=== PATIENT | female | born 1930 | race Two or more races ===

== ENCOUNTER 2016-09-23 17:28 | Inpatient (IN) | payer MEDICARE, OTHER ==
[~2016-09-23] VITALS: Ht 157.5 cm; Wt 68.0 kg
[~2016-09-23 17:28] MED LIST: ADALAT CC30 MG ORAL; ASPIR 8181 MG ORAL; BUSPAR10 MG PO; BYSTOLIC10 MG ORAL; CLONIDINE 0.2M0.2 MG PO; DEXILANT60 MG ORAL; FLONASE1 SPRAYS; LEVOTHYROXINE50 MCG ORAL; LYRICA50 MG ORAL; RESTASIS1 EACH BOTH EYES; SERTRALINE HCL50 MG PO
[2016-09-23 18:01] VITALS: BP 172/52
[2016-09-23] MEDS ORDERED: Morphine Sulfate 2mg/ml Inj IVP ONE (18:15)
[2016-09-23 19:32] LABS: MEAN CORPUSCULAR HEMOGLOBIN 29.1 PG (27.0-31.0); MEAN CORPUSCULAR VOLUME 91 FL (80-99); RED BLOOD COUNT 4.05 M/UL (4.20-5.40); WHITE BLOOD COUNT 10.5 K/UL (4.8-10.8)
[2016-09-23 19:33] LABS: MEAN PLATELET VOLUME 6.4 FL (6.5-10.1); PLATELET COUNT 279 K/UL (150-450); RED CELL DISTRIBUTION WIDTH 12.5 % (11.6-14.8)
[2016-09-23 19:55] LABS: TROPONIN I < 0.30 ng/mL (<=0.30)
[2016-09-23 19:56] LABS: CHLORIDE 99 mEQ/L (98-107); POTASSIUM 4.1 mEQ/L (3.4-4.9); SODIUM 141 mEQ/L (135-145)
[2016-09-23 19:57] LABS: ALANINE AMINOTRANSFERASE 108 U/L (3-33); ANION GAP 22 (5-15); ASPARTATE AMINO TRANSFERASE 283 U/L (5-40); CALCIUM 9.3 mg/dL (8.6-10.2); CARBON DIOXIDE 20 mEQ/L (20-30); CREATININE 2.4 mg/dL (0.5-0.9); TOTAL PROTEIN 7.9 g/dL (6.6-8.7)
[2016-09-23 19:58] LABS: ALBUMIN/GLOBULIN RATIO 0.9 (1.0-2.7); HEMOLYSIS 23
[2016-09-23 20:21] LABS: BILIRUBIN,DIRECT 1.1 mg/dL (0.1-0.3)
[2016-09-23 20:23] LABS: LIPASE 2831 U/L (< 60)
[2016-09-23 20:49] VITALS: BP 143/58
--- NOTE | 2016-09-23 21:48 | Emergency Room Report ---
History of Present Illness General Chief Complaint: Abdominal Pain Source: Patient Present Illness HPI 86 YOF with generalized abd pain, nausea/vomiting, dizziness. Denies diarrhea, fever/chills. History of HTN. She is unsure on previous abd/pelvic surgery. Allergies: Coded Allergies: No Known Allergies (Unverified , 12/23/12) Patient History Past Medical History: HTN Past Surgical History: unable to obtain Pertinent Family History: unable to obtain Social History: Reports: alcohol use, drug use, smoking Now: No Immunizations: UTD Reviewed Nursing Documentation: PMH: Agreed, PSxH: Agreed Nursing Documentation-PMH Hx Hypertension: Yes Review of Systems All Other Systems: negative except mentioned in HPI Physical Exam Vital Signs Date Time Temp Pulse Resp B/P Pulse Ox O2 Delivery O2 Flow Rate FiO2 09/23/16 17:51 99.9 82 17 172/52 94 Room Air Sp02 EP Interpretation: reviewed, abnormal General Appearance: normal inspection, well appearing, alert, GCS 15, non-toxic , mild distress, obese Head: normocephalic, atraumatic Eyes: bilateral eye EOMI, bilateral eye PERRL ENT: normal ENT inspection, hearing grossly normal, normal voice Neck: normal inspection, full range of motion, supple, no bony tend Respiratory: normal inspection, lungs clear, normal breath sounds, no respiratory distress, no retraction, no wheezing Cardiovascular #1: regular rate, rhythm, no edema Gastrointestinal: normal inspection, normal bowel sounds, soft, no guarding, no hernia, other - epigastric ttp Genitourinary: no CVA tenderness Musculoskeletal: normal inspection, back normal, normal range of motion, Cipriano' s Sign negative Neurologic: normal inspection, alert, oriented x3, responsive, switchboard manager III-XII nml as tested, motor strength/tone normal, speech normal Psychiatric: normal inspection Skin: normal inspection Lymphatic: normal inspection Medical Decision Making Medicare Attestation I Sonu Granado MD hereby attest that the medical record entry for date of service, 06/16/16 accurately reflects signatures/notations that I made in my capacity as MD when I treated/diagnosed the above listed Medicare beneficiary. I attest that this information is true, accurate and complete to the best of my knowledge. I understand that any falsification, omission, or concealment of material fact may subject me to administrative, civil, or criminal liability. This patient warrants hospital admission for extreme of age and has a condition that cannot be treated as outpatient. Diagnostic Impression: Primary Impression: Abdominal pain Qualified Codes: R10.84 - Generalized abdominal pain Additional Impressions: Common bile duct (CBD) obstruction Pancreatitis Qualified Codes: K85.90 - Acute pancreatitis without necrosis or infection, unspecified GI (acute kidney injury) ER Course Labs: Elevated LFTs. Very elevated lipase CTAP with CBD stone and focal head pancreatitis No fever/leuks No falguni-chol fluid orGB wall thickening. Unlikely assoc cholecystitis but empiric Abx also given Endorsed to Dr Fay for med/surg admission at 945pm Recommended GI consult for MRCP/ECRP EKG Diagnostic Results Rate: normal Rhythm: NSR ST Segments: no acute changes ASA given to the pt in ED: No Rhythm Strip Diag. Results EP Interpretation: yes Rate: 81 Rhythm: NSR, no PVC's, no ectopy Last Vital Signs Date Time Temp Pulse Resp B/P Pulse Ox O2 Delivery O2 Flow Rate FiO2 09/23/16 20:49 99.9 78 17 143/58 94 Room Air Status: improved Disposition: ADMITTED INPATIENT Referrals: ANNELISE FAY (PCP) SONU GRANADO M.D. Sep 23, 2016 21:48
[2016-09-23] MEDS ORDERED: Morphine Sulfate 4mg/ml Inj IVP ONE (22:15)
[2016-09-23 23:14] VITALS: BP 107/37
[2016-09-24] VITALS: BP 109/43
[2016-09-24 04:00] VITALS: BP 98/59
[2016-09-24] MEDS: cloNIDine 0.2mg Tab ORAL SCH ×3 (06:56→22:00)
[2016-09-24] MEDS: Morphine Sulfate 2mg/ml Inj IVP PRN ×2 (07:04→14:43)
[2016-09-24 08:39] LABS: LIPASE > 3000 U/L (< 60)
[2016-09-24 08:41] LABS: AMYLASE 2444 U/L (10-110)
[2016-09-24] MEDS ORDERED: BusPIRone 10mg Tab ORAL SCH (09:00)
[2016-09-24] MEDS ORDERED: Aspirin EC 81mg tab ORAL SCH (09:00)
[2016-09-24] MEDS: Sertraline 50mg tab ORAL SCH (09:54)
[2016-09-24] MEDS: Lyrica 50mg cap ORAL SCH (09:55)
[2016-09-24 11:32] VITALS: BP 112/55
--- NOTE | 2016-09-24 12:01 | Diagnostic Imaging Report ---
Indication: Abdominal pain Technique: Spiral acquisitions obtained through the abdomen and pelvis. No oral contrast utilized, per emergency room physician request No IV contrast utilized, per referring physician request.. Multiplanar reconstructions were generated. Total dose length product 114 mGycm. CTDIvol(s) 15 mGy Comparison: 06/28/2012 Findings: There is equivocal slight edema of the pancreas and slight infiltration of the peripancreatic fat. Prominent peripancreatic lymph nodes are again demonstrated. There is considerable distention of the gallbladder. The gallbladder wall is mildly thickened, although there is no pericholecystic edema. Gallstones are seen in the gallbladder lumen. The extrahepatic and central intrahepatic bile ducts are considerably dilated, with the common bile duct measuring approximately 13 mm diameter.. It is slightly more dilated than on the prior study, and the gallbladder is more distended. There is questionably a small calcific density at the level of the distal common bile duct. There is what appears to be a cystic mass of the posterior pancreatic uncinate. However, prior CT with oral contrast indicated this is a large unusual duodenal diverticulum. The appendix contains an appendicolith, but it is normal in caliber and demonstrates no evidence of appendicitis. There is colonic diverticulosis. No evidence of diverticulitis. No small bowel distention. The distal esophagus is gas filled, otherwise unremarkable. The stomach is unremarkable. Lack of IV contrast limits assessment of the other solid organs. Liver demonstrates multiple cysts, also previously demonstrated. The spleen is unremarkable. The adrenals are unremarkable. The kidneys again demonstrate multiple cysts. No mesenteric or retroperitoneal mass or adenopathy. No pelvic mass or adenopathy. The uterus is absent, presumably postsurgically. There are degenerative changes of the lumbar spine. There is extensive bilateral basilar pulmonary parenchymal disease. Presence of bronchiectasis indicates that there is probably a significant component of chronic fibrosis, but acute infiltrates and atelectasis are also a possibility. There is a tiny fat-containing Bochdalek hernia on the left. The heart is enlarged Impression: Distended gallbladder with stones. Dilated common bile duct. The biliary ductal dilatation may be chronic and baseline for this patient, as it was present previously, but the degree of dilatation has increased. In addition, there is a small calcific density now projected in the distal common bile duct which could represent a small common bile duct stone which may be causing the biliary ductal dilatation. Gallbladder wall thickening could indicate acute cholecystitis. Correlate with liver function tests, and consider hepatobiliary nuclear scan for further evaluation Mild infiltration of the peripancreatic fat, in particular the region of the pancreatic head. This could indicate acute pancreatitis. Orally with laboratory findings Bilateral basilar pulmonary parenchymal disease. Associated bronchiectasis suggests a significant component of chronic fibrosis, but acute infiltrates and atelectasis also a possibility. Unusual large duodenal diverticulum Diverticulosis. No evidence of diverticulitis Multiple bilateral renal cysts Cardiomegaly Other findings as noted, including degenerative lumbar spondylosis, tiny fat-containing left Bochdalek hernia, hepatic cysts, degenerative spondylosis This agrees with the preliminary interpretation provided overnight by Dr. Wiseman The CT scanner at [facility] is accredited by the [employer] and the scans are performed using protocols designed to limit radiation exposure to as low as reasonably achievable to attain images of sufficient resolution adequate for diagnostic evaluation.
--- NOTE | 2016-09-24 14:28 | History and Physical Report ---
DATE OF ADMISSION: 09/23/2016 REASON FOR ADMISSION: Gallstone pancreatitis. HISTORY OF PRESENT ILLNESS: This is an 86-year-old female well known to me, who presents with worsening abdominal pain, nausea and vomiting. The patient is seen and evaluated in the emergency room and was noted to have a common bile duct obstruction due to acute pancreatitis. The patient is now admitted for pain relief and possible further intervention. The patient still complains of abdominal discomfort. She denies any diarrhea. No fevers or chills. The patient has had nausea, vomiting and dizziness PAST MEDICAL HISTORY: Notable for chronic migraines, hypertension, chronic renal insufficiency, arthritis, cervical radiculopathy, hypothyroidism, and hypertensive heart disease. MEDICATIONS: Reviewed. ALLERGIES: Reviewed. SOCIAL HISTORY: Lives with her daughter. Nonsmoker and nondrinker. Still ambulatory. FAMILY HISTORY: Noncontributory. REVIEW OF SYSTEMS: Otherwise as noted above. PHYSICAL EXAMINATION: GENERAL: A well developed female, comfortable at present, but still having slight abdominal pain. VITAL SIGNS: Blood pressure 109/43, saturation 94% on two liters, pulse 80, respirations 20, and temperature 99.3 degrees. HEENT: Fairly negative. Extraocular movements are grossly intact. Oropharynx is moist. LUNGS: Clear. No rhonchi or wheezes. CARDIAC: RRR No murmurs. No rubs. ABDOMEN: Soft, but tender in the right upper quadrant with no hepatosplenomegaly. EXTREMITIES: No cyanosis or clubbing. No edema. NEUROLOGIC: Nonfocal. Alert and oriented x3. SKIN: Noted. LABORATORY AND DIAGNOSTIC DATA: Lab data reviewed. White count is 10, hemoglobin 11.8, hematocrit 36, and platelets are 279,000. Chemistry, BUN 30, creatinine 2.4. The liver enzymes are elevated, which is acute and has changed. Lipase is 2831. IMPRESSION: 1. Gallstone pancreatitis. 2. Obstructive hepatopathy. 3. Chronic renal failure. 4. Hypertension. 5. Abdominal pain. 6. Mild anemia. RECOMMENDATIONS: NPO status. Resume home medications. IV hydration. Pain control. GI evaluation. The patient may need an MRCP. We will follow clinically and recommend. Follow up amylase and lipase this morning and await for GI recommendations. Anjel Fay M.D. DR: Irvin JOB#: [id number] CC: JOSE
[2016-09-24 16:00] VITALS: BP 91/40
[2016-09-24 17:05] VITALS: BP 99/51
[2016-09-24 19:00] VITALS: BP 96/45
--- NOTE | 2016-09-24 19:44 | General Progress Note ---
Assessment/Plan Assessment/Plan GI Consult - dictated Toribio Subjective Allergies: Coded Allergies: No Known Allergies (Unverified , 12/23/12) Objective Last 24 Hour Vital Signs Date Time Temp Pulse Resp B/P Pulse Ox O2 Delivery O2 Flow Rate FiO2 09/24/16 17:05 99/51 09/24/16 16:00 97.3 67 20 91/40 84 Room Air 09/24/16 15:13 98.3 09/24/16 14:38 108/48 09/24/16 11:32 98.3 68 21 112/55 96 Nasal Cannula 2.0 09/24/16 09:55 70 119/55 09/24/16 06:56 98/59 09/24/16 04:00 98.6 72 20 98/59 96 Nasal Cannula 2.0 09/24/16 00:00 99.3 80 20 109/43 94 Nasal Cannula 2.0 09/23/16 23:41 99.3 09/23/16 23:20 80 16 107/37 100 Room Air 09/23/16 23:14 99.9 85 17 107/37 100 Nasal Cannula 2.0 09/23/16 20:49 99.9 78 17 143/58 94 Room Air Intake and Output 09/23/16 09/24/16 19:00 07:00 Intake Total 400 ml Balance 400 ml Intake Oral 300 ml IV Total 100 ml # Voids 2 Laboratory Tests 09/24/16 06:51: Amylase Level 2444*H, Lipase > 3000H Height (Feet): 5 Height (Inches): 2.00 Weight (Pounds): 150 HANS PIERSON Sep 24, 2016 19:44
[2016-09-24] MEDS ORDERED: NS 250 ML IVPB ONE (20:10)
[2016-09-24 20:41] LABS: MEAN CORPUSCULAR HEMOGLOBIN 28.5 PG (27.0-31.0); MEAN CORPUSCULAR HGB CONC 31.3 G/DL (32.0-36.0); MEAN CORPUSCULAR VOLUME 91 FL (80-99); MEAN PLATELET VOLUME 6.2 FL (6.5-10.1); PLATELET COUNT 199 K/UL (150-450); RED BLOOD COUNT 3.17 M/UL (4.20-5.40); WHITE BLOOD COUNT 12.7 K/UL (4.8-10.8)
[2016-09-24 20:45] LABS: INR 1.2 (0.9-1.1)
[2016-09-24 20:58] LABS: ALANINE AMINOTRANSFERASE 64 U/L (3-33); ALBUMIN/GLOBULIN RATIO 1.2 (1.0-2.7); ANION GAP 18 (5-15); ASPARTATE AMINO TRANSFERASE 93 U/L (5-40); CALCIUM 8.2 mg/dL (8.6-10.2); CARBON DIOXIDE 21 mEQ/L (20-30); CHLORIDE 97 mEQ/L (98-107); CREATININE 3.2 mg/dL (0.5-0.9); HEMOLYSIS 5; POTASSIUM 5.3 mEQ/L (3.4-4.9); SODIUM 136 mEQ/L (135-145); TOTAL PROTEIN 5.8 g/dL (6.6-8.7)
[2016-09-24 21:20] LABS: BILIRUBIN,DIRECT 1.6 mg/dL (0.1-0.3)
[2016-09-24 22:08] LABS: ANISOCYTOSIS 1+; BAND NEUTROPHILS % (MANUAL) 4 % (0-8); BASOPHILS % (MANUAL) 0 % (0-2); EOSINOPHILS % (MANUAL) 1 % (0-3); HYPOCHROMASIA 1+; LYMPHOCYTES % (MANUAL) 9 % (20-45); NEUTROPHILS % (MANUAL) 79 % (45-75); PLATELET ESTIMATE ADEQUATE; PLATELET MORPHOLOGY NORMAL; TOTAL CELLS COUNTED 100
[2016-09-25] VITALS (11 sets, daily range): BP systolic 96–131; BP diastolic 46–63
--- NOTE | 2016-09-25 03:38 | Consultation ---
DATE OF CONSULTATION: 09/24/2016 GASTROENTEROLOGY CONSULTATION CHIEF COMPLAINT: I was asked to see this patient by Dr. Anjel Fay for pancreatitis. HISTORY OF PRESENT ILLNESS: The patient is a pleasant 86-year-old woman who has had abdominal pain for the past two weeks associated with eating. Over the past two days, the patient had been vomiting and came to the emergency room, where she was found to have pancreatitis. Imaging studies of the CT scan showed a calcified density in distal common bile duct suspicious for choledocholithiasis. In addition, she had biliary ductal dilatation. Her liver tests are elevated and her creatinine kinase is markedly elevated. She will be kept NPO overnight with intravenous fluids. PAST MEDICAL HISTORY: History of chronic migraines, hypertension, chronic renal insufficiency, arthritis, cervical radiculopathy, hypothyroidism, and hypertension. MEDICATIONS: See chart list for details. ALLERGIES: None. FAMILY HISTORY: Noncontributory. SOCIAL HISTORY: The patient lives with her daughter. She does not smoke or drink alcohol. She is ambulatory. REVIEW OF SYSTEMS: Otherwise negative. PHYSICAL EXAMINATION: GENERAL: A pleasant woman, seen in her room with family at bedside. HEENT: Normocephalic and atraumatic. Sclerae are anicteric. Oropharynx is clear. NECK: Supple. CHEST: Clear to auscultation. CARDIOVASCULAR: Revealed a regular rate. ABDOMEN: Soft with some epigastric tenderness to palpation without guarding or rebound. EXTREMITIES: No edema. LABORATORY DATA: Noted. ASSESSMENT: This patient has acute gallstone pancreatitis with recurrence of gallstone in the distal common bile duct. The patient should be kept NPO with intravenous fluids. I have discussed the patient's case with Dr. Castillo, who will schedule the patient for an endoscopic retrograde cholangiopancreatography examination tomorrow. The procedure will likely involve sphincterotomy and stone extraction. Indications, risks, alternatives, and complications were explained to the family. In the meantime, the patient's intravenous fluids will be increased since her blood pressure appears to be borderline. Her aspirin will also be held. RECOMMENDATIONS: Per above discussion and per orders written in the chart. Thank you for asking me to participate in the care of this patient. Tracy Rooney M.D. DR: REFUGIO JOB#: [id number] CC:
[2016-09-25] MEDS: cloNIDine 0.2mg Tab ORAL SCH ×3 (06:00→22:00)
[2016-09-25 07:26] LABS: BASOPHILS % (AUTO) 0.6 % (0.0-2.0); EOSINOPHILS % (AUTO) 1.3 % (0.0-3.0); LYMPHOCYTES % (AUTO) 9.4 % (20.0-45.0); MEAN CORPUSCULAR HEMOGLOBIN 29.7 PG (27.0-31.0); MEAN CORPUSCULAR HGB CONC 32.4 G/DL (32.0-36.0); MEAN CORPUSCULAR VOLUME 92 FL (80-99); MEAN PLATELET VOLUME 6.8 FL (6.5-10.1); MONOCYTES % (AUTO) 5.1 % (1.0-10.0); NEUTROPHILS % (AUTO) 83.6 % (45.0-75.0); PLATELET COUNT 219 K/UL (150-450); RED BLOOD COUNT 3.11 M/UL (4.20-5.40); RED CELL DISTRIBUTION WIDTH 13.1 % (11.6-14.8); WHITE BLOOD COUNT 12.6 K/UL (4.8-10.8)
[2016-09-25 07:49] LABS: AMYLASE 435 U/L (10-110); LIPASE 229 U/L (< 60)
[2016-09-25 08:04] LABS: ALANINE AMINOTRANSFERASE 49 U/L (3-33); ALBUMIN/GLOBULIN RATIO 0.8 (1.0-2.7); ANION GAP 18 (5-15); ASPARTATE AMINO TRANSFERASE 63 U/L (5-40); CALCIUM 8.3 mg/dL (8.6-10.2); CARBON DIOXIDE 21 mEQ/L (20-30); CHLORIDE 101 mEQ/L (98-107); CREATININE 3.8 mg/dL (0.5-0.9); HEMOLYSIS 3; POTASSIUM 5.2 mEQ/L (3.4-4.9); SODIUM 140 mEQ/L (135-145); TOTAL PROTEIN 6.1 g/dL (6.6-8.7)
--- NOTE | 2016-09-25 08:29 | Anethesia Preoperative Eval ---
Anesthesia Pre-op PMH/ROS General Date of Evaluation: Sep 25, 2016 Anesthesiologist: Simeon ASA Score: ASA 3 Mallampati Score Class I : Soft palate, uvula, fauces, pillars visible Class II: Soft palate, uvula, fauces visible Class III: Soft palate, base of uvula visible Class IV: Only hard plate visible Mallampati Classification: Class II Surgeon: Jonathan Diagnosis: Pancreatitis Surgical Procedure: ERCP Anesthesia History: none Family History: no anesthesia problems Allergies: Coded Allergies: No Known Allergies (Unverified , 12/23/12) Medications: see eMAR Past Medical History Cardiovascular: Reports: CAD, HTN, Denies: IN, arrhythmia, other, valve dz Pulmonary: Denies: COPD, KATARINA, asthma, other Gastrointestinal/Genitourinary: Reports: CRI, other - pancreatitis, Denies: ESRD, GERD Neurologic/Psychiatric: Reports: other - migraines, Denies: CVA, TIA, dementia, depression/anxiety Endocrine: Reports: hypothyroidism, Denies: DM, other, steroids HEENT: Denies: [place] (L), [place] (R), cataract (L), cataract (R), glaucoma, other Hematology/Immune: Denies: DVT, anemia, bleeding disorder, other Musculoskeletal/Integumentary: Reports: OA, other - cervical radiculopathy, Denies: DDD, DJD, RA, edema Anesthesia Pre-op Phys. Exam Physician Exam Last Vital Signs Date Time Temp Pulse Resp B/P Pulse Ox O2 Delivery O2 Flow Rate FiO2 09/25/16 06:21 97.3 70 20 105/54 96 Room Air 09/25/16 00:00 2.0 Constitutional: NAD Cardiovascular: RRR Respiratory: CTA Airway Exam Mallampati Score: Class II Anesthesia Pre-op A/P Labs Hematology Test 09/24/16 20:05 09/25/16 05:50 White Blood Count 12.7 K/UL (4.8-10.8) H 12.6 K/UL (4.8-10.8) H Red Blood Count 3.17 M/UL (4.20-5.40) L 3.11 M/UL (4.20-5.40) L Hemoglobin 9.0 G/DL (12.0-16.0) L 9.2 G/DL (12.0-16.0) L Hematocrit 28.8 % (37.0-47.0) L 28.5 % (37.0-47.0) L Mean Corpuscular Volume 91 FL (80-99) 92 FL (80-99) Mean Corpuscular Hemoglobin 28.5 PG (27.0-31.0) 29.7 PG (27.0-31.0) Mean Corpuscular Hemoglobin Concent 31.3 G/DL (32.0-36.0) L 32.4 G/DL (32.0-36.0) Red Cell Distribution Width 13.0 % (11.6-14.8) 13.1 % (11.6-14.8) Platelet Count 199 K/UL (150-450) 219 K/UL (150-450) Mean Platelet Volume 6.2 FL (6.5-10.1) L 6.8 FL (6.5-10.1) Neutrophils (%) (Auto) % (45.0-75.0) 83.6 % (45.0-75.0) H Lymphocytes (%) (Auto) % (20.0-45.0) 9.4 % (20.0-45.0) L Monocytes (%) (Auto) % (1.0-10.0) 5.1 % (1.0-10.0) Eosinophils (%) (Auto) % (0.0-3.0) 1.3 % (0.0-3.0) Basophils (%) (Auto) % (0.0-2.0) 0.6 % (0.0-2.0) Differential Total Cells Counted 100 Neutrophils % (Manual) 79 % (45-75) H Lymphocytes % (Manual) 9 % (20-45) L Monocytes % (Manual) 7 % (1-10) Eosinophils % (Manual) 1 % (0-3) Basophils % (Manual) 0 % (0-2) Band Neutrophils 4 % (0-8) Platelet Estimate Adequate Platelet Morphology Normal Hypochromasia 1+ Anisocytosis 1+ Coagulation Test 09/24/16 20:05 Prothrombin Time 12.0 SEC (9.30-11.50) H Prothromb Time International Ratio 1.2 (0.9-1.1) H Activated Partial Thromboplast Time 32 SEC (23-33) Chemistry Test 09/24/16 20:05 09/25/16 05:50 Sodium Level 136 mEQ/L (135-145) 140 mEQ/L (135-145) Potassium Level 5.3 mEQ/L (3.4-4.9) H 5.2 mEQ/L (3.4-4.9) H Chloride Level 97 mEQ/L (98-107) L 101 mEQ/L (98-107) Carbon Dioxide Level 21 mEQ/L (20-30) 21 mEQ/L (20-30) Anion Gap 18 (5-15) H 18 (5-15) H Blood Urea Nitrogen 50 mg/dL (7-23) H 59 mg/dL (7-23) H Creatinine 3.2 mg/dL (0.5-0.9) H 3.8 mg/dL (0.5-0.9) H Estimat Glomerular Filtration Rate mL/min (>60) mL/min (>60) Glucose Level 86 mg/dL (74-106) 72 mg/dL (74-106) L Calcium Level 8.2 mg/dL (8.6-10.2) L 8.3 mg/dL (8.6-10.2) L Total Bilirubin 2.8 mg/dL (0.0-1.2) H 1.4 mg/dL (0.0-1.2) H Direct Bilirubin 1.6 mg/dL (0.1-0.3) H Pending Aspartate Amino Transf (AST/SGOT) 93 U/L (5-40) H 63 U/L (5-40) H Alanine Aminotransferase (ALT/SGPT) 64 U/L (3-33) H 49 U/L (3-33) H Alkaline Phosphatase 174 U/L (35-104) H 177 U/L (35-104) H Total Protein 5.8 g/dL (6.6-8.7) L 6.1 g/dL (6.6-8.7) L Albumin 3.2 g/dL (3.5-5.2) L 2.8 g/dL (3.5-5.2) L Globulin 2.6 g/dL 3.3 g/dL Albumin/Globulin Ratio 1.2 (1.0-2.7) 0.8 (1.0-2.7) L Amylase Level 435 U/L (10-110) H Lipase 229 U/L (< 60) H Studies Pre-op Studies: EKG - sr Risk Assessment & Plan Assessment: ASA III Plan: GA Status Change Before Surgery: Yes - Patient saturating at 85-86 % on arrival to Radiology suite. Pre-Antibiotics Drug: JULIANNA ESCALONA M.D. Sep 25, 2016 08:29
[2016-09-25 08:37] LABS: BILIRUBIN,DIRECT 0.9 mg/dL (0.1-0.3)
[2016-09-25] MEDS: Lyrica 50mg cap ORAL SCH (09:00)
[2016-09-25] MEDS: Sertraline 50mg tab ORAL SCH (09:00)
--- NOTE | 2016-09-25 09:21 | General Progress Note ---
Assessment/Plan Assessment/Plan IMPRESSION: 1. Gallstone pancreatitis. 2. Obstructive hepatopathy. 3. Chronic renal failure. 4. Hypertension. 5. Abdominal pain. 6. Mild anemia. PLAN hydrate NPO MRCP likely will need maris family aware maintain home meds no diuretics impression, plan, and exam edited and reviewed in detail care discussed with RN Subjective Allergies: Coded Allergies: No Known Allergies (Unverified , 12/23/12) Subjective pain better d/w GI d/w family Objective Last 24 Hour Vital Signs Date Time Temp Pulse Resp B/P Pulse Ox O2 Delivery O2 Flow Rate FiO2 09/25/16 06:21 97.3 70 20 105/54 96 Room Air 09/25/16 06:00 105/54 09/25/16 00:00 99.5 73 20 102/46 93 Nasal Cannula 2.0 09/24/16 19:00 98.4 72 20 96/45 92 Room Air 09/24/16 17:05 99/51 09/24/16 16:00 97.3 67 20 91/40 84 Room Air 09/24/16 15:13 98.3 09/24/16 14:38 108/48 09/24/16 11:32 98.3 68 21 112/55 96 Nasal Cannula 2.0 09/24/16 09:55 70 119/55 Intake and Output 09/24/16 09/25/16 19:00 07:00 Intake Total 800 ml 875 ml Output Total 0 ml Balance 800 ml 875 ml Intake Oral 0 ml IV Total 800 ml 875 ml Output Urine Total 0 ml # Voids 1 2 Laboratory Tests 09/24/16 20:05: White Blood Count 12.7H, Red Blood Count 3.17L, Hemoglobin 9.0L, Hematocrit 28.8L, Mean Corpuscular Volume 91, Mean Corpuscular Hemoglobin 28.5, Mean Corpuscular Hemoglobin Concent 31.3L, Red Cell Distribution Width 13.0, Platelet Count 199, Mean Platelet Volume 6.2L, Neutrophils (%) (Auto) , Lymphocytes (%) (Auto) , Monocytes (%) (Auto) , Eosinophils (%) (Auto) , Basophils (%) (Auto) , Differential Total Cells Counted 100, Neutrophils % ( Manual) 79H, Lymphocytes % (Manual) 9L, Monocytes % (Manual) 7, Eosinophils % ( Manual) 1, Basophils % (Manual) 0, Band Neutrophils 4, Platelet Estimate Adequate, Platelet Morphology Normal, Hypochromasia 1+, Anisocytosis 1+, Prothrombin Time 12.0H, Prothromb Time International Ratio 1.2H, Activated Partial Thromboplast Time 32, Sodium Level 136, Potassium Level 5.3H, Chloride Level 97L, Carbon Dioxide Level 21, Anion Gap 18H, Blood Urea Nitrogen 50H, Creatinine 3.2H, Estimat Glomerular Filtration Rate , Glucose Level 86, Calcium Level 8.2L, Total Bilirubin 2.8H, Direct Bilirubin 1.6H, Aspartate Amino Transf (AST/SGOT) 93H, Alanine Aminotransferase (ALT/SGPT) 64H, Alkaline Phosphatase 174H, Total Protein 5.8L, Albumin 3.2L, Globulin 2.6, Albumin/Globulin Ratio 1.2 09/25/16 05:50: White Blood Count 12.6H, Red Blood Count 3.11L, Hemoglobin 9.2L, Hematocrit 28.5L, Mean Corpuscular Volume 92, Mean Corpuscular Hemoglobin 29.7, Mean Corpuscular Hemoglobin Concent 32.4, Red Cell Distribution Width 13.1, Platelet Count 219, Mean Platelet Volume 6.8, Neutrophils (%) (Auto) 83.6H, Lymphocytes ( %) (Auto) 9.4L, Monocytes (%) (Auto) 5.1, Eosinophils (%) (Auto) 1.3, Basophils (%) (Auto) 0.6, Sodium Level 140, Potassium Level 5.2H, Chloride Level 101, Carbon Dioxide Level 21, Anion Gap 18H, Blood Urea Nitrogen 59H, Creatinine 3.8H , Estimat Glomerular Filtration Rate , Glucose Level 72L, Calcium Level 8.3L, Total Bilirubin 1.4H, Direct Bilirubin 0.9H, Aspartate Amino Transf (AST/SGOT) 63H, Alanine Aminotransferase (ALT/SGPT) 49H, Alkaline Phosphatase 177H, Total Protein 6.1L, Albumin 2.8L, Globulin 3.3, Albumin/Globulin Ratio 0.8L, Amylase Level 435H, Lipase 229H Height (Feet): 5 Height (Inches): 2.00 Weight (Pounds): 150 Objective GENERAL: A well developed female, comfortable at present, but still having slight abdominal pain. HEENT: Fairly negative. Extraocular movements are grossly intact. Oropharynx is moist. LUNGS: Clear. No rhonchi or wheezes. CARDIAC: RRR No murmurs. No rubs. ABDOMEN: Soft, but tender in the right upper quadrant with no hepatosplenomegaly. EXTREMITIES: No cyanosis or clubbing. No edema. NEUROLOGIC: Nonfocal. Alert and oriented x3. SKIN: Noted. ANNELISE RM Sep 25, 2016 09:21
[2016-09-25] MEDS ORDERED: Iothalamate Meglumine 60% 30ML INJ ONE (12:39)
[2016-09-25] MEDS ORDERED: Indomethacin 50mg Supp ONE (12:40)
[2016-09-25] MEDS: LR 1000ml 1,000 ML IVLG SCH ×2 (12:48→14:47)
--- NOTE | 2016-09-25 12:49 | Immediate Post-Op Evaluation ---
Immediate Post-Op Evalulation Immediate Post-Op Evalulation Procedure: ERCP Date of Evaluation: Sep 25, 2016 Time of Evaluation: 14:34 IV Fluids: 1L Blood Products: 0 Estimated Blood Loss: min Urinary Output: 0 Blood Pressure Systolic: 121 Blood Pressure Diastolic: 54 Pulse Rate: 79 Respiratory Rate: 16 O2 Sat by Pulse Oximetry: 95 Temperature (Fahrenheit): 98.2 Pain Score (1-10): 0 Nausea: No Vomiting: No Complications 0 Patient Status: awake, reacts, patent, none Hydration Status: adequate Drug: N/A JULIANNA CHACON M.D. Sep 25, 2016 12:49
[2016-09-25] MEDS ORDERED: Lidocaine 1% MPF 10mg/ml 5ml ONE (12:50)
[2016-09-25] MEDS ORDERED: fentaNYL 100 mcg/2 mL IV ONE (12:50)
[2016-09-25] MEDS ORDERED: LR 1000ml ONE (12:50)
[2016-09-25] MEDS ORDERED: Midazolam 2mg/2ml Inj ONE (12:50)
[2016-09-25] MEDS ORDERED: Propofol 10mg/ml 20ml IV ONE (12:50)
[2016-09-25] MEDS ORDERED: Dexamethasone 4mg/ml vial ONE (12:50)
--- NOTE | 2016-09-25 12:50 | 48 Hour Post Anesthesia Eval ---
Post Anesthesia Evaluation Procedure: ERCP Date of Evaluation: Sep 25, 2016 Time of Evaluation: 08:45 Blood Pressure Systolic: 128 0: 54 Pulse Rate: 56 Respiratory Rate: 18 Temperature (Fahrenheit): 97.3 O2 Sat by Pulse Oximetry: 95 Airway: patent Nausea: No Vomiting: No Pain Intensity: 0 Hydration Status: adequate Cardiopulmonary Status: at baseline Mental Status/LOC: patient returned to baseline Post-Anesthesia Complications: 0 Follow-up care needed: N/A - further care as per primary team JULIANNA CHACON M.D. Sep 25, 2016 12:50
[2016-09-25] MEDS ORDERED: Midazolam 2mg/2ml Inj IVP PRN (13:00)
[2016-09-25] MEDS ORDERED: DiphenhydrAMINE 50mg/ml Inj IVP PRN (13:00)
[2016-09-25] MEDS ORDERED: fentaNYL 100 mcg/2 mL IV PRN (13:00)
[2016-09-25] MEDS ORDERED: Hydromorphone 0.5mg/0.5ml inj IVP PRN (13:00)
--- NOTE | 2016-09-25 13:01 | Pre-Procedure Note/Attestation ---
Pre-Procedure Note/Attestation Complete Prior to Procedure Planned Procedure: not applicable Procedure Narrative: ercp Indications for Procedure Pre-Operative Diagnosis: choledocholithiasis Attestation I attest that I discussed the nature of the procedure; its benefits; risks and complications; and alternatives (and the risks and benefits of such alternatives ), prior to the procedure, with the patient (or the patient's legal sales service representative). I attest that, if there was a reasonable possibility of needing a blood transfusion, the patient (or the patient's legal sales service representative) was given the [facility] standardized written summary, pursuant to the [place] Blood Safety Act ([place] Health and Safety Code # 1645, as amended). I attest that I re-evaluated the patient just prior to the surgery and that there has been no change in the patient's H&P, except as documented below: DARYL LINDSEY Sep 25, 2016 13:01
[2016-09-25] MEDS ORDERED: NS 550ML IV ONE (13:12)
[2016-09-25] MEDS ORDERED: Tubing IV Cassette IV ONE (13:12)
--- NOTE | 2016-09-25 15:12 | Endoscopy Procedure Note ---
Endoscopy Procedure Note Indication for Procedure: choledocholithiasis Procedures Performed: ERCP Operative Findings/Diagnosis: same Specimen: none Pt Tolerated Procedure Well: Yes Estimated Blood Loss: none Anesthesiologist: arely Anesthesia: MAC Implant(s) used?: No 50 yrs or older w/o bx or poly: Not Applicable 10yrs. F/U not recommended: Not Applicable DARYL LINDSEY Sep 25, 2016 15:12
--- NOTE | 2016-09-25 15:20 | Diagnostic Imaging Report ---
Indication: Dilated bile ducts, suspected choledocholithiasis on prior imaging studies Technique: Intraoperative imaging Comparison: Reference made to CT scan 09/23/2016 Findings: Opacification of the, and bile duct demonstrates dilatation of the common bile duct. Subsequent images document placement of a stone extraction catheter and a sphincterotome. Subsequent images document pneumobilia Impression: Intraoperative imaging, as described
--- NOTE | 2016-09-25 15:32 | Cardiology Report ---
APPROVED REPORT EKG Measurement Heart [id number] SD [id number] [id number] Normal sinus rhythm Normal ECG
--- NOTE | 2016-09-25 22:08 | Procedure Note ---
DATE OF PROCEDURE: 09/25/2016 SURGEON: Casimiro Castillo M.D. PROCEDURE: Endoscopic retrograde cholangiopancreatography with sphincterotomy and stone removal. ANESTHESIA: Per Dr. Skye Hendrix. INSTRUMENT: Olympus adult flexible ERCP scope. INDICATION: Choledocholithiasis. REASON FOR PROCEDURE: The procedure, risks, benefits, and possible consequences, including hemorrhage, aspiration, perforation and infection, and alternative treatments, were explained to the patient/legal guardian by Dr. Casimiro Castillo and the patient/legal guardian understood and accepted these risks. DESCRIPTION OF PROCEDURE: After informed consent was obtained and the patient was adequately sedated, ERCP scope was advanced from mouth into the second portion of the duodenum. The patient had a periampullary diverticulum. Using a sphincterotome, common bile duct was selectively cannulated. Initial cholangiogram showed dilated common bile duct to about 12 mm with at least two filling defect in the distal common bile duct. Then, over a guidewire, 95% sphincterotomy was performed. A balloon was used to sweep the duct multiple times to remove two stones and also lots of sludge from common bile duct. Post stone removal, balloon occlusion cholangiogram showed no further filling defect. The flow of contrast was excellent from common bile duct to the duodenum so no stent was placed. The patient tolerated the procedure very well without complication. SUMMARY FINDINGS: 1. Choledocholithiasis. 2. Status post endoscopic retrograde cholangiopancreatography with sphincterotomy and stone removal. RECOMMENDATIONS: 1. Start liquid diet and advance as tolerated. 2. Repeat laboratories for tomorrow. 3. Followup with the rest of the team. 4. Antibiotics. I want to thank, Dr. Rooney, for this kind referral. Casimiro Castillo M.D. DR: ARIANNE JOB#: [id number] CC: Tracy Rooney M.D.; Fax#: [phone] [facility]
[2016-09-26] VITALS: BP 132/60
[2016-09-26 04:00] VITALS: BP 129/63
[2016-09-26] MEDS: cloNIDine 0.2mg Tab ORAL SCH ×3 (06:00→21:58)
[2016-09-26 07:39] LABS: MEAN CORPUSCULAR HEMOGLOBIN 29.6 PG (27.0-31.0); MEAN CORPUSCULAR HGB CONC 31.7 G/DL (32.0-36.0); MEAN CORPUSCULAR VOLUME 93 FL (80-99); MEAN PLATELET VOLUME 7.2 FL (6.5-10.1); PLATELET COUNT 192 K/UL (150-450); RED BLOOD COUNT 2.94 M/UL (4.20-5.40); RED CELL DISTRIBUTION WIDTH 12.8 % (11.6-14.8); WHITE BLOOD COUNT 11.2 K/UL (4.8-10.8)
[2016-09-26 07:49] LABS: ALANINE AMINOTRANSFERASE 31 U/L (3-33); ALBUMIN/GLOBULIN RATIO 0.8 (1.0-2.7); ANION GAP 20 (5-15); ASPARTATE AMINO TRANSFERASE 24 U/L (5-40); CARBON DIOXIDE 16 mEQ/L (20-30); CHLORIDE 101 mEQ/L (98-107); CREATININE 3.1 mg/dL (0.5-0.9); HEMOLYSIS 3; POTASSIUM 5.2 mEQ/L (3.4-4.9); SODIUM 137 mEQ/L (135-145)
[2016-09-26 07:50] LABS: AMYLASE 66 U/L (10-110); LIPASE 28 U/L (< 60)
[2016-09-26 07:52] VITALS: BP 128/54
[2016-09-26] MEDS: Sertraline 50mg tab ORAL SCH (08:37)
[2016-09-26] MEDS: Lyrica 50mg cap ORAL SCH (08:37)
[2016-09-26] MEDS ORDERED: Sodium Polystyrene Sulfonate 15gm Powder ORAL ONE (09:00)
[2016-09-26 11:07] LABS: BAND NEUTROPHILS % (MANUAL) 0 % (0-8); BASOPHILS % (MANUAL) 0 % (0-2); EOSINOPHILS % (MANUAL) 0 % (0-3); HYPOCHROMASIA 1+; LYMPHOCYTES % (MANUAL) 7 % (20-45); NEUTROPHILS % (MANUAL) 93 % (45-75); PLATELET ESTIMATE ADEQUATE; PLATELET MORPHOLOGY NORMAL; TOTAL CELLS COUNTED 100
--- NOTE | 2016-09-26 11:55 | General Progress Note ---
Assessment/Plan Assessment/Plan IMPRESSION: 1. Gallstone pancreatitis. 2. Obstructive hepatopathy. 3. Chronic renal failure. 4. Hypertension. 5. Abdominal pain. 6. Mild anemia. 7. s/p ERCP PLAN hydration NPO to clears advance as tolerated likely will need maris family aware maintain home meds no diuretics monitor renal function closely impression, plan, and exam edited and reviewed in detail care discussed with RN Subjective Allergies: Coded Allergies: No Known Allergies (Unverified , 12/23/12) Subjective pain better TAKING PO underwent ERCP Objective Last 24 Hour Vital Signs Date Time Temp Pulse Resp B/P Pulse Ox O2 Delivery O2 Flow Rate FiO2 09/26/16 09:03 56 18 95 09/26/16 08:36 56 128/54 09/26/16 07:52 97.3 56 18 128/54 95 Room Air 09/26/16 06:00 129/63 09/26/16 04:00 97.2 57 18 129/63 94 Nasal Cannula 2.0 09/26/16 00:00 97.5 60 18 132/60 100 Nasal Cannula 3.0 09/25/16 22:00 129/60 09/25/16 20:00 97.7 66 19 131/59 93 Nasal Cannula 3.0 09/25/16 16:00 97.9 70 18 96/52 96 Nasal Cannula 3.0 09/25/16 14:59 98.2 74 18 129/58 93 Simple Mask 8.0 09/25/16 14:50 74 18 121/54 95 Simple Mask 10.0 09/25/16 14:40 76 18 125/63 95 Simple Mask 10.0 09/25/16 14:35 77 18 119/54 95 Simple Mask 10.0 09/25/16 14:35 79 16 95 09/25/16 14:29 98.2 80 18 121/57 95 Simple Mask 10.0 09/25/16 12:44 98.2 76 18 130/58 94 Room Air Intake and Output 09/25/16 09/26/16 19:00 07:00 Intake Total 1425 ml 485 ml Balance 1425 ml 485 ml Intake Oral 360 ml IV Total 1425 ml 125 ml # Voids 1 1 Laboratory Tests 09/26/16 05:55: White Blood Count 11.2H, Red Blood Count 2.94L, Hemoglobin 8.7L, Hematocrit 27.5L, Mean Corpuscular Volume 93, Mean Corpuscular Hemoglobin 29.6, Mean Corpuscular Hemoglobin Concent 31.7L, Red Cell Distribution Width 12.8, Platelet Count 192, Mean Platelet Volume 7.2, Neutrophils (%) (Auto) , Lymphocytes (%) (Auto) , Monocytes (%) (Auto) , Eosinophils (%) (Auto) , Basophils (%) (Auto) , Differential Total Cells Counted 100, Neutrophils % ( Manual) 93H, Lymphocytes % (Manual) 7L, Monocytes % (Manual) 0L, Eosinophils % ( Manual) 0, Basophils % (Manual) 0, Band Neutrophils 0, Platelet Estimate Adequate, Platelet Morphology Normal, Hypochromasia 1+, Sodium Level 137, Potassium Level 5.2H, Chloride Level 101, Carbon Dioxide Level 16L, Anion Gap 20H, Blood Urea Nitrogen 61H, Creatinine 3.1H, Estimat Glomerular Filtration Rate , Glucose Level 133H, Calcium Level 8.0L, Total Bilirubin 0.6, Aspartate Amino Transf (AST/SGOT) 24, Alanine Aminotransferase (ALT/SGPT) 31, Alkaline Phosphatase 154H, Total Protein 6.0L, Albumin 2.7L, Globulin 3.3, Albumin/ Globulin Ratio 0.8L, Amylase Level 66, Lipase 28 Height (Feet): 5 Height (Inches): 2.00 Weight (Pounds): 150 Objective GENERAL: A well developed female, comfortable at present, but still having slight abdominal pain. with po intake HEENT: Fairly negative. Extraocular movements are grossly intact. Oropharynx is moist. LUNGS: Clear. No rhonchi or wheezes. CARDIAC: RRR No murmurs. No rubs. ABDOMEN: Soft, REDUCED tenderness with no hepatosplenomegaly. EXTREMITIES: No cyanosis or clubbing. No edema. NEUROLOGIC: Nonfocal. Alert and oriented x3. SKIN: Noted. ANNELISE RM Sep 26, 2016 11:55
[2016-09-26 12:39] VITALS: BP 113/54
--- NOTE | 2016-09-26 15:05 | General Progress Note ---
Assessment/Plan Assessment/Plan Assessment - choledocholithiasis - gallstone pancreatitis - s/p ERCP and stone extraction Recommendations - low fat diet - agree with surgical consult for lap maris Subjective Allergies: Coded Allergies: No Known Allergies (Unverified , 12/23/12) Subjective Hungry no abd pain s/p ERCP yesterday Objective Last 24 Hour Vital Signs Date Time Temp Pulse Resp B/P Pulse Ox O2 Delivery O2 Flow Rate FiO2 09/26/16 13:40 113/54 09/26/16 12:39 97.7 58 18 113/54 94 Nasal Cannula 2.0 09/26/16 09:03 56 18 95 09/26/16 08:36 56 128/54 09/26/16 07:52 97.3 56 18 128/54 95 Room Air 09/26/16 06:00 129/63 09/26/16 04:00 97.2 57 18 129/63 94 Nasal Cannula 2.0 09/26/16 00:00 97.5 60 18 132/60 100 Nasal Cannula 3.0 09/25/16 22:00 129/60 09/25/16 20:00 97.7 66 19 131/59 93 Nasal Cannula 3.0 09/25/16 16:00 97.9 70 18 96/52 96 Nasal Cannula 3.0 Intake and Output 09/25/16 09/26/16 19:00 07:00 Intake Total 1425 ml 610 ml Balance 1425 ml 610 ml Intake Oral 360 ml IV Total 1425 ml 250 ml # Voids 1 1 Laboratory Tests 09/26/16 05:55: White Blood Count 11.2H, Red Blood Count 2.94L, Hemoglobin 8.7L, Hematocrit 27.5L, Mean Corpuscular Volume 93, Mean Corpuscular Hemoglobin 29.6, Mean Corpuscular Hemoglobin Concent 31.7L, Red Cell Distribution Width 12.8, Platelet Count 192, Mean Platelet Volume 7.2, Neutrophils (%) (Auto) , Lymphocytes (%) (Auto) , Monocytes (%) (Auto) , Eosinophils (%) (Auto) , Basophils (%) (Auto) , Differential Total Cells Counted 100, Neutrophils % ( Manual) 93H, Lymphocytes % (Manual) 7L, Monocytes % (Manual) 0L, Eosinophils % ( Manual) 0, Basophils % (Manual) 0, Band Neutrophils 0, Platelet Estimate Adequate, Platelet Morphology Normal, Hypochromasia 1+, Sodium Level 137, Potassium Level 5.2H, Chloride Level 101, Carbon Dioxide Level 16L, Anion Gap 20H, Blood Urea Nitrogen 61H, Creatinine 3.1H, Estimat Glomerular Filtration Rate , Glucose Level 133H, Calcium Level 8.0L, Total Bilirubin 0.6, Aspartate Amino Transf (AST/SGOT) 24, Alanine Aminotransferase (ALT/SGPT) 31, Alkaline Phosphatase 154H, Total Protein 6.0L, Albumin 2.7L, Globulin 3.3, Albumin/ Globulin Ratio 0.8L, Amylase Level 66, Lipase 28 Height (Feet): 5 Height (Inches): 2.00 Weight (Pounds): 150 Objective WDWN NCAT Supple CTA RRR non tender no edema non focal HANS PIERSON Sep 26, 2016 15:05
[2016-09-26 16:00] VITALS: BP 116/58
[2016-09-26 20:00] VITALS: BP 124/57
[2016-09-26] MEDS: Morphine Sulfate 2mg/ml Inj IVP PRN (21:23)
[2016-09-27] VITALS (7 sets, daily range): BP systolic 110–142; BP diastolic 51–80
[2016-09-27] MEDS: cloNIDine 0.2mg Tab ORAL SCH ×3 (05:45→22:32)
[2016-09-27] MEDS: Lyrica 50mg cap ORAL SCH (08:04)
[2016-09-27] MEDS: Sertraline 50mg tab ORAL SCH (08:06)
[2016-09-27 08:13] LABS: MEAN CORPUSCULAR HEMOGLOBIN 29.8 PG (27.0-31.0); MEAN CORPUSCULAR HGB CONC 32.5 G/DL (32.0-36.0); MEAN CORPUSCULAR VOLUME 92 FL (80-99); PLATELET COUNT 241 K/UL (150-450); RED BLOOD COUNT 3.33 M/UL (4.20-5.40); RED CELL DISTRIBUTION WIDTH 12.9 % (11.6-14.8); WHITE BLOOD COUNT 11.1 K/UL (4.8-10.8)
[2016-09-27 08:54] LABS: ALANINE AMINOTRANSFERASE 22 U/L (3-33); ALBUMIN/GLOBULIN RATIO 0.7 (1.0-2.7); ANION GAP 18 (5-15); ASPARTATE AMINO TRANSFERASE 13 U/L (5-40); CALCIUM 8.1 mg/dL (8.6-10.2); CARBON DIOXIDE 17 mEQ/L (20-30); CHLORIDE 105 mEQ/L (98-107); CREATININE 2.6 mg/dL (0.5-0.9); HEMOLYSIS 4; POTASSIUM 4.5 mEQ/L (3.4-4.9); SODIUM 140 mEQ/L (135-145); TOTAL PROTEIN 6.2 g/dL (6.6-8.7)
--- NOTE | 2016-09-27 09:23 | General Progress Note ---
Assessment/Plan Problem List: (1) Common bile duct (CBD) obstruction ICD Codes: K83.1 - Obstruction of bile duct SNOMED: 44367144 (2) Abdominal pain of unknown etiology ICD Codes: R10.9 - Unspecified abdominal pain SNOMED: 568454610 (3) Pancreatitis ICD Codes: K85.90 - Acute pancreatitis without necrosis or infection, unspecified SNOMED: 43217840 Qualifiers: Qualified Codes: K85.90 - Acute pancreatitis without necrosis or infection, unspecified Assessment/Plan s/p ERCP improving labs pend surgical consult fu labs Subjective Allergies: Coded Allergies: No Known Allergies (Unverified , 12/23/12) Subjective no event Objective Last 24 Hour Vital Signs Date Time Temp Pulse Resp B/P Pulse Ox O2 Delivery O2 Flow Rate FiO2 09/27/16 08:05 66 133/57 09/27/16 08:00 97.5 66 21 133/57 94 Room Air 09/27/16 05:45 145/51 09/27/16 04:00 98.6 65 21 142/51 91 Nasal Cannula 09/27/16 00:00 97.7 60 19 110/55 91 Nasal Cannula 09/26/16 21:58 124/57 09/26/16 20:00 97.2 63 19 124/57 82 Nasal Cannula 3.0 09/26/16 16:00 96.4 61 17 116/58 90 Nasal Cannula 1.0 09/26/16 13:40 113/54 09/26/16 12:39 97.7 58 18 113/54 94 Nasal Cannula 2.0 Intake and Output 09/26/16 09/27/16 19:00 07:00 Intake Total 1230 ml 240 ml Output Total 1 ml Balance 1230 ml 239 ml Intake Oral 480 ml 240 ml IV Total 750 ml Output Urine Total 1 ml # Voids 2 1 Laboratory Tests 09/27/16 07:35: White Blood Count 11.1H, Red Blood Count 3.33L, Hemoglobin 9.9L, Hematocrit 30.6L, Mean Corpuscular Volume 92, Mean Corpuscular Hemoglobin 29.8, Mean Corpuscular Hemoglobin Concent 32.5, Red Cell Distribution Width 12.9, Platelet Count 241, Mean Platelet Volume 7.0, Neutrophils (%) (Auto) , Lymphocytes (%) ( Auto) , Monocytes (%) (Auto) , Eosinophils (%) (Auto) , Basophils (%) (Auto) , Neutrophils % (Manual) [Pending], Lymphocytes % (Manual) [Pending], Platelet Estimate [Pending], Platelet Morphology [Pending], Sodium Level 140, Potassium Level 4.5, Chloride Level 105, Carbon Dioxide Level 17L, Anion Gap 18H, Blood Urea Nitrogen 54H, Creatinine 2.6H, Estimat Glomerular Filtration Rate , Glucose Level [Pending], Calcium Level 8.1L, Total Bilirubin 0.5, Aspartate Amino Transf (AST/SGOT) 13, Alanine Aminotransferase (ALT/SGPT) 22, Alkaline Phosphatase 176H, Total Protein 6.2L, Albumin 2.7L, Globulin 3.5, Albumin/ Globulin Ratio 0.7L Height (Feet): 5 Height (Inches): 2.00 Weight (Pounds): 150 General Appearance: alert EENT: normal ENT inspection Neck: supple Cardiovascular: normal rate Respiratory/Chest: decreased breath sounds Abdomen: normal bowel sounds, non tender, soft Extremities: non-tender DARYL LINDSEY Sep 27, 2016 09:23
--- NOTE | 2016-09-27 09:28 | General Progress Note ---
Assessment/Plan Assessment/Plan IMPRESSION: 1. Gallstone pancreatitis. 2. Obstructive hepatopathy. 3. Chronic renal failure. 4. Hypertension. 5. Abdominal pain. 6. Mild anemia. 7. s/p ERCP PLAN hydration dc tolerating diet advance as tolerated will need maris as outpatient family aware maintain home meds no diuretics monitor renal function closely after discharge impression, plan, and exam edited and reviewed in detail care discussed with RN Subjective Allergies: Coded Allergies: No Known Allergies (Unverified , 12/23/12) Subjective pain better TAKING PO underwent ERCP and stable d/w GI and ok to dc home Objective Last 24 Hour Vital Signs Date Time Temp Pulse Resp B/P Pulse Ox O2 Delivery O2 Flow Rate FiO2 09/27/16 08:05 66 133/57 09/27/16 08:00 97.5 66 21 133/57 94 Room Air 09/27/16 05:45 145/51 09/27/16 04:00 98.6 65 21 142/51 91 Nasal Cannula 09/27/16 00:00 97.7 60 19 110/55 91 Nasal Cannula 09/26/16 21:58 124/57 09/26/16 20:00 97.2 63 19 124/57 82 Nasal Cannula 3.0 09/26/16 16:00 96.4 61 17 116/58 90 Nasal Cannula 1.0 09/26/16 13:40 113/54 09/26/16 12:39 97.7 58 18 113/54 94 Nasal Cannula 2.0 Intake and Output 09/26/16 09/27/16 19:00 07:00 Intake Total 1230 ml 240 ml Output Total 1 ml Balance 1230 ml 239 ml Intake Oral 480 ml 240 ml IV Total 750 ml Output Urine Total 1 ml # Voids 2 1 Laboratory Tests 09/27/16 07:35: White Blood Count 11.1H, Red Blood Count 3.33L, Hemoglobin 9.9L, Hematocrit 30.6L, Mean Corpuscular Volume 92, Mean Corpuscular Hemoglobin 29.8, Mean Corpuscular Hemoglobin Concent 32.5, Red Cell Distribution Width 12.9, Platelet Count 241, Mean Platelet Volume 7.0, Neutrophils (%) (Auto) , Lymphocytes (%) ( Auto) , Monocytes (%) (Auto) , Eosinophils (%) (Auto) , Basophils (%) (Auto) , Neutrophils % (Manual) [Pending], Lymphocytes % (Manual) [Pending], Platelet Estimate [Pending], Platelet Morphology [Pending], Sodium Level 140, Potassium Level 4.5, Chloride Level 105, Carbon Dioxide Level 17L, Anion Gap 18H, Blood Urea Nitrogen 54H, Creatinine 2.6H, Estimat Glomerular Filtration Rate , Glucose Level [Pending], Calcium Level 8.1L, Total Bilirubin 0.5, Aspartate Amino Transf (AST/SGOT) 13, Alanine Aminotransferase (ALT/SGPT) 22, Alkaline Phosphatase 176H, Total Protein 6.2L, Albumin 2.7L, Globulin 3.5, Albumin/ Globulin Ratio 0.7L Height (Feet): 5 Height (Inches): 2.00 Weight (Pounds): 150 Objective GENERAL: A well developed female, comfortable at present, but still having slight abdominal pain. with po intake HEENT: Fairly negative. Extraocular movements are grossly intact. Oropharynx is moist. LUNGS: Clear. No rhonchi or wheezes. CARDIAC: RRR No murmurs. No rubs. ABDOMEN: Soft, REDUCED tenderness with no hepatosplenomegaly. EXTREMITIES: No cyanosis or clubbing. No edema. NEUROLOGIC: Nonfocal. Alert and oriented x3. SKIN: Noted. ANNELISE RM Sep 27, 2016 09:28
[2016-09-27 10:54] LABS: BAND NEUTROPHILS % (MANUAL) 3 % (0-8); EOSINOPHILS % (MANUAL) 3 % (0-3); LYMPHOCYTES % (MANUAL) 13 % (20-45); NEUTROPHILS % (MANUAL) 79 % (45-75); TOTAL CELLS COUNTED 100
[2016-09-27 10:55] LABS: BASOPHILS % (MANUAL) 0 % (0-2); PLATELET ESTIMATE ADEQUATE; PLATELET MORPHOLOGY NORMAL
--- NOTE | 2016-09-27 12:28 | Diagnostic Imaging Report ---
Indication: Dyspnea Comparison: None A single view chest radiograph was obtained. Findings: Cardiomegaly is present. There is basilar atelectasis. Bones are osteopenic. Aorta is ectatic and calcified. Impression: Basilar atelectasis. Cardiomegaly
[2016-09-27] MEDS ORDERED: Albuterol ud Inhalation HHN PRN (18:30)
[2016-09-27 18:59] LABS: ABG ALLEN TEST POSITIVE; ABG BASE EXCESS -8.1; ABG PCO2 35.7 mmHg (35.0-45.0)
[2016-09-27 19:22] LABS: BASOPHILS % (AUTO) 1.1 % (0.0-2.0); EOSINOPHILS % (AUTO) 0.7 % (0.0-3.0); MEAN CORPUSCULAR HEMOGLOBIN 28.9 PG (27.0-31.0); MEAN CORPUSCULAR HGB CONC 31.2 G/DL (32.0-36.0); MEAN CORPUSCULAR VOLUME 93 FL (80-99); MEAN PLATELET VOLUME 6.6 FL (6.5-10.1); MONOCYTES % (AUTO) 7.4 % (1.0-10.0); NEUTROPHILS % (AUTO) 81.8 % (45.0-75.0); PLATELET COUNT 218 K/UL (150-450); RED BLOOD COUNT 3.15 M/UL (4.20-5.40); RED CELL DISTRIBUTION WIDTH 12.8 % (11.6-14.8); WHITE BLOOD COUNT 9.9 K/UL (4.8-10.8)
[2016-09-27] MEDS ORDERED: Piperacillin/Tazobactam 3.375 GM in D5W 110 ML IVPB SCH (20:00)
[2016-09-27] MEDS: Albuterol ud Inhalation HHN SCH ×2 (21:05→23:08)
[2016-09-28 00:51] VITALS: BP 137/62
[2016-09-28] MEDS: Albuterol ud Inhalation HHN SCH ×6 (02:36→23:27)
[2016-09-28 04:00] VITALS: BP 118/53
[2016-09-28] MEDS ORDERED: Morphine Sulfate 2mg/ml Inj IVP PRN (05:00)
[2016-09-28] MEDS: cloNIDine 0.2mg Tab ORAL SCH ×3 (06:18→21:38)
[2016-09-28] MEDS ORDERED: Albuterol ud Inhalation HHN PRN (06:30)
[2016-09-28 07:59] LABS: BASOPHILS % (AUTO) 1.5 % (0.0-2.0); EOSINOPHILS % (AUTO) 1.3 % (0.0-3.0); LYMPHOCYTES % (AUTO) 11.2 % (20.0-45.0); MEAN CORPUSCULAR HEMOGLOBIN 29.4 PG (27.0-31.0); MEAN CORPUSCULAR HGB CONC 32.3 G/DL (32.0-36.0); MEAN CORPUSCULAR VOLUME 91 FL (80-99); MEAN PLATELET VOLUME 7.3 FL (6.5-10.1); MONOCYTES % (AUTO) 7.7 % (1.0-10.0); NEUTROPHILS % (AUTO) 78.4 % (45.0-75.0); PLATELET COUNT 168 K/UL (150-450); RED BLOOD COUNT 2.97 M/UL (4.20-5.40); RED CELL DISTRIBUTION WIDTH 12.8 % (11.6-14.8); WHITE BLOOD COUNT 9.1 K/UL (4.8-10.8)
[2016-09-28 08:15] LABS: ALANINE AMINOTRANSFERASE 14 U/L (3-33); ALBUMIN/GLOBULIN RATIO 0.8 (1.0-2.7); ANION GAP 16 (5-15); ASPARTATE AMINO TRANSFERASE 10 U/L (5-40); CALCIUM 7.7 mg/dL (8.6-10.2); CARBON DIOXIDE 17 mEQ/L (20-30); CHLORIDE 107 mEQ/L (98-107); CREATININE 2.3 mg/dL (0.5-0.9); HEMOLYSIS 12; POTASSIUM 4.1 mEQ/L (3.4-4.9); SODIUM 140 mEQ/L (135-145); TOTAL PROTEIN 5.4 g/dL (6.6-8.7)
[2016-09-28 08:27] VITALS: BP 124/43
--- NOTE | 2016-09-28 08:44 | General Progress Note ---
Assessment/Plan Assessment/Plan IMPRESSION: 1. Gallstone pancreatitis. 2. Obstructive hepatopathy. 3. Chronic renal failure. 4. Hypertension. 5. Abdominal pain. 6. Mild anemia. 7. s/p ERCP PLAN head CT normal ABG to repeat today follow up labs IV antibiotics empiric neuro evaluation d/w daughter in detail impression, plan, and exam edited and reviewed in detail care discussed with RN Subjective Allergies: Coded Allergies: No Known Allergies (Unverified , 12/23/12) Subjective was altered and weak Objective Last 24 Hour Vital Signs Date Time Temp Pulse Resp B/P Pulse Ox O2 Delivery O2 Flow Rate FiO2 09/28/16 08:27 98.1 69 18 124/43 98 Room Air 09/28/16 07:11 Nasal Cannula 09/28/16 07:11 68 16 94 Nasal Cannula 3.0 09/28/16 06:18 134/64 09/28/16 04:00 71 09/28/16 04:00 97.7 73 20 118/53 96 Room Air 09/28/16 03:00 73 09/28/16 02:42 69 16 96 Nasal Cannula 3.0 09/28/16 02:37 64 16 94 Nasal Cannula 3.0 09/28/16 00:51 98.4 70 20 137/62 97 Nasal Cannula 09/27/16 23:13 71 16 95 Nasal Cannula 3.0 09/27/16 23:09 73 16 92 Nasal Cannula 3.0 09/27/16 22:32 137/55 09/27/16 22:00 98.4 80 17 134/58 92 Nasal Cannula 2.0 09/27/16 20:00 98.4 80 17 134/58 Nasal Cannula 2.0 09/27/16 16:00 100.0 74 18 137/55 92 Nasal Cannula 2.0 09/27/16 12:58 138/80 09/27/16 12:00 97.9 74 20 138/80 92 Nasal Cannula 3.0 Intake and Output 09/27/16 09/28/16 19:00 07:00 Intake Total 2090 ml 817.5 ml Balance 2090 ml 817.5 ml Intake Oral 840 ml 360 ml IV Total 1250 ml 457.5 ml Laboratory Tests 09/27/16 18:45: White Blood Count 9.9, Red Blood Count 3.15L, Hemoglobin 9.1L, Hematocrit 29.2L , Mean Corpuscular Volume 93, Mean Corpuscular Hemoglobin 28.9, Mean Corpuscular Hemoglobin Concent 31.2L, Red Cell Distribution Width 12.8, Platelet Count 218, Mean Platelet Volume 6.6, Neutrophils (%) (Auto) 81.8H, Lymphocytes (%) (Auto) 9.0L, Monocytes (%) (Auto) 7.4, Eosinophils (%) (Auto) 0.7, Basophils (%) (Auto) 1.1, Arterial Blood pH 7.305L, Arterial Blood Partial Pressure CO2 35.7, Arterial Blood Partial Pressure O2 79.9, Arterial Blood HCO3 17.4L, Arterial Blood Oxygen Saturation [Pending], Arterial Blood Base Excess - 8.1, Ronald Test Positive 09/27/16 23:45: Ammonia 26 09/28/16 07:30: White Blood Count 9.1, Red Blood Count 2.97L, Hemoglobin 8.7L, Hematocrit 27.0L , Mean Corpuscular Volume 91, Mean Corpuscular Hemoglobin 29.4, Mean Corpuscular Hemoglobin Concent 32.3, Red Cell Distribution Width 12.8, Platelet Count 168, Mean Platelet Volume 7.3, Neutrophils (%) (Auto) 78.4H, Lymphocytes ( %) (Auto) 11.2L, Monocytes (%) (Auto) 7.7, Eosinophils (%) (Auto) 1.3, Basophils (%) (Auto) 1.5, Sodium Level 140, Potassium Level 4.1, Chloride Level 107, Carbon Dioxide Level 17L, Anion Gap 16H, Blood Urea Nitrogen 44H, Creatinine 2.3H, Estimat Glomerular Filtration Rate , Glucose Level 99, Calcium Level 7.7L, Total Bilirubin 0.6, Aspartate Amino Transf (AST/SGOT) 10, Alanine Aminotransferase (ALT/SGPT) 14, Alkaline Phosphatase 120H, Total Protein 5.4L, Albumin 2.4L, Globulin 3.0, Albumin/Globulin Ratio 0.8L Height (Feet): 5 Height (Inches): 2.00 Weight (Pounds): 150 Objective GENERAL: A well developed female, comfortable at present, but still having slight abdominal pain. with po intake HEENT: Fairly negative. Extraocular movements are grossly intact. Oropharynx is moist. LUNGS: Clear. No rhonchi or wheezes. CARDIAC: RRR No murmurs. No rubs. ABDOMEN: Soft, REDUCED tenderness with no hepatosplenomegaly. EXTREMITIES: No cyanosis or clubbing. No edema. NEUROLOGIC: Nonfocal. Alert and oriented x3. SKIN: Noted. ANNELISE MR Sep 28, 2016 08:44
[2016-09-28] MEDS ORDERED: Lyrica 50mg cap ORAL SCH (09:00)
[2016-09-28] MEDS: Piperacillin/Tazobactam 3.375 GM in D5W 110 ML IVPB SCH ×2 (09:10→21:37)
[2016-09-28] MEDS: Sertraline 50mg tab ORAL SCH (09:10)
--- NOTE | 2016-09-28 09:37 | General Progress Note ---
Assessment/Plan Problem List: (1) Common bile duct (CBD) obstruction ICD Codes: K83.1 - Obstruction of bile duct SNOMED: 22292479 (2) Abdominal pain of unknown etiology ICD Codes: R10.9 - Unspecified abdominal pain SNOMED: 396320885 (3) Pancreatitis ICD Codes: K85.90 - Acute pancreatitis without necrosis or infection, unspecified SNOMED: 73394898 Qualifiers: Qualified Codes: K85.90 - Acute pancreatitis without necrosis or infection, unspecified Assessment/Plan s/p ERCP improving labs pend possible surg fu labs Subjective ROS Limited/Unobtainable: Yes Allergies: Coded Allergies: No Known Allergies (Unverified , 12/23/12) Subjective no event Objective Last 24 Hour Vital Signs Date Time Temp Pulse Resp B/P Pulse Ox O2 Delivery O2 Flow Rate FiO2 09/28/16 09:10 69 124/43 09/28/16 08:27 98.1 69 18 124/43 98 Room Air 09/28/16 07:11 Nasal Cannula 09/28/16 07:11 68 16 94 Nasal Cannula 3.0 09/28/16 06:18 134/64 09/28/16 04:00 71 09/28/16 04:00 97.7 73 20 118/53 96 Room Air 09/28/16 03:00 73 09/28/16 02:42 69 16 96 Nasal Cannula 3.0 09/28/16 02:37 64 16 94 Nasal Cannula 3.0 09/28/16 00:51 98.4 70 20 137/62 97 Nasal Cannula 09/27/16 23:13 71 16 95 Nasal Cannula 3.0 09/27/16 23:09 73 16 92 Nasal Cannula 3.0 09/27/16 22:32 137/55 09/27/16 22:00 98.4 80 17 134/58 92 Nasal Cannula 2.0 09/27/16 20:00 98.4 80 17 134/58 Nasal Cannula 2.0 09/27/16 16:00 100.0 74 18 137/55 92 Nasal Cannula 2.0 09/27/16 12:58 138/80 09/27/16 12:00 97.9 74 20 138/80 92 Nasal Cannula 3.0 Intake and Output 09/27/16 09/28/16 19:00 07:00 Intake Total 2090 ml 817.5 ml Balance 2090 ml 817.5 ml Intake Oral 840 ml 360 ml IV Total 1250 ml 457.5 ml Laboratory Tests 09/27/16 18:45: White Blood Count 9.9, Red Blood Count 3.15L, Hemoglobin 9.1L, Hematocrit 29.2L , Mean Corpuscular Volume 93, Mean Corpuscular Hemoglobin 28.9, Mean Corpuscular Hemoglobin Concent 31.2L, Red Cell Distribution Width 12.8, Platelet Count 218, Mean Platelet Volume 6.6, Neutrophils (%) (Auto) 81.8H, Lymphocytes (%) (Auto) 9.0L, Monocytes (%) (Auto) 7.4, Eosinophils (%) (Auto) 0.7, Basophils (%) (Auto) 1.1, Arterial Blood pH 7.305L, Arterial Blood Partial Pressure CO2 35.7, Arterial Blood Partial Pressure O2 79.9, Arterial Blood HCO3 17.4L, Arterial Blood Oxygen Saturation [Pending], Arterial Blood Base Excess - 8.1, Ronald Test Positive 09/27/16 23:45: Ammonia 26 09/28/16 07:30: White Blood Count 9.1, Red Blood Count 2.97L, Hemoglobin 8.7L, Hematocrit 27.0L , Mean Corpuscular Volume 91, Mean Corpuscular Hemoglobin 29.4, Mean Corpuscular Hemoglobin Concent 32.3, Red Cell Distribution Width 12.8, Platelet Count 168, Mean Platelet Volume 7.3, Neutrophils (%) (Auto) 78.4H, Lymphocytes ( %) (Auto) 11.2L, Monocytes (%) (Auto) 7.7, Eosinophils (%) (Auto) 1.3, Basophils (%) (Auto) 1.5, Sodium Level 140, Potassium Level 4.1, Chloride Level 107, Carbon Dioxide Level 17L, Anion Gap 16H, Blood Urea Nitrogen 44H, Creatinine 2.3H, Estimat Glomerular Filtration Rate , Glucose Level 99, Calcium Level 7.7L, Total Bilirubin 0.6, Aspartate Amino Transf (AST/SGOT) 10, Alanine Aminotransferase (ALT/SGPT) 14, Alkaline Phosphatase 120H, Total Protein 5.4L, Albumin 2.4L, Globulin 3.0, Albumin/Globulin Ratio 0.8L Height (Feet): 5 Height (Inches): 2.00 Weight (Pounds): 150 General Appearance: alert EENT: normal ENT inspection Neck: supple Cardiovascular: normal rate Respiratory/Chest: decreased breath sounds Abdomen: normal bowel sounds, non tender, soft Extremities: non-tender DARYL LINDSEY Sep 28, 2016 09:37
[2016-09-28 11:56] VITALS: BP 132/63
[2016-09-28] MEDS ORDERED: D5 1/2NS 1000ml IV ONE (14:49)
[2016-09-28 16:03] VITALS: BP 140/72
[2016-09-28 20:00] VITALS: BP 137/57
[2016-09-29] VITALS: BP 133/86
[2016-09-29] MEDS: Albuterol ud Inhalation HHN SCH ×6 (03:50→23:32)
[2016-09-29 04:00] VITALS: BP 128/89
[2016-09-29] MEDS: cloNIDine 0.2mg Tab ORAL SCH ×4 (06:00→22:00)
[2016-09-29 08:00] VITALS: BP 133/58
--- NOTE | 2016-09-29 08:12 | Diagnostic Imaging Report ---
Indication: Headache Technique: Contiguous 5 mm thick transaxial imaging of the head obtained in a Siemens Sensation [address] scanner. Soft tissue and bone windows generated. Total Dose length Product (DLP): [address] Dose Index Volume (CTDIvol): 70.38 mGy Comparison: 08/23/12 Findings: There is mild prominence of the ventricles, basal cisterns, and cerebral sulci consistent with atrophy. Mild, nonspecific, white matter hypoattenuation is noted throughout the brain consistent with chronic small vessel disease. There is no midline shift, edema, acute hemorrhage, mass effect. There is a small CSF attenuation extra-axial collection measuring 6 mm thickness just left of interhemispheric fissure near the vertex. This may be an old subdural hygroma or hematoma. There is no associated mass effect. Bones and extra osseous soft tissues are unremarkable. Bilateral cataracts are noted. Impression: No acute intracranial bleed, mass effect or edema. Mild atrophy of the brain. Nonspecific white matter hypoattenuation probably due to chronic small vessel disease. 6 mm old subdural hematoma versus CSF hygroma adjacent to the interhemispheric fissure near the vertex of the skull. No associated mass effect. The CT scanner at [facility] is accredited by the [employer] and the scans are performed using protocols designed to limit radiation exposure to as low as reasonably achievable to attain images of sufficient resolution adequate for diagnostic evaluation.
--- NOTE | 2016-09-29 08:41 | General Progress Note ---
Assessment/Plan Assessment/Plan IMPRESSION: 1. Gallstone pancreatitis. 2. Obstructive hepatopathy. 3. Chronic renal failure. 4. Hypertension. 5. Abdominal pain. 6. Mild anemia. 7. s/p ERCP 8. acute encephalopathy PLAN head CT normal ABG today follow up labs essentially stable repeat cbc IV antibiotics empiric; likely dc today neuro evaluation pending d/w daughter in detail impression, plan, and exam edited and reviewed in detail care discussed with RN Subjective Allergies: Coded Allergies: No Known Allergies (Unverified , 12/23/12) Subjective was altered and weak now better Objective Last 24 Hour Vital Signs Date Time Temp Pulse Resp B/P Pulse Ox O2 Delivery O2 Flow Rate FiO2 09/29/16 07:42 75 18 98 Nasal Cannula 2.0 28 09/29/16 07:32 75 20 95 Nasal Cannula 2.0 28 09/29/16 07:32 Nasal Cannula 2.0 28 09/29/16 07:32 95 Nasal Cannula 2.0 28 09/29/16 06:00 128/89 09/29/16 04:00 75 09/29/16 04:00 98.7 76 20 128/89 95 Nasal Cannula 2.0 09/29/16 03:50 74 20 96 Nasal Cannula 2.0 28 09/29/16 03:30 72 20 95 Nasal Cannula 2.0 28 09/29/16 00:00 73 09/29/16 00:00 99.0 79 20 133/86 94 Nasal Cannula 2.0 09/28/16 23:28 76 20 97 Nasal Cannula 2.0 28 09/28/16 23:27 70 20 94 Nasal Cannula 2.0 28 09/28/16 20:44 75 20 Nasal Cannula 2.0 28 09/28/16 20:00 76 09/28/16 20:00 100.9 76 18 137/57 Nasal Cannula 2.0 95 09/28/16 19:30 79 20 96 Nasal Cannula 2.0 28 09/28/16 19:30 Nasal Cannula 2.0 28 09/28/16 19:30 74 20 93 Nasal Cannula 2.0 28 09/28/16 19:30 94 Nasal Cannula 2.0 28 09/28/16 16:07 70 20 95 Nasal Cannula 2.0 28 09/28/16 16:03 97.7 70 20 140/72 95 Nasal Cannula 2.0 09/28/16 16:00 70 3/19/17 15:52 75 19 95 Nasal Cannula 2.0 28 09/28/16 15:01 140/72 09/28/16 12:00 73 09/28/16 11:56 98.1 74 18 132/63 95 Nasal Cannula 3.0 09/28/16 11:19 68 16 98 Nasal Cannula 3.0 09/28/16 11:09 66 16 97 Nasal Cannula 3.0 09/28/16 09:10 69 124/43 Intake and Output 09/28/16 09/29/16 19:00 07:00 Intake Total 2080.0 ml 1035.0 ml Output Total 300 ml Balance 1780.0 ml 1035.0 ml Intake Oral 1220 ml IV Total 860.0 ml 1035.0 ml Output Urine Total 300 ml # Voids 2 5 Height (Feet): 5 Height (Inches): 2.00 Weight (Pounds): 150 Objective GENERAL: A well developed female, comfortable at present,more alert HEENT: Fairly negative. Extraocular movements are grossly intact. Oropharynx is moist. LUNGS: Clear. No rhonchi or wheezes. CARDIAC: RRR No murmurs. No rubs. ABDOMEN: Soft, nontender with no hepatosplenomegaly. EXTREMITIES: No cyanosis or clubbing. No edema. NEUROLOGIC: Nonfocal. Alert and oriented x3. weak SKIN: Noted. ANNELISE RM Sep 29, 2016 08:41
[2016-09-29] MEDS: Piperacillin/Tazobactam 3.375 GM in D5W 110 ML IVPB SCH ×2 (09:30→21:56)
[2016-09-29] MEDS: Sertraline 50mg tab ORAL SCH (09:31)
[2016-09-29] MEDS: Docusate 100mg tablet ORAL SCH ×2 (09:31→18:08)
[2016-09-29 11:05] LABS: MEAN CORPUSCULAR HEMOGLOBIN 29.3 PG (27.0-31.0); MEAN CORPUSCULAR HGB CONC 32.8 G/DL (32.0-36.0); MEAN CORPUSCULAR VOLUME 89 FL (80-99); MEAN PLATELET VOLUME 6.7 FL (6.5-10.1); PLATELET COUNT 203 K/UL (150-450); RED BLOOD COUNT 2.85 M/UL (4.20-5.40); RED CELL DISTRIBUTION WIDTH 12.2 % (11.6-14.8)
[2016-09-29 11:44] LABS: BAND NEUTROPHILS % (MANUAL) 0 % (0-8); BASOPHILS % (MANUAL) 0 % (0-2); EOSINOPHILS % (MANUAL) 0 % (0-3); HYPOCHROMASIA 1+; LYMPHOCYTES % (MANUAL) 8 % (20-45); NEUTROPHILS % (MANUAL) 86 % (45-75); PLATELET ESTIMATE ADEQUATE; PLATELET MORPHOLOGY NORMAL; TOTAL CELLS COUNTED 100
[2016-09-29 12:00] VITALS: BP 124/68
--- NOTE | 2016-09-29 12:26 | Neurology Progress Note ---
Interim History Interim History ROS Limited/Unobtainable: Yes Objective Physical Exam Last Vital Signs Date Time Temp Pulse Resp B/P Pulse Ox O2 Delivery O2 Flow Rate FiO2 09/29/16 09:31 80 133/58 09/29/16 08:00 97.7 17 96 Nasal Cannula 2.0 09/29/16 07:42 28 Laboratory Tests Test 09/29/16 10:20 White Blood Count 8.0 K/UL (4.8-10.8) Red Blood Count 2.85 M/UL (4.20-5.40) L Hemoglobin 8.3 G/DL (12.0-16.0) L Hematocrit 25.4 % (37.0-47.0) L Mean Corpuscular Volume 89 FL (80-99) Mean Corpuscular Hemoglobin 29.3 PG (27.0-31.0) Mean Corpuscular Hemoglobin Concent 32.8 G/DL (32.0-36.0) Red Cell Distribution Width 12.2 % (11.6-14.8) Platelet Count 203 K/UL (150-450) Mean Platelet Volume 6.7 FL (6.5-10.1) Neutrophils (%) (Auto) % (45.0-75.0) Lymphocytes (%) (Auto) % (20.0-45.0) Monocytes (%) (Auto) % (1.0-10.0) Eosinophils (%) (Auto) % (0.0-3.0) Basophils (%) (Auto) % (0.0-2.0) Differential Total Cells Counted 100 Neutrophils % (Manual) 86 % (45-75) H Lymphocytes % (Manual) 8 % (20-45) L Monocytes % (Manual) 6 % (1-10) Eosinophils % (Manual) 0 % (0-3) Basophils % (Manual) 0 % (0-2) Band Neutrophils 0 % (0-8) Platelet Estimate Adequate Platelet Morphology Normal Hypochromasia 1+ Impression/Recommendations Problems: (1) H/O delirium (2) Positional vertigo of both ears (3) Left knee pain Status: unchanged Recommendations #[id number] STEFFANY JEFFREY Sep 29, 2016 12:26
--- NOTE | 2016-09-29 14:38 | Diagnostic Imaging Report ---
Indication: Altered mental status and left-sided weakness Technique: sagittal T1 fast spin echo, axial T1 FLAIR PROPELLER, axial T2 FLAIR PROPELLER, axial T2 FS PROPELLER, axial T2* GRE, axial diffusion weighted images. ADC and exponential ADC maps generated Comparison: CT brain 09/27/2016 Findings: . No abnormal areas of restricted diffusion to suggest acute infarction. No acute hemorrhage or edema. No mass effect nor midline shift. Is age-related enlargement of ventricles and extra-axial CSF spaces. There is periventricular the white matter T2 hyperintensity, most likely chronic ischemic change.. There is evidence of prior bilateral cataract surgery. There is minimal mucosal disease of the paranasal sinuses. There is bilateral mastoid disease. The vascular flow voids are preserved. Impression: Chronic and age-related changes as described Negative for acute intracranial bleed, mass effect, or infarct.
--- NOTE | 2016-09-29 15:00 | Diagnostic Imaging Report ---
Indication: PAIN Technique: 3 views of the left knee Comparison: None Findings:There is chondrocalcinosis of the medial and lateral menisci. No acute fractures. No dislocations. Joint spaces are preserved Impression:No acute process Meniscal chondrocalcinosis
--- NOTE | 2016-09-29 21:38 | Consultation ---
DATE OF CONSULTATION: 09/29/2016 CONSULTING PHYSICIAN: Jose Alejandro Grimaldo M.D. ATTENDING PHYSICIAN: Anjel Fay M.D. REFERRING PHYSICIAN: HISTORY OF PRESENT ILLNESS: This is an 86-year-old female seen in neurological consultation to evaluate intractable left knee pain radiating up to the left hip and in addition, new onset of vertigo, headaches. The patient was admitted with severe generalized abdominal pain, nausea, and vomiting, her neurological exam though described as negative. Her vital signs were stable except low-grade fever at 99.9, the patient was diagnosed with acute pancreatitis, common bile duct obstruction. The patient was evaluated and treated by GI, she is status post ERCP with improving laboratories. Her CBC on admission included WBC 11.2, hemoglobin 8.7, hematocrit 27.5. Coagulation panel with INR 1.2. Chemistry panel with elevated AST 283, ALT of 108, alkaline phosphatase 227, total bilirubin 1.7. BUN of 30, creatinine 2.4. Elevated lipase 28,031. Her final laboratory studies now revealed normal amylase, lipase, and normal liver function. The patient remained with renal insufficiency, BUN of 44, creatinine 2.3, anion gap of 16. Diagnostic studies included venous duplex of both lower extremities, no evidence of thrombi noted. CAT scan of the brain, no acute intracranial abnormalities. There was a small vessel and a 6-mm old subdural hematoma, interhemispheric fissure. PAST MEDICAL HISTORY: The patient has history of chronic renal failure, hypertension, chronic anemia, degenerative joint disease with long-term pain in her left knee with now significantly increased. MEDICATIONS: Her treatment prior to admission included aspirin, BuSpar, clonidine, cyclosporine, Dexilant, levothyroxine, Bystolic, Adalat, Lyrica, and Zoloft. ALLERGIES: None reported. FAMILY HISTORY: Noncontributory. SOCIAL HISTORY: Lives with her family. No alcohol. No drug abuse. Nonsmoker. PHYSICAL EXAMINATION: GENERAL: This is a well-developed and well-nourished female, not in acute distress, lying comfortably in bed. Head normocephalic. No evidence of trauma. VITAL SIGNS: Stable. Blood pressure 133/58, temperature 97.7. HEENT: Head normocephalic. There is no evidence of injuries. Eyes, ears, nose, and throat are clear. NECK: There is tenderness on palpation of right occipital region. No deformities. Range of motion normal. MUSCULOSKELETAL: There is significant swelling and very acute tenderness on slight palpation in the left knee area. The pain is increasing with an attempt to move her left knee. Peripheral pulses 1+ and symmetric. MENTAL STATUS: She is alert and oriented to her name, age, place. She is with her medical status. She appears to be depressed and anxious. CRANIAL NERVE II: Pupils both responding to light and accommodation. Extraocular movement intact. No nystagmus. CRANIAL NERVE V: Normal corneal responses. CRANIAL NERVE VII: No facial asymmetry. CRANIAL NERVE VIII: Slight decrease in hearing. CRANIAL NERVES IX THROUGH XII: Tongue is in midline. Symmetric palate elevation. MOTOR EXAMINATION: Normal muscle tone and strength in all extremities except unable to test in the left leg due to pain. There is tenderness on palpation of both hands. REFLEXES: Deep tendon reflexes 1+ and symmetric. Plantar response is mute. SENSORY EXAMINATION: Normal to pin stimulation in both upper and lower extremities. GAIT: Not tested. IMPRESSION: 1. New onset of positional vertigo with nausea and headaches, this may represent benign positional vertigo or labyrinthitis. 2. Severe left knee pain, rule out osteoarthritis, rule out septic joint. 3. Degenerative joint disease. 4. Hypertension. 5. Diabetes type 2. 6. Depression. 7. Chronic renal failure. 8. Status post endoscopic retrograde cholangiopancreatography. DISCUSSION: The patient presented who reportedly had slight confusion and now has nonfocal neurological examination. She described episodes of vertigo, dizziness, and nausea on admission, which may represent labyrinthitis. At this time, the patient has intractable left knee pain, septic joint should be ruled out. We will obtain plain x-rays of left knee and if necessary, proceed with MRI study. The patient to avoid use of opiates, most likely cause of confusion. Continue with supportive care. Thank you for allowing me to see this interesting patient in neurological consultation. Jose Alejandro Grimaldo M.D. DR: Triny JOB#: [id number] CC:
--- NOTE | 2016-09-29 22:19 | General Progress Note ---
Assessment/Plan Assessment/Plan Assessment - choledocholithiasis - gallstone pancreatitis - s/p ERCP and stone extraction Recommendations - low fat diet - eventual lap maris Subjective Allergies: Coded Allergies: No Known Allergies (Unverified , 12/23/12) Subjective feels OK mainly complains of (L) knee pain no abdominal complaints Objective Last 24 Hour Vital Signs Date Time Temp Pulse Resp B/P Pulse Ox O2 Delivery O2 Flow Rate FiO2 09/29/16 20:00 81 18 96 Nasal Cannula 4.0 36 09/29/16 19:41 78 18 92 Nasal Cannula 2.0 28 09/29/16 19:40 Nasal Cannula 2.0 28 09/29/16 19:40 92 Nasal Cannula 2.0 28 09/29/16 15:11 76 18 97 Nasal Cannula 2.0 28 09/29/16 15:05 70 20 96 Nasal Cannula 2.0 28 09/29/16 14:17 124/68 09/29/16 12:00 77 09/29/16 12:00 98.7 79 16 124/68 96 09/29/16 11:00 75 20 95 Nasal Cannula 2.0 28 09/29/16 09:31 80 133/58 09/29/16 08:00 97.7 80 17 133/58 96 Nasal Cannula 2.0 09/29/16 08:00 85 09/29/16 07:42 75 18 98 Nasal Cannula 2.0 28 09/29/16 07:32 75 20 95 Nasal Cannula 2.0 28 09/29/16 07:32 Nasal Cannula 2.0 28 09/29/16 07:32 95 Nasal Cannula 2.0 28 09/29/16 06:00 128/89 09/29/16 04:00 75 09/29/16 04:00 98.7 76 20 128/89 95 Nasal Cannula 2.0 09/29/16 03:50 74 20 96 Nasal Cannula 2.0 28 09/29/16 03:30 72 20 95 Nasal Cannula 2.0 28 09/29/16 00:00 73 09/29/16 00:00 99.0 79 20 133/86 94 Nasal Cannula 2.0 09/28/16 23:28 76 20 97 Nasal Cannula 2.0 28 09/28/16 23:27 70 20 94 Nasal Cannula 2.0 28 Intake and Output 09/28/16 09/29/16 19:00 07:00 Intake Total 2080.0 ml 1035.0 ml Output Total 300 ml Balance 1780.0 ml 1035.0 ml Intake Oral 1220 ml IV Total 860.0 ml 1035.0 ml Output Urine Total 300 ml # Voids 2 5 Laboratory Tests 09/29/16 10:20: White Blood Count 8.0, Red Blood Count 2.85L, Hemoglobin 8.3L, Hematocrit 25.4L , Mean Corpuscular Volume 89, Mean Corpuscular Hemoglobin 29.3, Mean Corpuscular Hemoglobin Concent 32.8, Red Cell Distribution Width 12.2, Platelet Count 203, Mean Platelet Volume 6.7, Neutrophils (%) (Auto) , Lymphocytes (%) ( Auto) , Monocytes (%) (Auto) , Eosinophils (%) (Auto) , Basophils (%) (Auto) , Differential Total Cells Counted 100, Neutrophils % (Manual) 86H, Lymphocytes % (Manual) 8L, Monocytes % (Manual) 6, Eosinophils % (Manual) 0, Basophils % ( Manual) 0, Band Neutrophils 0, Platelet Estimate Adequate, Platelet Morphology Normal, Hypochromasia 1+ Height (Feet): 5 Height (Inches): 2.00 Weight (Pounds): 150 Objective WDWN NCAT Supple CTA RRR non tender no edema non focal HANS PIERSON Sep 29, 2016 22:19
[2016-09-30] VITALS: BP 126/60
[2016-09-30] MEDS: Albuterol ud Inhalation HHN SCH ×6 (03:18→23:41)
[2016-09-30 04:00] VITALS: BP 126/65
[2016-09-30] MEDS: cloNIDine 0.2mg Tab ORAL SCH ×3 (06:00→21:30)
[2016-09-30 08:22] VITALS: BP 147/59
[2016-09-30] MEDS: Sertraline 50mg tab ORAL SCH (09:27)
[2016-09-30] MEDS: Docusate 100mg tablet ORAL SCH ×2 (09:27→18:35)
[2016-09-30] MEDS: Piperacillin/Tazobactam 3.375 GM in D5W 110 ML IVPB SCH (09:27)
[2016-09-30 11:28] VITALS: BP 149/81
--- NOTE | 2016-09-30 11:43 | General Progress Note ---
Assessment/Plan Assessment/Plan IMPRESSION: 1. Gallstone pancreatitis. 2. Obstructive hepatopathy. 3. Chronic renal failure. 4. Hypertension. 5. Abdominal pain. 6. Mild anemia. 7. s/p ERCP 8. acute encephalopathy PLAN head MRI negative ABG today follow up labs essentially stable repeat cbc reviewed dc antibiotics neuro evaluation noted d/w daughter in detail impression, plan, and exam edited and reviewed in detail care discussed with RN Subjective Allergies: Coded Allergies: No Known Allergies (Unverified , 12/23/12) Subjective weak still with low oxygen wheeze intermittent Objective Last 24 Hour Vital Signs Date Time Temp Pulse Resp B/P Pulse Ox O2 Delivery O2 Flow Rate FiO2 09/30/16 11:28 97.9 89 20 149/81 96 Nasal Cannula 2.0 09/30/16 10:49 90 21 95 Nasal Cannula 3.0 36 09/30/16 10:48 94 Nasal Cannula 3.0 36 09/30/16 10:48 36 09/30/16 10:48 Nasal Cannula 2.0 36 09/30/16 10:48 87 20 94 Nasal Cannula 3.0 36 09/30/16 10:34 90 21 89 Room Air 21 09/30/16 10:34 21 09/30/16 09:28 87 147/59 09/30/16 08:22 97.3 87 20 147/59 97 Nasal Cannula 2.0 09/30/16 07:32 92 20 95 Nasal Cannula 3.0 36 09/30/16 04:00 91 09/30/16 04:00 98.4 83 18 126/65 96 Nasal Cannula 4.0 09/30/16 03:32 85 18 96 Nasal Cannula 4.0 36 09/30/16 03:22 83 18 94 Nasal Cannula 4.0 36 09/30/16 00:00 83 09/30/16 00:00 98.8 80 18 126/60 94 Nasal Cannula 2.0 09/29/16 23:44 80 18 97 Nasal Cannula 4.0 36 09/29/16 23:33 78 18 95 Nasal Cannula 4.0 36 09/29/16 22:00 126/60 09/29/16 20:00 78 09/29/16 20:00 81 18 96 Nasal Cannula 4.0 36 09/29/16 19:41 78 18 92 Nasal Cannula 2.0 28 09/29/16 19:40 Nasal Cannula 2.0 28 09/29/16 19:40 92 Nasal Cannula 2.0 28 09/29/16 16:00 82 09/29/16 15:11 76 18 97 Nasal Cannula 2.0 28 09/29/16 15:05 70 20 96 Nasal Cannula 2.0 28 09/29/16 14:17 124/68 09/29/16 12:00 77 09/29/16 12:00 98.7 79 16 124/68 96 Intake and Output 09/29/16 09/30/16 19:00 07:00 Intake Total 805.0 ml 200 ml Balance 805.0 ml 200 ml Intake Oral 320 ml 200 ml IV Total 485.0 ml # Voids 2 5 # Bowel Movements 1 Height (Feet): 5 Height (Inches): 2.00 Weight (Pounds): 150 Objective GENERAL: A well developed female, comfortable at present,more alert HEENT: Fairly negative. Extraocular movements are grossly intact. Oropharynx is moist. LUNGS: Clear. No rhonchi or wheezes. at present CARDIAC: RRR No murmurs. No rubs. ABDOMEN: Soft, nontender with no hepatosplenomegaly. EXTREMITIES: No cyanosis or clubbing. No edema. NEUROLOGIC: Nonfocal. Alert and oriented x3. weak SKIN: Noted. ANNELISE RM Sep 30, 2016 11:43
--- NOTE | 2016-09-30 11:47 | Cardiology Report ---
APPROVED REPORT EKG Measurement Heart [id number] Normal sinus rhythm Normal ECG
[2016-09-30 12:28] LABS: ABG ALLEN TEST POSITIVE; ABG BASE EXCESS -7.8
[2016-09-30] MEDS ORDERED: Morphine Sulfate 2mg/ml Inj IVP PRN (14:00)
[2016-09-30] MEDS ORDERED: Albuterol ud Inhalation HHN PRN (14:30)
[2016-09-30 16:00] VITALS: BP 120/96
[2016-09-30 19:00] VITALS: BP 162/80
--- NOTE | 2016-09-30 22:22 | General Progress Note ---
Assessment/Plan Assessment/Plan Assessment - choledocholithiasis - gallstone pancreatitis - s/p ERCP and stone extraction Recommendations - low fat diet - eventual lap maris Subjective Allergies: Coded Allergies: No Known Allergies (Unverified , 12/23/12) Subjective feels OK no abdominal complaints Objective Last 24 Hour Vital Signs Date Time Temp Pulse Resp B/P Pulse Ox O2 Delivery O2 Flow Rate FiO2 09/30/16 21:30 162/80 09/30/16 20:06 36 09/30/16 20:06 92 Nasal Cannula 3.0 36 09/30/16 20:06 Nasal Cannula 3.0 36 09/30/16 20:06 Nasal Cannula 09/30/16 20:05 92 20 92 Room Air 3.0 09/30/16 19:00 98.6 91 20 162/80 92 Nasal Cannula 2.0 09/30/16 16:00 97.5 90 20 120/96 95 Room Air 2.0 09/30/16 14:34 97.9 09/30/16 14:06 149/81 09/30/16 11:28 97.9 89 20 149/81 96 Nasal Cannula 2.0 09/30/16 10:49 90 21 95 Nasal Cannula 3.0 36 09/30/16 10:48 94 Nasal Cannula 3.0 36 09/30/16 10:48 36 09/30/16 10:48 Nasal Cannula 2.0 36 09/30/16 10:48 87 20 94 Nasal Cannula 3.0 36 09/30/16 10:34 90 21 89 Room Air 21 09/30/16 10:34 21 09/30/16 09:28 87 147/59 09/30/16 08:22 97.3 87 20 147/59 97 Nasal Cannula 2.0 09/30/16 07:32 92 20 95 Nasal Cannula 3.0 36 09/30/16 04:00 91 09/30/16 04:00 98.4 83 18 126/65 96 Nasal Cannula 4.0 09/30/16 03:32 85 18 96 Nasal Cannula 4.0 36 09/30/16 03:22 83 18 94 Nasal Cannula 4.0 36 09/30/16 00:00 83 09/30/16 00:00 98.8 80 18 126/60 94 Nasal Cannula 2.0 09/29/16 23:44 80 18 97 Nasal Cannula 4.0 36 09/29/16 23:33 78 18 95 Nasal Cannula 4.0 36 Intake and Output 09/29/16 09/30/16 19:00 07:00 Intake Total 805.0 ml 200 ml Balance 805.0 ml 200 ml Intake Oral 320 ml 200 ml IV Total 485.0 ml # Voids 2 5 # Bowel Movements 1 Laboratory Tests 09/30/16 12:20: Arterial Blood pH 7.350, Arterial Blood Partial Pressure CO2 31.0L, Arterial Blood Partial Pressure O2 51.8L, Arterial Blood HCO3 16.8L, Arterial Blood Oxygen Saturation 83.8L, Arterial Blood Base Excess -7.8, Ronald Test Positive Height (Feet): 5 Height (Inches): 2.00 Weight (Pounds): 150 Objective WDWN NCAT Supple CTA RRR non tender no edema non focal HANS PIERSON Sep 30, 2016 22:22
[2016-09-30] MEDS ORDERED: traMADol 50mg tab ORAL PRN (22:30)
--- NOTE | 2016-09-30 23:23 | Diagnostic Imaging Report ---
APPROVED REPORT CPT Code: 40514 Present Symptoms Lower Extremity Pain: Bilateral BILATERAL: Imaging reveals a patent deep venous system bilaterally. There is no evidence of thrombus within the femoral, popliteal or tibial segments. The greater saphenous veins are also within normal limits. Doppler indicates normal spontaneous flow within these segments.
[2016-10-01] VITALS: BP 162/86
[2016-10-01] MEDS: Albuterol ud Inhalation HHN SCH ×6 (03:11→23:36)
[2016-10-01 04:00] VITALS: BP 129/60
[2016-10-01] MEDS: cloNIDine 0.2mg Tab ORAL SCH ×3 (05:55→21:21)
[2016-10-01 07:56] VITALS: BP 151/64
--- NOTE | 2016-10-01 08:24 | General Progress Note ---
Assessment/Plan Assessment/Plan Assessment - choledocholithiasis - gallstone pancreatitis - s/p ERCP and stone extraction - anemia - needs GI w/u Recommendations - low fat diet - eventual lap maris - outpt EGD/Colon - family understand they need to make arrangements as outpt Subjective Allergies: Coded Allergies: No Known Allergies (Unverified , 12/23/12) Subjective feels OK no abdominal complaints discussed with son-in-law, Jose Alejandro advised him pt needs lap mrais advised him pt needs EGD/Colon for evaluation of anemia Objective Last 24 Hour Vital Signs Date Time Temp Pulse Resp B/P Pulse Ox O2 Delivery O2 Flow Rate FiO2 10/01/16 07:56 98.4 85 21 151/64 93 Nasal Cannula 3.0 10/01/16 05:55 129/60 10/01/16 04:00 98.6 90 20 129/60 96 Nasal Cannula 3.0 10/01/16 03:16 91 21 95 Nasal Cannula 3.0 36 10/01/16 03:10 85 20 95 Nasal Cannula 3.0 10/01/16 03:10 36 10/01/16 00:00 101.5 89 20 162/86 97 Nasal Cannula 3.0 09/30/16 23:43 82 21 96 Nasal Cannula 3.0 36 09/30/16 23:39 83 20 96 Nasal Cannula 3.0 09/30/16 23:39 36 09/30/16 21:30 162/80 09/30/16 20:06 36 09/30/16 20:06 92 Nasal Cannula 3.0 36 09/30/16 20:06 Nasal Cannula 3.0 36 09/30/16 20:06 Nasal Cannula 09/30/16 20:05 92 20 92 Room Air 3.0 09/30/16 19:00 98.6 91 20 162/80 92 Nasal Cannula 2.0 09/30/16 16:00 97.5 90 20 120/96 95 Room Air 2.0 09/30/16 14:34 97.9 09/30/16 14:06 149/81 09/30/16 11:28 97.9 89 20 149/81 96 Nasal Cannula 2.0 09/30/16 10:49 90 21 95 Nasal Cannula 3.0 36 09/30/16 10:48 94 Nasal Cannula 3.0 36 09/30/16 10:48 36 09/30/16 10:48 Nasal Cannula 2.0 36 09/30/16 10:48 87 20 94 Nasal Cannula 3.0 36 09/30/16 10:34 90 21 89 Room Air 21 09/30/16 10:34 21 09/30/16 09:28 87 147/59 09/30/16 08:22 97.3 87 20 147/59 97 Nasal Cannula 2.0 Intake and Output 09/30/16 10/01/16 19:00 07:00 Intake Total 500 ml 1370 ml Output Total 200 ml Balance 300 ml 1370 ml Intake Oral 120 ml IV Total 500 ml 1250 ml Output Urine Total 200 ml # Voids 3 6 # Bowel Movements 2 Laboratory Tests 09/30/16 12:20: Arterial Blood pH 7.350, Arterial Blood Partial Pressure CO2 31.0L, Arterial Blood Partial Pressure O2 51.8L, Arterial Blood HCO3 16.8L, Arterial Blood Oxygen Saturation 83.8L, Arterial Blood Base Excess -7.8, Ronald Test Positive Height (Feet): 5 Height (Inches): 2.00 Weight (Pounds): 150 Objective WDWN NCAT Supple CTA RRR non tender no edema non focal HANS PIERSON Oct 01, 2016 08:24
[2016-10-01] MEDS: Docusate 100mg tablet ORAL SCH ×2 (08:47→18:44)
[2016-10-01] MEDS: Sertraline 50mg tab ORAL SCH (08:48)
--- NOTE | 2016-10-01 08:51 | General Progress Note ---
Assessment/Plan Assessment/Plan IMPRESSION: 1. Gallstone pancreatitis. 2. Obstructive hepatopathy. 3. Chronic renal failure. 4. Hypertension. 5. Abdominal pain. 6. Mild anemia. 7. s/p ERCP 8. acute encephalopathy 9. fevers PLAN head MRI negative ABG noted follow up labs essentially stable cultures noted off antibiotics neuro evaluation noted ID evaluation d/w daughter in detail needs rehab as she is unable to take care of her at home impression, plan, and exam edited and reviewed in detail care discussed with RN Subjective Allergies: Coded Allergies: No Known Allergies (Unverified , 12/23/12) Subjective weak had fever last night antibiotics discontinued yesterday cultures negative Objective Last 24 Hour Vital Signs Date Time Temp Pulse Resp B/P Pulse Ox O2 Delivery O2 Flow Rate FiO2 10/01/16 08:23 86 23 Nasal Cannula 3.0 32 10/01/16 08:22 Nasal Cannula 3.0 32 10/01/16 08:10 83 23 93 Nasal Cannula 3.0 10/01/16 08:09 93 Nasal Cannula 3.0 36 10/01/16 07:56 98.4 85 21 151/64 93 Nasal Cannula 3.0 10/01/16 05:55 129/60 10/01/16 04:00 98.6 90 20 129/60 96 Nasal Cannula 3.0 10/01/16 03:16 91 21 95 Nasal Cannula 3.0 36 10/01/16 03:10 85 20 95 Nasal Cannula 3.0 10/01/16 03:10 36 10/01/16 00:00 101.5 89 20 162/86 97 Nasal Cannula 3.0 09/30/16 23:43 82 21 96 Nasal Cannula 3.0 36 09/30/16 23:39 83 20 96 Nasal Cannula 3.0 09/30/16 23:39 36 09/30/16 21:30 162/80 09/30/16 20:06 36 09/30/16 20:06 92 Nasal Cannula 3.0 36 09/30/16 20:06 Nasal Cannula 3.0 36 09/30/16 20:06 Nasal Cannula 09/30/16 20:05 92 20 92 Room Air 3.0 09/30/16 19:00 98.6 91 20 162/80 92 Nasal Cannula 2.0 09/30/16 16:00 97.5 90 20 120/96 95 Room Air 2.0 09/30/16 14:34 97.9 09/30/16 14:06 149/81 09/30/16 11:28 97.9 89 20 149/81 96 Nasal Cannula 2.0 09/30/16 10:49 90 21 95 Nasal Cannula 3.0 36 09/30/16 10:48 94 Nasal Cannula 3.0 36 09/30/16 10:48 36 09/30/16 10:48 Nasal Cannula 2.0 36 09/30/16 10:48 87 20 94 Nasal Cannula 3.0 36 09/30/16 10:34 90 21 89 Room Air 21 09/30/16 10:34 21 09/30/16 09:28 87 147/59 Intake and Output 09/30/16 10/01/16 19:00 07:00 Intake Total 500 ml 1370 ml Output Total 200 ml Balance 300 ml 1370 ml Intake Oral 120 ml IV Total 500 ml 1250 ml Output Urine Total 200 ml # Voids 3 6 # Bowel Movements 2 Laboratory Tests 09/30/16 12:20: Arterial Blood pH 7.350, Arterial Blood Partial Pressure CO2 31.0L, Arterial Blood Partial Pressure O2 51.8L, Arterial Blood HCO3 16.8L, Arterial Blood Oxygen Saturation 83.8L, Arterial Blood Base Excess -7.8, Ronald Test Positive Height (Feet): 5 Height (Inches): 2.00 Weight (Pounds): 150 Objective GENERAL: A well developed female, comfortable at present, alert HEENT: Fairly negative. Extraocular movements are grossly intact. Oropharynx is moist. LUNGS: Clear. No rhonchi or wheezes. at present CARDIAC: RRR No murmurs. No rubs. ABDOMEN: Soft, nontender with no hepatosplenomegaly. EXTREMITIES: No cyanosis or clubbing. No edema. NEUROLOGIC: Nonfocal. Alert and oriented x3. weak SKIN: Noted. ANNELISE RM Oct 01, 2016 08:51
[2016-10-01 11:44] VITALS: BP 139/64
[2016-10-01] MEDS ORDERED: Piperacillin/Tazobactam 3.375 GM in D5W 110 ML IVPB SCH (14:30)
[2016-10-01 15:58] VITALS: BP 121/77
[2016-10-01] MEDS: Piperacillin/Tazobactam 3.375 GM in D5W 110 ML IVPB SCH (16:10)
[2016-10-01 19:00] VITALS: BP 145/72
--- NOTE | 2016-10-01 23:25 | General Progress Note ---
Assessment/Plan Assessment/Plan Assessment - choledocholithiasis - gallstone pancreatitis - s/p ERCP and stone extraction - anemia - needs GI w/u Recommendations - low fat diet - eventual lap maris - outpt EGD/Colon - family understand they need to make arrangements as outpt Subjective Allergies: Coded Allergies: No Known Allergies (Unverified , 12/23/12) Subjective feels OK no abdominal complaints advised needs lap maris advised needs outpt EGD/Colon Objective Last 24 Hour Vital Signs Date Time Temp Pulse Resp B/P Pulse Ox O2 Delivery O2 Flow Rate FiO2 10/01/16 21:21 145/72 10/01/16 19:59 87 22 96 Nasal Cannula 3.0 32 10/01/16 19:53 32 10/01/16 19:52 93 Nasal Cannula 3.0 32 10/01/16 19:52 91 24 93 Nasal Cannula 3.0 32 10/01/16 19:52 Nasal Cannula 3.0 32 10/01/16 19:00 97.5 87 20 145/72 98 Nasal Cannula 3.0 10/01/16 15:58 97.7 84 20 121/77 91 Nasal Cannula 3.0 10/01/16 15:35 87 20 Nasal Cannula 3.0 32 10/01/16 15:25 87 20 Nasal Cannula 3.0 10/01/16 14:14 148/68 10/01/16 11:44 99.7 86 20 139/64 92 Nasal Cannula 2.0 10/01/16 11:01 89 20 Nasal Cannula 3.0 32 10/01/16 10:50 85 20 95 Nasal Cannula 3.0 10/01/16 08:47 86 151/64 10/01/16 08:23 86 23 Nasal Cannula 3.0 32 10/01/16 08:22 Nasal Cannula 3.0 32 10/01/16 08:10 83 23 93 Nasal Cannula 3.0 10/01/16 08:09 93 Nasal Cannula 3.0 36 10/01/16 07:56 98.4 85 21 151/64 93 Nasal Cannula 3.0 10/01/16 05:55 129/60 10/01/16 04:00 98.6 90 20 129/60 96 Nasal Cannula 3.0 10/01/16 03:16 91 21 95 Nasal Cannula 3.0 36 10/01/16 03:10 85 20 95 Nasal Cannula 3.0 10/01/16 03:10 36 10/01/16 00:00 101.5 89 20 162/86 97 Nasal Cannula 3.0 09/30/16 23:43 82 21 96 Nasal Cannula 3.0 36 09/30/16 23:39 83 20 96 Nasal Cannula 3.0 09/30/16 23:39 36 Intake and Output 09/30/16 10/01/16 19:00 07:00 Intake Total 500 ml 1495 ml Output Total 200 ml Balance 300 ml 1495 ml Intake Oral 120 ml IV Total 500 ml 1375 ml Output Urine Total 200 ml # Voids 3 6 # Bowel Movements 2 Height (Feet): 5 Height (Inches): 2.00 Weight (Pounds): 150 Objective WDWN NCAT Supple CTA RRR non tender no edema non focal HANS PIERSON Oct 01, 2016 23:25
[2016-10-02] VITALS: BP 144/74
[2016-10-02 04:00] VITALS: BP 131/78
[2016-10-02] MEDS: Albuterol ud Inhalation HHN SCH ×3 (04:00→10:47)
--- NOTE | 2016-10-02 06:00 | General Progress Note ---
Assessment/Plan Assessment/Plan IMPRESSION: 1. Gallstone pancreatitis. 2. Obstructive hepatopathy. 3. Chronic renal failure. 4. Hypertension. 5. Abdominal pain. 6. Mild anemia. 7. s/p ERCP 8. acute encephalopathy 9. fevers PLAN cultures noted off antibiotics neuro evaluation noted ID evaluation appreciated and discussed d/w daughter in detail accepted at [facility] will proceed with dc today and complete antibiotics after discharge needs active PT outpatient maris impression, plan, and exam edited and reviewed in detail care discussed with RN Subjective Allergies: Coded Allergies: No Known Allergies (Unverified , 12/23/12) Subjective low grade fever last night antibiotics resumed cultures negative Objective Last 24 Hour Vital Signs Date Time Temp Pulse Resp B/P Pulse Ox O2 Delivery O2 Flow Rate FiO2 10/02/16 04:00 98.2 89 20 131/78 94 Nasal Cannula 2.0 10/02/16 03:57 90 22 94 Nasal Cannula 3.0 32 10/02/16 03:45 89 24 90 Nasal Cannula 3.0 32 10/02/16 03:45 32 10/02/16 00:00 99.7 91 20 144/74 94 Nasal Cannula 2.0 10/01/16 23:52 81 20 96 Nasal Cannula 3.0 32 10/01/16 23:38 32 10/01/16 23:38 80 20 93 Nasal Cannula 3.0 32 10/01/16 21:21 145/72 10/01/16 19:59 87 22 96 Nasal Cannula 3.0 32 10/01/16 19:53 32 10/01/16 19:52 93 Nasal Cannula 3.0 32 10/01/16 19:52 91 24 93 Nasal Cannula 3.0 32 10/01/16 19:52 Nasal Cannula 3.0 32 10/01/16 19:00 97.5 87 20 145/72 98 Nasal Cannula 3.0 10/01/16 15:58 97.7 84 20 121/77 91 Nasal Cannula 3.0 10/01/16 15:35 87 20 Nasal Cannula 3.0 32 10/01/16 15:25 87 20 Nasal Cannula 3.0 10/01/16 14:14 148/68 10/01/16 11:44 99.7 86 20 139/64 92 Nasal Cannula 2.0 10/01/16 11:01 89 20 Nasal Cannula 3.0 32 10/01/16 10:50 85 20 95 Nasal Cannula 3.0 10/01/16 08:47 86 151/64 10/01/16 08:23 86 23 Nasal Cannula 3.0 32 10/01/16 08:22 Nasal Cannula 3.0 32 10/01/16 08:10 83 23 93 Nasal Cannula 3.0 10/01/16 08:09 93 Nasal Cannula 3.0 36 10/01/16 07:56 98.4 85 21 151/64 93 Nasal Cannula 3.0 Intake and Output 10/01/16 10/02/16 19:00 07:00 Intake Total 1165.0 ml 1050.0 ml Output Total 300 ml Balance 865.0 ml 1050.0 ml Intake Oral 360 ml 120 ml IV Total 805.0 ml 930.0 ml Output Urine Total 300 ml # Voids 1 2 # Bowel Movements 1 Height (Feet): 5 Height (Inches): 2.00 Weight (Pounds): 150 Objective GENERAL: A well developed female, comfortable at present, alert HEENT: Fairly negative. Extraocular movements are grossly intact. Oropharynx is moist. LUNGS: Clear. No rhonchi or wheezes. at present CARDIAC: RRR No murmurs. No rubs. ABDOMEN: Soft, nontender with no hepatosplenomegaly. EXTREMITIES: No cyanosis or clubbing. No edema. NEUROLOGIC: Nonfocal. Alert and oriented x3. weak SKIN: Noted. ANNELISE RM Oct 02, 2016 06:00
[2016-10-02] MEDS: cloNIDine 0.2mg Tab ORAL SCH (06:08)
[2016-10-02 07:52] VITALS: BP 126/60
[2016-10-02] MEDS: Docusate 100mg tablet ORAL SCH (08:13)
[2016-10-02] MEDS: Sertraline 50mg tab ORAL SCH (08:14)
[2016-10-02] MEDS: Piperacillin/Tazobactam 3.375 GM in D5W 110 ML IVPB SCH (08:14)
--- NOTE | 2016-10-02 08:38 | Consultation ---
DATE OF CONSULTATION: 10/01/2016 INFECTIOUS DISEASE CONSULTATION This consult is for coverage of Dr. Kimball. REASON FOR CONSULTATION: Gallstone pancreatitis and persistent fever. HISTORY OF PRESENT ILLNESS: An 86-year-old female admitted on 09/23/2016 from home because of abdominal pain, nausea, and vomiting. CT scan of the abdomen and pelvis showed common bile duct stone. She had elevated amylase and lipase at the admission. After admission, the patient went to ERCP and common bile duct stone was removed. The patient developed fever. T-max is 101.5. fever start on 09/27 and was on and off. The patient has mild leukocytosis. ALLERGIES: No known drug allergies. PAST MEDICAL HISTORY: Significant for hypertension and migraine, chronic kidney disease, hypothyroidism, and cervical radiculopathy. MEDICATIONS: 1. Procardia. 2. Zoloft. 3. Levothyroxine. 4. Ultram. 5. Nebivolol. 6. Colace. 7. Zofran. 8. Sodium chloride. 9. Clonidine. SOCIAL HISTORY: Originally from [facility]. Lives with family. History of alcohol and drug abuse. Has five children. REVIEW OF SYSTEMS: The patient mostly sleeping and sedated. She has poor appetite. She has constipation for a couple of days now. She has some bowel movement. PHYSICAL EXAMINATION: VITAL SIGNS: Temperature 99.7, pulse 86, and blood pressure 139/64. GENERAL APPEARANCE: No acute distress. HEAD AND NECK: [place] conjunctivae. HEART: S1 and S2 are regular. LUNGS: Clear. ABDOMEN: Obese and nontender. EXTREMITIES: Bilateral sequential compression device of legs. LABORATORY DATA: Sodium 140, potassium 4.1, chloride 107, bicarbonate 17, BUN 44, creatinine 2.3, AST 10, ALT 14, alkaline phosphatase 120, albumin is 2.4, WBC 8, hemoglobin 8.3, hematocrit 25.4, and platelets 203,000. The patient has urine culture that is negative and blood cultures x1 negative. IMPRESSION: Gallstone pancreatitis. The patient is status post endoscopic retrograde cholangiopancreatography and removal of common bile duct stone. There was low-grade fever, likely source is intraabdominal infection and cholecystitis. Eventually, she needs to remove off gallbladder. She is anemic and has acute renal failure and chronic kidney disease. She has hypothyroidism. RECOMMENDATIONS: We will start on Zosyn and follow up the cultures. At the end of my examination, I thank Dr. Fay for involving me in the care of this patient. Kirk Oneil M.D. DR: GEENA JOB#: [id number] CC: JOSE
[2016-10-02] MEDS ORDERED: DOCUSATE SODIU100 MG ORAL (10:10)
[2016-10-02] MEDS ORDERED: BYSTOLIC10 MG ORAL (10:10)
[2016-10-02] MEDS ORDERED: TRAMADOL HCL50 MG ORAL (10:10)
[2016-10-02] MEDS ORDERED: ZOSYN 3.3753.375 GM IVPB (10:10)
[2016-10-02] MEDS ORDERED: ALBUTEROL2.5 MG/3 M INH (10:45)
[2016-10-02 11:28] VITALS: BP 124/56
[2016-10-02] MEDS ORDERED: Tubing IV Secondary IV ONE (13:12)
--- NOTE | 2016-10-02 21:23 | General Progress Note ---
Assessment/Plan Assessment/Plan Assessment - choledocholithiasis - gallstone pancreatitis - s/p ERCP and stone extraction - anemia - needs GI w/u Recommendations - low fat diet - eventual lap maris - outpt EGD/Colon - family understand they need to make arrangements as outpt Subjective Allergies: Coded Allergies: No Known Allergies (Unverified , 12/23/12) Subjective feels OK no abdominal complaints advised needs lap maris advised needs outpt EGD/Colon discussed with family at bedside re same recommendation they understand it is their responsibility to call and set up Objective Last 24 Hour Vital Signs Date Time Temp Pulse Resp B/P Pulse Ox O2 Delivery O2 Flow Rate FiO2 10/02/16 11:28 97.9 87 16 124/56 96 Nasal Cannula 10/02/16 10:56 88 20 96 Nasal Cannula 3.0 10/02/16 10:45 81 20 93 Nasal Cannula 3.0 10/02/16 08:13 80 126/60 10/02/16 07:52 98.2 80 15 126/60 98 Nasal Cannula 10/02/16 07:49 94 24 94 Nasal Cannula 3.0 10/02/16 07:43 92 Nasal Cannula 3.0 10/02/16 07:42 Nasal Cannula 3.0 10/02/16 07:39 82 22 92 Nasal Cannula 3.0 10/02/16 06:08 131/78 10/02/16 04:00 98.2 89 20 131/78 94 Nasal Cannula 2.0 10/02/16 03:57 90 22 94 Nasal Cannula 3.0 32 10/02/16 03:45 89 24 90 Nasal Cannula 3.0 32 10/02/16 03:45 32 10/02/16 00:00 99.7 91 20 144/74 94 Nasal Cannula 2.0 10/01/16 23:52 81 20 96 Nasal Cannula 3.0 32 10/01/16 23:38 32 10/01/16 23:38 80 20 93 Nasal Cannula 3.0 32 Intake and Output 10/01/16 10/02/16 19:00 07:00 Intake Total 1165.0 ml 1600.0 ml Output Total 300 ml Balance 865.0 ml 1600.0 ml Intake Oral 360 ml 420 ml IV Total 805.0 ml 1180.0 ml Output Urine Total 300 ml # Voids 1 4 # Bowel Movements 1 Height (Feet): 5 Height (Inches): 2.00 Weight (Pounds): 150 Objective WDWN NCAT Supple CTA RRR non tender no edema non focal HANS PIERSON Oct 02, 2016 21:23
--- NOTE | 2016-10-03 17:54 | Discharge Summary ---
Discharge Summary Hospital Course Date of Admission Sep 23, 2016 at 20:46 Date of Discharge Oct 02, 2016 at 13:13 Admitting Diagnosis pancreatitis HPI Thu Beltrán is a 86 year old female who was admitted on Sep 23, 2016 at 20: 46 for Pancreatitis Hospital Course [id number] Discharge Discharge Disposition Patient was discharged to SNF/Subacute Facility(03) Discharge Diagnoses: Lindy Adair NP Oct 03, 2016 17:54
--- NOTE | 2016-10-04 04:28 | Discharge Summary 2 SIG ---
DATE OF ADMISSION: 09/23/2016 DATE OF DISCHARGE: 10/02/2016 CONSULTANTS: 1. Tracy Rooney M.D. 2. Jose Alejandro Grimaldo M.D. 3. Kirk Oneil M.D. BRIEF HOSPITAL COURSE: The patient is an 86-year-old female, who presented to ED with worsening abdominal pain, nausea, and vomiting. On evaluation at ED, she was noted to have common bile duct obstruction due to acute pancreatitis. Liver enzymes were elevated. Lipase was 2831. She was placed on NPO and was given IV hydration and pain control. GI service was consulted. On 09/25/2016, the patient underwent ERCP with sphincterotomy and stone removal by Dr. Casimiro Castillo. Post procedure, the patient was started on liquid diet. The patient will eventually need cholecystectomy, which can be done as outpatient. Dr. Grimaldo was consulted for evaluation of new onset positional vertigo with nausea and headache. The patient apparently had slight confusion. Neurologic examination was nonfocal. Brain MRI was done and showed chronic age-related changes with no acute intracranial bleed, mass effect, or infarct. She also complained of severe left knee pain. X-rays or imaging showed no acute process with meniscal chondrocalcinosis. She was also recommended EGD and colonoscopy for evaluation of anemia, which can be done as outpatient. Urine and blood culture did not isolate any growth. Zosyn was discontinued. The patient will eventually need SNF placement upon discharge as she is unable to take care of herself. She was accepted at [facility] and the patient was discharged to SNF. FINAL DIAGNOSES: 1. Acute Gallstone pancreatitis. 2. Obstructive hepatopathy. 3. Chronic renal failure. 4. Hypertension. 5. Anemia. 6. Status post endoscopic retrograde cholangiopancreatography with sphincterotomy and stone extraction. 7. Acute metabolic encephalopathy, resolved. 8. Choledocholithiasis. Anjel Fay M.D. I have been assigned to dictate discharge summary on this account and I was not involved in the patient's management. Lindy Adair N.P. DR: Sudhir JOB#: [id number] CC: JOSE
== END 2016-10-02 13:13 | DRG 438 ==
LOC: EMR 18:58 → 4E 20:46 → EDBEDREQ 22:15 → 4E 09-24 00:48 → 3E 09-25 09:29 → 2E 09-28 03:16 → 4E 09-30 13:03
PROC: 0FC98ZZ Extirpation of Matter from Common Bile Duct, Via Natural or Artificial Opening Endoscopic (ICD-10-PCS; principal; 2016-09-25 13:26)
DX: K85.10 Biliary acute pancreatitis without necrosis or infection (principal); G93.41 Metabolic encephalopathy; I13.10 Hypertensive heart and chronic kidney disease without heart failure, with stage 1 through stage 4 chronic kidney disease, or unspecified chronic kidney disease; E11.9 Type 2 diabetes mellitus without complications; K80.51 Calculus of bile duct without cholangitis or cholecystitis with obstruction; D64.9 Anemia, unspecified; N18.9 Chronic kidney disease, unspecified; E03.9 Hypothyroidism, unspecified; M19.90 Unspecified osteoarthritis, unspecified site; H81.10 Benign paroxysmal vertigo, unspecified ear; F32.9 Major depressive disorder, single episode, unspecified; M11.262 Other chondrocalcinosis, left knee
CPT/HCPCS: 36415; 36600; 70450; 70551; 71010; 74176; 74328; 76000; 80053; 82140; 82150; 82248; 82803; 83690; 84484; 85007; 85025; 85610; 85730; 87040; 87086; 93005; 93970; 94003; 94150; 94640; 94664; 94760; J2250; J2405

== ENCOUNTER 2018-01-11 21:19 | Inpatient (IN) | payer MEDICARE, OTHER ==
[~2018-01-11] VITALS: Ht 154.9 cm; Wt 68.2 kg
[~2018-01-11 21:19] MED LIST changes: +ALBUTEROL2.5 MG/3 M INH; +BYSTOLIC20 MG ORAL; +CATAPRES0.2 MG ORAL; +DOCUSATE SODIU100 MG ORAL; +EPOGEN20000 UNI1 SUBQ; +FERROUS SULFAT325 MG ORAL; +NIFEDIPINE ER30 M2 ORAL; +TRAMADOL HCL50 MG ORAL; +ZOSYN 3.373.375 GM/1 IVPB; +ZOSYN 3.3753.375 GM IVPB
[2018-01-11] MEDS ORDERED: BUSPIRONE HCL15 MG ORAL (22:11)
[2018-01-11] MEDS ORDERED: VITAMIN D400 INTLU ORAL (22:11)
[2018-01-11] MEDS ORDERED: HYDRALAZINE HC100 MG ORAL (22:11)
[2018-01-11] MEDS ORDERED: DEXILANT60 MG ORAL (22:11)
[2018-01-11] MEDS ORDERED: BYSTOLIC10 MG ORAL (22:12)
[2018-01-11 22:28] LABS: BILIRUBIN, URINE NEGATIVE (NEGATIVE); COLOR,URINE PALE YELLOW; GLUCOSE, URINE (UA) NEGATIVE (NEGATIVE); KETONES,URINE NEGATIVE (NEGATIVE); LEUKOCYTE ESTERASE ,URINE NEGATIVE (NEGATIVE); NITRITE,URINE NEGATIVE (NEGATIVE); PH,URINE 6 (4.5-8.0); PROTEIN,URINE 3+ (NEGATIVE); UROBILINOGEN,URINE NORMAL MG/DL (0.0-1.0)
[2018-01-11 22:29] LABS: APPEARANCE,URINE CLEAR
[2018-01-11 22:47] LABS: BASOPHILS % (AUTO) 1.9 % (0.0-2.0); EOSINOPHILS % (AUTO) 4.6 % (0.0-3.0); HEMATOCRIT 28.8 % (37.0-47.0); HEMOGLOBIN 9.8 G/DL (12.0-16.0); LYMPHOCYTES % (AUTO) 30.6 % (20.0-45.0); MEAN CORPUSCULAR VOLUME 92 FL (80-99); MONOCYTES % (AUTO) 7.3 % (1.0-10.0); NEUTROPHILS % (AUTO) 55.5 % (45.0-75.0); PLATELET COUNT 216 K/UL (150-450); RED BLOOD COUNT 3.15 M/UL (4.20-5.40); RED CELL DISTRIBUTION WIDTH 11.2 % (11.6-14.8); WHITE BLOOD COUNT 7.4 K/UL (4.8-10.8)
[2018-01-11 23:10] VITALS: BP 188/73
[2018-01-11 23:18] LABS: ANION GAP 10 mmol/L (5-15); BLOOD UREA NITROGEN 61 mg/dL (7-18); CALCIUM 8.7 MG/DL (8.5-10.1); CARBON DIOXIDE 20 MMOL/L (21-32); CHLORIDE 106 MMOL/L (98-107); CREATININE 4.6 MG/DL (0.55-1.30); POTASSIUM 5.1 MMOL/L (3.5-5.1); SODIUM 135 MMOL/L (136-145)
[2018-01-11 23:25] LABS: ALANINE AMINOTRANSFERASE 14 U/L (12-78); ALBUMIN 3.4 G/DL (3.4-5.0); ALBUMIN/GLOBULIN RATIO 0.8 (1.0-2.7); ALKALINE PHOSPHATASE 89 U/L (46-116); ASPARTATE AMINO TRANSFERASE 14 U/L (15-37); BILIRUBIN,TOTAL 0.1 MG/DL (0.2-1.0); CKMB < 0.5 NG/ML (0.0-3.6); CREATINE KINASE 49 U/L (26-308)
[2018-01-12] VITALS (7 sets, daily range): BP systolic 121–157; BP diastolic 50–71
--- NOTE | 2018-01-12 02:08 | Emergency Room Report ---
History of Present Illness General Chief Complaint: Abnormal Labs Source: Family Member, Medical Record Present Illness HPI 87-year-old female presents ED for evaluation. Patient was referred to ED because of abnormal labs. Was told by Dr. Rodriguez that her renal function is rising and her potassium is high. lab work done recently. Patient states she feels okay. Denies chest pain or shortness breath. Denies dizziness. Her triage blood pressure is elevated. No other aggravating relieving factors. Denies any other associated symptoms Allergies: Coded Allergies: No Known Allergies (Unverified , 12/23/12) Patient History Past Medical History: renal disease Past Surgical History: none Pertinent Family History: none Social History: Denies: smoking, alcohol use, drug use Last Menstrual Period: n/a Now: No Immunizations: UTD Reviewed Nursing Documentation: PMH: Agreed; PSxH: Agreed Nursing Documentation-PMH Past Medical History: No History, Except For Hx Cardiac Problems: Yes Hx Hypertension: Yes Hx Cancer: No Hx Gastrointestinal Problems: Yes Hx Neurological Problems: No Review of Systems All Other Systems: negative except mentioned in HPI Physical Exam Vital Signs Date Time Temp Pulse Resp B/P (MAP) Pulse Ox O2 Delivery O2 Flow Rate FiO2 01/11/18 21:31 98.7 63 16 192/79 93 Room Air 98.8 Sp02 EP Interpretation: reviewed, normal General Appearance: no apparent distress, alert, GCS 15, non-toxic Head: normocephalic, atraumatic Eyes: bilateral eye normal inspection, bilateral eye PERRL ENT: hearing grossly normal, normal pharynx, no angioedema, normal voice Neck: full range of motion, supple/symm/no masses Respiratory: chest non-tender, lungs clear, normal breath sounds, speaking full sentences Cardiovascular #1: regular rate, rhythm, no edema Cardiovascular #2: 2+ carotid (R), 2+ carotid (L), 2+ radial (R), 2+ radial (L) , 2+ dorsalis pedis (R), 2+ dorsalis pedis (L) Gastrointestinal: normal bowel sounds, non tender, soft, non-distended, no guarding, no rebound Rectal: deferred Genitourinary: normal inspection, no CVA tenderness Musculoskeletal: back normal, gait/station normal, normal range of motion, non- tender Neurologic: alert, oriented x3, responsive, motor strength/tone normal, sensory intact, speech normal Psychiatric: judgement/insight normal, memory normal, mood/affect normal, no suicidal/homicidal ideation Reflexes: 3+ bicep (R), 3+ bicep (L), 3+ tricep (R), 3+ tricep (L), 3+ knee (R) , 3+ knee (L) Skin: normal color, no rash, warm/dry, well hydrated Lymphatic: no adenopathy Medical Decision Making Diagnostic Impression: Primary Impression: Acute renal failure (ARF) Qualified Codes: N17.9 - Acute kidney failure, unspecified Additional Impression: Hyperkalemia ER Course Hospital Course 87 yo F referred for abnormal labs Differential diagnoses include: VT/unstable angina, V. tach, bradycardia, hyperkalemia, fluid overload Clinical course Patient placed on stretcher. on rn cardiac. After initial history and physical I ordered labs, EKG labs reviewed- potassium 5.1. Cr 4.6. Hemoglobin/hematocrit normal. EKG - NSR, no acute ischemic changes interpreted by me CXR - small L sided effusion given hydralazine for elevated BP Dr Richter will consult Case discussed with Dr. Ocampo ([facility] for [facility]) and he agreed to accept the patient to his service for further care and support I. I feel this is a highly complex case requiring extensive working including EKG/Rhythm strip, Xray/CT/US, Blood/urine lab work, repeat exams while in ED, and administration of strong opiates/narcotics for pain control, admission to hospital or close patient follow up. Diagnosis - hyperkalemia, ARF admitted to telemetry in serious condition Labs Test 01/11/18 21:36 01/11/18 22:22 Urine Color Pale yellow Urine Appearance Clear Urine pH 6 (4.5-8.0) Urine Specific [place] 1.005 (1.005-1.035) Urine Protein 3+ (NEGATIVE) Urine Glucose (UA) Negative (NEGATIVE) Urine Ketones Negative (NEGATIVE) Urine Occult Blood 1+ (NEGATIVE) Urine Nitrite Negative (NEGATIVE) Urine Bilirubin Negative (NEGATIVE) Urine Urobilinogen Normal MG/DL (0.0-1.0) Urine Leukocyte Esterase Negative (NEGATIVE) Urine RBC 2-4 /HPF (0 - 2) Urine WBC 0-2 /HPF (0 - 2) Urine Squamous Epithelial Cells Few /LPF (NONE/OCC) Urine Bacteria Few /HPF (NONE) Urine Random Sodium 30 mmol/L (20-110) White Blood Count 7.4 K/UL (4.8-10.8) Red Blood Count 3.15 M/UL (4.20-5.40) Hemoglobin 9.8 G/DL (12.0-16.0) Hematocrit 28.8 % (37.0-47.0) Mean Corpuscular Volume 92 FL (80-99) Mean Corpuscular Hemoglobin 31.0 PG (27.0-31.0) Mean Corpuscular Hemoglobin Concent 33.9 G/DL (32.0-36.0) Red Cell Distribution Width 11.2 % (11.6-14.8) Platelet Count 216 K/UL (150-450) Mean Platelet Volume 6.0 FL (6.5-10.1) Neutrophils (%) (Auto) 55.5 % (45.0-75.0) Lymphocytes (%) (Auto) 30.6 % (20.0-45.0) Monocytes (%) (Auto) 7.3 % (1.0-10.0) Eosinophils (%) (Auto) 4.6 % (0.0-3.0) Basophils (%) (Auto) 1.9 % (0.0-2.0) Sodium Level 135 MMOL/L (136-145) Potassium Level 5.1 MMOL/L (3.5-5.1) Chloride Level 106 MMOL/L (98-107) Carbon Dioxide Level 20 MMOL/L (21-32) Anion Gap 10 mmol/L (5-15) Blood Urea Nitrogen 61 mg/dL (7-18) Creatinine 4.6 MG/DL (0.55-1.30) Estimat Glomerular Filtration Rate mL/min (>60) Glucose Level 121 MG/DL (74-106) Calcium Level 8.7 MG/DL (8.5-10.1) Total Bilirubin 0.1 MG/DL (0.2-1.0) Aspartate Amino Transf (AST/SGOT) 14 U/L (15-37) Alanine Aminotransferase (ALT/SGPT) 14 U/L (12-78) Alkaline Phosphatase 89 U/L (46-116) Total Creatine Kinase 49 U/L (26-308) Creatine Kinase MB < 0.5 NG/ML (0.0-3.6) Creatine Kinase MB Relative Index 1.0 Troponin I 0.000 ng/mL (0.000-0.056) C-Reactive Protein, Quantitative 1.0 mg/dL (0.00-0.90) Pro-B-Type Natriuretic Peptide 1212 pg/mL (0-125) Total Protein 7.9 G/DL (6.4-8.2) Albumin 3.4 G/DL (3.4-5.0) Globulin 4.5 g/dL Albumin/Globulin Ratio 0.8 (1.0-2.7) EKG Diagnostic Results Rate: normal Rhythm: NSR ST Segments: no acute changes ASA given to the pt in ED: No Rhythm Strip Diag. Results EP Interpretation: yes Rhythm: NSR, no PVC's, no ectopy Chest X-Ray Diagnostic Results Chest X-Ray Diagnostic Results : Chest X-Ray Ordered: Yes # of Views/Limited/Complete: 1 View Indication: Other EP Interpretation: Yes Interpretation: no consolidation, no pneumothorax, other - effusion Impression: Other - effusion Electronically Signed by: Electronically signed by Filemon Tellez MD Last Vital Signs Date Time Temp Pulse Resp B/P (MAP) Pulse Ox O2 Delivery O2 Flow Rate FiO2 01/12/18 01:15 63 01/12/18 01:00 97.7 16 157/71 97 Room Air 97.7 Status: improved Disposition: ADMITTED INPATIENT Condition: Serious Referrals: Anjel Fay MD (PCP) Filemon Tellez MD Jan 12, 2018 02:08
[2018-01-12] MEDS: HydrALAZINE 50mg tab ORAL SCH ×3 (05:33→21:14)
[2018-01-12] MEDS ORDERED: HydrALAZINE 50mg tab ORAL SCH (06:00)
[2018-01-12 06:11] LABS: BASOPHILS % (AUTO) 1.8 % (0.0-2.0); EOSINOPHILS % (AUTO) 7.9 % (0.0-3.0); HEMATOCRIT 30.6 % (37.0-47.0); HEMOGLOBIN 10.4 G/DL (12.0-16.0); MEAN CORPUSCULAR VOLUME 92 FL (80-99); MONOCYTES % (AUTO) 7.7 % (1.0-10.0); NEUTROPHILS % (AUTO) 45.6 % (45.0-75.0); PLATELET COUNT 236 K/UL (150-450); RED BLOOD COUNT 3.34 M/UL (4.20-5.40); RED CELL DISTRIBUTION WIDTH 11.4 % (11.6-14.8); WHITE BLOOD COUNT 6.7 K/UL (4.8-10.8)
[2018-01-12 06:27] LABS: % IRON SATURATION 22 % (15-50); ANION GAP 9 mmol/L (5-15); BLOOD UREA NITROGEN 59 mg/dL (7-18); CALCIUM 8.9 MG/DL (8.5-10.1); CARBON DIOXIDE 20 MMOL/L (21-32); CHLORIDE 110 MMOL/L (98-107); CREATININE 4.4 MG/DL (0.55-1.30); IRON 43 ug/dL (50-175); POTASSIUM 5.1 MMOL/L (3.5-5.1); SODIUM 138 MMOL/L (136-145); TOTAL IRON BINDING CAPACITY 198 ug/dL (250-450)
[2018-01-12 06:39] LABS: CREATINE KINASE 39 U/L (26-308); GAMMA GLUTAMYL TRANSPEPTIDASE 14 U/L (5-85)
[2018-01-12 06:42] LABS: ALANINE AMINOTRANSFERASE 13 U/L (12-78); ALBUMIN 3.3 G/DL (3.4-5.0); ALBUMIN/GLOBULIN RATIO 0.8 (1.0-2.7); ALKALINE PHOSPHATASE 80 U/L (46-116); ASPARTATE AMINO TRANSFERASE 11 U/L (15-37); BILIRUBIN,TOTAL 0.2 MG/DL (0.2-1.0); CHOLESTEROL 158 MG/DL (< 200); FERRITIN 223 NG/ML (8-388); HDL CHOLESTEROL 38 MG/DL (40-60); TRIGLYCERIDES 187 MG/DL (30-150)
[2018-01-12] MEDS: Flonase Nasal Inhaler 16gm NASAL SCH (08:26)
[2018-01-12] MEDS: Aspirin EC 81mg tab ORAL SCH (08:27)
[2018-01-12] MEDS: BusPIRone 5mg Tab ORAL SCH ×3 (08:27→17:14)
[2018-01-12] MEDS: Metoprolol Tartrate 12.5mg TAB ORAL SCH ×2 (08:27→21:13)
[2018-01-12] MEDS: Sertraline 50mg tab ORAL SCH (08:29)
[2018-01-12] MEDS: Docusate 100mg cap ORAL SCH ×2 (08:29→17:14)
[2018-01-12] MEDS: Lyrica 50mg cap ORAL SCH (08:30)
--- NOTE | 2018-01-12 08:44 | History and Physical Report ---
DATE OF ADMISSION: 01/11/2018 CHIEF COMPLAINT: Acute renal failure. HISTORY OF PRESENT ILLNESS: The patient is a pleasant 87-year-old female. She has history of hypertensive heart disease, gallstones, pancreatitis, prior history of chronic kidney disease, gastroesophageal reflux disease, hypertension, and hypothyroidism. She was sent to the emergency room by her tag stringer because of worsening renal failure. The patient is a poor historian. She denies any diarrhea. She denies any recent changes in medications. On evaluation in the emergency room, the patient's creatinine was 4.6 with a potassium of 5.1. Previously in September of 2016, her creatinine was 2.1. The patient has been started on IV hydration. She is now admitted for further evaluation and care. PAST MEDICAL HISTORY: As above. PAST SURGICAL HISTORY: None. CURRENT MEDICATIONS: Reconciled and reviewed. ALLERGIES: None. FAMILY HISTORY: None. SOCIAL HISTORY: Negative for tobacco, ethanol, or drugs. REVIEW OF SYSTEMS: GENERAL: No fevers or chills. HEENT: No headaches or visual changes. CARDIOPULMONARY: No chest pain or shortness of breath. GASTROINTESTINAL: No nausea or vomiting. GENITOURINARY: No urgency or frequency. MUSCULOSKELETAL: No joint pain or swelling. NEUROLOGIC: No evidence of seizures. PHYSICAL EXAM: VITAL SIGNS: Temperature 97, pulse 63, respirations 16, and blood pressure 150/67. GENERAL: The patient is well-developed, in no apparent distress. HEART: Regular rate and rhythm. LUNGS: Clear. ABDOMEN: Soft, nontender, and nondistended. EXTREMITIES: Without clubbing, cyanosis, or edema. LABORATORY DATA: White count was 7.4, hemoglobin 9.8, hematocrit 28, and platelets 216,000. Sodium 138, potassium 4.1, chloride 110, bicarb 20, BUN 59, and creatinine 4.4. Urine was negative. ASSESSMENT: This is an 87-year-old female, admitted with complaints of acute on chronic renal failure. 1. Acute on chronic renal failure. 2. Hypertension. 3. History of gallstones. 4. Pancreatitis. PLAN: 1. IV hydration. 2. Check renal ultrasound. 3. Nephrology followup. 4. Monitor the patient's renal function closely with hydration. Arden Ocampo M.D. DR: RITIKA JOB#: [id number] CC:
[2018-01-12] MEDS ORDERED: cloNIDine 0.2mg Tab ORAL SCH (09:00)
--- NOTE | 2018-01-12 10:47 | Diagnostic Imaging Report ---
Indication:Elevated Bun and Creatinine. Technique: Grayscale and duplex Doppler imaging of the kidneys performed. Comparison: None Findings: There are multiple cysts within both kidneys. The kidneys appear normal in size measuring between 10 and 11 cm in the right kidney imaging 12 and 13 cm in the left kidney. There is no hydronephrosis. Difficult to evaluate the renal cortex due to the number of cysts that are present largely replacing the cortical parenchyma. Strickland catheter is present within the urinary bladder which is nondistended. IVC is unremarkable. IMPRESSION: Innumerable cysts within both kidneys. No evidence of obstruction
--- NOTE | 2018-01-12 11:08 | Diagnostic Imaging Report ---
Indication: Chest pain Comparison: 09/27/2016 A single view chest radiograph was obtained. Findings: Questionable infiltrate at the left lung base. Heart size is borderline. Bones are osteopenic. IMPRESSION: Question of infiltrate left lung base
--- NOTE | 2018-01-12 11:15 | Consultation ---
DATE OF CONSULTATION: 01/12/2018 PULMONARY CONSULTATION CONSULTING PHYSICIAN: Anjel Fay M.D. REASON FOR CONSULTATION: Asthma and shortness of breath. HISTORY OF PRESENT ILLNESS: This is an 87-year-old female, presents with worsening of renal function. The patient was sent in by the dairy department manager. The patient's BUN and creatinine has worsened. The patient with some worsening shortness of breath. She does however admit to adequate urine output. The patient has cough and congestion. The patient does have history of asthma. The patient is well known to me. Denies any dizziness at present. Denies any chest pain. Denies any aggravating factors. The patient has been closely monitored, but overall renal function has worsened dramatically. The patient is well known to me from multiple office visits. The patient has had prior admissions here in the medical center. The patient has had prior long term admissions as well. PAST MEDICAL HISTORY: Notable for history of cholecystitis and cholelithiasis. The patient has history of acute on chronic renal failure. The patient has history of dementia, history of hypertension, hypertensive heart disease, history of asthma, history of significant arthritis end-stage, and chronic migraines. MEDICATIONS: Reviewed. ALLERGIES: Reviewed. SOCIAL HISTORY: Nonsmoker and nondrinker. She lives with her family. She is disabled and retired. REVIEW OF SYSTEMS: Difficult to obtain, but fairly negative otherwise. PHYSICAL EXAMINATION: GENERAL: A well-developed female, comfortable at present. No significant distress. She does recognize me. VITAL SIGNS: Temperature 98, heart rate 56, respiratory rate 20, blood pressure 115/67, and saturations 94%. HEENT: Overall negative. Extraocular movements are grossly intact. Oropharynx is moist. NECK: Supple. No adenopathy. LUNGS: Fairly clear. Symmetric. Minimal wheezes. CARDIAC: S1 and S2. Regular rate and rhythm. Positive S4. No murmurs or rubs. ABDOMEN: Soft, nontender, and nondistended. EXTREMITIES: No cyanosis or clubbing. Trace edema. NEUROLOGIC: Grossly nonfocal. LABORATORY DATA: Reviewed. BUN and creatinine 59 and 4.4. Potassium 5.1. Iron panel noted and reviewed with mildly reduced iron level. Hemoglobin 10.4 and platelets of 236. The patient without any recent x-rays, but the last chest x-ray obtained, which showed atelectasis and cardiomegaly. IMPRESSION: 1. Asthma, fairly stable at present. 2. Cardiomegaly. 3. Cardiomyopathy. 4. Diastolic heart dysfunction. 5. Acute on chronic renal failure. 6. Hyperkalemia. 7. anemia 8. Dementia. 9. A chest x-ray with left-sided pleural effusion. 10. Hypertension. 11. Hypertensive heart disease. RECOMMENDATIONS: Supportive care. Monitor fluid status. Monitor effusions. Monitor x-rays. Nebulized therapy as needed. Resume medication. IV hydration with caution. We will follow up with caution and monitor clinically for further changes and interventions. We will assess clinically and monitor renal function and imaging, the patient otherwise stable and comfortable at present and we will follow clinically for further changes and intervention. Anjel Fay M.D. DR: ABBEY JOB#: [id number] CC: JOSE
[2018-01-12] MEDS: Albuterol ud Inhalation HHN SCH ×3 (11:23→20:05)
--- NOTE | 2018-01-12 12:11 | Consultation ---
Consult Note Consult Note asked to rval for rising Cr and K 87-year-old female presents ED for evaluation. Patient was referred to ED because of abnormal labs. Was told by Dr. Rodriguez that her renal function is rising and her potassium is high. lab work done recently. Patient states she feels okay. Denies chest pain or shortness breath. Denies dizziness. Her triage blood pressure is elevated. No other aggravating relieving factors. Denies any other associated symptoms examined- data reviewed Assessment/Plan -. Acute on chronic renal failure. likely due to HTN uncontrolled -. Asthma, fairly stable at present. -. Cardiomegaly. -. Diastolic heart dysfunction. -. Hyperkalemia. -. Hypertension. -. Hypertensive heart disease. -. HypoThyroid Slow hydrate- Avoid Nephrotoxics Adjust BP meds monitor renal parameters- 2D Echo- Kidney ISIS per orders MIGUEL ANGEL BOLANOS Jan 12, 2018 12:11
[2018-01-12] MEDS ORDERED: HydrALAZINE 25mg tab ORAL PRN (12:15)
[2018-01-12] MEDS: Meclizine 25mg tab ORAL SCH ×2 (13:10→17:14)
[2018-01-12] MEDS ORDERED: Iron Sucrose 200 MG in NS 110 ML IV SCH (21:00)
[2018-01-13] VITALS: BP 143/87
[2018-01-13] MEDS: Albuterol ud Inhalation HHN SCH ×7 (00:03→22:48)
--- NOTE | 2018-01-13 00:36 | Cardiology Report ---
APPROVED REPORT EKG Measurement Heart [id number] Normal sinus rhythm Normal ECG
[2018-01-13 04:00] VITALS: BP 146/68
[2018-01-13] MEDS: HydrALAZINE 50mg tab ORAL SCH ×3 (06:23→21:09)
[2018-01-13 08:00] VITALS: BP 120/71
--- NOTE | 2018-01-13 09:11 | Diagnostic Imaging Report ---
EXAM: XR Chest, 1 View CLINICAL HISTORY: Shortness of breath TECHNIQUE: Frontal view of the chest. COMPARISON: Chest x-ray dated 01/11/18 FINDINGS: Lungs: Mild pulmonary vascular congestion. Subsegmental atelectasis versus infiltrate in the left lung base. Linear atelectasis in the right lung base. Pleural space: Small left pleural effusion. No pneumothorax. Heart: Unremarkable. No cardiomegaly. Mediastinum: Unremarkable. Bones/joints: Unremarkable. Vasculature: Atherosclerotic calcifications are noted within the aortic arch. Tubes, lines and devices: EKG leads overlie the thorax. IMPRESSION: 1. Consolidation in the left lung base, more prominent compared to the prior chest x-ray. This may represent atelectasis versus pneumonia. 2. Small left pleural effusion. 3. Linear atelectasis in the right lung base. 4. Mild pulmonary vascular congestion
[2018-01-13] MEDS: Flonase Nasal Inhaler 16gm NASAL SCH (09:32)
[2018-01-13] MEDS: Meclizine 25mg tab ORAL SCH ×3 (09:32→17:25)
[2018-01-13] MEDS: Docusate 100mg cap ORAL SCH ×2 (09:33→17:25)
[2018-01-13] MEDS: Metoprolol Tartrate 12.5mg TAB ORAL SCH ×2 (09:33→20:37)
[2018-01-13] MEDS: Aspirin EC 81mg tab ORAL SCH (09:33)
[2018-01-13 09:34] LABS: ANION GAP 15 mmol/L (5-15); BLOOD UREA NITROGEN 54 mg/dL (7-18); CARBON DIOXIDE 15 MMOL/L (21-32); CHLORIDE 110 MMOL/L (98-107); CREATININE 4.2 MG/DL (0.55-1.30); POTASSIUM 4.4 MMOL/L (3.5-5.1); SODIUM 140 MMOL/L (136-145)
[2018-01-13] MEDS: Sertraline 50mg tab ORAL SCH (09:34)
[2018-01-13] MEDS: Lyrica 50mg cap ORAL SCH (09:34)
[2018-01-13] MEDS: BusPIRone 5mg Tab ORAL SCH ×3 (09:34→17:25)
--- NOTE | 2018-01-13 11:00 | Pulmonology Progress Note ---
Assessment/Plan Assessment/Plan IMPRESSION: 1. Asthma, fairly stable at present. 2. Cardiomegaly. 3. Cardiomyopathy. 4. Diastolic heart dysfunction. 5. Acute on chronic renal failure. 6. Hyperkalemia. 7. anemia 8. Dementia. 9. A chest x-ray with left-sided pleural effusion. 10. Hypertension. 11. Hypertensive heart disease. PLAN care noted no change renal function noted monitor respiratory status no change needed impression, plan, and exam edited and reviewed in detail care discussed with RN Subjective Allergies: Coded Allergies: No Known Allergies (Unverified , 12/23/12) Subjective d/w renal function improved Objective Last 24 Hour Vital Signs Date Time Temp Pulse Resp B/P (MAP) Pulse Ox O2 Delivery O2 Flow Rate FiO2 01/13/18 09:34 75 120/71 01/13/18 09:33 75 120/71 01/13/18 08:00 76 01/13/18 08:00 97.8 75 18 120/71 95 Room Air 97.8 01/13/18 07:42 84 16 98 Room Air 21 01/13/18 07:32 82 18 95 Room Air 21 01/13/18 06:23 146/68 01/13/18 06:23 146/68 01/13/18 04:00 98.4 79 20 146/68 94 Room Air 98.4 01/13/18 04:00 77 01/13/18 03:57 21 01/13/18 03:56 Room Air 01/13/18 00:00 98.1 82 20 143/87 93 Room Air 98.1 01/13/18 00:00 77 01/12/18 23:59 88 16 96 Room Air 21 01/12/18 23:50 85 18 93 Room Air 21 01/12/18 21:37 121/56 01/12/18 21:14 121/56 01/12/18 21:13 80 121/56 01/12/18 20:16 70 18 97 Room Air 21 01/12/18 20:06 68 20 94 Room Air 21 01/12/18 20:00 67 01/12/18 20:00 98.2 68 20 121/56 95 Room Air 98.2 01/12/18 16:00 97.6 70 18 143/57 95 Room Air 97.6 01/12/18 16:00 71 01/12/18 15:17 63 18 97 Room Air 21 01/12/18 15:07 91 16 96 Room Air 21 01/12/18 13:11 137/68 01/12/18 13:11 137/68 01/12/18 12:00 55 01/12/18 12:00 97.4 58 18 131/60 96 Room Air 97.4 01/12/18 11:35 60 18 98 Room Air 21 01/12/18 11:24 94 18 97 Room Air 21 01/12/18 11:20 54 18 Room Air 21 Intake and Output 01/12/18 01/13/18 19:00 07:00 Intake Total 810 ml 750 ml Output Total 1000 ml 150 ml Balance -190 ml 600 ml Intake Oral 360 ml IV Total 450 ml 750 ml Output Urine Total 1000 ml 150 ml Objective GENERAL: A well-developed female, comfortable at present. No significant distress. HEENT: Overall negative. Extraocular movements are grossly intact. Oropharynx is moist. NECK: Supple. No adenopathy. LUNGS: Fairly clear. Symmetric. Minimal wheezes. CARDIAC: S1 and S2. Regular rate and rhythm. Positive S4. No murmurs or rubs. ABDOMEN: Soft, nontender, and nondistended. EXTREMITIES: No cyanosis or clubbing. Trace edema. NEUROLOGIC: Grossly nonfocal. Laboratory Tests 01/13/18 08:52: Sodium Level 140, Potassium Level 4.4, Chloride Level 110H, Carbon Dioxide Level 15L, Anion Gap 15, Blood Urea Nitrogen 54H, Creatinine 4.2H, Estimat Glomerular Filtration Rate , Glucose Level 175H, Calcium Level 8.0L Current Medications Medications (Trade) Dose Ordered Sig/Vaughn Route PRN Reason Start Time Stop Time Status Last Admin Dose Admin Albuterol Sulfate (Proventil) 2.5 mg Q4HRT HHN 01/12/18 11:00 01/17/18 10:59 01/13/18 07:32 Aspirin (Ecotrin) 81 mg DAILY ORAL 01/12/18 09:00 02/11/18 08:59 01/13/18 09:33 Buspirone HCl (Buspar) 15 mg TID ORAL 01/12/18 09:00 02/11/18 08:59 01/13/18 09:34 Clonidine HCl (Catapres Tab) 0.1 mg Q8HR ORAL 01/12/18 06:00 8/2/18 08:59 01/13/18 06:23 Docusate Sodium (Colace) 200 mg TWICE A DAY ORAL 01/12/18 09:00 02/11/18 08:59 01/13/18 09:33 Epoetin Trae (Procrit (for non ESRD use)) 5,000 units THU-THU-THU SUBQ 01/13/18 21:00 02/12/18 20:59 Fluticasone Propionate (Flonase) 1 spray DAILY NASAL 01/12/18 09:00 02/11/18 08:59 01/13/18 09:32 Hydralazine HCl (Apresoline) 25 mg Q4H PRN ORAL BP over 160 syst 01/12/18 12:15 02/11/18 12:14 Hydralazine HCl (Apresoline) 50 mg Q8HR ORAL 01/12/18 06:00 02/11/18 05:59 01/13/18 06:23 Lansoprazole (Prevacid) 30 mg DAILY ORAL 01/12/18 09:00 02/11/18 08:59 01/13/18 09:33 Levothyroxine Sodium (Synthroid) 75 mcg DAILY@0600 ORAL 01/13/18 06:00 02/11/18 05:59 01/13/18 06:23 Meclizine HCl (Antivert) 25 mg TID ORAL 01/12/18 13:00 02/11/18 12:59 01/13/18 09:32 Metoprolol Tartrate (Lopressor) 12.5 mg Q12HR ORAL 01/12/18 09:00 02/11/18 08:59 01/13/18 09:33 Nifedipine (Procardia XL) 30 mg DAILY ORAL 01/12/18 09:00 02/11/18 08:59 01/13/18 09:34 Pregabalin (Lyrica) 50 mg DAILY ORAL 01/12/18 09:00 02/11/18 08:59 01/13/18 09:34 Sertraline HCl (Zoloft) 25 mg DAILY ORAL 01/12/18 09:00 02/11/18 08:59 01/13/18 09:34 Sodium Chloride 1,000 ml @ 75 mls/hr [id number] IV 01/12/18 12:15 02/11/18 12:14 01/13/18 02:40 Sodium Chloride 1,000 ml @ 75 mls/hr [id number] IV 01/12/18 22:30 02/10/18 22:29 01/12/18 08:26 Anjel Fay MD Jan 13, 2018 11:00
--- NOTE | 2018-01-13 11:47 | General Progress Note ---
Assessment/Plan Problem List: (1) Hyperkalemia ICD Codes: E87.5 - Hyperkalemia SNOMED: 87229887 (2) Acute renal failure (ARF) ICD Codes: N17.9 - Acute kidney failure, unspecified SNOMED: 54076632 Qualifiers: Qualified Codes: N17.9 - Acute kidney failure, unspecified (3) Hypertension ICD Codes: I10 - Essential (primary) hypertension SNOMED: 81450177 (4) COPD (chronic obstructive pulmonary disease) ICD Codes: J44.9 - Chronic obstructive pulmonary disease, unspecified SNOMED: 73058398 Status: stable, not improved Assessment/Plan ivf per renal monitor renal fxn monitor fluid status resp care bp rx Subjective ROS Limited/Unobtainable: No Constitutional: Reports: malaise, weakness HEENT: Reports: no symptoms Cardiovascular: Reports: no symptoms Respiratory: Reports: no symptoms Gastrointestinal/Abdominal: Reports: no symptoms Genitourinary: Reports: no symptoms Neurologic/Psychiatric: Reports: no symptoms Endocrine: Reports: no symptoms Hematologic/Lymphatic: Reports: no symptoms Allergies: Coded Allergies: No Known Allergies (Unverified , 12/23/12) All Systems: reviewed and negative except above Subjective no events. w/o complaints. minimal improvement in renal fxn. on ivf. no cp.sob Objective Last 24 Hour Vital Signs Date Time Temp Pulse Resp B/P (MAP) Pulse Ox O2 Delivery O2 Flow Rate FiO2 01/13/18 11:24 86 18 99 Room Air 21 01/13/18 11:18 84 18 95 Room Air 21 01/13/18 09:34 75 120/71 01/13/18 09:33 75 120/71 01/13/18 08:00 76 01/13/18 08:00 97.8 75 18 120/71 95 Room Air 97.8 01/13/18 07:42 84 16 98 Room Air 21 01/13/18 07:32 82 18 95 Room Air 21 01/13/18 06:23 146/68 01/13/18 06:23 146/68 01/13/18 04:00 98.4 79 20 146/68 94 Room Air 98.4 01/13/18 04:00 77 01/13/18 03:57 21 01/13/18 03:56 Room Air 01/13/18 00:00 98.1 82 20 143/87 93 Room Air 98.1 01/13/18 00:00 77 01/12/18 23:59 88 16 96 Room Air 21 01/12/18 23:50 85 18 93 Room Air 21 01/12/18 21:37 121/56 01/12/18 21:14 121/56 01/12/18 21:13 80 121/56 01/12/18 20:16 70 18 97 Room Air 21 01/12/18 20:06 68 20 94 Room Air 21 01/12/18 20:00 67 01/12/18 20:00 98.2 68 20 121/56 95 Room Air 98.2 01/12/18 16:00 97.6 70 18 143/57 95 Room Air 97.6 01/12/18 16:00 71 01/12/18 15:17 63 18 97 Room Air 21 01/12/18 15:07 91 16 96 Room Air 21 01/12/18 13:11 137/68 01/12/18 13:11 137/68 01/12/18 12:00 55 01/12/18 12:00 97.4 58 18 131/60 96 Room Air 97.4 Intake and Output 01/12/18 01/13/18 19:00 07:00 Intake Total 810 ml 750 ml Output Total 1000 ml 150 ml Balance -190 ml 600 ml Intake Oral 360 ml IV Total 450 ml 750 ml Output Urine Total 1000 ml 150 ml Laboratory Tests 01/13/18 08:52: Sodium Level 140, Potassium Level 4.4, Chloride Level 110H, Carbon Dioxide Level 15L, Anion Gap 15, Blood Urea Nitrogen 54H, Creatinine 4.2H, Estimat Glomerular Filtration Rate , Glucose Level 175H, Calcium Level 8.0L Height (Feet): 5 Height (Inches): 1.00 Weight (Pounds): 154 General Appearance: WD/WN, alert Neck: supple Cardiovascular: normal rate, regular rhythm Respiratory/Chest: chest wall non-tender, lungs clear, normal breath sounds Abdomen: normal bowel sounds, non tender, soft, no organomegaly Edema: no edema noted Arm (L), no edema noted Arm (R), no edema noted Leg (L), no edema noted Leg (R), no edema noted Pedal (L), no edema noted Pedal (R), no edema noted Generalized 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
[2018-01-13 12:00] VITALS: BP 126/62
--- NOTE | 2018-01-13 12:20 | Nephrology Progress Note ---
Assessment/Plan Problem List: (1) Acute renal failure (ARF) (2) Hypertension (3) Hyperkalemia (4) Anemia in chronic kidney disease (5) Hypothyroid Assessment -. Acute on chronic renal failure. likely due to HTN uncontrolled -. Asthma, fairly stable at present. -. Cardiomegaly. -. Diastolic heart dysfunction. -. Hyperkalemia. -. Hypertension. -. Hypertensive heart disease. -. HypoThyroid Plan Slow hydrate- Avoid Nephrotoxics Adjust BP meds monitor renal parameters- 2D Echo- Ej Fx 55% Kidney ISIS Innumerable cysts within both kidneys. No evidence of obstruction per orders Subjective ROS Limited/Unobtainable: No Constitutional: Reports: malaise, weakness Objective Objective Last 24 Hour Vital Signs Date Time Temp Pulse Resp B/P (MAP) Pulse Ox O2 Delivery O2 Flow Rate FiO2 01/13/18 11:24 86 18 99 Room Air 21 01/13/18 11:18 84 18 95 Room Air 01/13/18 09:34 75 120/71 01/13/18 09:33 75 120/71 01/13/18 08:00 76 01/13/18 08:00 97.8 75 18 120/71 95 Room Air 97.8 01/13/18 07:42 84 16 98 Room Air 01/13/18 07:32 82 18 95 Room Air 01/13/18 06:23 146/68 01/13/18 06:23 146/68 01/13/18 04:00 98.4 79 20 146/68 94 Room Air 98.4 01/13/18 04:00 77 01/13/18 03:57 21 01/13/18 03:56 Room Air 01/13/18 00:00 98.1 82 20 143/87 93 Room Air 98.1 01/13/18 00:00 77 01/12/18 23:59 88 16 96 Room Air 01/12/18 23:50 85 18 93 Room Air 01/12/18 21:37 121/56 01/12/18 21:14 121/56 01/12/18 21:13 80 121/56 01/12/18 20:16 70 18 97 Room Air 21 01/12/18 20:06 68 20 94 Room Air 21 01/12/18 20:00 67 7/3/18 20:00 98.2 68 20 121/56 95 Room Air 98.2 01/12/18 16:00 97.6 70 18 143/57 95 Room Air 97.6 01/12/18 16:00 71 01/12/18 15:17 63 18 97 Room Air 21 01/12/18 15:07 91 16 96 Room Air 21 01/12/18 13:11 137/68 01/12/18 13:11 137/68 Intake and Output 01/12/18 01/13/18 19:00 07:00 Intake Total 810 ml 750 ml Output Total 1000 ml 150 ml Balance -190 ml 600 ml Intake Oral 360 ml IV Total 450 ml 750 ml Output Urine Total 1000 ml 150 ml Laboratory Tests 01/13/18 08:52: Sodium Level 140, Potassium Level 4.4, Chloride Level 110H, Carbon Dioxide Level 15L, Anion Gap 15, Blood Urea Nitrogen 54H, Creatinine 4.2H, Estimat Glomerular Filtration Rate , Glucose Level 175H, Calcium Level 8.0L Height (Feet): 5 Height (Inches): 1.00 Weight (Pounds): 154 General Appearance: no apparent distress Cardiovascular: normal rate Respiratory/Chest: decreased breath sounds Abdomen: distended MIGUEL ANGEL BOLANOS Jan 13, 2018 12:20
[2018-01-13 15:45] LABS: BASOPHILS % (AUTO) 1.3 % (0.0-2.0); EOSINOPHILS % (AUTO) 4.6 % (0.0-3.0); HEMATOCRIT 29.7 % (37.0-47.0); HEMOGLOBIN 9.9 G/DL (12.0-16.0); LYMPHOCYTES % (AUTO) 36.8 % (20.0-45.0); MEAN CORPUSCULAR VOLUME 93 FL (80-99); MONOCYTES % (AUTO) 5.9 % (1.0-10.0); NEUTROPHILS % (AUTO) 51.5 % (45.0-75.0); PLATELET COUNT 198 K/UL (150-450); RED BLOOD COUNT 3.21 M/UL (4.20-5.40); RED CELL DISTRIBUTION WIDTH 11.5 % (11.6-14.8); WHITE BLOOD COUNT 8.8 K/UL (4.8-10.8)
[2018-01-13] MEDS ORDERED: Tubing IV Secondary IV ONE (15:59)
[2018-01-13 16:00] VITALS: BP 131/71
[2018-01-13 20:00] VITALS: BP 180/67
[2018-01-13] MEDS: Epogen (for non ESRD use) SUBQ SCH (22:15)
[2018-01-14] VITALS: BP 144/65
[2018-01-14] MEDS: Acetaminophen 500mg (ES) tab ORAL PRN (01:11)
[2018-01-14] MEDS: Albuterol ud Inhalation HHN SCH ×6 (03:12→23:28)
[2018-01-14 04:00] VITALS: BP 143/58
[2018-01-14] MEDS: HydrALAZINE 50mg tab ORAL SCH ×3 (05:39→21:15)
[2018-01-14 06:25] LABS: BASOPHILS % (AUTO) 1.1 % (0.0-2.0); EOSINOPHILS % (AUTO) 2.5 % (0.0-3.0); HEMATOCRIT 27.9 % (37.0-47.0); HEMOGLOBIN 9.1 G/DL (12.0-16.0); LYMPHOCYTES % (AUTO) 23.3 % (20.0-45.0); MEAN CORPUSCULAR VOLUME 94 FL (80-99); MONOCYTES % (AUTO) 9.1 % (1.0-10.0); PLATELET COUNT 196 K/UL (150-450); RED BLOOD COUNT 2.98 M/UL (4.20-5.40); RED CELL DISTRIBUTION WIDTH 11.7 % (11.6-14.8); WHITE BLOOD COUNT 8.6 K/UL (4.8-10.8)
[2018-01-14 06:41] LABS: ALANINE AMINOTRANSFERASE 7 U/L (12-78); ALBUMIN/GLOBULIN RATIO 0.8 (1.0-2.7); ALKALINE PHOSPHATASE 59 U/L (46-116); ANION GAP 12 mmol/L (5-15); ASPARTATE AMINO TRANSFERASE 9 U/L (15-37); BILIRUBIN,TOTAL 0.2 MG/DL (0.2-1.0); BLOOD UREA NITROGEN 50 mg/dL (7-18); CALCIUM 8.3 MG/DL (8.5-10.1); CARBON DIOXIDE 18 MMOL/L (21-32); CHLORIDE 112 MMOL/L (98-107); CREATININE 4.3 MG/DL (0.55-1.30); PHOSPHORUS 3.9 MG/DL (2.5-4.9); POTASSIUM 4.5 MMOL/L (3.5-5.1); SODIUM 142 MMOL/L (136-145)
[2018-01-14 08:00] VITALS: BP 144/63
--- NOTE | 2018-01-14 08:26 | Pulmonology Progress Note ---
Assessment/Plan Assessment/Plan IMPRESSION: 1. Asthma, fairly stable at present. 2. Cardiomegaly. 3. Cardiomyopathy. 4. Diastolic heart dysfunction. 5. Acute on chronic renal failure. 6. Hyperkalemia. 7. anemia 8. Dementia. 9. A chest x-ray with left-sided pleural effusion. 10. Hypertension. 11. Hypertensive heart disease. PLAN care noted and reviewed no change per pulmonary renal function noted- awaiting morning labs monitor respiratory status impression, plan, and exam edited and reviewed in detail care discussed with RN Subjective Allergies: Coded Allergies: No Known Allergies (Unverified , 12/23/12) Subjective d/w renal labs improved Objective Last 24 Hour Vital Signs Date Time Temp Pulse Resp B/P (MAP) Pulse Ox O2 Delivery O2 Flow Rate FiO2 01/14/18 07:10 79 16 97 Room Air 21 01/14/18 07:01 79 16 93 Room Air 01/14/18 05:39 143/58 01/14/18 04:00 86 01/14/18 04:00 98.3 66 20 143/58 100 Room Air 98.3 01/14/18 03:23 84 18 99 Room Air 21 01/14/18 03:13 89 18 95 Room Air 01/14/18 01:11 100.8 01/14/18 00:00 107 01/14/18 00:00 100.8 104 20 144/65 93 Room Air 100.8 01/13/18 23:01 89 18 99 Room Air 21 01/13/18 22:48 92 18 94 Room Air 01/13/18 21:09 180/67 01/13/18 20:37 180/67 01/13/18 20:37 96 180/67 01/13/18 20:00 94 01/13/18 20:00 99.6 96 20 180/67 92 Room Air 99.6 01/13/18 19:48 83 18 98 Room Air 21 01/13/18 19:40 89 18 95 Room Air 01/13/18 16:00 97.3 90 18 131/71 96 Room Air 97.3 01/13/18 16:00 98 01/13/18 15:26 82 18 99 Room Air 01/13/18 15:20 90 18 93 Room Air 01/13/18 13:40 146/77 01/13/18 12:00 72 7/4/18 12:00 97.8 71 18 126/62 97 Room Air 97.8 01/13/18 11:24 86 18 99 Room Air 21 01/13/18 11:18 84 18 95 Room Air 21 01/13/18 09:34 75 120/71 01/13/18 09:33 75 120/71 Intake and Output 01/13/18 01/14/18 19:00 07:00 Intake Total 1185 ml 900 ml Output Total 1300 ml 5550 ml Balance -115 ml -4650 ml Intake Oral 360 ml IV Total 825 ml 900 ml Output Urine Total 1300 ml 5550 ml Objective GENERAL: A well-developed female, comfortable at present. No significant distress. HEENT: Overall negative. Extraocular movements are grossly intact. Oropharynx is moist. NECK: Supple. No adenopathy. LUNGS: Fairly clear. Symmetric. Minimal wheezes. CARDIAC: S1 and S2. Regular rate and rhythm. Positive S4. No murmurs or rubs. ABDOMEN: Soft, nontender, and nondistended. EXTREMITIES: No cyanosis or clubbing. Trace edema. NEUROLOGIC: Grossly nonfocal. Laboratory Tests 01/13/18 08:52: White Blood Count 8.8, Red Blood Count 3.21L, Hemoglobin 9.9L, Hematocrit 29.7L , Mean Corpuscular Volume 93, Mean Corpuscular Hemoglobin 30.8, Mean Corpuscular Hemoglobin Concent 33.2, Red Cell Distribution Width 11.5L, Platelet Count 198, Mean Platelet Volume 5.7L, Neutrophils (%) (Auto) 51.5, Lymphocytes (%) (Auto) 36.8, Monocytes (%) (Auto) 5.9, Eosinophils (%) (Auto) 4.6H, Basophils (%) (Auto) 1.3, Sodium Level 140, Potassium Level 4.4, Chloride Level 110H, Carbon Dioxide Level 15L, Anion Gap 15, Blood Urea Nitrogen 54H, Creatinine 4.2H, Estimat Glomerular Filtration Rate , Glucose Level 175H, Calcium Level 8.0L 01/14/18 05:50: White Blood Count 8.6, Red Blood Count 2.98L, Hemoglobin 9.1L, Hematocrit 27.9L , Mean Corpuscular Volume 94, Mean Corpuscular Hemoglobin 30.6, Mean Corpuscular Hemoglobin Concent 32.6, Red Cell Distribution Width 11.7, Platelet Count 196, Mean Platelet Volume 6.2L, Neutrophils (%) (Auto) 64.0, Lymphocytes ( %) (Auto) 23.3, Monocytes (%) (Auto) 9.1, Eosinophils (%) (Auto) 2.5, Basophils (%) (Auto) 1.1, Sodium Level 142, Potassium Level 4.5, Chloride Level 112H, Carbon Dioxide Level 18L, Anion Gap 12, Blood Urea Nitrogen 50H, Creatinine 4.3H , Estimat Glomerular Filtration Rate , Glucose Level 101, Calcium Level 8.3L, Hemoglobin A1c 5.9, Uric Acid 6.9, Phosphorus Level 3.9, Magnesium Level 1.8, Total Bilirubin 0.2, Aspartate Amino Transf (AST/SGOT) 9L, Alanine Aminotransferase (ALT/SGPT) 7L, Alkaline Phosphatase 59, Total Protein 6.9, Albumin 3.0L, Globulin 3.9, Albumin/Globulin Ratio 0.8L Current Medications Medications (Trade) Dose Ordered Sig/Vaughn Route PRN Reason Start Time Stop Time Status Last Admin Dose Admin Acetaminophen (Tylenol) 500 mg Q6HR PRN ORAL Mild Pain/Temp > 100.5 01/13/18 22:30 02/12/18 22:29 01/14/18 01:11 Albuterol Sulfate (Proventil) 2.5 mg Q4HRT HHN 01/12/18 11:00 01/17/18 10:59 01/14/18 07:00 Aspirin (Ecotrin) 81 mg DAILY ORAL 01/12/18 09:00 02/11/18 08:59 01/13/18 09:33 Buspirone HCl (Buspar) 15 mg TID ORAL 01/12/18 09:00 02/11/18 08:59 01/13/18 17:25 Clonidine HCl (Catapres Tab) 0.1 mg Q12HR ORAL 01/13/18 21:00 02/11/18 08:59 01/13/18 20:37 Docusate Sodium (Colace) 200 mg TWICE A DAY ORAL 01/12/18 09:00 02/11/18 08:59 01/13/18 17:25 Epoetin Trae (Procrit (for non ESRD use)) 5,000 units THU-THU-THU SUBQ 01/13/18 21:00 02/12/18 20:59 01/13/18 22:15 Fluticasone Propionate (Flonase) 1 spray DAILY NASAL 01/12/18 09:00 02/11/18 08:59 01/13/18 09:32 Hydralazine HCl (Apresoline) 25 mg Q4H PRN ORAL BP over 160 syst 01/12/18 12:15 02/11/18 12:14 Hydralazine HCl (Apresoline) 50 mg Q8HR ORAL 01/12/18 06:00 02/11/18 05:59 01/14/18 05:39 Lansoprazole (Prevacid) 30 mg DAILY ORAL 01/12/18 09:00 02/11/18 08:59 01/13/18 09:33 Levothyroxine Sodium (Synthroid) 75 mcg DAILY@0600 ORAL 01/13/18 06:00 02/11/18 05:59 01/14/18 05:39 Meclizine HCl (Antivert) 25 mg TID ORAL 01/12/18 13:00 02/11/18 12:59 01/13/18 17:25 Metoprolol Tartrate (Lopressor) 12.5 mg Q12HR ORAL 01/12/18 09:00 02/11/18 08:59 01/13/18 20:37 Nifedipine (Procardia XL) 30 mg DAILY ORAL 01/12/18 09:00 02/11/18 08:59 01/13/18 09:34 Pregabalin (Lyrica) 50 mg DAILY ORAL 01/12/18 09:00 02/11/18 08:59 01/13/18 09:34 Sertraline HCl (Zoloft) 25 mg DAILY ORAL 01/12/18 09:00 02/11/18 08:59 01/13/18 09:34 Sodium Chloride 1,000 ml @ 75 mls/hr [id number] IV 01/12/18 12:15 02/11/18 12:14 01/13/18 02:40 Sodium Chloride 1,000 ml @ 75 mls/hr [id number] IV 01/12/18 22:30 02/10/18 22:29 01/14/18 01:16 Anjel Fay MD Jan 14, 2018 08:26
[2018-01-14] MEDS: Metoprolol Tartrate 12.5mg TAB ORAL SCH ×2 (08:40→21:15)
[2018-01-14] MEDS: Aspirin EC 81mg tab ORAL SCH (08:41)
[2018-01-14] MEDS: BusPIRone 5mg Tab ORAL SCH ×3 (08:41→19:34)
[2018-01-14] MEDS: Docusate 100mg cap ORAL SCH ×2 (08:41→19:34)
[2018-01-14] MEDS: Sertraline 50mg tab ORAL SCH (08:42)
[2018-01-14] MEDS: Meclizine 25mg tab ORAL SCH ×3 (08:42→19:35)
[2018-01-14] MEDS: Lyrica 50mg cap ORAL SCH (08:44)
[2018-01-14] MEDS: Flonase Nasal Inhaler 16gm NASAL SCH (08:51)
--- NOTE | 2018-01-14 09:16 | General Progress Note ---
Assessment/Plan Problem List: (1) Hyperkalemia ICD Codes: E87.5 - Hyperkalemia SNOMED: 89955270 (2) Acute renal failure (ARF) ICD Codes: N17.9 - Acute kidney failure, unspecified SNOMED: 13962022 Qualifiers: Qualified Codes: N17.9 - Acute kidney failure, unspecified (3) Hypertension ICD Codes: I10 - Essential (primary) hypertension SNOMED: 53698248 (4) COPD (chronic obstructive pulmonary disease) ICD Codes: J44.9 - Chronic obstructive pulmonary disease, unspecified SNOMED: 12089145 Status: stable, progressing Assessment/Plan ivf per renal monitor renal fxn monitor fluid status resp care bp rx Subjective ROS Limited/Unobtainable: No Constitutional: Reports: malaise, weakness HEENT: Reports: no symptoms Cardiovascular: Reports: no symptoms Respiratory: Reports: cough Gastrointestinal/Abdominal: Reports: no symptoms Genitourinary: Reports: no symptoms Neurologic/Psychiatric: Reports: no symptoms Endocrine: Reports: no symptoms Hematologic/Lymphatic: Reports: no symptoms Allergies: Coded Allergies: No Known Allergies (Unverified , 12/23/12) All Systems: reviewed and negative except above Subjective no events. w/o complaints. minimal improvement in renal fxn. on ivf. no cp.sob Objective Last 24 Hour Vital Signs Date Time Temp Pulse Resp B/P (MAP) Pulse Ox O2 Delivery O2 Flow Rate FiO2 01/14/18 08:58 90 144/63 01/14/18 08:44 144/63 01/14/18 08:40 90 144/63 01/14/18 08:00 98.9 90 18 144/63 93 Room Air 98.9 01/14/18 07:10 79 16 97 Room Air 21 01/14/18 07:01 79 16 93 Room Air 21 01/14/18 05:39 143/58 01/14/18 04:00 86 01/14/18 04:00 98.3 66 20 143/58 100 Room Air 98.3 01/14/18 03:23 84 18 99 Room Air 21 01/14/18 03:13 89 18 95 Room Air 21 01/14/18 01:11 100.8 01/14/18 00:00 107 01/14/18 00:00 100.8 104 20 144/65 93 Room Air 100.8 01/13/18 23:01 89 18 99 Room Air 21 01/13/18 22:48 92 18 94 Room Air 21 01/13/18 21:09 180/67 01/13/18 20:37 180/67 01/13/18 20:37 96 180/67 01/13/18 20:00 94 01/13/18 20:00 99.6 96 20 180/67 92 Room Air 99.6 01/13/18 19:48 83 18 98 Room Air 21 01/13/18 19:40 89 18 95 Room Air 21 01/13/18 16:00 97.3 90 18 131/71 96 Room Air 97.3 01/13/18 16:00 98 01/13/18 15:26 82 18 99 Room Air 21 01/13/18 15:20 90 18 93 Room Air 21 01/13/18 13:40 146/77 01/13/18 12:00 72 01/13/18 12:00 97.8 71 18 126/62 97 Room Air 97.8 01/13/18 11:24 86 18 99 Room Air 01/13/18 11:18 84 18 95 Room Air 01/13/18 09:34 75 120/71 01/13/18 09:33 75 120/71 Intake and Output 01/13/18 01/14/18 19:00 07:00 Intake Total 1185 ml 900 ml Output Total 1300 ml 5550 ml Balance -115 ml -4650 ml Intake Oral 360 ml IV Total 825 ml 900 ml Output Urine Total 1300 ml 5550 ml Laboratory Tests 01/14/18 05:50: White Blood Count 8.6, Red Blood Count 2.98L, Hemoglobin 9.1L, Hematocrit 27.9L , Mean Corpuscular Volume 94, Mean Corpuscular Hemoglobin 30.6, Mean Corpuscular Hemoglobin Concent 32.6, Red Cell Distribution Width 11.7, Platelet Count 196, Mean Platelet Volume 6.2L, Neutrophils (%) (Auto) 64.0, Lymphocytes ( %) (Auto) 23.3, Monocytes (%) (Auto) 9.1, Eosinophils (%) (Auto) 2.5, Basophils (%) (Auto) 1.1, Sodium Level 142, Potassium Level 4.5, Chloride Level 112H, Carbon Dioxide Level 18L, Anion Gap 12, Blood Urea Nitrogen 50H, Creatinine 4.3H , Estimat Glomerular Filtration Rate , Glucose Level 101, Hemoglobin A1c 5.9, Uric Acid 6.9, Calcium Level 8.3L, Phosphorus Level 3.9, Magnesium Level 1.8, Total Bilirubin 0.2, Aspartate Amino Transf (AST/SGOT) 9L, Alanine Aminotransferase (ALT/SGPT) 7L, Alkaline Phosphatase 59, Total Protein 6.9, Albumin 3.0L, Globulin 3.9, Albumin/Globulin Ratio 0.8L Height (Feet): 5 Height (Inches): 1.00 Weight (Pounds): 154 Arden Ocampo MD Jan 14, 2018 09:16
--- NOTE | 2018-01-14 10:58 | Nephrology Progress Note ---
Assessment/Plan Problem List: (1) Acute renal failure (ARF) Assessment: Innumerable cysts within both kidneys. No evidence of obstruction (2) Hypertension (3) Hyperkalemia (4) Anemia in chronic kidney disease (5) Hypothyroid Assessment -. Acute on chronic renal failure. likely due to HTN uncontrolled -. Asthma, fairly stable at present. -. Cardiomegaly. -. Diastolic heart dysfunction. -. Hyperkalemia. -. Hypertension. -. Hypertensive heart disease. -. HypoThyroid Plan Slow hydrate- Avoid Nephrotoxics Adjust BP meds monitor renal parameters- 2D Echo- Ej Fx 55% Kidney ISIS Innumerable cysts within both kidneys. No evidence of obstruction 24 h urine for CrCl and Protein per orders Subjective ROS Limited/Unobtainable: No Constitutional: Reports: malaise Objective Objective Last 24 Hour Vital Signs Date Time Temp Pulse Resp B/P (MAP) Pulse Ox O2 Delivery O2 Flow Rate FiO2 01/14/18 08:58 90 144/63 01/14/18 08:44 144/63 01/14/18 08:40 90 144/63 01/14/18 08:00 98.9 90 18 144/63 93 Room Air 98.9 01/14/18 08:00 88 01/14/18 07:10 79 16 97 Room Air 21 01/14/18 07:01 79 16 93 Room Air 21 01/14/18 05:39 143/58 01/14/18 04:00 86 01/14/18 04:00 98.3 66 20 143/58 100 Room Air 98.3 01/14/18 03:23 84 18 99 Room Air 21 01/14/18 03:13 89 18 95 Room Air 21 01/14/18 01:11 100.8 01/14/18 00:00 107 01/14/18 00:00 100.8 104 20 144/65 93 Room Air 100.8 01/13/18 23:01 89 18 99 Room Air 21 01/13/18 22:48 92 18 94 Room Air 21 01/13/18 21:09 180/67 01/13/18 20:37 180/67 01/13/18 20:37 96 180/67 01/13/18 20:00 94 01/13/18 20:00 99.6 96 20 180/67 92 Room Air 99.6 01/13/18 19:48 83 18 98 Room Air 21 01/13/18 19:40 89 18 95 Room Air 21 01/13/18 16:00 97.3 90 18 131/71 96 Room Air 97.3 01/13/18 16:00 98 01/13/18 15:26 82 18 99 Room Air 21 01/13/18 15:20 90 18 93 Room Air 21 01/13/18 13:40 146/77 01/13/18 12:00 72 01/13/18 12:00 97.8 71 18 126/62 97 Room Air 97.8 01/13/18 11:24 86 18 99 Room Air 21 01/13/18 11:18 84 18 95 Room Air 21 Intake and Output 01/13/18 01/14/18 19:00 07:00 Intake Total 1185 ml 900 ml Output Total 1300 ml 5550 ml Balance -115 ml -4650 ml Intake Oral 360 ml IV Total 825 ml 900 ml Output Urine Total 1300 ml 5550 ml Laboratory Tests 01/14/18 05:50: White Blood Count 8.6, Red Blood Count 2.98L, Hemoglobin 9.1L, Hematocrit 27.9L , Mean Corpuscular Volume 94, Mean Corpuscular Hemoglobin 30.6, Mean Corpuscular Hemoglobin Concent 32.6, Red Cell Distribution Width 11.7, Platelet Count 196, Mean Platelet Volume 6.2L, Neutrophils (%) (Auto) 64.0, Lymphocytes ( %) (Auto) 23.3, Monocytes (%) (Auto) 9.1, Eosinophils (%) (Auto) 2.5, Basophils (%) (Auto) 1.1, Sodium Level 142, Potassium Level 4.5, Chloride Level 112H, Carbon Dioxide Level 18L, Anion Gap 12, Blood Urea Nitrogen 50H, Creatinine 4.3H , Estimat Glomerular Filtration Rate , Glucose Level 101, Hemoglobin A1c 5.9, Uric Acid 6.9, Calcium Level 8.3L, Phosphorus Level 3.9, Magnesium Level 1.8, Total Bilirubin 0.2, Aspartate Amino Transf (AST/SGOT) 9L, Alanine Aminotransferase (ALT/SGPT) 7L, Alkaline Phosphatase 59, Total Protein 6.9, Albumin 3.0L, Globulin 3.9, Albumin/Globulin Ratio 0.8L Height (Feet): 5 Height (Inches): 1.00 Weight (Pounds): 154 General Appearance: no apparent distress Cardiovascular: normal rate Respiratory/Chest: lungs clear Abdomen: soft MIGUEL ANGEL BOLANOS Jan 14, 2018 10:58
[2018-01-14 12:00] VITALS: BP 144/61
[2018-01-14 16:00] VITALS: BP 129/69
[2018-01-14 20:00] VITALS: BP 154/77
[2018-01-15] VITALS (7 sets, daily range): BP systolic 130–150; BP diastolic 58–77
[2018-01-15] MEDS ORDERED: Lactulose 20gm/30ml UDC ORAL PRN (01:30)
[2018-01-15] MEDS: Albuterol ud Inhalation HHN SCH ×6 (03:00→23:38)
[2018-01-15] MEDS: HydrALAZINE 50mg tab ORAL SCH ×3 (05:12→22:15)
[2018-01-15 05:47] LABS: BASOPHILS % (AUTO) 1.4 % (0.0-2.0); EOSINOPHILS % (AUTO) 5.1 % (0.0-3.0); HEMATOCRIT 29.2 % (37.0-47.0); HEMOGLOBIN 9.5 G/DL (12.0-16.0); LYMPHOCYTES % (AUTO) 18.5 % (20.0-45.0); MEAN CORPUSCULAR VOLUME 93 FL (80-99); MONOCYTES % (AUTO) 5.8 % (1.0-10.0); NEUTROPHILS % (AUTO) 69.3 % (45.0-75.0); PLATELET COUNT 196 K/UL (150-450); RED BLOOD COUNT 3.13 M/UL (4.20-5.40); RED CELL DISTRIBUTION WIDTH 11.9 % (11.6-14.8)
[2018-01-15 06:33] LABS: ALANINE AMINOTRANSFERASE 12 U/L (12-78); ALBUMIN/GLOBULIN RATIO 0.7 (1.0-2.7); ALKALINE PHOSPHATASE 64 U/L (46-116); ANION GAP 13 mmol/L (5-15); ASPARTATE AMINO TRANSFERASE 13 U/L (15-37); BILIRUBIN,TOTAL 0.2 MG/DL (0.2-1.0); BLOOD UREA NITROGEN 47 mg/dL (7-18); CALCIUM 8.6 MG/DL (8.5-10.1); CARBON DIOXIDE 17 MMOL/L (21-32); CHLORIDE 112 MMOL/L (98-107); CREATININE 4.2 MG/DL (0.55-1.30); PHOSPHORUS 3.3 MG/DL (2.5-4.9); POTASSIUM 5.3 MMOL/L (3.5-5.1); SODIUM 142 MMOL/L (136-145)
--- NOTE | 2018-01-15 08:28 | Pulmonology Progress Note ---
Assessment/Plan Assessment/Plan IMPRESSION: 1. Asthma, fairly stable at present. 2. Cardiomegaly. 3. Cardiomyopathy. 4. Diastolic heart dysfunction. 5. Acute on chronic renal failure. 6. Hyperkalemia. 7. anemia 8. Dementia. 9. A chest x-ray with left-sided pleural effusion. 10. Hypertension. 11. Hypertensive heart disease. PLAN care noted and reviewed no change per pulmonary renal function noted- dc planning with close outpatient follow up monitor respiratory status impression, plan, and exam edited and reviewed in detail care discussed with RN Subjective Allergies: Coded Allergies: No Known Allergies (Unverified , 12/23/12) Subjective d/w renal labs noted Objective Last 24 Hour Vital Signs Date Time Temp Pulse Resp B/P (MAP) Pulse Ox O2 Delivery O2 Flow Rate FiO2 01/15/18 07:28 Room Air 21 01/15/18 07:28 Room Air 01/15/18 05:12 131/77 01/15/18 04:00 86 01/15/18 04:00 99.3 90 18 131/77 94 Room Air 99.3 01/15/18 03:29 Room Air 01/15/18 03:29 Room Air 01/15/18 00:00 96 01/15/18 00:00 98.4 98 19 146/58 95 Room Air 98.4 01/14/18 23:38 91 18 98 Room Air 21 01/14/18 23:28 91 18 94 Room Air 21 01/14/18 21:16 154/77 01/14/18 21:15 92 154/77 01/14/18 21:15 154/77 01/14/18 20:16 88 18 98 Room Air 21 01/14/18 20:06 88 16 95 Room Air 21 01/14/18 20:00 99.0 92 17 154/77 93 Room Air 99.0 01/14/18 20:00 86 01/14/18 19:34 88 129/69 01/14/18 16:00 99.6 88 18 129/69 95 Room Air 99.6 01/14/18 16:00 88 01/14/18 15:09 85 18 99 Room Air 21 01/14/18 15:00 83 16 96 Room Air 21 01/14/18 13:11 144/63 01/14/18 12:00 82 01/14/18 12:00 97.7 83 18 144/61 97 Room Air 97.7 01/14/18 10:58 90 17 97 Room Air 21 01/14/18 10:48 88 16 94 Room Air 21 01/14/18 08:58 90 144/63 01/14/18 08:44 144/63 01/14/18 08:40 90 144/63 Intake and Output 01/14/18 01/15/18 19:00 07:00 Intake Total 730 ml Output Total 700 ml 1350 ml Balance 30 ml -1350 ml Intake Oral 730 ml Output Urine Total 700 ml 1350 ml Objective GENERAL: A well-developed female, comfortable at present. No significant distress. HEENT: Overall negative. Extraocular movements are grossly intact. Oropharynx is moist. NECK: Supple. No adenopathy. LUNGS: Fairly clear. Symmetric. Minimal wheezes. CARDIAC: S1 and S2. Regular rate and rhythm. Positive S4. No murmurs or rubs. ABDOMEN: Soft, nontender, and nondistended. EXTREMITIES: No cyanosis or clubbing. Trace edema. NEUROLOGIC: Grossly nonfocal. Laboratory Tests 01/15/18 05:15: White Blood Count 10.0, Red Blood Count 3.13L, Hemoglobin 9.5L, Hematocrit 29.2L , Mean Corpuscular Volume 93, Mean Corpuscular Hemoglobin 30.3, Mean Corpuscular Hemoglobin Concent 32.5, Red Cell Distribution Width 11.9, Platelet Count 196, Mean Platelet Volume 6.1L, Neutrophils (%) (Auto) 69.3, Lymphocytes ( %) (Auto) 18.5L, Monocytes (%) (Auto) 5.8, Eosinophils (%) (Auto) 5.1H, Basophils (%) (Auto) 1.4, Sodium Level 142, Potassium Level 5.3H, Chloride Level 112H, Carbon Dioxide Level 17L, Anion Gap 13, Blood Urea Nitrogen 47H, Creatinine 4.2H, Estimat Glomerular Filtration Rate , Glucose Level 98, Uric Acid 6.5, Calcium Level 8.6, Phosphorus Level 3.3, Magnesium Level 1.7L, Total Bilirubin 0.2, Aspartate Amino Transf (AST/SGOT) 13L, Alanine Aminotransferase ( ALT/SGPT) 12, Alkaline Phosphatase 64, Total Protein 7.2, Albumin 3.0L, Globulin 4.2, Albumin/Globulin Ratio 0.7L Current Medications Medications (Trade) Dose Ordered Sig/Vaughn Route PRN Reason Start Time Stop Time Status Last Admin Dose Admin Acetaminophen (Tylenol) 500 mg Q6HR PRN ORAL Mild Pain/Temp > 100.5 01/13/18 22:30 02/12/18 22:29 01/14/18 01:11 Albuterol Sulfate (Proventil) 2.5 mg Q4HRT HHN 01/12/18 11:00 01/17/18 10:59 01/14/18 23:28 Aspirin (Ecotrin) 81 mg DAILY ORAL 01/12/18 09:00 02/11/18 08:59 01/14/18 08:41 Buspirone HCl (Buspar) 15 mg TID ORAL 01/12/18 09:00 02/11/18 08:59 01/14/18 19:34 Clonidine HCl (Catapres Tab) 0.1 mg Q12HR ORAL 01/13/18 21:00 02/11/18 08:59 01/14/18 21:16 Docusate Sodium (Colace) 200 mg TWICE A DAY ORAL 01/12/18 09:00 02/11/18 08:59 01/14/18 19:34 Epoetin Trae (Procrit (for non ESRD use)) 5,000 units [id number]-[id number] SUBQ 01/13/18 21:00 02/12/18 20:59 01/13/18 22:15 Fluticasone Propionate (Flonase) 1 spray DAILY NASAL 01/12/18 09:00 02/11/18 08:59 01/14/18 08:51 Hydralazine HCl (Apresoline) 25 mg Q4H PRN ORAL BP over 160 syst 01/12/18 12:15 02/11/18 12:14 Hydralazine HCl (Apresoline) 50 mg Q8HR ORAL 01/12/18 06:00 02/11/18 05:59 01/15/18 05:12 Lactulose (Cephulac) 30 gm THREE TIMES A DAY PRN ORAL Constipation 01/15/18 01:30 02/14/18 01:29 01/15/18 05:12 Lansoprazole (Prevacid) 30 mg DAILY ORAL 01/12/18 09:00 02/11/18 08:59 01/14/18 08:41 Levothyroxine Sodium (Synthroid) 75 mcg DAILY@0600 ORAL 01/13/18 06:00 02/11/18 05:59 01/15/18 05:12 Meclizine HCl (Antivert) 25 mg TID ORAL 01/12/18 13:00 02/11/18 12:59 01/14/18 19:35 Metoprolol Tartrate (Lopressor) 12.5 mg Q12HR ORAL 01/12/18 09:00 02/11/18 08:59 01/14/18 21:15 Nifedipine (Procardia XL) 30 mg BID ORAL 01/14/18 09:00 02/11/18 08:59 01/14/18 19:34 Pregabalin (Lyrica) 50 mg DAILY ORAL 01/12/18 09:00 02/11/18 08:59 01/14/18 08:44 Sertraline HCl (Zoloft) 25 mg DAILY ORAL 01/12/18 09:00 02/11/18 08:59 01/14/18 08:42 Sodium Chloride 1,000 ml @ 75 mls/hr [id number] IV 01/12/18 22:30 02/10/18 22:29 01/15/18 04:04 Anjel Fay MD Jan 15, 2018 08:28
[2018-01-15] MEDS: Lyrica 50mg cap ORAL SCH (08:33)
[2018-01-15] MEDS: Docusate 100mg cap ORAL SCH ×2 (08:34→17:33)
[2018-01-15] MEDS: BusPIRone 5mg Tab ORAL SCH ×3 (08:34→17:33)
[2018-01-15] MEDS: Sertraline 50mg tab ORAL SCH (08:35)
[2018-01-15] MEDS: Meclizine 25mg tab ORAL SCH ×3 (08:35→17:33)
[2018-01-15] MEDS: Aspirin EC 81mg tab ORAL SCH (08:35)
[2018-01-15] MEDS: Metoprolol Tartrate 12.5mg TAB ORAL SCH ×2 (08:35→20:40)
[2018-01-15] MEDS: Flonase Nasal Inhaler 16gm NASAL SCH (08:37)
[2018-01-15] MEDS: Sodium Polystyrene Sulfonate 15gm Powder ORAL SCH ×2 (08:45→11:01)
[2018-01-15] MEDS ORDERED: Docusate 100mg cap ORAL SCH (09:00)
[2018-01-15] MEDS: Sodium Citrate 30ml ORAL SCH ×2 (10:36→17:32)
--- NOTE | 2018-01-15 10:56 | General Progress Note ---
Assessment/Plan Problem List: (1) Hyperkalemia ICD Codes: E87.5 - Hyperkalemia SNOMED: 66269398 (2) Acute renal failure (ARF) ICD Codes: N17.9 - Acute kidney failure, unspecified SNOMED: 21069302 Qualifiers: Qualified Codes: N17.9 - Acute kidney failure, unspecified (3) Hypertension ICD Codes: I10 - Essential (primary) hypertension SNOMED: 82302499 (4) COPD (chronic obstructive pulmonary disease) ICD Codes: J44.9 - Chronic obstructive pulmonary disease, unspecified SNOMED: 01258110 Status: stable, progressing Assessment/Plan ivf per renal kayexylate x 1 monitor renal fxn monitor fluid status resp care bp rx POC per renal. Subjective ROS Limited/Unobtainable: No Constitutional: Reports: malaise, weakness HEENT: Reports: no symptoms Cardiovascular: Reports: no symptoms Respiratory: Reports: no symptoms Gastrointestinal/Abdominal: Reports: no symptoms Genitourinary: Reports: no symptoms Neurologic/Psychiatric: Reports: no symptoms Endocrine: Reports: no symptoms Hematologic/Lymphatic: Reports: anemia Allergies: Coded Allergies: No Known Allergies (Unverified , 12/23/12) All Systems: reviewed and negative except above Subjective no new complaints. renal fxn unchanged. K high today. renal noted Objective Last 24 Hour Vital Signs Date Time Temp Pulse Resp B/P (MAP) Pulse Ox O2 Delivery O2 Flow Rate FiO2 01/15/18 08:35 94 142/63 01/15/18 08:34 94 142/63 01/15/18 08:34 142/63 01/15/18 08:00 98.6 94 18 142/63 93 Room Air 98.6 01/15/18 08:00 94 01/15/18 07:28 Room Air 21 01/15/18 07:28 Room Air 21 01/15/18 05:12 131/77 01/15/18 04:00 86 01/15/18 04:00 99.3 90 18 131/77 94 Room Air 99.3 01/15/18 03:29 Room Air 01/15/18 03:29 Room Air 01/15/18 00:00 96 01/15/18 00:00 98.4 98 19 146/58 95 Room Air 98.4 01/14/18 23:38 91 18 98 Room Air 21 01/14/18 23:28 91 18 94 Room Air 21 01/14/18 21:16 154/77 01/14/18 21:15 92 154/77 01/14/18 21:15 154/77 01/14/18 20:16 88 18 98 Room Air 21 01/14/18 20:06 88 16 95 Room Air 21 01/14/18 20:00 99.0 92 17 154/77 93 Room Air 99.0 01/14/18 20:00 86 01/14/18 19:34 88 129/69 01/14/18 16:00 99.6 88 18 129/69 95 Room Air 99.6 01/14/18 16:00 88 01/14/18 15:09 85 18 99 Room Air 21 01/14/18 15:00 83 16 96 Room Air 21 01/14/18 13:11 144/63 01/14/18 12:00 82 01/14/18 12:00 97.7 83 18 144/61 97 Room Air 97.7 01/14/18 10:58 90 17 97 Room Air 21 Intake and Output 01/14/18 01/15/18 19:00 07:00 Intake Total 730 ml Output Total 700 ml 1350 ml Balance 30 ml -1350 ml Intake Oral 730 ml Output Urine Total 700 ml 1350 ml Laboratory Tests 01/15/18 05:15: White Blood Count 10.0, Red Blood Count 3.13L, Hemoglobin 9.5L, Hematocrit 29.2L , Mean Corpuscular Volume 93, Mean Corpuscular Hemoglobin 30.3, Mean Corpuscular Hemoglobin Concent 32.5, Red Cell Distribution Width 11.9, Platelet Count 196, Mean Platelet Volume 6.1L, Neutrophils (%) (Auto) 69.3, Lymphocytes ( %) (Auto) 18.5L, Monocytes (%) (Auto) 5.8, Eosinophils (%) (Auto) 5.1H, Basophils (%) (Auto) 1.4, Sodium Level 142, Potassium Level 5.3H, Chloride Level 112H, Carbon Dioxide Level 17L, Anion Gap 13, Blood Urea Nitrogen 47H, Creatinine 4.2H, Estimat Glomerular Filtration Rate , Glucose Level 98, Uric Acid 6.5, Calcium Level 8.6, Phosphorus Level 3.3, Magnesium Level 1.7L, Total Bilirubin 0.2, Aspartate Amino Transf (AST/SGOT) 13L, Alanine Aminotransferase ( ALT/SGPT) 12, Alkaline Phosphatase 64, Total Protein 7.2, Albumin 3.0L, Globulin 4.2, Albumin/Globulin Ratio 0.7L Height (Feet): 5 Height (Inches): 1.00 Weight (Pounds): 157 General Appearance: WD/WN, alert Neck: supple Cardiovascular: normal rate, regular rhythm Respiratory/Chest: chest wall non-tender, lungs clear, normal breath sounds Abdomen: normal bowel sounds, non tender, soft, no organomegaly Edema: no edema noted Arm (L), no edema noted Arm (R), no edema noted Leg (L), no edema noted Leg (R), no edema noted Pedal (L), no edema noted Pedal (R), no edema noted Generalized 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
[2018-01-15 12:07] LABS: CREATININE 4.2 MG/DL (0.55-1.30)
[2018-01-15] MEDS ORDERED: Magnesium Oxide 400mg tab ORAL ONE (13:00)
--- NOTE | 2018-01-15 14:54 | Nephrology Progress Note ---
Assessment/Plan Problem List: (1) Acute renal failure (ARF) Assessment: Innumerable cysts within both kidneys. No evidence of obstruction (2) Hypertension (3) Hyperkalemia (4) Anemia in chronic kidney disease (5) Hypothyroid Assessment -. Acute on chronic renal failure. likely due to HTN uncontrolled CrCl 11 Protein 1.3 grams -. Asthma, fairly stable at present. -. Cardiomegaly. -. Diastolic heart dysfunction. -. Hyperkalemia. -. Hypertension. -. Hypertensive heart disease. -. HypoThyroid Plan Okay to DC and follow up as OP PO hydrate- Avoid Nephrotoxics Adjust BP meds monitor renal parameters- 2D Echo- Ej Fx 55% Kidney ISIS Innumerable cysts within both kidneys. No evidence of obstruction per orders Subjective ROS Limited/Unobtainable: No Constitutional: Reports: malaise Objective Objective Last 24 Hour Vital Signs Date Time Temp Pulse Resp B/P (MAP) Pulse Ox O2 Delivery O2 Flow Rate FiO2 01/15/18 13:49 130/58 01/15/18 12:00 83 01/15/18 12:00 98.1 78 18 130/58 97 Room Air 98.1 01/15/18 10:56 79 18 98 Room Air 21 01/15/18 10:50 80 18 95 Room Air 21 01/15/18 08:35 94 142/63 01/15/18 08:34 94 142/63 01/15/18 08:34 142/63 01/15/18 08:00 98.6 94 18 142/63 93 Room Air 98.6 01/15/18 08:00 94 01/15/18 07:28 Room Air 21 01/15/18 07:28 Room Air 21 01/15/18 05:12 131/77 01/15/18 04:00 86 01/15/18 04:00 99.3 90 18 131/77 94 Room Air 99.3 01/15/18 03:29 Room Air 01/15/18 03:29 Room Air 01/15/18 00:00 96 01/15/18 00:00 98.4 98 19 146/58 95 Room Air 98.4 01/14/18 23:38 91 18 98 Room Air 21 01/14/18 23:28 91 18 94 Room Air 21 01/14/18 21:16 154/77 01/14/18 21:15 92 154/77 01/14/18 21:15 154/77 01/14/18 20:16 88 18 98 Room Air 21 01/14/18 20:06 88 16 95 Room Air 21 01/14/18 20:00 99.0 92 17 154/77 93 Room Air 99.0 01/14/18 20:00 86 01/14/18 19:34 88 129/69 01/14/18 16:00 99.6 88 18 129/69 95 Room Air 99.6 01/14/18 16:00 88 01/14/18 15:09 85 18 99 Room Air 21 01/14/18 15:00 83 16 96 Room Air 21 Intake and Output 01/14/18 01/15/18 19:00 07:00 Intake Total 730 ml Output Total 700 ml 1350 ml Balance 30 ml -1350 ml Intake Oral 730 ml Output Urine Total 700 ml 1350 ml Laboratory Tests 01/15/18 05:15: White Blood Count 10.0, Red Blood Count 3.13L, Hemoglobin 9.5L, Hematocrit 29.2L , Mean Corpuscular Volume 93, Mean Corpuscular Hemoglobin 30.3, Mean Corpuscular Hemoglobin Concent 32.5, Red Cell Distribution Width 11.9, Platelet Count 196, Mean Platelet Volume 6.1L, Neutrophils (%) (Auto) 69.3, Lymphocytes ( %) (Auto) 18.5L, Monocytes (%) (Auto) 5.8, Eosinophils (%) (Auto) 5.1H, Basophils (%) (Auto) 1.4, Sodium Level 142, Potassium Level 5.3H, Chloride Level 112H, Carbon Dioxide Level 17L, Anion Gap 13, Blood Urea Nitrogen 47H, Creatinine 4.2H, Estimat Glomerular Filtration Rate , Glucose Level 98, Uric Acid 6.5, Calcium Level 8.6, Phosphorus Level 3.3, Magnesium Level 1.7L, Total Bilirubin 0.2, Aspartate Amino Transf (AST/SGOT) 13L, Alanine Aminotransferase ( ALT/SGPT) 12, Alkaline Phosphatase 64, Total Protein 7.2, Albumin 3.0L, Globulin 4.2, Albumin/Globulin Ratio 0.7L 01/15/18 11:00: Creatinine 4.2H, Estimat Glomerular Filtration Rate , Urine Collection Time 24, Urine Total Volume 2580, Urine Creatinine 26, Urine Creatinine 24 Hour 671L, Patient Height Inches (Creat Clear) 61, Patient Weight Pounds (Creat Clear) 157 , Creatinine Clearance 11L, Urine Total Protein mg/dL 52, Urine Total Protein 24 Hour 1341.6H 01/15/18 12:40: Urine Eosinophils Few Height (Feet): 5 Height (Inches): 1.00 Weight (Pounds): 157 General Appearance: no apparent distress, lethargic Cardiovascular: normal rate Respiratory/Chest: decreased breath sounds Abdomen: soft Objective no other change MIGUEL ANGEL BOLANOS Jan 15, 2018 14:54
[2018-01-15] MEDS: Acetaminophen 500mg (ES) tab ORAL PRN (20:42)
[2018-01-15] MEDS: Epogen (for non ESRD use) SUBQ SCH (22:16)
[2018-01-16] VITALS: BP 156/55
[2018-01-16] MEDS: Albuterol ud Inhalation HHN SCH ×6 (03:35→23:43)
[2018-01-16 04:00] VITALS: BP 163/85
[2018-01-16] MEDS: HydrALAZINE 50mg tab ORAL SCH ×3 (05:26→23:13)
[2018-01-16 08:00] VITALS: BP 189/88
[2018-01-16] MEDS: Docusate 100mg cap ORAL SCH ×2 (09:36→18:06)
[2018-01-16] MEDS: Flonase Nasal Inhaler 16gm NASAL SCH (09:36)
[2018-01-16] MEDS: BusPIRone 5mg Tab ORAL SCH ×3 (09:37→18:08)
[2018-01-16] MEDS: Lyrica 50mg cap ORAL SCH (09:37)
[2018-01-16] MEDS: Meclizine 25mg tab ORAL SCH ×3 (09:38→18:06)
[2018-01-16] MEDS: Metoprolol Tartrate 12.5mg TAB ORAL SCH (09:38)
[2018-01-16] MEDS: Aspirin EC 81mg tab ORAL SCH (09:39)
[2018-01-16] MEDS: Sertraline 50mg tab ORAL SCH (09:46)
[2018-01-16] MEDS: Sodium Citrate 30ml ORAL SCH ×2 (09:46→18:06)
--- NOTE | 2018-01-16 10:16 | Nephrology Progress Note ---
Assessment/Plan Problem List: (1) Acute renal failure (ARF) Assessment: Innumerable cysts within both kidneys. No evidence of obstruction (2) Hypertension (3) Hyperkalemia (4) Anemia in chronic kidney disease (5) Hypothyroid Assessment -. Acute on chronic renal failure. likely due to HTN uncontrolled CrCl 11 Protein 1.3 grams -. Asthma, fairly stable at present. -. Cardiomegaly. -. Diastolic heart dysfunction. -. Hyperkalemia. -. Hypertension. -. Hypertensive heart disease. -. HypoThyroid Plan adjust BP meds- DC IV fluid Check labs today Okay to DC and follow up as OP PO hydrate- Avoid Nephrotoxics monitor renal parameters- 2D Echo- Ej Fx 55% Kidney ISIS Innumerable cysts within both kidneys. No evidence of obstruction per orders Subjective ROS Limited/Unobtainable: No Constitutional: Reports: malaise Objective Objective Last 24 Hour Vital Signs Date Time Temp Pulse Resp B/P (MAP) Pulse Ox O2 Delivery O2 Flow Rate FiO2 01/16/18 09:38 100 189/88 01/16/18 09:38 100 189/88 01/16/18 07:21 84 14 99 Nasal Cannula 2.0 28 01/16/18 07:11 Nasal Cannula 2.0 28 01/16/18 07:11 86 18 96 Nasal Cannula 2.0 28 01/16/18 05:26 163/85 01/16/18 04:00 98.9 84 19 163/85 (111) 98 98.9 01/16/18 04:00 90 01/16/18 03:42 88 14 98 Nasal Cannula 2.0 28 01/16/18 03:35 87 16 95 Nasal Cannula 2.0 28 01/16/18 00:00 80 01/16/18 00:00 98.2 82 21 156/55 (88) 93 98.2 01/15/18 23:49 87 16 99 Nasal Cannula 2.0 01/15/18 23:42 Nasal Cannula 2.0 28 01/15/18 23:38 82 16 94 Nasal Cannula 2.0 01/15/18 22:15 146/63 01/15/18 21:41 99.8 01/15/18 21:00 Nasal Cannula 2.0 01/15/18 20:42 101.2 01/15/18 20:40 150/66 01/15/18 20:40 101 150/66 01/15/18 20:19 101 16 99 Room Air 21 01/15/18 20:00 102 01/15/18 20:00 101.2 106 20 150/66 (94) 93 101.2 01/15/18 19:50 103 16 92 Room Air 21 01/15/18 18:00 98.2 94 18 141/76 (97) 94 98.2 01/15/18 17:32 82 130/58 01/15/18 16:00 98.2 89 18 141/76 (97) 94 98.2 89 01/15/18 16:00 93 01/15/18 15:29 82 16 99 Room Air 21 01/15/18 15:20 83 16 94 Room Air 21 01/15/18 13:49 130/58 01/15/18 12:00 83 01/15/18 12:00 98.1 78 18 130/58 97 Room Air 98.1 01/15/18 10:56 79 18 98 Room Air 21 01/15/18 10:50 80 18 95 Room Air 21 Intake and Output 01/15/18 01/16/18 19:00 07:00 Intake Total 1570 ml 240 ml Balance 1570 ml 240 ml Intake Oral 820 ml 240 ml IV Total 750 ml # Voids 2 # Bowel Movements 3 Laboratory Tests 01/15/18 11:00: Urine Collection Time 24, Urine Total Volume 2580, Urine Creatinine 26, Urine Creatinine 24 Hour 671L, Patient Height Inches (Creat Clear) 61, Patient Weight Pounds (Creat Clear) 157, Creatinine Clearance 11L, Urine Total Protein mg/dL 52 , Urine Total Protein 24 Hour 1341.6H, Creatinine 4.2H, Estimat Glomerular Filtration Rate 01/15/18 12:40: Urine Eosinophils Few Height (Feet): 5 Height (Inches): 1.00 Weight (Pounds): 157 General Appearance: no apparent distress Cardiovascular: other - variable rate Respiratory/Chest: decreased breath sounds Abdomen: soft Objective no other change MIGUEL ANGEL BOLANOS Jan 16, 2018 10:16
[2018-01-16 10:59] LABS: BASOPHILS % (AUTO) 1.3 % (0.0-2.0); EOSINOPHILS % (AUTO) 2.2 % (0.0-3.0); HEMATOCRIT 28.3 % (37.0-47.0); HEMOGLOBIN 9.2 G/DL (12.0-16.0); LYMPHOCYTES % (AUTO) 11.3 % (20.0-45.0); MEAN CORPUSCULAR VOLUME 93 FL (80-99); MONOCYTES % (AUTO) 7.6 % (1.0-10.0); NEUTROPHILS % (AUTO) 77.6 % (45.0-75.0); PLATELET COUNT 181 K/UL (150-450); RED BLOOD COUNT 3.04 M/UL (4.20-5.40); RED CELL DISTRIBUTION WIDTH 11.6 % (11.6-14.8); WHITE BLOOD COUNT 7.8 K/UL (4.8-10.8)
[2018-01-16 11:04] LABS: ALANINE AMINOTRANSFERASE 14 U/L (12-78); ALBUMIN/GLOBULIN RATIO 0.7 (1.0-2.7); ALKALINE PHOSPHATASE 67 U/L (46-116); ANION GAP 15 mmol/L (5-15); ASPARTATE AMINO TRANSFERASE 14 U/L (15-37); BILIRUBIN,TOTAL 0.2 MG/DL (0.2-1.0); BLOOD UREA NITROGEN 39 mg/dL (7-18); CALCIUM 8.1 MG/DL (8.5-10.1); CARBON DIOXIDE 20 MMOL/L (21-32); CHLORIDE 108 MMOL/L (98-107); CREATININE 4.1 MG/DL (0.55-1.30); POTASSIUM 3.4 MMOL/L (3.5-5.1); SODIUM 143 MMOL/L (136-145)
--- NOTE | 2018-01-16 11:07 | Pulmonology Progress Note ---
Assessment/Plan Assessment/Plan IMPRESSION: 1. Asthma, fairly stable at present. 2. Cardiomegaly. 3. Cardiomyopathy. 4. Diastolic heart dysfunction. 5. Acute on chronic renal failure. 6. Hyperkalemia. 7. anemia 8. Dementia. 9. A chest x-ray with left-sided pleural effusion. 10. Hypertension. 11. Hypertensive heart disease. PLAN care noted and reviewed no change per pulmonary renal function noted- dc planning with close outpatient follow up monitor respiratory status d/w daughter dc planning ? SNF per daughter impression, plan, and exam edited and reviewed in detail care discussed with RN Subjective Allergies: Coded Allergies: No Known Allergies (Unverified , 12/23/12) Subjective d/w renal labs noted Objective Last 24 Hour Vital Signs Date Time Temp Pulse Resp B/P (MAP) Pulse Ox O2 Delivery O2 Flow Rate FiO2 01/16/18 11:01 84 18 97 Nasal Cannula 2.0 28 01/16/18 09:38 100 189/88 01/16/18 09:38 100 189/88 01/16/18 07:21 84 14 99 Nasal Cannula 2.0 01/16/18 07:11 Nasal Cannula 2.0 28 01/16/18 07:11 86 18 96 Nasal Cannula 2.0 01/16/18 05:26 163/85 01/16/18 04:00 98.9 84 19 163/85 (111) 98 98.9 01/16/18 04:00 90 01/16/18 03:42 88 14 98 Nasal Cannula 2.0 01/16/18 03:35 87 16 95 Nasal Cannula 2.0 01/16/18 00:00 80 01/16/18 00:00 98.2 82 21 156/55 (88) 93 98.2 01/15/18 23:49 87 16 99 Nasal Cannula 2.0 01/15/18 23:42 Nasal Cannula 2.0 01/15/18 23:38 82 16 94 Nasal Cannula 2.0 01/15/18 22:15 146/63 01/15/18 21:41 99.8 01/15/18 21:00 Nasal Cannula 2.0 01/15/18 20:42 101.2 01/15/18 20:40 150/66 01/15/18 20:40 101 150/66 7/6/18 20:19 101 16 99 Room Air 21 01/15/18 20:00 102 01/15/18 20:00 101.2 106 20 150/66 (94) 93 101.2 01/15/18 19:50 103 16 92 Room Air 21 01/15/18 18:00 98.2 94 18 141/76 (97) 94 98.2 01/15/18 17:32 82 130/58 01/15/18 16:00 98.2 89 18 141/76 (97) 94 98.2 89 01/15/18 16:00 93 01/15/18 15:29 82 16 99 Room Air 21 01/15/18 15:20 83 16 94 Room Air 21 01/15/18 13:49 130/58 01/15/18 12:00 83 01/15/18 12:00 98.1 78 18 130/58 97 Room Air 98.1 Intake and Output 01/15/18 01/16/18 19:00 07:00 Intake Total 1570 ml 240 ml Balance 1570 ml 240 ml Intake Oral 820 ml 240 ml IV Total 750 ml # Voids 2 # Bowel Movements 3 Objective GENERAL: A well-developed female, comfortable at present. No significant distress. HEENT: Overall negative. Extraocular movements are grossly intact. Oropharynx is moist. NECK: Supple. No adenopathy. LUNGS: Fairly clear. Symmetric. Minimal wheezes. CARDIAC: S1 and S2. Regular rate and rhythm. Positive S4. No murmurs or rubs. ABDOMEN: Soft, nontender, and nondistended. EXTREMITIES: No cyanosis or clubbing. Trace edema. NEUROLOGIC: Grossly nonfocal. Laboratory Tests 01/15/18 12:40: Urine Eosinophils Few 01/16/18 09:30: White Blood Count 7.8, Red Blood Count 3.04L, Hemoglobin 9.2L, Hematocrit 28.3L , Mean Corpuscular Volume 93, Mean Corpuscular Hemoglobin 30.1, Mean Corpuscular Hemoglobin Concent 32.4, Red Cell Distribution Width 11.6, Platelet Count 181, Mean Platelet Volume 6.5, Neutrophils (%) (Auto) 77.6H, Lymphocytes ( %) (Auto) 11.3L, Monocytes (%) (Auto) 7.6, Eosinophils (%) (Auto) 2.2, Basophils (%) (Auto) 1.3, Sodium Level 143, Potassium Level 3.4L, Chloride Level 108H, Carbon Dioxide Level 20L, Anion Gap 15, Blood Urea Nitrogen 39H, Creatinine 4.1H, Estimat Glomerular Filtration Rate , Glucose Level 177H, Calcium Level 8.1L, Total Bilirubin 0.2, Aspartate Amino Transf (AST/SGOT) 14L, Alanine Aminotransferase (ALT/SGPT) 14, Alkaline Phosphatase 67, Total Protein 7.4, Albumin 3.0L, Globulin 4.4, Albumin/Globulin Ratio 0.7L Current Medications Medications (Trade) Dose Ordered Sig/Vaughn Route PRN Reason Start Time Stop Time Status Last Admin Dose Admin Acetaminophen (Tylenol) 500 mg Q6HR PRN ORAL Mild Pain/Temp > 100.5 01/13/18 22:30 02/12/18 22:29 01/15/18 20:42 Albuterol Sulfate (Proventil) 2.5 mg Q4HRT HHN 01/12/18 11:00 01/17/18 10:59 01/16/18 11:00 Aspirin (Ecotrin) 81 mg DAILY ORAL 01/12/18 09:00 02/11/18 08:59 01/16/18 09:39 Buspirone HCl (Buspar) 15 mg TID ORAL 01/12/18 09:00 02/11/18 08:59 01/16/18 09:37 Clonidine HCl (Catapres Tab) 0.1 mg Q8HR ORAL 01/16/18 14:00 02/11/18 08:59 Docusate Sodium (Colace) 200 mg TWICE A DAY ORAL 01/12/18 09:00 02/11/18 08:59 01/16/18 09:36 Epoetin Trae (Procrit (for non ESRD use)) 5,000 units THU-THU-THU SUBQ 01/13/18 21:00 02/12/18 20:59 01/15/18 22:16 Fluticasone Propionate (Flonase) 1 spray DAILY NASAL 01/12/18 09:00 02/11/18 08:59 01/16/18 09:36 Hydralazine HCl (Apresoline) 25 mg Q4H PRN ORAL BP over 160 syst 01/12/18 12:15 02/11/18 12:14 Hydralazine HCl (Apresoline) 50 mg Q8HR ORAL 01/12/18 06:00 02/11/18 05:59 01/16/18 05:26 Lactulose (Cephulac) 30 gm THREE TIMES A DAY PRN ORAL Constipation 01/15/18 01:30 02/14/18 01:29 01/15/18 05:12 Lansoprazole (Prevacid) 30 mg DAILY ORAL 01/12/18 09:00 02/11/18 08:59 01/16/18 09:37 Levothyroxine Sodium (Synthroid) 75 mcg DAILY@0600 ORAL 01/13/18 06:00 02/11/18 05:59 01/16/18 05:26 Meclizine HCl (Antivert) 25 mg TID ORAL 01/12/18 13:00 02/11/18 12:59 01/16/18 09:38 Metoprolol Tartrate (Lopressor) 25 mg Q12HR ORAL 01/16/18 21:00 02/11/18 08:59 Nifedipine (Procardia XL) 30 mg BID ORAL 01/14/18 09:00 02/11/18 08:59 01/16/18 09:38 Pregabalin (Lyrica) 50 mg DAILY ORAL 01/12/18 09:00 02/11/18 08:59 01/16/18 09:37 Sertraline HCl (Zoloft) 25 mg DAILY ORAL 01/12/18 09:00 02/11/18 08:59 01/16/18 09:46 Sodium Citrate (Bicitra) 30 ml BID ORAL 01/15/18 09:00 02/14/18 08:59 01/16/18 09:46 Anjel Fay MD Jan 16, 2018 11:07
[2018-01-16 12:00] VITALS: BP 183/73
[2018-01-16 16:00] VITALS: BP 137/62
[2018-01-16 20:00] VITALS: BP 158/55
[2018-01-16] MEDS: Metoprolol 25mg tab ORAL SCH (21:22)
[2018-01-17] VITALS (8 sets, daily range): BP systolic 117–162; BP diastolic 45–79
[2018-01-17] MEDS: Acetaminophen 500mg (ES) tab ORAL PRN ×2 (00:13→14:47)
[2018-01-17] MEDS: Albuterol ud Inhalation HHN SCH ×2 (03:00→07:05)
[2018-01-17] MEDS: HydrALAZINE 50mg tab ORAL SCH ×4 (06:12→21:40)
[2018-01-17] MEDS: Sodium Citrate 30ml ORAL SCH ×2 (09:19→17:12)
[2018-01-17] MEDS: BusPIRone 5mg Tab ORAL SCH ×3 (09:19→17:12)
[2018-01-17] MEDS: Lyrica 50mg cap ORAL SCH (09:20)
[2018-01-17] MEDS: Aspirin EC 81mg tab ORAL SCH (09:20)
[2018-01-17] MEDS: Meclizine 25mg tab ORAL SCH ×3 (09:20→17:12)
[2018-01-17] MEDS: Sertraline 50mg tab ORAL SCH (09:22)
[2018-01-17] MEDS: Metoprolol 25mg tab ORAL SCH ×2 (09:22→21:40)
[2018-01-17] MEDS: Docusate 100mg cap ORAL SCH ×2 (09:22→17:12)
[2018-01-17] MEDS: Flonase Nasal Inhaler 16gm NASAL SCH (09:25)
--- NOTE | 2018-01-17 10:06 | General Progress Note ---
Assessment/Plan Problem List: (1) Hyperkalemia ICD Codes: E87.5 - Hyperkalemia SNOMED: 00653676 (2) Acute renal failure (ARF) ICD Codes: N17.9 - Acute kidney failure, unspecified SNOMED: 62920755 Qualifiers: Qualified Codes: N17.9 - Acute kidney failure, unspecified (3) Hypertension ICD Codes: I10 - Essential (primary) hypertension SNOMED: 71350398 (4) COPD (chronic obstructive pulmonary disease) ICD Codes: J44.9 - Chronic obstructive pulmonary disease, unspecified SNOMED: 25137861 Status: stable, progressing Assessment/Plan monitor renal fxn monitor fluid status resp care bp rx POC per renal. stable for dc. dtr cannot pick pt up till tomorrow Subjective ROS Limited/Unobtainable: No Constitutional: Reports: malaise, weakness HEENT: Reports: no symptoms Cardiovascular: Reports: no symptoms Respiratory: Reports: no symptoms Gastrointestinal/Abdominal: Reports: no symptoms Genitourinary: Reports: no symptoms Neurologic/Psychiatric: Reports: no symptoms Endocrine: Reports: no symptoms Hematologic/Lymphatic: Reports: no symptoms Allergies: Coded Allergies: No Known Allergies (Unverified , 12/23/12) All Systems: reviewed and negative except above Subjective no new complaints. renal fxn unchanged. refusing heplock replacement. off ivf. Objective Last 24 Hour Vital Signs Date Time Temp Pulse Resp B/P (MAP) Pulse Ox O2 Delivery O2 Flow Rate FiO2 01/17/18 09:22 88 141/67 01/17/18 09:22 88 141/67 01/17/18 09:00 Nasal Cannula 2.0 01/17/18 08:00 98.0 88 18 141/67 (91) 92 98.0 01/17/18 07:13 84 18 99 Nasal Cannula 2.0 28 01/17/18 07:05 82 18 96 Nasal Cannula 2.0 28 01/17/18 07:03 82 18 Nasal Cannula 2.0 28 01/17/18 07:03 Nasal Cannula 2.0 28 01/17/18 06:12 137/62 01/17/18 06:00 137/62 01/17/18 04:00 75 01/17/18 04:00 97.5 79 18 137/62 (87) 93 97.5 01/17/18 03:50 Nasal Cannula 2.0 28 8/18 03:49 Nasal Cannula 2.0 01/17/18 01:12 97.7 01/17/18 00:13 101.5 01/17/18 00:00 101.7 98 18 137/45 (75) 90 101.7 01/17/18 00:00 98 01/16/18 23:55 97 16 97 Nasal Cannula 2.0 01/16/18 23:44 84 18 95 Nasal Cannula 2.0 28 01/16/18 23:13 158/55 01/16/18 23:13 158/55 01/16/18 21:22 97 158/55 01/16/18 21:00 Nasal Cannula 2.0 01/16/18 20:22 97 16 98 Nasal Cannula 2.0 01/16/18 20:18 Nasal Cannula 2.0 28 01/16/18 20:16 86 18 95 Nasal Cannula 2.0 28 01/16/18 20:00 101 01/16/18 20:00 97.0 66 18 158/55 (89) 94 97.0 01/16/18 18:06 95 137/62 01/16/18 16:00 97.1 95 18 137/62 (87) 99 97.1 01/16/18 15:42 94 01/16/18 15:34 90 16 98 Nasal Cannula 2.0 01/16/18 15:29 86 18 98 Nasal Cannula 2.0 01/16/18 14:52 183/73 01/16/18 14:51 183/73 01/16/18 12:00 97.6 93 21 183/73 (109) 96 97.6 01/16/18 11:47 94 01/16/18 11:08 89 16 99 Nasal Cannula 2.0 01/16/18 11:01 84 18 97 Nasal Cannula 2.0 28 Intake and Output 01/16/18 01/17/18 19:00 07:00 Intake Total 480 ml Balance 480 ml Intake Oral 480 ml # Voids 3 1 Height (Feet): 5 Height (Inches): 1.00 Weight (Pounds): 158 Arden Ocampo MD Jan 17, 2018 10:06
--- NOTE | 2018-01-17 10:49 | Nephrology Progress Note ---
Assessment/Plan Problem List: (1) Acute renal failure (ARF) Assessment: Innumerable cysts within both kidneys. No evidence of obstruction (2) Hypertension (3) Hyperkalemia (4) Anemia in chronic kidney disease (5) Hypothyroid Assessment -. Acute on chronic renal failure. likely due to HTN uncontrolled CrCl 11 Protein 1.3 grams -. Asthma, fairly stable at present. -. Cardiomegaly. -. Diastolic heart dysfunction. -. Hyperkalemia. -. Hypertension. -. Hypertensive heart disease. -. HypoThyroid Plan adjust BP meds- DC IV fluid Okay to DC and follow up as OP PO hydrate- Avoid Nephrotoxics monitor renal parameters- 2D Echo- Ej Fx 55% Kidney ISIS Innumerable cysts within both kidneys. No evidence of obstruction per orders DC home vs ECF Subjective ROS Limited/Unobtainable: No Objective Objective Last 24 Hour Vital Signs Date Time Temp Pulse Resp B/P (MAP) Pulse Ox O2 Delivery O2 Flow Rate FiO2 01/17/18 09:22 88 141/67 01/17/18 09:22 88 141/67 01/17/18 09:00 Nasal Cannula 2.0 01/17/18 08:00 98.0 88 18 141/67 (91) 92 98.0 01/17/18 07:13 84 18 99 Nasal Cannula 2.0 28 01/17/18 07:05 82 18 96 Nasal Cannula 2.0 28 01/17/18 07:03 82 18 Nasal Cannula 2.0 28 01/17/18 07:03 Nasal Cannula 2.0 01/17/18 06:12 137/62 01/17/18 06:00 137/62 01/17/18 04:00 75 01/17/18 04:00 97.5 79 18 137/62 (87) 93 97.5 01/17/18 03:50 Nasal Cannula 2.0 28 01/17/18 03:49 Nasal Cannula 2.0 28 01/17/18 01:12 97.7 01/17/18 00:13 101.5 01/17/18 00:00 101.7 98 18 137/45 (75) 90 101.7 01/17/18 00:00 98 01/16/18 23:55 97 16 97 Nasal Cannula 2.0 28 01/16/18 23:44 84 18 95 Nasal Cannula 2.0 28 01/16/18 23:13 158/55 01/16/18 23:13 158/55 01/16/18 21:22 97 158/55 01/16/18 21:00 Nasal Cannula 2.0 01/16/18 20:22 97 16 98 Nasal Cannula 2.0 28 01/16/18 20:18 Nasal Cannula 2.0 28 01/16/18 20:16 86 18 95 Nasal Cannula 2.0 28 01/16/18 20:00 101 01/16/18 20:00 97.0 66 18 158/55 (89) 94 97.0 01/16/18 18:06 95 137/62 01/16/18 16:00 97.1 95 18 137/62 (87) 99 97.1 01/16/18 15:42 94 01/16/18 15:34 90 16 98 Nasal Cannula 2.0 28 01/16/18 15:29 86 18 98 Nasal Cannula 2.0 28 01/16/18 14:52 183/73 01/16/18 14:51 183/73 01/16/18 12:00 97.6 93 21 183/73 (109) 96 97.6 01/16/18 11:47 94 01/16/18 11:08 89 16 99 Nasal Cannula 2.0 01/16/18 11:01 84 18 97 Nasal Cannula 2.0 28 Intake and Output 01/16/18 01/17/18 19:00 07:00 Intake Total 480 ml Balance 480 ml Intake Oral 480 ml # Voids 3 1 Height (Feet): 5 Height (Inches): 1.00 Weight (Pounds): 158 General Appearance: no apparent distress Objective no other change MIGUEL ANGEL BOLANOS Jan 17, 2018 10:49
--- NOTE | 2018-01-17 10:52 | Pulmonology Progress Note ---
Assessment/Plan Assessment/Plan IMPRESSION: 1. Asthma, fairly stable at present. 2. Cardiomegaly. 3. Cardiomyopathy. 4. Diastolic heart dysfunction. 5. Acute on chronic renal failure. 6. Hyperkalemia. 7. anemia 8. Dementia. 9. A chest x-ray with left-sided pleural effusion. 10. Hypertension. 11. Hypertensive heart disease. PLAN care noted and reviewed no change per pulmonary no new labs d/w daughter dc planning ? SNF or home per daughter impression, plan, and exam edited and reviewed in detail care discussed with RN Subjective Allergies: Coded Allergies: No Known Allergies (Unverified , 12/23/12) Subjective d/w daughter labs noted Objective Last 24 Hour Vital Signs Date Time Temp Pulse Resp B/P (MAP) Pulse Ox O2 Delivery O2 Flow Rate FiO2 01/17/18 09:22 88 141/67 01/17/18 09:22 88 141/67 01/17/18 09:00 Nasal Cannula 2.0 01/17/18 08:00 98.0 88 18 141/67 (91) 92 98.0 01/17/18 07:13 84 18 99 Nasal Cannula 2.0 28 01/17/18 07:05 82 18 96 Nasal Cannula 2.0 28 01/17/18 07:03 82 18 Nasal Cannula 2.0 28 01/17/18 07:03 Nasal Cannula 2.0 01/17/18 06:12 137/62 01/17/18 06:00 137/62 01/17/18 04:00 75 01/17/18 04:00 97.5 79 18 137/62 (87) 93 97.5 01/17/18 03:50 Nasal Cannula 2.0 01/17/18 03:49 Nasal Cannula 2.0 28 01/17/18 01:12 97.7 01/17/18 00:13 101.5 01/17/18 00:00 101.7 98 18 137/45 (75) 90 101.7 01/17/18 00:00 98 01/16/18 23:55 97 16 97 Nasal Cannula 2.0 28 01/16/18 23:44 84 18 95 Nasal Cannula 2.0 28 01/16/18 23:13 158/55 01/16/18 23:13 158/55 01/16/18 21:22 97 158/55 01/16/18 21:00 Nasal Cannula 2.0 01/16/18 20:22 97 16 98 Nasal Cannula 2.0 28 01/16/18 20:18 Nasal Cannula 2.0 28 01/16/18 20:16 86 18 95 Nasal Cannula 2.0 28 01/16/18 20:00 101 01/16/18 20:00 97.0 66 18 158/55 (89) 94 97.0 01/16/18 18:06 95 137/62 01/16/18 16:00 97.1 95 18 137/62 (87) 99 97.1 01/16/18 15:42 94 01/16/18 15:34 90 16 98 Nasal Cannula 2.0 28 01/16/18 15:29 86 18 98 Nasal Cannula 2.0 28 01/16/18 14:52 183/73 01/16/18 14:51 183/73 01/16/18 12:00 97.6 93 21 183/73 (109) 96 97.6 01/16/18 11:47 94 01/16/18 11:08 89 16 99 Nasal Cannula 2.0 28 01/16/18 11:01 84 18 97 Nasal Cannula 2.0 28 Intake and Output 01/16/18 01/17/18 19:00 07:00 Intake Total 480 ml Balance 480 ml Intake Oral 480 ml # Voids 3 1 Objective GENERAL: A well-developed female, comfortable at present. No significant distress. HEENT: Overall negative. Extraocular movements are grossly intact. Oropharynx is moist. NECK: Supple. No adenopathy. LUNGS: Fairly clear. Symmetric. Minimal wheezes. CARDIAC: S1 and S2. Regular rate and rhythm. Positive S4. No murmurs or rubs. ABDOMEN: Soft, nontender, and nondistended. EXTREMITIES: No cyanosis or clubbing. Trace edema. NEUROLOGIC: Grossly nonfocal. Current Medications Medications (Trade) Dose Ordered Sig/Vaughn Route PRN Reason Start Time Stop Time Status Last Admin Dose Admin Acetaminophen (Tylenol) 500 mg Q6HR PRN ORAL Mild Pain/Temp > 100.5 01/13/18 22:30 02/12/18 22:29 01/17/18 00:13 Albuterol Sulfate (Proventil) 2.5 mg Q4HRT HHN 01/12/18 11:00 01/17/18 10:59 01/17/18 07:05 Aspirin (Ecotrin) 81 mg DAILY ORAL 01/12/18 09:00 02/11/18 08:59 01/17/18 09:20 Buspirone HCl (Buspar) 15 mg TID ORAL 01/12/18 09:00 02/11/18 08:59 01/17/18 09:19 Clonidine HCl (Catapres Tab) 0.1 mg Q8HR ORAL 01/16/18 14:00 02/11/18 08:59 01/16/18 23:13 Docusate Sodium (Colace) 200 mg TWICE A DAY ORAL 01/12/18 09:00 02/11/18 08:59 01/17/18 09:22 Epoetin Trae (Procrit (for non ESRD use)) 5,000 units THU- SUBQ 01/13/18 21:00 02/12/18 20:59 01/15/18 22:16 Fluticasone Propionate (Flonase) 1 spray DAILY NASAL 01/12/18 09:00 02/11/18 08:59 01/17/18 09:25 Hydralazine HCl (Apresoline) 25 mg Q4H PRN ORAL BP over 160 syst 01/12/18 12:15 02/11/18 12:14 Hydralazine HCl (Apresoline) 50 mg Q8HR ORAL 01/12/18 06:00 02/11/18 05:59 01/17/18 06:12 Lactulose (Cephulac) 30 gm THREE TIMES A DAY PRN ORAL Constipation 01/15/18 01:30 02/14/18 01:29 01/15/18 05:12 Lansoprazole (Prevacid) 30 mg DAILY ORAL 01/12/18 09:00 02/11/18 08:59 01/17/18 09:20 Levothyroxine Sodium (Synthroid) 75 mcg DAILY@0600 ORAL 01/13/18 06:00 02/11/18 05:59 01/17/18 06:12 Meclizine HCl (Antivert) 25 mg TID ORAL 01/12/18 13:00 02/11/18 12:59 01/17/18 09:20 Metoprolol Tartrate (Lopressor) 25 mg Q12HR ORAL 01/16/18 21:00 02/11/18 08:59 01/17/18 09:22 Nifedipine (Procardia XL) 30 mg BID ORAL 01/14/18 09:00 02/11/18 08:59 01/17/18 09:22 Pregabalin (Lyrica) 50 mg DAILY ORAL 01/12/18 09:00 02/11/18 08:59 01/17/18 09:20 Sertraline HCl (Zoloft) 25 mg DAILY ORAL 01/12/18 09:00 02/11/18 08:59 01/17/18 09:22 Sodium Citrate (Bicitra) 30 ml BID ORAL 01/15/18 09:00 02/14/18 08:59 01/17/18 09:19 Anjel Fay MD Jan 17, 2018 10:52
[2018-01-17] MEDS ORDERED: HydrALAZINE 25mg tab ORAL PRN (15:00)
[2018-01-17] MEDS ORDERED: Lactulose 20gm/30ml UDC ORAL PRN (18:00)
[2018-01-18] VITALS: BP 117/73
[2018-01-18] MEDS: Acetaminophen 500mg (ES) tab ORAL PRN (01:25)
[2018-01-18 04:00] VITALS: BP 123/72
[2018-01-18] MEDS: HydrALAZINE 50mg tab ORAL SCH ×3 (05:46→21:51)
[2018-01-18 08:00] VITALS: BP 133/78
--- NOTE | 2018-01-18 08:37 | Pulmonology Progress Note ---
Assessment/Plan Assessment/Plan IMPRESSION: 1. Asthma, fairly stable at present. 2. Cardiomegaly. 3. Cardiomyopathy. 4. Diastolic heart dysfunction. 5. Acute on chronic renal failure. 6. Hyperkalemia. 7. anemia 8. Dementia. 9. A chest x-ray with left-sided pleural effusion. 10. Hypertension. 11. Hypertensive heart disease. 12. fever PLAN cxr pending culture pending care noted and reviewed no change per pulmonary no new labs d/w daughter dc planning hope today impression, plan, and exam edited and reviewed in detail care discussed with RN Subjective Allergies: Coded Allergies: No Known Allergies (Unverified , 12/23/12) Subjective d/w renal low grade fever labs noted Objective Last 24 Hour Vital Signs Date Time Temp Pulse Resp B/P (MAP) Pulse Ox O2 Delivery O2 Flow Rate FiO2 01/18/18 05:48 123/72 01/18/18 05:46 123/72 01/18/18 04:00 99.0 77 19 123/72 (89) 89 99.0 01/18/18 02:24 99.0 01/18/18 01:25 100.6 01/18/18 00:00 100.6 82 18 117/73 (88) 89 100.6 01/17/18 21:54 92 Room Air 01/17/18 21:53 Room Air 01/17/18 21:40 84 144/70 01/17/18 21:40 144/70 01/17/18 21:40 144/70 01/17/18 21:30 100.2 84 18 144/70 (94) 90 100.2 01/17/18 21:00 83 117/72 01/17/18 21:00 Room Air 01/17/18 20:00 100.5 83 18 117/72 (87) 89 100.5 01/17/18 16:00 100.2 96 22 152/78 (102) 95 100.2 01/17/18 14:47 101.8 01/17/18 14:41 101.8 95 18 162/79 (106) 95 101.8 01/17/18 14:00 153/65 01/17/18 13:59 153/65 01/17/18 12:00 99.3 82 18 153/65 (94) 95 99.3 7/8/18 09:22 88 141/67 7/8/18 09:22 88 141/67 01/17/18 09:00 Nasal Cannula 2.0 Intake and Output 01/17/18 01/18/18 19:00 07:00 Intake Total 820 ml Output Total 1100 ml Balance -280 ml Intake Oral 820 ml Output Urine Total 1100 ml # Voids 2 # Bowel Movements 1 Objective GENERAL: A well-developed female, comfortable at present. No significant distress. HEENT: Overall negative. Extraocular movements are grossly intact. Oropharynx is moist. NECK: Supple. No adenopathy. LUNGS: Fairly clear. Symmetric. Minimal wheezes. CARDIAC: S1 and S2. Regular rate and rhythm. Positive S4. No murmurs or rubs. ABDOMEN: Soft, nontender, and nondistended. EXTREMITIES: No cyanosis or clubbing. Trace edema. NEUROLOGIC: Grossly nonfocal. Current Medications Medications (Trade) Dose Ordered Sig/Vaughn Route PRN Reason Start Time Stop Time Status Last Admin Dose Admin Acetaminophen (Tylenol) 500 mg Q6H PRN ORAL Mild Pain/Temp > 100.5 01/17/18 15:00 02/16/18 14:59 01/18/18 01:25 Aspirin (Ecotrin) 81 mg DAILY ORAL 01/18/18 09:00 02/11/18 08:59 Buspirone HCl (Buspar) 15 mg TID ORAL 01/17/18 18:00 02/11/18 08:59 01/17/18 17:12 Clonidine HCl (Catapres Tab) 0.1 mg Q8HR ORAL 01/17/18 22:00 02/11/18 08:59 01/17/18 21:40 Docusate Sodium (Colace) 200 mg TWICE A DAY ORAL 01/17/18 18:00 02/11/18 08:59 01/17/18 17:12 Epoetin Trae (Procrit (for non ESRD use)) 5,000 units THU-THU-THU SUBQ 01/18/18 21:00 02/12/18 20:59 Fluticasone Propionate (Flonase) 1 spray DAILY NASAL 01/18/18 09:00 02/11/18 08:59 Hydralazine HCl (Apresoline) 25 mg Q4H PRN ORAL BP over 160 syst 01/17/18 15:00 02/11/18 14:59 Hydralazine HCl (Apresoline) 50 mg Q8HR ORAL 01/17/18 22:00 02/11/18 05:59 01/18/18 05:46 Lactulose (Cephulac) 30 gm Q8H PRN ORAL Constipation 01/17/18 18:00 02/16/18 17:59 Lansoprazole (Prevacid) 30 mg DAILY ORAL 01/18/18 09:00 02/11/18 08:59 Levothyroxine Sodium (Synthroid) 75 mcg DAILY@0600 ORAL 01/18/18 06:00 02/11/18 05:59 01/18/18 05:47 Meclizine HCl (Antivert) 25 mg TID ORAL 01/17/18 18:00 02/11/18 12:59 01/17/18 17:12 Metoprolol Tartrate (Lopressor) 25 mg Q12HR ORAL 01/17/18 21:00 02/11/18 08:59 01/17/18 21:40 Nifedipine (Procardia XL) 30 mg Q12HR ORAL 01/17/18 21:00 02/16/18 20:59 Pregabalin (Lyrica) 50 mg DAILY ORAL 01/18/18 09:00 02/11/18 08:59 Sertraline HCl (Zoloft) 25 mg DAILY ORAL 01/18/18 09:00 02/11/18 08:59 Sodium Citrate (Bicitra) 30 ml BID ORAL 01/17/18 18:00 02/14/18 08:59 01/17/18 17:12 Anjel Fay MD Jan 18, 2018 08:37
--- NOTE | 2018-01-18 08:46 | General Progress Note ---
Assessment/Plan Problem List: (1) Hyperkalemia ICD Codes: E87.5 - Hyperkalemia SNOMED: 52111334 (2) Acute renal failure (ARF) ICD Codes: N17.9 - Acute kidney failure, unspecified SNOMED: 07197411 Qualifiers: Qualified Codes: N17.9 - Acute kidney failure, unspecified (3) Hypertension ICD Codes: I10 - Essential (primary) hypertension SNOMED: 28568718 (4) COPD (chronic obstructive pulmonary disease) ICD Codes: J44.9 - Chronic obstructive pulmonary disease, unspecified SNOMED: 12385312 Status: stable Assessment/Plan blood cultures and ua follow up cxr monitor renal fxn monitor fluid status resp care bp rx POC per renal. reasses for dc Subjective ROS Limited/Unobtainable: No Constitutional: Reports: fever HEENT: Reports: no symptoms Cardiovascular: Reports: no symptoms Respiratory: Reports: no symptoms Gastrointestinal/Abdominal: Reports: no symptoms Genitourinary: Reports: no symptoms Neurologic/Psychiatric: Reports: no symptoms Endocrine: Reports: no symptoms Hematologic/Lymphatic: Reports: no symptoms Allergies: Coded Allergies: No Known Allergies (Unverified , 12/23/12) All Systems: reviewed and negative except above Subjective no new complaints. renal fxn unchanged. refusing heplock replacement. off ivf. high fever last nite 103. cultures and labs orderd- all pending Objective Last 24 Hour Vital Signs Date Time Temp Pulse Resp B/P (MAP) Pulse Ox O2 Delivery O2 Flow Rate FiO2 01/18/18 05:48 123/72 01/18/18 05:46 123/72 01/18/18 04:00 99.0 77 19 123/72 (89) 89 99.0 01/18/18 02:24 99.0 01/18/18 01:25 100.6 01/18/18 00:00 100.6 82 18 117/73 (88) 89 100.6 01/17/18 21:54 92 Room Air 01/17/18 21:53 Room Air 01/17/18 21:40 84 144/70 01/17/18 21:40 144/70 01/17/18 21:40 144/70 01/17/18 21:30 100.2 84 18 144/70 (94) 90 100.2 01/17/18 21:00 83 117/72 01/17/18 21:00 Room Air 01/17/18 20:00 100.5 83 18 117/72 (87) 89 100.5 01/17/18 16:00 100.2 96 22 152/78 (102) 95 100.2 01/17/18 14:47 101.8 01/17/18 14:41 101.8 95 18 162/79 (106) 95 101.8 01/17/18 14:00 153/65 01/17/18 13:59 153/65 01/17/18 12:00 99.3 82 18 153/65 (94) 95 99.3 01/17/18 09:22 88 141/67 01/17/18 09:22 88 141/67 01/17/18 09:00 Nasal Cannula 2.0 Intake and Output 01/17/18 01/18/18 19:00 07:00 Intake Total 820 ml Output Total 1100 ml Balance -280 ml Intake Oral 820 ml Output Urine Total 1100 ml # Voids 2 # Bowel Movements 1 Height (Feet): 5 Height (Inches): 1.00 Weight (Pounds): 154 General Appearance: WD/WN, alert Neck: supple Cardiovascular: normal rate, regular rhythm Respiratory/Chest: chest wall non-tender, lungs clear, normal breath sounds, no respiratory distress Edema: no edema noted Arm (L), no edema noted Arm (R), no edema noted Leg (L), no edema noted Leg (R), no edema noted Pedal (L), no edema noted Pedal (R), no edema noted Generalized Neurologic: ed educational aide II-XII grossly normal, no motor/sensory deficits, abnormal gait , alert, oriented x 3 Arden Ocampo MD Jan 18, 2018 08:46
[2018-01-18] MEDS: Meclizine 25mg tab ORAL SCH ×3 (09:05→17:45)
[2018-01-18] MEDS: BusPIRone 5mg Tab ORAL SCH ×3 (09:06→17:45)
[2018-01-18] MEDS: Sodium Citrate 30ml ORAL SCH ×2 (09:06→17:45)
[2018-01-18] MEDS: Aspirin EC 81mg tab ORAL SCH (09:06)
[2018-01-18] MEDS: Sertraline 50mg tab ORAL SCH (09:06)
[2018-01-18] MEDS: Metoprolol 25mg tab ORAL SCH ×2 (09:07→20:42)
[2018-01-18] MEDS: Docusate 100mg cap ORAL SCH ×2 (09:08→17:45)
[2018-01-18] MEDS: Lyrica 50mg cap ORAL SCH (09:08)
[2018-01-18] MEDS: Flonase Nasal Inhaler 16gm NASAL SCH (10:56)
--- NOTE | 2018-01-18 11:28 | Nephrology Progress Note ---
Assessment/Plan Problem List: (1) Acute renal failure (ARF) Assessment: Innumerable cysts within both kidneys. No evidence of obstruction (2) Hypertension (3) Hyperkalemia (4) Anemia in chronic kidney disease (5) Hypothyroid Assessment -. Acute on chronic renal failure. likely due to HTN uncontrolled CrCl 11 Protein 1.3 grams Had fever last night -. Asthma, fairly stable at present. -. Cardiomegaly. -. Diastolic heart dysfunction. -. Hyperkalemia. -. Hypertension. -. Hypertensive heart disease. -. HypoThyroid Plan Cultured up One dose of Rocephin adjust BP meds- DC IV fluid Okay to DC and follow up as OP PO hydrate- Avoid Nephrotoxics monitor renal parameters- 2D Echo- Ej Fx 55% Kidney ISIS Innumerable cysts within both kidneys. No evidence of obstruction per orders DC home vs ECF Subjective ROS Limited/Unobtainable: No Constitutional: Reports: malaise Objective Objective Last 24 Hour Vital Signs Date Time Temp Pulse Resp B/P (MAP) Pulse Ox O2 Delivery O2 Flow Rate FiO2 01/18/18 09:07 90 133/78 01/18/18 09:06 80 133/78 01/18/18 05:48 123/72 01/18/18 05:46 123/72 01/18/18 04:00 99.0 77 19 123/72 (89) 89 99.0 01/18/18 02:24 99.0 01/18/18 01:25 100.6 01/18/18 00:00 100.6 82 18 117/73 (88) 89 100.6 01/17/18 21:54 92 Room Air 01/17/18 21:53 Room Air 01/17/18 21:40 84 144/70 01/17/18 21:40 144/70 01/17/18 21:40 144/70 01/17/18 21:30 100.2 84 18 144/70 (94) 90 100.2 01/17/18 21:00 83 117/72 01/17/18 21:00 Room Air 01/17/18 20:00 100.5 83 18 117/72 (87) 89 100.5 01/17/18 16:00 100.2 96 22 152/78 (102) 95 100.2 01/17/18 14:47 101.8 01/17/18 14:41 101.8 95 18 162/79 (106) 95 101.8 01/17/18 14:00 153/65 01/17/18 13:59 153/65 01/17/18 12:00 99.3 82 18 153/65 (94) 95 99.3 Intake and Output 01/17/18 01/18/18 19:00 07:00 Intake Total 820 ml Output Total 1100 ml Balance -280 ml Intake Oral 820 ml Output Urine Total 1100 ml # Voids 2 # Bowel Movements 1 Height (Feet): 5 Height (Inches): 1.00 Weight (Pounds): 154 General Appearance: no apparent distress Objective no other change MIGUEL ANGEL BOLANOS Jan 18, 2018 11:28
[2018-01-18 12:00] VITALS: BP 131/56
[2018-01-18] MEDS ORDERED: cefTRIAXone 2 GM in D5W 55 ML IVPB ONE (12:30)
--- NOTE | 2018-01-18 12:41 | Diagnostic Imaging Report ---
Indication: Dyspnea Comparison: 01/13/2018 A single view chest radiograph was obtained. Findings: Air-Bronchograms are demonstrated at the left lung base. Cardiomegaly is present and stable. Bones are osteopenic. IMPRESSION: Suspicion of left basilar pneumonia slightly improved
[2018-01-18 16:00] VITALS: BP 101/63
[2018-01-18 21:00] VITALS: BP 150/76
[2018-01-18] MEDS ORDERED: Epogen (for non ESRD use) SUBQ SCH (21:00)
[2018-01-19] VITALS: BP 143/64
[2018-01-19 04:00] VITALS: BP 154/67
[2018-01-19 05:43] LABS: BASOPHILS % (AUTO) 1.8 % (0.0-2.0); EOSINOPHILS % (AUTO) 4.6 % (0.0-3.0); HEMATOCRIT 32.2 % (37.0-47.0); HEMOGLOBIN 10.5 G/DL (12.0-16.0); LYMPHOCYTES % (AUTO) 16.3 % (20.0-45.0); MEAN CORPUSCULAR VOLUME 91 FL (80-99); MONOCYTES % (AUTO) 7.8 % (1.0-10.0); NEUTROPHILS % (AUTO) 69.5 % (45.0-75.0); PLATELET COUNT 242 K/UL (150-450); RED BLOOD COUNT 3.54 M/UL (4.20-5.40); RED CELL DISTRIBUTION WIDTH 11.6 % (11.6-14.8); WHITE BLOOD COUNT 6.1 K/UL (4.8-10.8)
[2018-01-19] MEDS: HydrALAZINE 50mg tab ORAL SCH ×3 (05:50→22:19)
[2018-01-19 06:01] LABS: ALANINE AMINOTRANSFERASE 19 U/L (12-78); ALBUMIN/GLOBULIN RATIO 0.6 (1.0-2.7); ALKALINE PHOSPHATASE 93 U/L (46-116); ANION GAP 11 mmol/L (5-15); ASPARTATE AMINO TRANSFERASE 17 U/L (15-37); BILIRUBIN,TOTAL 0.2 MG/DL (0.2-1.0); BLOOD UREA NITROGEN 47 mg/dL (7-18); CALCIUM 8.7 MG/DL (8.5-10.1); CARBON DIOXIDE 27 MMOL/L (21-32); CHLORIDE 104 MMOL/L (98-107); CREATININE 4.2 MG/DL (0.55-1.30); POTASSIUM 3.8 MMOL/L (3.5-5.1); SODIUM 142 MMOL/L (136-145)
[2018-01-19 08:00] VITALS: BP 130/69
[2018-01-19] MEDS: Metoprolol 25mg tab ORAL SCH ×2 (08:11→20:20)
[2018-01-19] MEDS: BusPIRone 5mg Tab ORAL SCH ×3 (08:11→17:41)
[2018-01-19] MEDS: Meclizine 25mg tab ORAL SCH ×3 (08:12→17:41)
[2018-01-19] MEDS: Sertraline 50mg tab ORAL SCH (08:12)
[2018-01-19] MEDS: Lyrica 50mg cap ORAL SCH (08:12)
[2018-01-19] MEDS: Aspirin EC 81mg tab ORAL SCH (08:13)
[2018-01-19] MEDS: Sodium Citrate 30ml ORAL SCH ×2 (08:13→17:41)
[2018-01-19] MEDS: Acetaminophen 500mg (ES) tab ORAL PRN (08:13)
[2018-01-19] MEDS: Flonase Nasal Inhaler 16gm NASAL SCH (08:14)
[2018-01-19] MEDS: Docusate 100mg cap ORAL SCH ×2 (08:15→17:41)
--- NOTE | 2018-01-19 08:37 | Pulmonology Progress Note ---
Assessment/Plan Assessment/Plan IMPRESSION: 1. Asthma, fairly stable at present. 2. Cardiomegaly. 3. Cardiomyopathy. 4. Diastolic heart dysfunction. 5. Acute on chronic renal failure. 6. Hyperkalemia. 7. anemia 8. Dementia. 9. A chest x-ray with left-sided pleural effusion. 10. Hypertension. 11. Hypertensive heart disease. 12. fever PLAN cxr noted and appears overall improved culture pending care noted and reviewed no change per pulmonary no new labs rocephin given x 1 hold antibiotics for now d/w daughter dc planning pending final culture results impression, plan, and exam edited and reviewed in detail care discussed with RN Subjective Allergies: Coded Allergies: No Known Allergies (Unverified , 12/23/12) Subjective d/w daughter- low grade fever labs noted Objective Last 24 Hour Vital Signs Date Time Temp Pulse Resp B/P (MAP) Pulse Ox O2 Delivery O2 Flow Rate FiO2 01/19/18 08:12 83 130/69 01/19/18 08:11 83 130/69 01/19/18 08:00 98.5 83 20 130/69 (89) 92 98.5 01/19/18 05:50 154/67 01/19/18 05:50 154/67 01/19/18 04:00 97.9 87 17 154/67 (96) 93 97.9 01/19/18 00:00 99.1 89 19 143/64 (90) 91 99.1 01/18/18 21:51 131/69 01/18/18 21:51 131/69 01/18/18 21:00 99.3 89 18 150/76 (100) 92 99.3 01/18/18 21:00 Room Air 01/18/18 20:42 89 150/76 01/18/18 20:42 89 150/76 01/18/18 19:02 93 Room Air 01/18/18 19:02 Room Air 21 01/18/18 16:00 98.2 82 20 101/63 (76) 92 98.2 01/18/18 14:01 126/60 01/18/18 14:00 126/60 01/18/18 12:00 97.3 79 20 131/56 (81) 93 97.3 01/18/18 09:07 90 133/78 01/18/18 09:06 80 133/78 01/18/18 08:45 Room Air Intake and Output 01/18/18 01/19/18 19:00 07:00 Intake Total 260 ml 480 ml Balance 260 ml 480 ml Intake Oral 260 ml 480 ml # Voids 4 2 Objective GENERAL: A well-developed female, comfortable at present. No significant distress. HEENT: Overall negative. Extraocular movements are grossly intact. Oropharynx is moist. NECK: Supple. No adenopathy. LUNGS: Fairly clear. Symmetric. Minimal wheezes. CARDIAC: S1 and S2. Regular rate and rhythm. Positive S4. No murmurs or rubs. ABDOMEN: Soft, nontender, and nondistended. EXTREMITIES: No cyanosis or clubbing. Trace edema. NEUROLOGIC: Grossly nonfocal. Laboratory Tests 01/19/18 05:03: White Blood Count 6.1, Red Blood Count 3.54L, Hemoglobin 10.5L, Hematocrit 32.2L , Mean Corpuscular Volume 91, Mean Corpuscular Hemoglobin 29.6, Mean Corpuscular Hemoglobin Concent 32.5, Red Cell Distribution Width 11.6, Platelet Count 242, Mean Platelet Volume 6.0L, Neutrophils (%) (Auto) 69.5, Lymphocytes ( %) (Auto) 16.3L, Monocytes (%) (Auto) 7.8, Eosinophils (%) (Auto) 4.6H, Basophils (%) (Auto) 1.8, Sodium Level 142, Potassium Level 3.8, Chloride Level 104, Carbon Dioxide Level 27, Anion Gap 11, Blood Urea Nitrogen 47H, Creatinine 4.2H, Estimat Glomerular Filtration Rate , Glucose Level 121H, Calcium Level 8.7 , Phosphorus Level 3.0, Magnesium Level 1.9, Total Bilirubin 0.2, Aspartate Amino Transf (AST/SGOT) 17, Alanine Aminotransferase (ALT/SGPT) 19, Alkaline Phosphatase 93, C-Reactive Protein, Quantitative 17.9H, Total Protein 8.1, Albumin 3.0L, Globulin 5.1, Albumin/Globulin Ratio 0.6L Current Medications Medications (Trade) Dose Ordered Sig/Vaughn Route PRN Reason Start Time Stop Time Status Last Admin Dose Admin Acetaminophen (Tylenol) 500 mg Q6H PRN ORAL Mild Pain/Temp > 100.5 01/17/18 15:00 02/16/18 14:59 01/19/18 08:13 Aspirin (Ecotrin) 81 mg DAILY ORAL 01/18/18 09:00 02/11/18 08:59 01/19/18 08:13 Buspirone HCl (Buspar) 15 mg TID ORAL 01/17/18 18:00 02/11/18 08:59 01/19/18 08:11 Clonidine HCl (Catapres Tab) 0.1 mg Q8HR ORAL 01/17/18 22:00 02/11/18 08:59 01/19/18 05:50 Docusate Sodium (Colace) 200 mg TWICE A DAY ORAL 01/17/18 18:00 02/11/18 08:59 01/19/18 08:15 Epoetin Trae (Procrit (for non ESRD use)) 5,000 units THU- SUBQ 01/18/18 21:00 02/12/18 20:59 01/18/18 20:42 Fluticasone Propionate (Flonase) 1 spray DAILY NASAL 01/18/18 09:00 02/11/18 08:59 01/19/18 08:14 Hydralazine HCl (Apresoline) 25 mg Q4H PRN ORAL BP over 160 syst 01/17/18 15:00 02/11/18 14:59 Hydralazine HCl (Apresoline) 50 mg Q8HR ORAL 01/17/18 22:00 02/11/18 05:59 01/19/18 05:50 Lactulose (Cephulac) 30 gm Q8H PRN ORAL Constipation 01/17/18 18:00 02/16/18 17:59 Lansoprazole (Prevacid) 30 mg DAILY ORAL 01/18/18 09:00 02/11/18 08:59 01/19/18 08:11 Levothyroxine Sodium (Synthroid) 75 mcg DAILY@0600 ORAL 01/18/18 06:00 02/11/18 05:59 01/19/18 05:49 Meclizine HCl (Antivert) 25 mg TID ORAL 01/17/18 18:00 02/11/18 12:59 01/19/18 08:12 Metoprolol Tartrate (Lopressor) 25 mg Q12HR ORAL 01/17/18 21:00 02/11/18 08:59 01/19/18 08:11 Nifedipine (Procardia XL) 30 mg Q12HR ORAL 01/17/18 21:00 02/16/18 20:59 01/19/18 08:12 Pregabalin (Lyrica) 50 mg DAILY ORAL 01/18/18 09:00 02/11/18 08:59 01/19/18 08:12 Sertraline HCl (Zoloft) 25 mg DAILY ORAL 01/18/18 09:00 02/11/18 08:59 01/19/18 08:12 Sodium Citrate (Bicitra) 30 ml BID ORAL 01/17/18 18:00 02/14/18 08:59 01/19/18 08:13 Anjel Fay MD Jan 19, 2018 08:37
--- NOTE | 2018-01-19 08:57 | General Progress Note ---
Assessment/Plan Problem List: (1) Hyperkalemia ICD Codes: E87.5 - Hyperkalemia SNOMED: 72698109 (2) Acute renal failure (ARF) ICD Codes: N17.9 - Acute kidney failure, unspecified SNOMED: 10584010 Qualifiers: Qualified Codes: N17.9 - Acute kidney failure, unspecified (3) Hypertension ICD Codes: I10 - Essential (primary) hypertension SNOMED: 34328628 (4) COPD (chronic obstructive pulmonary disease) ICD Codes: J44.9 - Chronic obstructive pulmonary disease, unspecified SNOMED: 43304978 Status: stable Assessment/Plan blood cultures and ua follow up cxr monitor renal fxn monitor fluid status resp care bp rx POC per renal. reasses for dc Subjective ROS Limited/Unobtainable: No Constitutional: Reports: malaise, weakness HEENT: Reports: no symptoms Cardiovascular: Reports: no symptoms Respiratory: Reports: no symptoms Gastrointestinal/Abdominal: Reports: no symptoms Genitourinary: Reports: no symptoms Neurologic/Psychiatric: Reports: no symptoms Endocrine: Reports: no symptoms Hematologic/Lymphatic: Reports: no symptoms Allergies: Coded Allergies: No Known Allergies (Unverified , 12/23/12) All Systems: reviewed and negative except above Subjective no new complaints. renal fxn unchanged. rasheed cultured yesterday. nothing back yet. appears well and nontoxic. Objective Last 24 Hour Vital Signs Date Time Temp Pulse Resp B/P (MAP) Pulse Ox O2 Delivery O2 Flow Rate FiO2 01/19/18 08:12 83 130/69 01/19/18 08:11 83 130/69 01/19/18 08:00 98.5 83 20 130/69 (89) 92 98.5 01/19/18 05:50 154/67 01/19/18 05:50 154/67 01/19/18 04:00 97.9 87 17 154/67 (96) 93 97.9 01/19/18 00:00 99.1 89 19 143/64 (90) 91 99.1 01/18/18 21:51 131/69 01/18/18 21:51 131/69 01/18/18 21:00 99.3 89 18 150/76 (100) 92 99.3 01/18/18 21:00 Room Air 01/18/18 20:42 89 150/76 01/18/18 20:42 89 150/76 01/18/18 19:02 93 Room Air 01/18/18 19:02 Room Air 21 01/18/18 16:00 98.2 82 20 101/63 (76) 92 98.2 01/18/18 14:01 126/60 01/18/18 14:00 126/60 01/18/18 12:00 97.3 79 20 131/56 (81) 93 97.3 01/18/18 09:07 90 133/78 01/18/18 09:06 80 133/78 Intake and Output 01/18/18 01/19/18 19:00 07:00 Intake Total 260 ml 480 ml Balance 260 ml 480 ml Intake Oral 260 ml 480 ml # Voids 4 2 Laboratory Tests 01/19/18 05:03: White Blood Count 6.1, Red Blood Count 3.54L, Hemoglobin 10.5L, Hematocrit 32.2L , Mean Corpuscular Volume 91, Mean Corpuscular Hemoglobin 29.6, Mean Corpuscular Hemoglobin Concent 32.5, Red Cell Distribution Width 11.6, Platelet Count 242, Mean Platelet Volume 6.0L, Neutrophils (%) (Auto) 69.5, Lymphocytes ( %) (Auto) 16.3L, Monocytes (%) (Auto) 7.8, Eosinophils (%) (Auto) 4.6H, Basophils (%) (Auto) 1.8, Sodium Level 142, Potassium Level 3.8, Chloride Level 104, Carbon Dioxide Level 27, Anion Gap 11, Blood Urea Nitrogen 47H, Creatinine 4.2H, Estimat Glomerular Filtration Rate , Glucose Level 121H, Calcium Level 8.7 , Phosphorus Level 3.0, Magnesium Level 1.9, Total Bilirubin 0.2, Aspartate Amino Transf (AST/SGOT) 17, Alanine Aminotransferase (ALT/SGPT) 19, Alkaline Phosphatase 93, C-Reactive Protein, Quantitative 17.9H, Total Protein 8.1, Albumin 3.0L, Globulin 5.1, Albumin/Globulin Ratio 0.6L Height (Feet): 5 Height (Inches): 1.00 Weight (Pounds): 153 Objective General Appearance: WD/WN, alert Neck: supple Cardiovascular: normal rate, regular rhythm Respiratory/Chest: chest wall non-tender, lungs clear, normal breath sounds, no respiratory distress Edema: no edema noted Arm (L), no edema noted Arm (R), no edema noted Leg (L), no edema noted Leg (R), no edema noted Pedal (L), no edema noted Pedal (R), no edema noted Generalized Neurologic: running rigger II-XII grossly normal, no motor/sensory deficits, abnormal gait , alert, oriented x 3 Arden Ocampo MD Jan 19, 2018 08:57
--- NOTE | 2018-01-19 10:18 | Nephrology Progress Note ---
Assessment/Plan Assessment/Plan 1. GI on CKD 4- Innumerable cysts within both kidneys. No evidence of obstruction - BL Cr unkown - Cr stable at 4.2 - CKD etiology could be HTN Nephrosclerosis - monitor for now and will need f/u post DC with Dr Lujan 2. HTN- stable. Avoid HALIMA-I/ARB (hyperk+) 3. Hyperk+ resolved 4. PNA - abx 5. Anemia of Chr Dz- DC EPO once Hgb >11 Subjective Date patient seen: Jan 19, 2018 Time patient seen: 10:15 ROS Limited/Unobtainable: No Allergies: Coded Allergies: No Known Allergies (Unverified , 12/23/12) All Systems: reviewed and negative except above Subjective Patient feeling well in no distress Objective Last 24 Hour Vital Signs Date Time Temp Pulse Resp B/P (MAP) Pulse Ox O2 Delivery O2 Flow Rate FiO2 01/19/18 08:45 Room Air 01/19/18 08:12 83 130/69 01/19/18 08:11 83 130/69 01/19/18 08:00 98.5 83 20 130/69 (89) 92 98.5 01/19/18 05:50 154/67 01/19/18 05:50 154/67 01/19/18 04:00 97.9 87 17 154/67 (96) 93 97.9 01/19/18 00:00 99.1 89 19 143/64 (90) 91 99.1 01/18/18 21:51 131/69 01/18/18 21:51 131/69 01/18/18 21:00 99.3 89 18 150/76 (100) 92 99.3 01/18/18 21:00 Room Air 01/18/18 20:42 89 150/76 01/18/18 20:42 89 150/76 01/18/18 19:02 93 Room Air 01/18/18 19:02 Room Air 21 01/18/18 16:00 98.2 82 20 101/63 (76) 92 98.2 01/18/18 14:01 126/60 01/18/18 14:00 126/60 01/18/18 12:00 97.3 79 20 131/56 (81) 93 97.3 Intake and Output 01/18/18 01/19/18 19:00 07:00 Intake Total 260 ml 480 ml Balance 260 ml 480 ml Intake Oral 260 ml 480 ml # Voids 4 2 Laboratory Tests 01/19/18 05:03: White Blood Count 6.1, Red Blood Count 3.54L, Hemoglobin 10.5L, Hematocrit 32.2L , Mean Corpuscular Volume 91, Mean Corpuscular Hemoglobin 29.6, Mean Corpuscular Hemoglobin Concent 32.5, Red Cell Distribution Width 11.6, Platelet Count 242, Mean Platelet Volume 6.0L, Neutrophils (%) (Auto) 69.5, Lymphocytes ( %) (Auto) 16.3L, Monocytes (%) (Auto) 7.8, Eosinophils (%) (Auto) 4.6H, Basophils (%) (Auto) 1.8, Sodium Level 142, Potassium Level 3.8, Chloride Level 104, Carbon Dioxide Level 27, Anion Gap 11, Blood Urea Nitrogen 47H, Creatinine 4.2H, Estimat Glomerular Filtration Rate , Glucose Level 121H, Calcium Level 8.7 , Phosphorus Level 3.0, Magnesium Level 1.9, Total Bilirubin 0.2, Aspartate Amino Transf (AST/SGOT) 17, Alanine Aminotransferase (ALT/SGPT) 19, Alkaline Phosphatase 93, C-Reactive Protein, Quantitative 17.9H, Total Protein 8.1, Albumin 3.0L, Globulin 5.1, Albumin/Globulin Ratio 0.6L Height (Feet): 5 Height (Inches): 1.00 Weight (Pounds): 153 General Appearance: no apparent distress, alert EENT: normal ENT inspection Neck: normal alignment, supple Cardiovascular: normal rate, regularly irregular Respiratory/Chest: lungs clear, normal breath sounds Abdomen: non tender, soft Grady Myles M.D. Jan 19, 2018 10:18
[2018-01-19 12:00] VITALS: BP 141/64
[2018-01-19] MEDS ORDERED: Piperacillin/Tazobactam 2.25 GM in D5W 55 ML IVPB SCH (14:00)
[2018-01-19] MEDS: Piperacillin/Tazobactam 3.375 GM in D5W 110 ML IVPB SCH ×2 (14:21→20:18)
[2018-01-19 16:00] VITALS: BP 124/65
[2018-01-19 20:00] VITALS: BP 152/89
--- NOTE | 2018-01-19 22:15 | Consultation ---
DATE OF CONSULTATION: 01/19/2018 INFECTIOUS DISEASES CONSULTATION CONSULTING PHYSICIAN: Danial Kimball M.D. REFERRING PHYSICIAN: Arden Ocampo M.D. REASON FOR CONSULTATION: Sepsis. HISTORY OF PRESENTING ILLNESS: This is an 87-year-old lady with history of hypertension, gallstone pancreatitis, chronic kidney disease, and hypertension, who came in because of worsening renal failure. She was found to have Gram-negative sepsis and an Infectious Diseases consultation has been obtained for antibiotics. PAST MEDICAL HISTORY: 1. History of hypertension. 2. Gallstones. 3. Pancreatitis. 4. Chronic kidney disease. 5. GERD. 6. Hypertension. 7. Hypothyroidism. MEDICATIONS: As an inpatient, the patient is on Epogen, aspirin, fluticasone, Prevacid, Lyrica, Zoloft, Synthroid, clonidine, hydralazine, metoprolol, nifedipine, BuSpar, docusate, lactulose, meclizine, Tylenol, and hydralazine. ALLERGIES: No known drug allergies. SOCIAL HISTORY: She does not smoke, drink, or use drugs. FAMILY HISTORY: Noncontributory. REVIEW OF SYSTEMS: RESPIRATORY: No fever, chills, cough, shortness of breath, or chest pain. CARDIAC: No chest pain. No palpitations. No dizziness. No syncope. GASTROINTESTINAL: No nausea. No vomiting. No abdominal pain. No diarrhea. PHYSICAL EXAMINATION: VITAL SIGNS: Temperature of 97.5, T-max of 100.6, pulse of 74, respiratory rate 20, blood pressure 141/64, and O2 saturation of 100%. HEENT: Pupils equally reactive to light and accommodation. Mouth appears clean without thrush. NECK: Supple. No adenopathy. No JVD. CARDIOVASCULAR: Regular rate and rhythm. No murmurs. LUNGS: Clear to auscultation bilaterally. No crackles. No wheezes. ABDOMEN: Soft and nontender. No organomegaly. EXTREMITIES: No cyanosis. No clubbing. No edema. LABORATORY AND DIAGNOSTIC DATA: Labs, white count 6.1, hemoglobin 10.5, hematocrit 32.2, MCV 91, and platelet count of 242,000 with neutrophils of 69%. Sodium 142, potassium 3.8, chloride 104, bicarbonate 27, BUN 47, creatinine 4.2, glucose 121, and calcium 8.7. AST 17, ALT 19, and alkaline phosphatase 93. Total protein 8.1, albumin of 3. UA is showing 0 to 2 white cells. Urine culture showing Gram-negative rods. Chest x-ray is showing left base pneumonia is improving. Renal ultrasound showing numerous cysts within the kidneys, no evidence of obstruction. ASSESSMENT: This is an 87-year-old lady with history of hypertension, gallstone pancreatitis, and chronic kidney disease, who comes in with: 1. Gram-negative urinary tract infection. 2. Renal failure. 3. Hypertension. PLAN: 1. We will start the patient on Zosyn. 2. We will follow up cultures and adjust antibiotics accordingly. I would like to thank, Dr. Ocampo, for this consultation. Danial Kimball M.D. DR: QUINCY JOB#: [id number] CC: Arden Ocampo M.D.
[2018-01-20] VITALS: BP 153/68
[2018-01-20 04:00] VITALS: BP 154/74
[2018-01-20] MEDS: HydrALAZINE 50mg tab ORAL SCH ×2 (05:32→13:08)
[2018-01-20 08:00] VITALS: BP 147/73
[2018-01-20] MEDS: BusPIRone 5mg Tab ORAL SCH ×3 (08:50→18:09)
[2018-01-20] MEDS: Piperacillin/Tazobactam 3.375 GM in D5W 110 ML IVPB SCH (08:50)
[2018-01-20] MEDS: Meclizine 25mg tab ORAL SCH ×3 (08:50→18:09)
[2018-01-20] MEDS: Sodium Citrate 30ml ORAL SCH ×2 (08:50→18:09)
[2018-01-20] MEDS: Docusate 100mg cap ORAL SCH ×2 (08:50→18:00)
[2018-01-20] MEDS: Metoprolol 25mg tab ORAL SCH (08:51)
[2018-01-20] MEDS: Aspirin EC 81mg tab ORAL SCH (08:51)
[2018-01-20] MEDS: Lyrica 50mg cap ORAL SCH (08:51)
[2018-01-20] MEDS: Sertraline 50mg tab ORAL SCH (08:51)
[2018-01-20] MEDS: Flonase Nasal Inhaler 16gm NASAL SCH (08:56)
[2018-01-20 09:09] LABS: ANION GAP 14 mmol/L (5-15); BLOOD UREA NITROGEN 46 mg/dL (7-18); CALCIUM 8.6 MG/DL (8.5-10.1); CARBON DIOXIDE 23 MMOL/L (21-32); CHLORIDE 104 MMOL/L (98-107); CREATININE 4.1 MG/DL (0.55-1.30); SODIUM 141 MMOL/L (136-145)
--- NOTE | 2018-01-20 09:41 | Nephrology Progress Note ---
Assessment/Plan Assessment/Plan 1. CKD 4- Innumerable cysts within both kidneys. No evidence of obstruction - BL Cr unkown - Cr stable at 4.2. OK for DC from rnal point. F/U with dr Lujan in 1-2 weeks - CKD etiology could be HTN Nephrosclerosis 2. HTN- stable. Avoid HALIMA-I/ARB (hyperk+) 3. Hyperk+ resolved 4. PNA - abx 5. Anemia of Chr Dz- DC EPO once Hgb >11 Subjective Allergies: Coded Allergies: No Known Allergies (Unverified , 12/23/12) Subjective Patient resting in no distress Objective Last 24 Hour Vital Signs Date Time Temp Pulse Resp B/P (MAP) Pulse Ox O2 Delivery O2 Flow Rate FiO2 01/20/18 08:51 72 154/74 01/20/18 08:50 72 154/74 01/20/18 05:32 154/74 01/20/18 05:32 154/74 01/20/18 04:00 99.1 72 20 154/74 (100) 99.1 01/20/18 00:00 98.3 70 18 153/68 (96) 92 98.3 01/19/18 22:19 133/75 01/19/18 22:19 133/75 01/19/18 21:00 Room Air 01/19/18 20:20 76 152/89 01/19/18 20:19 76 152/89 01/19/18 20:00 Room Air 21 01/19/18 20:00 93 Room Air 21 01/19/18 20:00 98.5 70 19 152/89 (110) 92 98.5 01/19/18 16:00 98.9 79 20 124/65 (84) 94 98.9 01/19/18 14:22 148/73 01/19/18 14:21 148/73 01/19/18 12:00 97.6 74 20 141/64 (89) 100 97.6 Intake and Output 01/19/18 01/20/18 19:00 07:00 Intake Total 700 ml 110.0 ml Output Total 900 ml Balance 700 ml -790.0 ml Intake Oral 700 ml IV Total 110.0 ml Output Urine Total 900 ml # Voids 2 # Bowel Movements 1 Laboratory Tests 01/20/18 06:05: Sodium Level 141, Potassium Level 4.0, Chloride Level 104, Carbon Dioxide Level 23, Anion Gap 14, Blood Urea Nitrogen 46H, Creatinine 4.1H, Estimat Glomerular Filtration Rate , Glucose Level 82, Calcium Level 8.6 Height (Feet): 5 Height (Inches): 1.00 Weight (Pounds): 150 General Appearance: no apparent distress EENT: normal ENT inspection Neck: non-tender, normal alignment, supple Cardiovascular: normal rate, regular rhythm Respiratory/Chest: lungs clear, normal breath sounds Abdomen: normal bowel sounds, non tender, soft Edema: no edema noted Arm (L), no edema noted Arm (R), no edema noted Leg (L), no edema noted Leg (R), no edema noted Pedal (L), no edema noted Pedal (R), no edema noted Generalized Grady Myles M.D. Jan 20, 2018 09:41
[2018-01-20] MEDS ORDERED: BICITRA30 ML ORAL (09:59)
[2018-01-20] MEDS ORDERED: LOPRESSOR25 M1 ORAL (09:59)
[2018-01-20] MEDS ORDERED: LEVOTHYROXINE75 MCG ORAL (09:59)
[2018-01-20] MEDS ORDERED: PROCARDIA XL30 MG ORAL (09:59)
[2018-01-20] MEDS ORDERED: APRESOLINE50 MG ORAL (09:59)
--- NOTE | 2018-01-20 10:38 | Cardiology Report ---
APPROVED REPORT EXAM: Two-dimensional and M-mode echocardiogram with Doppler and color Doppler. INDICATION Congestive Heart Failure M-Mode DIMENSIONS IVSd1.2 (0.7-1.1cm)Left Atrium (MM)4.2 (1.6-4.0cm) LVDd4.2 (3.5-5.6cm)Aortic Root2.6 (2.0-3.7cm) PWd1.1 (0.7-1.1cm)Aortic Cusp Exc.1.5 (1.5-2.0cm) LVDs2.7 (2.5-4.0cm) PWs1.2 cm Normal left ventricular chamber size, systolic function and wall motion. Left ventricular ejection fraction estimated to be 55-60%. No evidence of left ventricular hypertrophy. No evidence of pericardial or pleural effusion. Right cardiac chamber sizes are within normal limits. Mild left atrial enlargement by 2D. Focal aortic valve sclerosis with adequate cusp excursion. Thickened mitral valve leaflets with normal excursion. Mild mitral annulus and aortic root calcification. Pulmonic valve not well visualized. Normal tricuspid valve structure. IVC is normal in size and collapsible with respiration. A color flow and spectral Doppler study was performed and revealed: Mild aortic regurgitation. Mild mitral regurgitation. Mitral diastolic velocities suggest reduced left ventricular relaxation c/w diastolic dysfunction grade 1. Mild tricuspid regurgitation. Tricuspid systolic velocities suggests peak right ventricular systolic pressure of 30 mmHg
--- NOTE | 2018-01-20 11:06 | Pulmonology Progress Note ---
Assessment/Plan Assessment/Plan IMPRESSION: 1. Asthma, fairly stable at present. 2. Cardiomegaly. 3. Cardiomyopathy. 4. Diastolic heart dysfunction. 5. Acute on chronic renal failure. 6. Hyperkalemia. 7. anemia 8. Dementia. 9. A chest x-ray with left-sided pleural effusion. 10. Hypertension. 11. Hypertensive heart disease. 12. fever PLAN dc home home health d/w daughter dc planning with close renal follow up and parameters impression, plan, and exam edited and reviewed in detail care discussed with RN Subjective Allergies: Coded Allergies: No Known Allergies (Unverified , 12/23/12) Subjective negative work up no fevers stable and alert Objective Last 24 Hour Vital Signs Date Time Temp Pulse Resp B/P (MAP) Pulse Ox O2 Delivery O2 Flow Rate FiO2 01/20/18 08:51 72 154/74 01/20/18 08:50 72 154/74 01/20/18 05:32 154/74 01/20/18 05:32 154/74 01/20/18 04:00 99.1 72 20 154/74 (100) 99.1 01/20/18 00:00 98.3 70 18 153/68 (96) 92 98.3 01/19/18 22:19 133/75 01/19/18 22:19 133/75 01/19/18 21:00 Room Air 01/19/18 20:20 76 152/89 01/19/18 20:19 76 152/89 01/19/18 20:00 Room Air 21 01/19/18 20:00 93 Room Air 21 01/19/18 20:00 98.5 70 19 152/89 (110) 92 98.5 01/19/18 16:00 98.9 79 20 124/65 (84) 94 98.9 01/19/18 14:22 148/73 01/19/18 14:21 148/73 01/19/18 12:00 97.6 74 20 141/64 (89) 100 97.6 Intake and Output 01/19/18 01/20/18 19:00 07:00 Intake Total 700 ml 110.0 ml Output Total 900 ml Balance 700 ml -790.0 ml Intake Oral 700 ml IV Total 110.0 ml Output Urine Total 900 ml # Voids 2 # Bowel Movements 1 Objective GENERAL: A well-developed female, comfortable at present. No significant distress. HEENT: Overall negative. Extraocular movements are grossly intact. Oropharynx is moist. NECK: Supple. No adenopathy. LUNGS: Fairly clear. Symmetric. Minimal wheezes. CARDIAC: S1 and S2. Regular rate and rhythm. Positive S4. No murmurs or rubs. ABDOMEN: Soft, nontender, and nondistended. EXTREMITIES: No cyanosis or clubbing. Trace edema. NEUROLOGIC: Grossly nonfocal. Microbiology Date/Time Source Procedure Growth Status 01/18/18 09:00 Blood Blood Culture - Preliminary Staphylococcus Sp Coag Neg Resulted 01/18/18 01:19 Urine,Clean Catch Urine Culture - Final Escherichia Coli Complete Laboratory Tests 01/20/18 06:05: Sodium Level 141, Potassium Level 4.0, Chloride Level 104, Carbon Dioxide Level 23, Anion Gap 14, Blood Urea Nitrogen 46H, Creatinine 4.1H, Estimat Glomerular Filtration Rate , Glucose Level 82, Calcium Level 8.6 Current Medications Medications (Trade) Dose Ordered Sig/Vaughn Route PRN Reason Start Time Stop Time Status Last Admin Dose Admin Acetaminophen (Tylenol) 500 mg Q6H PRN ORAL Mild Pain/Temp > 100.5 01/17/18 15:00 02/16/18 14:59 01/19/18 08:13 Aspirin (Ecotrin) 81 mg DAILY ORAL 01/18/18 09:00 02/11/18 08:59 01/20/18 08:51 Buspirone HCl (Buspar) 15 mg TID ORAL 01/17/18 18:00 02/11/18 08:59 01/20/18 08:50 Clonidine HCl (Catapres Tab) 0.1 mg Q8HR ORAL 01/17/18 22:00 02/11/18 08:59 01/20/18 05:32 Docusate Sodium (Colace) 200 mg TWICE A DAY ORAL 01/17/18 18:00 02/11/18 08:59 01/20/18 08:50 Epoetin Trae (Procrit (for non ESRD use)) 5,000 units [id number] SUBQ 01/18/18 21:00 02/12/18 20:59 01/18/18 20:42 Fluticasone Propionate (Flonase) 1 spray DAILY NASAL 01/18/18 09:00 02/11/18 08:59 01/20/18 08:56 Hydralazine HCl (Apresoline) 25 mg Q4H PRN ORAL BP over 160 syst 01/17/18 15:00 02/11/18 14:59 Hydralazine HCl (Apresoline) 50 mg Q8HR ORAL 01/17/18 22:00 02/11/18 05:59 01/20/18 05:32 Lactulose (Cephulac) 30 gm Q8H PRN ORAL Constipation 01/17/18 18:00 02/16/18 17:59 Lansoprazole (Prevacid) 30 mg DAILY ORAL 01/18/18 09:00 02/11/18 08:59 01/20/18 08:51 Levothyroxine Sodium (Synthroid) 75 mcg DAILY@0600 ORAL 01/18/18 06:00 02/11/18 05:59 01/20/18 05:32 Meclizine HCl (Antivert) 25 mg TID ORAL 01/17/18 18:00 02/11/18 12:59 01/20/18 08:50 Metoprolol Tartrate (Lopressor) 25 mg Q12HR ORAL 01/17/18 21:00 02/11/18 08:59 01/20/18 08:51 Nifedipine (Procardia XL) 30 mg Q12HR ORAL 01/17/18 21:00 02/16/18 20:59 01/20/18 08:50 Piperacillin Sod/ Tazobactam Sod 3.375 gm/Dextrose 110 ml @ 27.5 mls/hr Q12HR IVPB 01/19/18 14:00 01/26/18 13:59 01/20/18 08:50 Pregabalin (Lyrica) 50 mg DAILY ORAL 01/18/18 09:00 02/11/18 08:59 01/20/18 08:51 Sertraline HCl (Zoloft) 25 mg DAILY ORAL 01/18/18 09:00 02/11/18 08:59 01/20/18 08:51 Sodium Citrate (Bicitra) 30 ml BID ORAL 01/17/18 18:00 02/14/18 08:59 01/20/18 08:50 Anjel Fay MD Jan 20, 2018 11:06
[2018-01-20 12:00] VITALS: BP 139/64
[2018-01-20 16:06] VITALS: BP 149/66
[2018-01-20] MEDS ORDERED: Tubing IV Secondary IV ONE (19:54)
[2018-01-20] MEDS ORDERED: NS 275ml ONE (19:54)
--- NOTE | 2018-01-21 00:15 | Discharge Summary ---
DATE OF ADMISSION: 01/11/2018 DATE OF DISCHARGE: 01/20/2018 ADMISSION DIAGNOSES: 1. History of hypertension. 2. Gallstones. 3. Pancreatitis. 4. Acute on chronic renal failure. 5. Gastroesophageal reflux disease. 6. Hypothyroidism. DISCHARGE DIAGNOSES: 1. History of hypertension. 2. Gallstones. 3. Pancreatitis. 4. Acute on chronic renal failure. 5. Gastroesophageal reflux disease. 6. Hypothyroidism. 7. Escherichia coli urinary tract infection. HOSPITAL COURSE: The patient is a pleasant female admitted with complaints of worsening renal failure. She was admitted from a repairer recreational vehicle's office. She was hydrated aggressively. She had a renal ultrasound that showed no evidence of any obstruction despite aggressive rehydration. The patient's renal function did not improve. Her hospital course was complicated by sepsis secondary to urinary tract infection. On discharge, she was doing well. She will be discharged on Keflex to complete a week's course of antibiotic for urinary tract infection. She will follow up with her repaire[employer] recreational vehicle in one week for possible initiation of hemodialysis. DISCHARGE MEDICATIONS: Please see discharge medication list for discharge medications. DIET: Renal, cardiac diet. ACTIVITIES: Ad-merlene. Arden Ocampo M.D. DR: KIARRA JOB#: [id number] CC:
== END 2018-01-20 19:55 | disposition home or self-care (01) | DRG 682 ==
LOC: EMR 22:14 → 2E 23:49 → EDBEDREQ 01-12 00:10 → 2E 01-15 12:41 → 4E 01-17 14:23
DX: N17.9 Acute kidney failure, unspecified (principal); K85.10 Biliary acute pancreatitis without necrosis or infection; J18.9 Pneumonia, unspecified organism; A41.9 Sepsis, unspecified organism; J90 Pleural effusion, not elsewhere classified; J44.0 Chronic obstructive pulmonary disease with (acute) lower respiratory infection; I42.9 Cardiomyopathy, unspecified; I13.0 Hypertensive heart and chronic kidney disease with heart failure and stage 1 through stage 4 chronic kidney disease, or unspecified chronic kidney disease; I50.30 Unspecified diastolic (congestive) heart failure; N39.0 Urinary tract infection, site not specified; E87.5 Hyperkalemia; N18.4 Chronic kidney disease, stage 4 (severe); F03.90 Unspecified dementia, unspecified severity, without behavioral disturbance, psychotic disturbance, mood disturbance, and anxiety; I51.7 Cardiomegaly; E03.9 Hypothyroidism, unspecified; B96.20 Unspecified Escherichia coli [E. coli] as the cause of diseases classified elsewhere; D64.9 Anemia, unspecified
CPT/HCPCS: 36415; 71045; 76770; 80048; 80053; 80061; 81003; 81050; 82550; 82553; 82575; 82607; 82728; 82746; 82977; 83036; 83540; 83550; 83735; 83880; 84100; 84156; 84300; 84443; 84484; 84550; 85025; 86140; 87040; 87086; 87181; 89050; 93005; 93306; 94640; 94664; 94760; 99285; J8499

== ENCOUNTER 2018-02-11 11:25 | Inpatient (IN) | payer MEDICARE, OTHER ==
[~2018-02-11] VITALS: Ht 154.9 cm; Wt 67.8 kg
[~2018-02-11 11:25] MED LIST changes: +APRESOLINE50 MG ORAL; +BICITRA30 ML ORAL; +BUSPIRONE HCL15 MG ORAL; +HYDRALAZINE HC100 MG ORAL; +LEVOTHYROXINE75 MCG ORAL; +LOPRESSOR25 M1 ORAL; +PROCARDIA XL30 MG ORAL; +VITAMIN D400 INTLU ORAL
[2018-02-11 18:00] VITALS: BP 152/66
[2018-02-11] MEDS ORDERED: Milk of Magnesia 30ml Ud ORAL PRN (18:45)
[2018-02-11 19:52] LABS: BASOPHILS % (AUTO) 1.8 % (0.0-2.0); EOSINOPHILS % (AUTO) 6.4 % (0.0-3.0); HEMATOCRIT 28.4 % (37.0-47.0); HEMOGLOBIN 9.5 G/DL (12.0-16.0); LYMPHOCYTES % (AUTO) 36.3 % (20.0-45.0); MEAN CORPUSCULAR VOLUME 89 FL (80-99); MONOCYTES % (AUTO) 7.1 % (1.0-10.0); NEUTROPHILS % (AUTO) 48.3 % (45.0-75.0); PLATELET COUNT 215 K/UL (150-450); RED BLOOD COUNT 3.18 M/UL (4.20-5.40); RED CELL DISTRIBUTION WIDTH 11.7 % (11.6-14.8); WHITE BLOOD COUNT 5.8 K/UL (4.8-10.8)
[2018-02-11 20:00] VITALS: BP 167/73
[2018-02-11 20:01] LABS: ANION GAP 12 mmol/L (5-15); BLOOD UREA NITROGEN 58 mg/dL (7-18); CALCIUM 8.2 MG/DL (8.5-10.1); CARBON DIOXIDE 21 MMOL/L (21-32); CHLORIDE 103 MMOL/L (98-107); CREATININE 4.8 MG/DL (0.55-1.30); POTASSIUM 4.9 MMOL/L (3.5-5.1); SODIUM 136 MMOL/L (136-145)
[2018-02-11] MEDS ORDERED: traMADol 50mg tab ORAL PRN (20:15)
[2018-02-11] MEDS ORDERED: Albuterol/Ipratropium 3ml neb HHN PRN (20:15)
[2018-02-11] MEDS: HydrALAZINE 50mg tab ORAL SCH (21:46)
--- NOTE | 2018-02-11 21:46 | History & Physical ---
History and Physical History & Physicial HISTORY OF PRESENT ILLNESS: 87-year-old female, presents with worsening renal function. The patient was admitted as the BUN and creatinine worsened. The patient with some worsening shortness of breath. The patient is well known to me. Denies any dizziness at present. Denies any chest pain. Denies any aggravating factors. The patient has been closely monitored, but overall renal function has worsened dramatically after recent admission. The patient is well known to me from multiple office visits. The patient has had prior admissions here in the medical center. The patient has had prior halfway admissions as well. PAST MEDICAL HISTORY: Notable for history of cholecystitis and cholelithiasis. The patient has history of acute on chronic renal failure. The patient has history of dementia, history of hypertension, hypertensive heart disease, history of asthma, history of significant arthritis end-stage, and chronic migraines. MEDICATIONS: Reviewed. ALLERGIES: Reviewed. SOCIAL HISTORY: Nonsmoker and nondrinker. She lives with her family. She is disabled and retired. REVIEW OF SYSTEMS: Difficult to obtain, but fairly negative otherwise. PHYSICAL EXAMINATION: GENERAL: A well-developed female, comfortable at present. NAD VITALS: see attached HEENT: Overall negative. Extraocular movements are grossly intact. Oropharynx is moist. NECK: Supple. No adenopathy. LUNGS: Fairly clear. Symmetric. Minimal wheezes. CARDIAC: S1 and S2. Regular rate and rhythm. Positive S4. No murmurs or rubs. ABDOMEN: Soft, nontender, and nondistended. EXTREMITIES: No cyanosis or clubbing. Trace edema. NEUROLOGIC: Grossly nonfocal. LABORATORY DATA: Laboratory Tests Test 02/11/18 19:15 White Blood Count 5.8 K/UL (4.8-10.8) Red Blood Count 3.18 M/UL (4.20-5.40) L Hemoglobin 9.5 G/DL (12.0-16.0) L Hematocrit 28.4 % (37.0-47.0) L Mean Corpuscular Volume 89 FL (80-99) Mean Corpuscular Hemoglobin 30.0 PG (27.0-31.0) Mean Corpuscular Hemoglobin Concent 33.6 G/DL (32.0-36.0) Red Cell Distribution Width 11.7 % (11.6-14.8) Platelet Count 215 K/UL (150-450) Mean Platelet Volume 6.1 FL (6.5-10.1) L Neutrophils (%) (Auto) 48.3 % (45.0-75.0) Lymphocytes (%) (Auto) 36.3 % (20.0-45.0) Monocytes (%) (Auto) 7.1 % (1.0-10.0) Eosinophils (%) (Auto) 6.4 % (0.0-3.0) H Basophils (%) (Auto) 1.8 % (0.0-2.0) Prothrombin Time 10.9 SEC (9.30-11.50) Prothromb Time International Ratio 1.0 (0.9-1.1) Activated Partial Thromboplast Time 29 SEC (23-33) Sodium Level 136 MMOL/L (136-145) Potassium Level 4.9 MMOL/L (3.5-5.1) Chloride Level 103 MMOL/L (98-107) Carbon Dioxide Level 21 MMOL/L (21-32) Anion Gap 12 mmol/L (5-15) Blood Urea Nitrogen 58 mg/dL (7-18) H Creatinine 4.8 MG/DL (0.55-1.30) H Estimat Glomerular Filtration Rate mL/min (>60) Glucose Level 117 MG/DL (74-106) H Calcium Level 8.2 MG/DL (8.5-10.1) L IMPRESSION: 1. Asthma, fairly stable at present. 2. Cardiomegaly. 3. Cardiomyopathy. 4. Diastolic heart dysfunction. 5. Acute on chronic renal failure. 6. Hyperkalemia. 7. anemia 8. Dementia. 9. pleural effusion. 10. Hypertension. 11. Hypertensive heart disease. PLAN follow up labs nephro eval vascular for access d/w family who agrees to HD continue same dc once stable impression, plan, and exam edited and reviewed in detail care discussed with Anjel Larry MD Feb 11, 2018 21:45
--- NOTE | 2018-02-11 21:46 | General Progress Note ---
Subjective Allergies: Coded Allergies: No Known Allergies (Unverified , 12/23/12) Objective Last 24 Hour Vital Signs Date Time Temp Pulse Resp B/P (MAP) Pulse Ox O2 Delivery O2 Flow Rate FiO2 02/11/18 20:00 98.2 63 18 167/73 (104) 97 98.2 02/11/18 18:00 Room Air 02/11/18 18:00 98.6 60 18 152/66 (94) 98 98.6 Laboratory Tests 02/11/18 19:15: White Blood Count 5.8, Red Blood Count 3.18L, Hemoglobin 9.5L, Hematocrit 28.4L , Mean Corpuscular Volume 89, Mean Corpuscular Hemoglobin 30.0, Mean Corpuscular Hemoglobin Concent 33.6, Red Cell Distribution Width 11.7, Platelet Count 215, Mean Platelet Volume 6.1L, Neutrophils (%) (Auto) 48.3, Lymphocytes ( %) (Auto) 36.3, Monocytes (%) (Auto) 7.1, Eosinophils (%) (Auto) 6.4H, Basophils (%) (Auto) 1.8, Prothrombin Time 10.9, Prothromb Time International Ratio 1.0, Activated Partial Thromboplast Time 29, Sodium Level 136, Potassium Level 4.9, Chloride Level 103, Carbon Dioxide Level 21, Anion Gap 12, Blood Urea Nitrogen 58H, Creatinine 4.8H, Estimat Glomerular Filtration Rate , Glucose Level 117H, Calcium Level 8.2L Height (Feet): 5 Height (Inches): 1.00 Weight (Pounds): 149 Anjel Fay MD Feb 11, 2018 21:46
[2018-02-11] MEDS ORDERED: Metoprolol 25mg tab ORAL SCH (22:00)
[2018-02-11] MEDS ORDERED: cloNIDine 0.2mg Tab ORAL SCH (22:00)
[2018-02-12] VITALS: BP 185/89
[2018-02-12] MEDS: cloNIDine 0.2mg Tab ORAL SCH ×4 (00:27→21:55)
[2018-02-12 01:19] LABS: APPEARANCE,URINE CLEAR; BILIRUBIN, URINE NEGATIVE (NEGATIVE); COLOR,URINE PALE YELLOW; GLUCOSE, URINE (UA) NEGATIVE (NEGATIVE); KETONES,URINE NEGATIVE (NEGATIVE); LEUKOCYTE ESTERASE ,URINE NEGATIVE (NEGATIVE); NITRITE,URINE NEGATIVE (NEGATIVE); PH,URINE 7 (4.5-8.0); PROTEIN,URINE 2+ (NEGATIVE); UROBILINOGEN,URINE NORMAL MG/DL (0.0-1.0)
[2018-02-12 04:00] VITALS: BP 175/67
[2018-02-12 06:13] LABS: BASOPHILS % (AUTO) 2.3 % (0.0-2.0); EOSINOPHILS % (AUTO) 8.2 % (0.0-3.0); HEMATOCRIT 30.6 % (37.0-47.0); HEMOGLOBIN 9.9 G/DL (12.0-16.0); LYMPHOCYTES % (AUTO) 40.6 % (20.0-45.0); MEAN CORPUSCULAR VOLUME 91 FL (80-99); MONOCYTES % (AUTO) 7.9 % (1.0-10.0); PLATELET COUNT 211 K/UL (150-450); RED BLOOD COUNT 3.37 M/UL (4.20-5.40); RED CELL DISTRIBUTION WIDTH 11.5 % (11.6-14.8); WHITE BLOOD COUNT 5.8 K/UL (4.8-10.8)
[2018-02-12 06:16] LABS: INR 1.1 (0.9-1.1)
[2018-02-12] MEDS: HydrALAZINE 50mg tab ORAL SCH ×3 (06:21→21:55)
[2018-02-12 06:57] LABS: ALANINE AMINOTRANSFERASE 14 U/L (12-78); ALBUMIN 3.1 G/DL (3.4-5.0); ALBUMIN/GLOBULIN RATIO 0.8 (1.0-2.7); ALKALINE PHOSPHATASE 82 U/L (46-116); ANION GAP 10 mmol/L (5-15); ASPARTATE AMINO TRANSFERASE 14 U/L (15-37); BILIRUBIN,TOTAL 0.2 MG/DL (0.2-1.0); BLOOD UREA NITROGEN 57 mg/dL (7-18); CALCIUM 8.5 MG/DL (8.5-10.1); CARBON DIOXIDE 22 MMOL/L (21-32); CHLORIDE 107 MMOL/L (98-107); CHOLESTEROL 131 MG/DL (< 200); CREATININE 4.8 MG/DL (0.55-1.30); FERRITIN 298 NG/ML (8-388); HDL CHOLESTEROL 33 MG/DL (40-60); PHOSPHORUS 4.7 MG/DL (2.5-4.9); POTASSIUM 5.3 MMOL/L (3.5-5.1); SODIUM 139 MMOL/L (136-145); TRIGLYCERIDES 174 MG/DL (30-150)
[2018-02-12 07:14] LABS: % IRON SATURATION 32 % (15-50); IRON 64 ug/dL (50-175); TOTAL IRON BINDING CAPACITY 199 ug/dL (250-450)
[2018-02-12 08:27] VITALS: BP 149/62
[2018-02-12] MEDS: Metoprolol 25mg tab ORAL SCH ×2 (08:28→21:00)
[2018-02-12] MEDS: Aspirin Baby 81mg ORAL SCH (08:28)
[2018-02-12] MEDS: BusPIRone 5mg Tab ORAL SCH ×3 (08:28→17:30)
[2018-02-12] MEDS: Vitamin D 1000 IU Tab ORAL SCH (08:29)
[2018-02-12] MEDS: Sertraline 50mg tab ORAL SCH (08:29)
[2018-02-12] MEDS ORDERED: Lyrica 25mg cap ORAL SCH (09:00)
[2018-02-12] MEDS ORDERED: Docusate 100mg cap ORAL SCH (09:00)
[2018-02-12] MEDS ORDERED: Pantoprazole Inj IVP SCH ×2 (09:00)
[2018-02-12] MEDS ORDERED: Heparin 2000 units/Ns 1000ml INJ SCH (09:30)
[2018-02-12] MEDS ORDERED: Lidocaine 2% 20mg/ml/Epi 0.005mg/ml 20ml vial INJ SCH (09:30)
[2018-02-12] MEDS ORDERED: Sodium Polystyrene Sulfonate 15gm Powder ORAL SCH ×2 (10:15→13:45)
--- NOTE | 2018-02-12 10:20 | Consultation ---
Consult Note Consult Note asked to eval for renal failure, HyperKalemia and initiation of HD Known to me from her previos admission 87-year-old female, presents with worsening renal function. The patient was admitted as the BUN and creatinine worsened. The patient with some worsening shortness of breath. PAST MEDICAL HISTORY: cholecystitis and cholelithiasis. chronic renal failure. dementia, history of hypertension, hypertensive heart disease, history of asthma , history of significant arthritis end-stage, and chronic migraines. examined data reviewed Assessment/Plan chronic renal failure. likely due to Hypertensive kidney disease on 01/15/18... Crcl 11 S Cr 4.2 Now Cr 4.8 and +HyperKalemia 24 H Protein 1.34 gr -. Asthma, fairly stable at present. -. Cardiomegaly. -. Diastolic heart dysfunction. -. Hyperkalemia. -. Hypertension. -. Hypertensive heart disease. -. HypoThyroid Agreeable to HD- Will do Permacath- Slow hydrate- Kayexelate as needed Avoid Nephrotoxics Adjust BP meds 2D Echo- previously EjFx 55% Kidney ISIS per orders Eyad Dill MD Feb 12, 2018 10:20
--- NOTE | 2018-02-12 10:33 | Pre-Procedure Note/Attestation ---
Pre-Procedure Note/Attestation Complete Prior to Procedure Planned Procedure: not applicable Procedure Narrative: permacath Indications for Procedure Pre-Operative Diagnosis: renal failure Attestation I attest that I discussed the nature of the procedure; its benefits; risks and complications; and alternatives (and the risks and benefits of such alternatives ), prior to the procedure, with the patient (or the patient's legal financial service representative). I attest that, if there was a reasonable possibility of needing a blood transfusion, the patient (or the patient's legal financial service representative) was given the [facility] standardized written summary, pursuant to the [place] Blood Safety Act ([place] Health and Safety Code # 1645, as amended). I attest that I re-evaluated the patient just prior to the surgery and that there has been no change in the patient's H&P, except as documented below: Fareed Pereira MD Feb 12, 2018 10:33
[2018-02-12] MEDS ORDERED: Heparin Sod 1000 units/ml 10ml INJ SCH (11:15)
[2018-02-12 12:00] VITALS: BP 136/63
--- NOTE | 2018-02-12 12:05 | Brief Operative Note ---
Immediate Post Operative Note Operative Note Pre-op Diagnosis: renal failure Procedure: R IJV permacath Post-op Diagnosis: same as pre-op Surgeon: Asia CHAN Specimen: none Complications: none Condition: stable Fluids: none Implant(s) used?: Yes - 13 F Fareed Smith MD Feb 12, 2018 12:05
--- NOTE | 2018-02-12 12:13 | Pulmonology Progress Note ---
Assessment/Plan Assessment/Plan HISTORY OF PRESENT ILLNESS: 87-year-old female, presents with worsening renal function. The patient was admitted as the BUN and creatinine worsened. The patient with some worsening shortness of breath. Denies any dizziness at present. Denies any chest pain. Denies any aggravating factors. The patient has been closely monitored, but overall renal function has worsened dramatically after recent admission. The patient is well known to me from multiple office visits. The patient has had prior admissions here in the medical center. The patient has had prior residential admissions as well. PAST MEDICAL HISTORY: Notable for history of cholecystitis and cholelithiasis. The patient has history of acute on chronic renal failure. The patient has history of dementia, history of hypertension, hypertensive heart disease, history of asthma, history of significant arthritis end-stage, and chronic migraines. MEDICATIONS: Reviewed. ALLERGIES: Reviewed. SOCIAL HISTORY: Nonsmoker and nondrinker. She lives with her family. She is disabled and retired. REVIEW OF SYSTEMS: Difficult to obtain, but fairly negative otherwise. PHYSICAL EXAMINATION: GENERAL: A well-developed female, comfortable at present. NAD VITALS: see attached HEENT: Overall negative. Extraocular movements are grossly intact. Oropharynx is moist. NECK: Supple. No adenopathy. LUNGS: Fairly clear. Symmetric. Minimal wheezes. CARDIAC: S1 and S2. Regular rate and rhythm. Positive S4. No murmurs or rubs. ABDOMEN: Soft, nontender, and nondistended. EXTREMITIES: No cyanosis or clubbing. Trace edema. NEUROLOGIC: Grossly nonfocal. LABORATORY DATA: Laboratory Tests Test 02/11/18 19:15 White Blood Count 5.8 K/UL (4.8-10.8) Red Blood Count 3.18 M/UL (4.20-5.40) L Hemoglobin 9.5 G/DL (12.0-16.0) L Hematocrit 28.4 % (37.0-47.0) L Mean Corpuscular Volume 89 FL (80-99) Mean Corpuscular Hemoglobin 30.0 PG (27.0-31.0) Mean Corpuscular Hemoglobin Concent 33.6 G/DL (32.0-36.0) Red Cell Distribution Width 11.7 % (11.6-14.8) Platelet Count 215 K/UL (150-450) Mean Platelet Volume 6.1 FL (6.5-10.1) L Neutrophils (%) (Auto) 48.3 % (45.0-75.0) Lymphocytes (%) (Auto) 36.3 % (20.0-45.0) Monocytes (%) (Auto) 7.1 % (1.0-10.0) Eosinophils (%) (Auto) 6.4 % (0.0-3.0) H Basophils (%) (Auto) 1.8 % (0.0-2.0) Prothrombin Time 10.9 SEC (9.30-11.50) Prothromb Time International Ratio 1.0 (0.9-1.1) Activated Partial Thromboplast Time 29 SEC (23-33) Sodium Level 136 MMOL/L (136-145) Potassium Level 4.9 MMOL/L (3.5-5.1) Chloride Level 103 MMOL/L (98-107) Carbon Dioxide Level 21 MMOL/L (21-32) Anion Gap 12 mmol/L (5-15) Blood Urea Nitrogen 58 mg/dL (7-18) H Creatinine 4.8 MG/DL (0.55-1.30) H Estimat Glomerular Filtration Rate mL/min (>60) Glucose Level 117 MG/DL (74-106) H Calcium Level 8.2 MG/DL (8.5-10.1) L IMPRESSION: 1. Asthma, fairly stable at present. 2. Cardiomegaly. 3. Cardiomyopathy. 4. Diastolic heart dysfunction. 5. Acute on chronic renal failure on HD 6. Hyperkalemia. 7. anemia 8. Dementia. 9. pleural effusion. 10. Hypertension. 11. Hypertensive heart disease. PLAN follow up labs nephro following vascular for access HD continue same dc once stable impression, plan, and exam edited and reviewed in detail care discussed with RN Subjective ROS Limited/Unobtainable: No Allergies: Coded Allergies: No Known Allergies (Unverified , 12/23/12) Objective Last 24 Hour Vital Signs Date Time Temp Pulse Resp B/P (MAP) Pulse Ox O2 Delivery O2 Flow Rate FiO2 02/12/18 09:00 Room Air 02/12/18 08:29 61 149/62 02/12/18 08:28 61 149/62 02/12/18 08:27 98.9 61 19 149/62 (91) 96 98.9 02/12/18 06:21 175/67 02/12/18 06:21 175/67 02/12/18 04:00 97.2 53 18 175/ (103) 97 97.2 02/12/18 00:27 185/89 02/12/18 00:00 98.0 66 18 185/89 (121) 97 98.0 02/11/18 21:46 167/73 02/11/18 21:44 167/73 02/11/18 21:00 Room Air 02/11/18 20:00 98.2 63 18 167/73 (104) 97 98.2 02/11/18 18:00 Room Air 02/11/18 18:00 98.6 60 18 152/66 (94) 98 98.6 Intake and Output 02/11/18 02/12/18 19:00 07:00 Intake Total 240 ml 200 ml Balance 240 ml 200 ml Intake Oral 240 ml IV Total 200 ml # Voids 1 1 Microbiology Date/Time Source Procedure Growth Status 02/11/18 22:00 Rectum Received Laboratory Tests 02/11/18 19:15: White Blood Count 5.8, Red Blood Count 3.18L, Hemoglobin 9.5L, Hematocrit 28.4L , Mean Corpuscular Volume 89, Mean Corpuscular Hemoglobin 30.0, Mean Corpuscular Hemoglobin Concent 33.6, Red Cell Distribution Width 11.7, Platelet Count 215, Mean Platelet Volume 6.1L, Neutrophils (%) (Auto) 48.3, Lymphocytes ( %) (Auto) 36.3, Monocytes (%) (Auto) 7.1, Eosinophils (%) (Auto) 6.4H, Basophils (%) (Auto) 1.8, Prothrombin Time 10.9, Prothromb Time International Ratio 1.0, Activated Partial Thromboplast Time 29, Sodium Level 136, Potassium Level 4.9, Chloride Level 103, Carbon Dioxide Level 21, Anion Gap 12, Blood Urea Nitrogen 58H, Creatinine 4.8H, Estimat Glomerular Filtration Rate , Glucose Level 117H, Calcium Level 8.2L 02/12/18 01:00: Urine Color Pale yellow, Urine Appearance Clear, Urine pH 7, Urine Specific Francis 1.005, Urine Protein 2+H, Urine Glucose (UA) Negative, Urine Ketones Negative, Urine Occult Blood Negative, Urine Nitrite Negative, Urine Bilirubin Negative, Urine Urobilinogen Normal, Urine Leukocyte Esterase Negative, Urine RBC 0-2, Urine WBC 0-2, Urine Squamous Epithelial Cells Occasional, Urine Bacteria Occasional 02/12/18 05:15: White Blood Count 5.8, Red Blood Count 3.37L, Hemoglobin 9.9L, Hematocrit 30.6L , Mean Corpuscular Volume 91, Mean Corpuscular Hemoglobin 29.3, Mean Corpuscular Hemoglobin Concent 32.2, Red Cell Distribution Width 11.5L, Platelet Count 211, Mean Platelet Volume 6.5, Neutrophils (%) (Auto) 41.0L, Lymphocytes (%) (Auto) 40.6, Monocytes (%) (Auto) 7.9, Eosinophils (%) (Auto) 8.2H, Basophils (%) (Auto) 2.3H, Prothrombin Time 11.2, Prothromb Time International Ratio 1.1, Activated Partial Thromboplast Time 31, Sodium Level 139, Potassium Level 5.3H, Chloride Level 107, Carbon Dioxide Level 22, Anion Gap 10, Blood Urea Nitrogen 57H, Creatinine 4.8H, Estimat Glomerular Filtration Rate , Glucose Level 98, Calcium Level 8.5, Hemoglobin A1c 5.7, Uric Acid 6.9, Phosphorus Level 4.7, Magnesium Level 2.6H, Iron Level 64, Total Iron Binding Capacity 199L, Percent Iron Saturation 32, Unsaturated Iron Binding 135, Ferritin 298, Total Bilirubin 0.2, Aspartate Amino Transf (AST/SGOT) 14L, Alanine Aminotransferase (ALT/SGPT) 14, Alkaline Phosphatase 82, Troponin I 0.011, C-Reactive Protein, Quantitative < 0.4, Pro-B-Type Natriuretic Peptide 2830H, Total Protein 7.2, Albumin 3.1L, Globulin 4.1, Albumin/Globulin Ratio 0.8L, Triglycerides Level 174H, Cholesterol Level 131, LDL Cholesterol 77, HDL Cholesterol 33L, Cholesterol/HDL Ratio 4.0, Vitamin B12 Level 1770H, Folate 14.2 , Thyroid Stimulating Hormone (TSH) 1.655, Hepatitis B Surface Antigen [Pending] , Hepatitis B Surface Antibody, Quant [Pending], Hepatitis C Antibody [Pending] Current Medications Medications (Trade) Dose Ordered Sig/Vaughn Route PRN Reason Start Time Stop Time Status Last Admin Dose Admin Acetaminophen (Tylenol) 650 mg Q4H PRN ORAL Mild Pain/Temp > 100.5 02/11/18 18:45 03/13/18 18:44 Albuterol/ Ipratropium (Albuterol/ Ipratropium) 3 ml Q4H PRN HHN Shortness of Breath 02/11/18 20:15 02/16/18 20:14 Aspirin (ASA) 81 mg DAILY ORAL 02/12/18 09:00 03/14/18 08:59 02/12/18 08:28 Buspirone HCl (Buspar) 15 mg THREE TIMES A DAY ORAL 02/12/18 09:00 03/14/18 08:59 02/12/18 08:28 Clonidine HCl (Catapres tab) 0.2 mg EVERY 8 HOURS ORAL 02/12/18 00:15 03/14/18 00:14 02/12/18 06:21 Docusate Sodium (Colace) 100 mg TID ORAL 02/12/18 13:00 03/14/18 08:59 Heparin Sodium (Porcine) (Heparin Sod 1000 units/ml 10ml) 1,000 unit ONCE INJ 02/12/18 11:15 02/12/18 12:15 Heparin Sodium/ Sodium Chloride (Heparin 2000 units/Ns 1000ml premix) 2,000 unit ONCE INJ 02/12/18 09:30 02/12/18 12:30 Hydralazine HCl (Apresoline) 25 mg Q4H PRN ORAL bp over 160 syst 02/12/18 10:15 03/14/18 10:14 Hydralazine HCl (Apresoline) 50 mg Q8HR ORAL 02/11/18 22:00 03/13/18 21:59 02/12/18 06:21 Levothyroxine Sodium (Synthroid) 50 mcg DAILY@0630 ORAL 02/12/18 06:30 03/14/18 06:29 02/12/18 06:21 Lidocaine/ Epinephrine (Xylocaine 2%/ Epi MPF) 50 ml ONCE INJ 02/12/18 09:30 02/12/18 12:30 Metoprolol Tartrate (Lopressor) 25 mg Q12HR ORAL 02/12/18 09:00 03/14/18 08:59 02/12/18 08:28 Nifedipine (Procardia XL) 30 mg Q12HR ORAL 02/12/18 09:00 03/14/18 08:59 02/12/18 08:29 Pregabalin (Lyrica) 25 mg BID ORAL 02/12/18 18:00 03/14/18 08:59 Sertraline HCl (Zoloft) 25 mg DAILY ORAL 02/12/18 09:00 03/14/18 08:59 02/12/18 08:29 Tramadol HCl (Ultram) 50 mg Q6H PRN ORAL Moderate Pain (Pain Scale 4-6) 02/11/18 20:15 02/18/18 20:14 Vitamin D (Vitamin D) 5,000 intlu DAILY ORAL 02/12/18 09:00 03/14/18 08:59 02/12/18 08:29 Gino Guallpa MD Feb 12, 2018 12:13
--- NOTE | 2018-02-12 12:18 | Diagnostic Imaging Report ---
Indications: Needs long-term dialysis access Technique: Patient given IV Ancef. Total sterile technique, including sterile probe cover and sterile gel, sterile gloves, hand hygiene, hat, mask,, sterile gown, large sterile drape, and preparation with 2% chlorhexidine utilized. Local anesthesia with 1% lidocaine. Under real-time ultrasound guidance, puncture right internal jugular vein using 21-gauge micropuncture needle, passage 0.018 guidewire, exchange for 4 [place] micropuncture introducer. The guidewire was used to measure the appropriate catheter length, and was removed. The sheath was left in place. The subcutaneous tract was then anesthetized with 1% lidocaine. A chest dermatotomy was made . The tunneling device was used to pull a 19 cm BioFlo catheter through the subcutaneous tunnel to the neck dermatotomy. A guidewire was passed through the neck introducer into the inferior vena cava, and serial dilators were passed over it, followed by the introduction of a 14.5 [place] AirGuard peel-away sheath. The catheter was then introduced into the sheath, the peel-away sheath was removed. Digital radiograph documents satisfactory catheter tip position in the high right atrium, no kinking at the insertion site. Both catheter ports aspirated and flushed. Catheter was fixed to the skin. Patient tolerated procedure well without immediate complication. Total fluoroscopy time 2.2 minutes. Total dose area product 49 dGycm2 Total number of images-1 Comparison: None. Findings: Completion radiograph documents satisfactory position and course of the catheter, catheter tip at the high right atrium. Impression: Successful placement of right transjugular tunneled dialysis catheter, as described above
[2018-02-12] MEDS: Docusate 100mg cap ORAL SCH ×2 (13:41→17:30)
[2018-02-12 16:00] VITALS: BP 139/66
[2018-02-12] MEDS: Lyrica 25mg cap ORAL SCH (17:30)
[2018-02-12 20:00] VITALS: BP 144/52
[2018-02-13] VITALS (8 sets, daily range): BP systolic 134–165; BP diastolic 54–73
[2018-02-13] MEDS: HydrALAZINE 50mg tab ORAL SCH ×3 (06:05→21:17)
[2018-02-13] MEDS: cloNIDine 0.2mg Tab ORAL SCH ×3 (06:05→22:16)
[2018-02-13 07:19] LABS: CREATININE 4.7 MG/DL (0.55-1.30)
[2018-02-13] MEDS: Metoprolol 25mg tab ORAL SCH ×2 (09:00→21:17)
--- NOTE | 2018-02-13 09:15 | Nephrology Progress Note ---
Assessment/Plan Problem List: (1) Hyperkalemia (2) Anemia in chronic kidney disease (3) ESRD (end stage renal disease) Assessment: CrCl 9 Assessment chronic renal failure. likely due to Hypertensive kidney disease on 01/15/18... Crcl 11 S Cr 4.2 Now Cr 4.8 and +HyperKalemia 24 H Protein 1.34 gr -. Asthma, fairly stable at present. -. Cardiomegaly. -. Diastolic heart dysfunction. -. Hyperkalemia. -. Hypertension. -. Hypertensive heart disease. -. HypoThyroid Plan Agreeable to HD- will be done today has permacath Pulmonary toilet Kayexelate as needed Avoid Nephrotoxics Adjust BP meds 2D Echo- previously EjFx 55% Kidney ISIS previously: Echogenic kidneys per orders Subjective ROS Limited/Unobtainable: No Constitutional: Reports: malaise Objective Objective Last 24 Hour Vital Signs Date Time Temp Pulse Resp B/P (MAP) Pulse Ox O2 Delivery O2 Flow Rate FiO2 02/13/18 08:00 98.0 60 18 150/70 (96) 97 98.0 02/13/18 06:05 159/72 02/13/18 06:05 159/72 02/13/18 04:00 98.6 58 18 159/72 (101) 96 98.6 02/13/18 00:00 97.9 64 20 160/71 (100) 100 97.9 02/12/18 21:55 177/75 02/12/18 21:55 177/75 02/12/18 21:00 Room Air 02/12/18 21:00 56 144/52 02/12/18 20:35 56 144/52 02/12/18 20:00 98.2 56 18 144/52 (82) 94 98.2 02/12/18 16:00 97.1 55 18 139/66 (90) 96 97.1 02/12/18 13:42 136/63 02/12/18 13:41 136/63 02/12/18 12:00 97.0 54 18 136/63 (87) 96 97.0 Intake and Output 02/12/18 02/13/18 19:00 07:00 Intake Total 600 ml 240 ml Output Total 750 ml 800 ml Balance -150 ml -560 ml Intake Oral 600 ml 240 ml Output Urine Total 750 ml 800 ml # Bowel Movements 2 Height (Feet): 5 Height (Inches): 1.00 Weight (Pounds): 149 General Appearance: no apparent distress, lethargic Respiratory/Chest: decreased breath sounds Abdomen: soft Eyad Dill MD Feb 13, 2018 09:15
--- NOTE | 2018-02-13 09:35 | General Progress Note ---
Assessment/Plan Assessment/Plan 1. Asthma, fairly stable at present. 2. Cardiomegaly. 3. Cardiomyopathy. 4. Diastolic heart dysfunction. 5. Acute on chronic renal failure. 6. Hyperkalemia. 7. anemia 8. Dementia. 9. pleural effusion. 10. Hypertension. 11. Hypertensive heart disease. PLAN care noted HD renal noted continue to monitor dc planning per renal impression, plan, and exam edited and reviewed in detail care discussed with RN Subjective Allergies: Coded Allergies: No Known Allergies (Unverified , 12/23/12) Subjective care noted and reviewed d/w renal Objective Last 24 Hour Vital Signs Date Time Temp Pulse Resp B/P (MAP) Pulse Ox O2 Delivery O2 Flow Rate FiO2 02/13/18 08:00 98.0 60 18 150/70 (96) 97 98.0 02/13/18 06:05 159/72 02/13/18 06:05 159/72 02/13/18 04:00 98.6 58 18 159/72 (101) 96 98.6 02/13/18 00:00 97.9 64 20 160/71 (100) 100 97.9 02/12/18 21:55 177/75 02/12/18 21:55 177/75 02/12/18 21:00 Room Air 02/12/18 21:00 56 144/52 02/12/18 20:35 56 144/52 02/12/18 20:00 98.2 56 18 144/52 (82) 94 98.2 02/12/18 16:00 97.1 55 18 139/66 (90) 96 97.1 02/12/18 13:42 136/63 02/12/18 13:41 136/63 02/12/18 12:00 97.0 54 18 136/63 (87) 96 97.0 Intake and Output 02/12/18 02/13/18 19:00 07:00 Intake Total 600 ml 240 ml Output Total 750 ml 800 ml Balance -150 ml -560 ml Intake Oral 600 ml 240 ml Output Urine Total 750 ml 800 ml # Bowel Movements 2 Height (Feet): 5 Height (Inches): 1.00 Weight (Pounds): 149 Objective WDWN NAD clear breath sounds bilaterally without rhonchi or wheeze [id number] without MRG NABS nontender no HSM no CC mild edema nonfocal Anjel Fay MD Feb 13, 2018 09:35
[2018-02-13] MEDS: Sertraline 50mg tab ORAL SCH (10:01)
[2018-02-13] MEDS: Docusate 100mg cap ORAL SCH ×3 (10:01→18:38)
[2018-02-13] MEDS: Lyrica 25mg cap ORAL SCH ×2 (10:01→18:39)
[2018-02-13] MEDS: Aspirin Baby 81mg ORAL SCH (10:01)
[2018-02-13] MEDS: Vitamin D 1000 IU Tab ORAL SCH (10:02)
[2018-02-13] MEDS: BusPIRone 5mg Tab ORAL SCH ×3 (10:02→18:38)
[2018-02-13] MEDS ORDERED: PPD Tuberculin Skin Test 5TU IDERMAL ONE (11:00)
--- NOTE | 2018-02-13 15:38 | Pulmonology Progress Note ---
Assessment/Plan Assessment/Plan Patient is an 87-year-old female, presents with worsening renal function. The patient was admitted as the BUN and creatinine worsened. The patient with some worsening shortness of breath. Denies any dizziness at present. Denies any chest pain. Denies any aggravating factors. The patient has been closely monitored, but overall renal function has worsened dramatically after recent admission. The patient has had prior admissions here in the medical center. The patient has had prior senior living admissions as well. PAST MEDICAL HISTORY: Notable for history of cholecystitis and cholelithiasis. The patient has history of acute on chronic renal failure. The patient has history of dementia, history of hypertension, hypertensive heart disease, history of asthma, history of significant arthritis end-stage, and chronic migraines. MEDICATIONS: Reviewed. ALLERGIES: Reviewed. SOCIAL HISTORY: Nonsmoker and nondrinker. She lives with her family. She is disabled and retired. REVIEW OF SYSTEMS: Difficult to obtain, but fairly negative otherwise. PHYSICAL EXAMINATION: GENERAL: A well-developed female, comfortable at present. NAD VITALS: see attached HEENT: Overall negative. Extraocular movements are grossly intact. Oropharynx is moist. NECK: Supple. No adenopathy. LUNGS: Fairly clear. Symmetric. Minimal wheezes. CARDIAC: S1 and S2. Regular rate and rhythm. Positive S4. No murmurs or rubs. ABDOMEN: Soft, nontender, and nondistended. EXTREMITIES: No cyanosis or clubbing. Trace edema. NEUROLOGIC: Grossly nonfocal. LABORATORY DATA: Laboratory Tests Test 02/11/18 19:15 White Blood Count 5.8 K/UL (4.8-10.8) Red Blood Count 3.18 M/UL (4.20-5.40) L Hemoglobin 9.5 G/DL (12.0-16.0) L Hematocrit 28.4 % (37.0-47.0) L Mean Corpuscular Volume 89 FL (80-99) Mean Corpuscular Hemoglobin 30.0 PG (27.0-31.0) Mean Corpuscular Hemoglobin Concent 33.6 G/DL (32.0-36.0) Red Cell Distribution Width 11.7 % (11.6-14.8) Platelet Count 215 K/UL (150-450) Mean Platelet Volume 6.1 FL (6.5-10.1) L Neutrophils (%) (Auto) 48.3 % (45.0-75.0) Lymphocytes (%) (Auto) 36.3 % (20.0-45.0) Monocytes (%) (Auto) 7.1 % (1.0-10.0) Eosinophils (%) (Auto) 6.4 % (0.0-3.0) H Basophils (%) (Auto) 1.8 % (0.0-2.0) Prothrombin Time 10.9 SEC (9.30-11.50) Prothromb Time International Ratio 1.0 (0.9-1.1) Activated Partial Thromboplast Time 29 SEC (23-33) Sodium Level 136 MMOL/L (136-145) Potassium Level 4.9 MMOL/L (3.5-5.1) Chloride Level 103 MMOL/L (98-107) Carbon Dioxide Level 21 MMOL/L (21-32) Anion Gap 12 mmol/L (5-15) Blood Urea Nitrogen 58 mg/dL (7-18) H Creatinine 4.8 MG/DL (0.55-1.30) H Estimat Glomerular Filtration Rate mL/min (>60) Glucose Level 117 MG/DL (74-106) H Calcium Level 8.2 MG/DL (8.5-10.1) L IMPRESSION: 1. Asthma, fairly stable at present. 2. Cardiomegaly. 3. Cardiomyopathy. 4. Diastolic heart dysfunction. 5. Acute on chronic renal failure on HD 6. Hyperkalemia. 7. anemia 8. Dementia. 9. pleural effusion. 10. Hypertension. 11. Hypertensive heart disease. PLAN follow up labs nephro following vascular for access HD continue same dc once stable impression, plan, and exam edited and reviewed in detail care discussed with RN Subjective ROS Limited/Unobtainable: No Allergies: Coded Allergies: No Known Allergies (Unverified , 12/23/12) Objective Last 24 Hour Vital Signs Date Time Temp Pulse Resp B/P (MAP) Pulse Ox O2 Delivery O2 Flow Rate FiO2 02/13/18 12:00 97.5 55 18 153/69 (97) 95 97.5 02/13/18 08:15 Room Air 02/13/18 08:00 98.0 60 18 150/70 (96) 97 98.0 02/13/18 06:05 159/72 02/13/18 06:05 159/72 02/13/18 04:00 98.6 58 18 159/72 (101) 96 98.6 02/13/18 00:00 97.9 64 20 160/71 (100) 100 97.9 02/12/18 21:55 177/75 02/12/18 21:55 177/75 02/12/18 21:00 Room Air 02/12/18 21:00 56 144/52 02/12/18 20:35 56 144/52 02/12/18 20:00 98.2 56 18 144/52 (82) 94 98.2 02/12/18 16:00 97.1 55 18 139/66 (90) 96 97.1 Intake and Output 02/12/18 02/13/18 19:00 07:00 Intake Total 600 ml 240 ml Output Total 750 ml 800 ml Balance -150 ml -560 ml Intake Oral 600 ml 240 ml Output Urine Total 750 ml 800 ml # Bowel Movements 2 Microbiology Date/Time Source Procedure Growth Status 02/11/18 22:00 Nasal Nares MRSA Culture - Final NO METHICILLIN RESISTANT STAPH AUREUS... Complete 02/11/18 22:00 Rectum Received Current Medications Medications (Trade) Dose Ordered Sig/Vaughn Route PRN Reason Start Time Stop Time Status Last Admin Dose Admin Acetaminophen (Tylenol) 650 mg Q4H PRN ORAL Mild Pain/Temp > 100.5 02/11/18 18:45 03/13/18 18:44 Albuterol/ Ipratropium (Albuterol/ Ipratropium) 3 ml Q4H PRN HHN Shortness of Breath 02/11/18 20:15 02/16/18 20:14 Aspirin (ASA) 81 mg DAILY ORAL 02/12/18 09:00 03/14/18 08:59 02/13/18 10:01 Buspirone HCl (Buspar) 15 mg THREE TIMES A DAY ORAL 02/12/18 09:00 03/14/18 08:59 02/13/18 13:58 Clonidine HCl (Catapres tab) 0.2 mg EVERY 8 HOURS ORAL 02/12/18 00:15 03/14/18 00:14 02/13/18 06:05 Docusate Sodium (Colace) 100 mg TID ORAL 02/12/18 13:00 03/14/18 08:59 02/13/18 13:57 Hydralazine HCl (Apresoline) 25 mg Q4H PRN ORAL bp over 160 syst 02/12/18 10:15 03/14/18 10:14 Hydralazine HCl (Apresoline) 50 mg Q8HR ORAL 02/11/18 22:00 03/13/18 21:59 02/13/18 06:05 Levothyroxine Sodium (Synthroid) 50 mcg DAILY@0630 ORAL 02/12/18 06:30 03/14/18 06:29 02/13/18 06:05 Metoprolol Tartrate (Lopressor) 25 mg Q12HR ORAL 02/12/18 09:00 03/14/18 08:59 02/12/18 08:28 Nifedipine (Procardia XL) 30 mg Q12HR ORAL 02/12/18 09:00 03/14/18 08:59 02/12/18 20:35 Pregabalin (Lyrica) 25 mg BID ORAL 02/12/18 18:00 03/14/18 08:59 02/13/18 10:01 Sertraline HCl (Zoloft) 25 mg DAILY ORAL 02/12/18 09:00 03/14/18 08:59 02/13/18 10:01 Tramadol HCl (Ultram) 50 mg Q6H PRN ORAL Moderate Pain (Pain Scale 4-6) 02/11/18 20:15 02/18/18 20:14 Vitamin D (Vitamin D) 5,000 intlu DAILY ORAL 02/12/18 09:00 03/14/18 08:59 02/13/18 10:02 Gino Guallpa MD Feb 13, 2018 15:38
[2018-02-13] MEDS: HydrALAZINE 25mg tab ORAL PRN (18:41)
--- NOTE | 2018-02-13 20:51 | General Progress Note ---
Progress Note Progress Note Patient seen and examined Asked by Dr Dill to eval re arm av shunt placement as outpatient HTN, COPD, mild dementia, ESRD, PAD, obesity HD via right IJ permcath Arm duplex vein map Will schedule for left arm av shunt as outpatient d/w pt/nurse at bedside Keith Gong MD Feb 13, 2018 20:51
[2018-02-14] VITALS (7 sets, daily range): BP systolic 123–140; BP diastolic 54–67
[2018-02-14] MEDS: cloNIDine 0.2mg Tab ORAL SCH (05:31)
[2018-02-14] MEDS: HydrALAZINE 50mg tab ORAL SCH (05:31)
[2018-02-14 07:12] LABS: EOSINOPHILS % (AUTO) 4.2 % (0.0-3.0); HEMATOCRIT 30.8 % (37.0-47.0); HEMOGLOBIN 10.1 G/DL (12.0-16.0); LYMPHOCYTES % (AUTO) 21.4 % (20.0-45.0); MEAN CORPUSCULAR VOLUME 90 FL (80-99); MONOCYTES % (AUTO) 6.7 % (1.0-10.0); NEUTROPHILS % (AUTO) 66.6 % (45.0-75.0); PLATELET COUNT 174 K/UL (150-450); RED BLOOD COUNT 3.44 M/UL (4.20-5.40); RED CELL DISTRIBUTION WIDTH 11.1 % (11.6-14.8); WHITE BLOOD COUNT 7.7 K/UL (4.8-10.8)
[2018-02-14 07:38] LABS: ALANINE AMINOTRANSFERASE 13 U/L (12-78); ALBUMIN 3.2 G/DL (3.4-5.0); ALBUMIN/GLOBULIN RATIO 0.7 (1.0-2.7); ALKALINE PHOSPHATASE 80 U/L (46-116); ANION GAP 13 mmol/L (5-15); ASPARTATE AMINO TRANSFERASE 13 U/L (15-37); BILIRUBIN,TOTAL 0.3 MG/DL (0.2-1.0); BLOOD UREA NITROGEN 57 mg/dL (7-18); CALCIUM 8.7 MG/DL (8.5-10.1); CARBON DIOXIDE 21 MMOL/L (21-32); CHLORIDE 104 MMOL/L (98-107); CREATININE 4.8 MG/DL (0.55-1.30); PHOSPHORUS 5.2 MG/DL (2.5-4.9); POTASSIUM 4.7 MMOL/L (3.5-5.1); SODIUM 138 MMOL/L (136-145)
[2018-02-14] MEDS: Vitamin D 1000 IU Tab ORAL SCH (08:46)
[2018-02-14] MEDS: Metoprolol 25mg tab ORAL SCH ×2 (08:46→21:03)
[2018-02-14] MEDS: BusPIRone 5mg Tab ORAL SCH ×3 (08:46→17:13)
[2018-02-14] MEDS: Aspirin Baby 81mg ORAL SCH (08:47)
[2018-02-14] MEDS: Docusate 100mg cap ORAL SCH ×3 (08:47→17:13)
[2018-02-14] MEDS: Lyrica 25mg cap ORAL SCH ×2 (08:47→17:13)
[2018-02-14] MEDS: Sertraline 50mg tab ORAL SCH (08:47)
--- NOTE | 2018-02-14 09:25 | Diagnostic Imaging Report ---
INDICATION: Cough COMPARISON: Chest x-ray dated 01/18/18 FINDINGS: Single frontal view demonstrates a normal cardiomediastinal silhouette. Right chest wall Port-A-Cath with tip in the midsuperior vena cava. Atherosclerotic vascular disease. Continued demonstration of left lower lung and retrocardiac opacity. No pleural effusions. The visualized osseous structures are within normal limits. IMPRESSION: Right chest wall Port-A-Cath with tip in the midsuperior vena cava. Continued demonstration of left lower lung and retrocardiac opacity.
--- NOTE | 2018-02-14 10:45 | Nephrology Progress Note ---
Assessment/Plan Problem List: (1) Hyperkalemia (2) Anemia in chronic kidney disease (3) ESRD (end stage renal disease) Assessment: CrCl 9 Assessment chronic renal failure. likely due to Hypertensive kidney disease on 01/15/18... Crcl 11 S Cr 4.2 Now Cr 4.8 and +HyperKalemia 24 H Protein 1.34 gr -. Asthma, fairly stable at present. -. Cardiomegaly. -. Diastolic heart dysfunction. -. Hyperkalemia. -. Hypertension. -. Hypertensive heart disease. -. HypoThyroid Plan 1st HD 02/13 has permacath eval by [facility] Surgeon appreciated rearrange BP meds Pulmonary toilet Kayexelate as needed Avoid Nephrotoxics Adjust BP meds 2D Echo- previously EjFx 55% Kidney ISIS previously: Echogenic kidneys per orders Subjective ROS Limited/Unobtainable: No Constitutional: Reports: weakness Objective Objective Last 24 Hour Vital Signs Date Time Temp Pulse Resp B/P (MAP) Pulse Ox O2 Delivery O2 Flow Rate FiO2 02/14/18 09:46 98.7 02/14/18 08:48 65 126/62 02/14/18 08:47 98.7 02/14/18 08:46 65 126/62 02/14/18 08:45 Room Air 02/14/18 08:00 98.1 65 18 126/62 (83) 95 98.1 02/14/18 05:31 132/59 02/14/18 05:31 132/59 02/14/18 04:00 98.7 63 18 132/59 (83) 98 98.7 02/14/18 00:00 97.7 58 20 140/67 (91) 95 97.7 02/13/18 22:16 153/68 02/13/18 21:17 62 153/68 02/13/18 21:17 62 153/68 02/13/18 21:17 153/68 02/13/18 21:00 Room Air 02/13/18 20:00 97.2 62 20 153/68 (96) 94 97.2 02/13/18 18:41 162/78 02/13/18 18:38 Room Air 02/13/18 18:36 Room Air 02/13/18 18:30 Room Air 02/13/18 18:24 96.1 54 20 165/54 (91) 96.1 02/13/18 16:00 95.5 50 20 141/70 (93) 95 95.5 02/13/18 14:00 95.5 58 20 134/73 (93) 95.5 02/13/18 12:00 97.5 55 18 153/69 (97) 95 97.5 Intake and Output 02/13/18 02/14/18 19:00 07:00 Output Total 100 ml 1800 ml Balance -100 ml -1800 ml Output Urine Total 1800 ml Hemodialysis UF 100 ml # Voids 1 Laboratory Tests 02/14/18 04:50: White Blood Count 7.7, Red Blood Count 3.44L, Hemoglobin 10.1L, Hematocrit 30.8L , Mean Corpuscular Volume 90, Mean Corpuscular Hemoglobin 29.4, Mean Corpuscular Hemoglobin Concent 32.8, Red Cell Distribution Width 11.1L, Platelet Count 174, Mean Platelet Volume 6.9, Neutrophils (%) (Auto) 66.6, Lymphocytes (%) (Auto) 21.4, Monocytes (%) (Auto) 6.7, Eosinophils (%) (Auto) 4.2H, Basophils (%) (Auto) 1.0, Sodium Level 138, Potassium Level 4.7, Chloride Level 104, Carbon Dioxide Level 21, Anion Gap 13, Blood Urea Nitrogen 57H, Creatinine 4.8H, Estimat Glomerular Filtration Rate , Glucose Level 85, Calcium Level 8.7, Phosphorus Level 5.2H, Magnesium Level 2.1, Total Bilirubin 0.3, Aspartate Amino Transf (AST/SGOT) 13L, Alanine Aminotransferase (ALT/SGPT) 13, Alkaline Phosphatase 80, C-Reactive Protein, Quantitative 2.0H, Pro-B-Type Natriuretic Peptide 2499H, Total Protein 7.6, Albumin 3.2L, Globulin 4.4, Albumin/Globulin Ratio 0.7L Height (Feet): 5 Height (Inches): 1.00 Weight (Pounds): 149 General Appearance: no apparent distress Cardiovascular: normal rate Respiratory/Chest: lungs clear Abdomen: soft Eyad Dill MD Feb 14, 2018 10:45
--- NOTE | 2018-02-14 14:42 | General Progress Note ---
Assessment/Plan Assessment/Plan 1. Asthma, fairly stable at present. 2. Cardiomegaly. 3. Cardiomyopathy. 4. Diastolic heart dysfunction. 5. Acute on chronic renal failure. s/p HD 6. Hyperkalemia. 7. anemia 8. Dementia. 9. pleural effusion. 10. Hypertension. 11. Hypertensive heart disease. PLAN care noted HD tolerated renal noted continue to monitor dc planning ? in am impression, plan, and exam edited and reviewed in detail care discussed with RN Subjective Allergies: Coded Allergies: No Known Allergies (Unverified , 12/23/12) Subjective care noted and reviewed d/w renal Objective Last 24 Hour Vital Signs Date Time Temp Pulse Resp B/P (MAP) Pulse Ox O2 Delivery O2 Flow Rate FiO2 02/14/18 14:30 130/54 02/14/18 12:00 97.7 67 18 123/60 (81) 96 97.7 02/14/18 09:46 98.7 02/14/18 08:48 65 126/62 02/14/18 08:47 98.7 02/14/18 08:46 65 126/62 02/14/18 08:45 Room Air 02/14/18 08:00 98.1 65 18 126/62 (83) 95 98.1 02/14/18 05:31 132/59 02/14/18 05:31 132/59 02/14/18 04:00 98.7 63 18 132/59 (83) 98 98.7 02/14/18 00:00 97.7 58 20 140/67 (91) 95 97.7 02/13/18 22:16 153/68 02/13/18 21:17 62 153/68 02/13/18 21:17 62 153/68 02/13/18 21:17 153/68 02/13/18 21:00 Room Air 02/13/18 20:00 97.2 62 20 153/68 (96) 94 97.2 02/13/18 18:41 162/78 02/13/18 18:38 Room Air 02/13/18 18:36 Room Air 02/13/18 18:30 Room Air 02/13/18 18:24 96.1 54 20 165/54 (91) 96.1 02/13/18 16:00 95.5 50 20 141/70 (93) 95 95.5 Intake and Output 02/13/18 02/14/18 19:00 07:00 Output Total 100 ml 1800 ml Balance -100 ml -1800 ml Output Urine Total 1800 ml Hemodialysis UF 100 ml # Voids 1 Laboratory Tests 02/14/18 04:50: White Blood Count 7.7, Red Blood Count 3.44L, Hemoglobin 10.1L, Hematocrit 30.8L , Mean Corpuscular Volume 90, Mean Corpuscular Hemoglobin 29.4, Mean Corpuscular Hemoglobin Concent 32.8, Red Cell Distribution Width 11.1L, Platelet Count 174, Mean Platelet Volume 6.9, Neutrophils (%) (Auto) 66.6, Lymphocytes (%) (Auto) 21.4, Monocytes (%) (Auto) 6.7, Eosinophils (%) (Auto) 4.2H, Basophils (%) (Auto) 1.0, Sodium Level 138, Potassium Level 4.7, Chloride Level 104, Carbon Dioxide Level 21, Anion Gap 13, Blood Urea Nitrogen 57H, Creatinine 4.8H, Estimat Glomerular Filtration Rate , Glucose Level 85, Calcium Level 8.7, Phosphorus Level 5.2H, Magnesium Level 2.1, Total Bilirubin 0.3, Aspartate Amino Transf (AST/SGOT) 13L, Alanine Aminotransferase (ALT/SGPT) 13, Alkaline Phosphatase 80, C-Reactive Protein, Quantitative 2.0H, Pro-B-Type Natriuretic Peptide 2499H, Total Protein 7.6, Albumin 3.2L, Globulin 4.4, Albumin/Globulin Ratio 0.7L Height (Feet): 5 Height (Inches): 1.00 Weight (Pounds): 149 Objective WDWN NAD clear breath sounds bilaterally without rhonchi or wheeze [id number] without MRG NABS nontender no HSM no CC mild edema nonfocal Anjel Fay MD Feb 14, 2018 14:42
[2018-02-15 04:00] VITALS: BP 126/61
[2018-02-15] MEDS: Lisinopril 10mg tab ORAL SCH (08:13)
[2018-02-15] MEDS: BusPIRone 5mg Tab ORAL SCH ×3 (08:13→17:59)
[2018-02-15] MEDS: Metoprolol 25mg tab ORAL SCH ×2 (08:13→22:07)
[2018-02-15] MEDS: Lyrica 25mg cap ORAL SCH ×2 (08:14→18:00)
[2018-02-15] MEDS: Docusate 100mg cap ORAL SCH ×3 (08:14→17:59)
[2018-02-15] MEDS: Aspirin Baby 81mg ORAL SCH (08:14)
[2018-02-15] MEDS: Sertraline 50mg tab ORAL SCH (08:15)
[2018-02-15] MEDS: Vitamin D 1000 IU Tab ORAL SCH (08:16)
[2018-02-15] MEDS ORDERED: Miralax 17gm pkt ORAL PRN (08:30)
[2018-02-15 08:39] VITALS: BP 122/65
--- NOTE | 2018-02-15 09:53 | General Progress Note ---
Assessment/Plan Assessment/Plan 1. Asthma, fairly stable at present. 2. Cardiomegaly. 3. Cardiomyopathy. 4. Diastolic heart dysfunction. 5. Acute on chronic renal failure. s/p HD 6. Hyperkalemia. 7. anemia 8. Dementia. 9. pleural effusion. 10. Hypertension. 11. Hypertensive heart disease. PLAN care noted and reviewed HD tolerated renal noted laxatives continue as is impression, plan, and exam edited and reviewed in detail care discussed with RN Subjective Allergies: Coded Allergies: No Known Allergies (Unverified , 12/23/12) Subjective care noted and reviewed d/w renal reviewed care constipation noted Objective Last 24 Hour Vital Signs Date Time Temp Pulse Resp B/P (MAP) Pulse Ox O2 Delivery O2 Flow Rate FiO2 02/15/18 09:00 Room Air 02/15/18 08:41 68 18 Room Air 21 02/15/18 08:39 98.8 64 18 122/65 (84) 92 98.8 02/15/18 08:15 64 122/65 02/15/18 08:15 64 122/65 02/15/18 08:14 98.2 02/15/18 08:13 122/65 02/15/18 08:13 64 122/65 02/15/18 05:58 126/61 02/15/18 04:00 98.2 62 22 126/61 (82) 95 98.2 02/14/18 22:00 127/65 02/14/18 22:00 57 18 127/65 (85) 95 02/14/18 21:09 66 18 Room Air 21 02/14/18 21:03 64 135/60 02/14/18 21:00 Room Air 02/14/18 20:00 98.6 64 16 135/60 (85) 98.6 02/14/18 18:12 98.0 02/14/18 17:13 98.0 02/14/18 16:00 98.0 64 18 130/54 (79) 98 98.0 02/14/18 14:30 130/54 02/14/18 12:00 97.7 67 18 123/60 (81) 96 97.7 Intake and Output 02/14/18 02/15/18 19:00 07:00 Intake Total 720 ml Output Total 1350 ml Balance 720 ml -1350 ml Intake Oral 720 ml Output Urine Total 1350 ml # Voids 2 Labs Test 02/14/18 04:50 White Blood Count 7.7 K/UL (4.8-10.8) Red Blood Count 3.44 M/UL (4.20-5.40) Hemoglobin 10.1 G/DL (12.0-16.0) Hematocrit 30.8 % (37.0-47.0) Mean Corpuscular Volume 90 FL (80-99) Mean Corpuscular Hemoglobin 29.4 PG (27.0-31.0) Mean Corpuscular Hemoglobin Concent 32.8 G/DL (32.0-36.0) Red Cell Distribution Width 11.1 % (11.6-14.8) Platelet Count 174 K/UL (150-450) Mean Platelet Volume 6.9 FL (6.5-10.1) Neutrophils (%) (Auto) 66.6 % (45.0-75.0) Lymphocytes (%) (Auto) 21.4 % (20.0-45.0) Monocytes (%) (Auto) 6.7 % (1.0-10.0) Eosinophils (%) (Auto) 4.2 % (0.0-3.0) Basophils (%) (Auto) 1.0 % (0.0-2.0) Sodium Level 138 MMOL/L (136-145) Potassium Level 4.7 MMOL/L (3.5-5.1) Chloride Level 104 MMOL/L (98-107) Carbon Dioxide Level 21 MMOL/L (21-32) Anion Gap 13 mmol/L (5-15) Blood Urea Nitrogen 57 mg/dL (7-18) Creatinine 4.8 MG/DL (0.55-1.30) Estimat Glomerular Filtration Rate mL/min (>60) Glucose Level 85 MG/DL (74-106) Calcium Level 8.7 MG/DL (8.5-10.1) Phosphorus Level 5.2 MG/DL (2.5-4.9) Magnesium Level 2.1 MG/DL (1.8-2.4) Total Bilirubin 0.3 MG/DL (0.2-1.0) Aspartate Amino Transf (AST/SGOT) 13 U/L (15-37) Alanine Aminotransferase (ALT/SGPT) 13 U/L (12-78) Alkaline Phosphatase 80 U/L (46-116) C-Reactive Protein, Quantitative 2.0 mg/dL (0.00-0.90) Pro-B-Type Natriuretic Peptide 2499 pg/mL (0-125) Total Protein 7.6 G/DL (6.4-8.2) Albumin 3.2 G/DL (3.4-5.0) Globulin 4.4 g/dL Albumin/Globulin Ratio 0.7 (1.0-2.7) Height (Feet): 5 Height (Inches): 1.00 Weight (Pounds): 149 Objective WDWN NAD clear breath sounds bilaterally without rhonchi or wheeze [id number] without MRG NABS nontender no HSM no CC mild edema nonfocal Anjel Fay MD Feb 15, 2018 09:53
[2018-02-15 12:01] VITALS: BP 119/62
--- NOTE | 2018-02-15 14:42 | Nephrology Progress Note ---
Assessment/Plan Problem List: (1) ESRD (end stage renal disease) Assessment: CrCl 9 (2) Chronic diastolic (congestive) heart failure (3) Hyperkalemia (4) Anemia in chronic kidney disease Assessment chronic renal failure. likely due to Hypertensive kidney disease on 01/15/18... Crcl 11 S Cr 4.2 Now Cr 4.8 and +HyperKalemia 24 H Protein 1.34 gr -. Asthma, fairly stable at present. -. Cardiomegaly. -. Diastolic heart dysfunction. -. Hyperkalemia. -. Hypertension. -. Hypertensive heart disease. -. HypoThyroid Plan 1st HD 02/13 next today has permacath eval by Vasc Surgeon appreciated re-arrange BP meds DC home / ECF when out patient dialysis is arranged Pulmonary toilet Kayexelate as needed Avoid Nephrotoxics Adjust BP meds 2D Echo- previously EjFx 55% Kidney ISIS previously: Echogenic kidneys per orders Subjective ROS Limited/Unobtainable: No Constitutional: Reports: other - stronger Objective Objective Last 24 Hour Vital Signs Date Time Temp Pulse Resp B/P (MAP) Pulse Ox O2 Delivery O2 Flow Rate FiO2 02/15/18 14:00 119/62 02/15/18 12:01 97.9 58 18 119/62 (81) 95 97.9 02/15/18 09:13 97.9 02/15/18 09:00 Room Air 02/15/18 08:41 68 18 Room Air 21 02/15/18 08:39 98.8 64 18 122/65 (84) 92 98.8 02/15/18 08:15 64 122/65 02/15/18 08:15 64 122/65 02/15/18 08:14 98.2 02/15/18 08:13 122/65 02/15/18 08:13 64 122/65 02/15/18 05:58 126/61 02/15/18 04:00 98.2 62 22 126/61 (82) 95 98.2 02/14/18 22:00 127/65 02/14/18 22:00 57 18 127/65 (85) 95 02/14/18 21:09 66 18 Room Air 21 02/14/18 21:03 64 135/60 02/14/18 21:00 Room Air 02/14/18 20:00 98.6 64 16 135/60 (85) 98.6 02/14/18 17:13 98.0 02/14/18 16:00 98.0 64 18 130/54 (79) 98 98.0 Intake and Output 02/14/18 02/15/18 19:00 07:00 Intake Total 720 ml Output Total 1350 ml Balance 720 ml -1350 ml Intake Oral 720 ml Output Urine Total 1350 ml # Voids 2 Height (Feet): 5 Height (Inches): 1.00 Weight (Pounds): 149 General Appearance: no apparent distress Cardiovascular: normal rate Respiratory/Chest: decreased breath sounds Abdomen: soft Objective no change Eyad Dill MD Feb 15, 2018 14:42
[2018-02-15 15:53] VITALS: BP 146/64
[2018-02-15 20:00] VITALS: BP 123/68
[2018-02-15 22:25] VITALS: BP 142/61
[2018-02-16] VITALS: BP 137/77
[2018-02-16 04:00] VITALS: BP 150/67
[2018-02-16 08:00] VITALS: BP 152/67
--- NOTE | 2018-02-16 08:04 | General Progress Note ---
Assessment/Plan Assessment/Plan 1. Asthma, fairly stable at present. 2. Cardiomegaly. 3. Cardiomyopathy. 4. Diastolic heart dysfunction. 5. Acute on chronic renal failure. s/p HD 6. Hyperkalemia. 7. anemia 8. Dementia. 9. pleural effusion. 10. Hypertension. 11. Hypertensive heart disease. PLAN care noted and reviewed HD tolerated laxatives finalize dc and HD placement monitor HH continue as is impression, plan, and exam edited and reviewed in detail care discussed with RN Subjective Allergies: Coded Allergies: No Known Allergies (Unverified , 12/23/12) Subjective care noted and reviewed d/w renal- awaiting clearance reviewed care not acute confused Objective Last 24 Hour Vital Signs Date Time Temp Pulse Resp B/P (MAP) Pulse Ox O2 Delivery O2 Flow Rate FiO2 02/16/18 06:28 150/67 02/16/18 04:00 97.9 71 20 150/67 (94) 98 97.9 02/16/18 00:00 98.2 76 20 137/77 (97) 98 98.2 02/15/18 22:28 142/61 02/15/18 22:25 98.2 70 20 142/61 (88) 98 98.2 02/15/18 22:07 58 123/68 02/15/18 21:00 Room Air 02/15/18 20:08 72 20 Room Air 21 02/15/18 20:00 97.2 68 18 123/68 (86) 97 97.2 02/15/18 18:56 Room Air 21 02/15/18 18:00 97.9 02/15/18 15:53 97.9 73 18 146/64 (91) 92 97.9 02/15/18 15:40 Room Air 21 02/15/18 14:00 119/62 02/15/18 12:01 97.9 58 18 119/62 (81) 95 97.9 02/15/18 09:13 97.9 02/15/18 09:00 Room Air 02/15/18 08:41 68 18 Room Air 21 02/15/18 08:39 98.8 64 18 122/65 (84) 92 98.8 02/15/18 08:15 64 122/65 02/15/18 08:15 64 122/65 02/15/18 08:14 98.2 02/15/18 08:13 122/65 02/15/18 08:13 64 122/65 Intake and Output 02/15/18 02/16/18 19:00 07:00 Intake Total 480 ml 1260 ml Output Total 4500 ml 800 ml Balance -4020 ml 460 ml Intake Oral 480 ml 1260 ml Output Urine Total 300 ml 800 ml Hemodialysis UF 4200 ml Height (Feet): 5 Height (Inches): 1.00 Weight (Pounds): 149 Objective WDWN NAD clear breath sounds bilaterally without rhonchi or wheeze [id number] without MRG NABS nontender no HSM no CC mild edema nonfocal Anjel Fay MD Feb 16, 2018 08:04
[2018-02-16] MEDS: Aspirin Baby 81mg ORAL SCH (08:58)
[2018-02-16] MEDS: Vitamin D 1000 IU Tab ORAL SCH (08:59)
[2018-02-16] MEDS: BusPIRone 5mg Tab ORAL SCH ×3 (08:59→18:20)
[2018-02-16] MEDS: Sertraline 50mg tab ORAL SCH (08:59)
[2018-02-16] MEDS: Lisinopril 10mg tab ORAL SCH ×2 (09:00→17:48)
[2018-02-16] MEDS: Docusate 100mg cap ORAL SCH ×3 (09:00→17:49)
[2018-02-16] MEDS: Lyrica 25mg cap ORAL SCH ×2 (09:00→17:48)
[2018-02-16] MEDS: Metoprolol 25mg tab ORAL SCH ×2 (09:00→20:13)
[2018-02-16 11:56] VITALS: BP 126/58
--- NOTE | 2018-02-16 13:34 | Nephrology Progress Note ---
Assessment/Plan Problem List: (1) ESRD (end stage renal disease) Assessment: CrCl 9 (2) Chronic diastolic (congestive) heart failure (3) Hyperkalemia (4) Anemia in chronic kidney disease Assessment chronic renal failure. likely due to Hypertensive kidney disease on 01/15/18... Crcl 11 S Cr 4.2 Now Cr 4.8 and +HyperKalemia 24 H Protein 1.34 gr -. Asthma, fairly stable at present. -. Cardiomegaly. -. Chronic Diastolic heart dysfunction. -. Hyperkalemia. -. Hypertension. -. Hypertensive heart disease. -. HypoThyroid Plan 1st HD 02/13 next 02/15 HD in am adjust BP meds has permacath eval by Vasc Surgeon appreciated re-arrange BP meds DC home / ECF when out patient dialysis is arranged Pulmonary toilet Kayexelate as needed Avoid Nephrotoxics 2D Echo- previously EjFx 55% Kidney ISIS previously: Echogenic kidneys per orders Subjective ROS Limited/Unobtainable: No Constitutional: Reports: malaise Objective Objective Last 24 Hour Vital Signs Date Time Temp Pulse Resp B/P (MAP) Pulse Ox O2 Delivery O2 Flow Rate FiO2 02/16/18 11:56 98.4 76 20 126/58 (80) 98 98.4 02/16/18 09:00 72 152/67 02/16/18 09:00 152/67 02/16/18 09:00 72 152/67 02/16/18 09:00 72 152/67 02/16/18 09:00 Room Air 02/16/18 08:00 69 20 Room Air 21 02/16/18 08:00 98.7 72 18 152/67 (95) 95 98.7 02/16/18 06:28 150/67 02/16/18 04:00 97.9 71 20 150/67 (94) 98 97.9 02/16/18 00:00 98.2 76 20 137/77 (97) 98 98.2 02/15/18 22:28 142/61 02/15/18 22:25 98.2 70 20 142/61 (88) 98 98.2 02/15/18 22:07 58 123/68 02/15/18 21:00 Room Air 02/15/18 20:08 72 20 Room Air 21 02/15/18 20:00 97.2 68 18 123/68 (86) 97 97.2 02/15/18 18:56 Room Air 21 02/15/18 18:00 97.9 02/15/18 15:53 97.9 73 18 146/64 (91) 92 97.9 02/15/18 15:40 Room Air 21 02/15/18 14:00 119/62 Intake and Output 02/15/18 02/16/18 19:00 07:00 Intake Total 480 ml 1260 ml Output Total 4500 ml 800 ml Balance -4020 ml 460 ml Intake Oral 480 ml 1260 ml Output Urine Total 300 ml 800 ml Hemodialysis UF 4200 ml Height (Feet): 5 Height (Inches): 1.00 Weight (Pounds): 149 General Appearance: no apparent distress Cardiovascular: normal rate Respiratory/Chest: decreased breath sounds Abdomen: soft Objective no change Eyad Dill MD Feb 16, 2018 13:34
[2018-02-16 16:00] VITALS: BP 134/53
[2018-02-16 20:00] VITALS: BP 137/58
[2018-02-17] VITALS (8 sets, daily range): BP systolic 96–142; BP diastolic 50–69
[2018-02-17 04:10] LABS: BASOPHILS % (AUTO) 1.4 % (0.0-2.0); EOSINOPHILS % (AUTO) 3.5 % (0.0-3.0); HEMATOCRIT 28.6 % (37.0-47.0); HEMOGLOBIN 9.5 G/DL (12.0-16.0); LYMPHOCYTES % (AUTO) 29.2 % (20.0-45.0); MEAN CORPUSCULAR VOLUME 88 FL (80-99); MONOCYTES % (AUTO) 9.5 % (1.0-10.0); NEUTROPHILS % (AUTO) 56.4 % (45.0-75.0); PLATELET COUNT 156 K/UL (150-450); RED BLOOD COUNT 3.24 M/UL (4.20-5.40); RED CELL DISTRIBUTION WIDTH 10.8 % (11.6-14.8); WHITE BLOOD COUNT 10.8 K/UL (4.8-10.8)
[2018-02-17 04:51] LABS: ALANINE AMINOTRANSFERASE 10 U/L (12-78); ALBUMIN 2.8 G/DL (3.4-5.0); ALBUMIN/GLOBULIN RATIO 0.6 (1.0-2.7); ALKALINE PHOSPHATASE 79 U/L (46-116); ANION GAP 9 mmol/L (5-15); ASPARTATE AMINO TRANSFERASE 12 U/L (15-37); BILIRUBIN,TOTAL 0.3 MG/DL (0.2-1.0); BLOOD UREA NITROGEN 52 mg/dL (7-18); CALCIUM 8.5 MG/DL (8.5-10.1); CARBON DIOXIDE 28 MMOL/L (21-32); CHLORIDE 94 MMOL/L (98-107); CREATININE 4.7 MG/DL (0.55-1.30); PHOSPHORUS 4.2 MG/DL (2.5-4.9); POTASSIUM 3.3 MMOL/L (3.5-5.1); SODIUM 131 MMOL/L (136-145)
[2018-02-17] MEDS: BusPIRone 5mg Tab ORAL SCH ×3 (08:47→17:41)
[2018-02-17] MEDS: Aspirin Baby 81mg ORAL SCH (08:47)
[2018-02-17] MEDS: Lyrica 25mg cap ORAL SCH ×2 (08:48→17:42)
[2018-02-17] MEDS: Docusate 100mg cap ORAL SCH ×3 (08:48→17:42)
[2018-02-17] MEDS: Vitamin D 1000 IU Tab ORAL SCH (08:49)
[2018-02-17] MEDS: Lisinopril 10mg tab ORAL SCH ×2 (08:49→18:00)
[2018-02-17] MEDS: Sertraline 50mg tab ORAL SCH (08:50)
[2018-02-17] MEDS: Metoprolol 25mg tab ORAL SCH ×2 (08:54→21:00)
--- NOTE | 2018-02-17 16:22 | Nephrology Progress Note ---
Assessment/Plan Problem List: (1) ESRD (end stage renal disease) Assessment: CrCl 9 (2) Chronic diastolic (congestive) heart failure (3) Hyperkalemia (4) Anemia in chronic kidney disease Assessment chronic renal failure. likely due to Hypertensive kidney disease on 01/15/18... Crcl 11 S Cr 4.2 Now Cr 4.8 and +HyperKalemia 24 H Protein 1.34 gr -. Asthma, fairly stable at present. -. Cardiomegaly. -. Chronic Diastolic heart dysfunction. -. Hyperkalemia. -. Hypertension. -. Hypertensive heart disease. -. HypoThyroid Plan HD today and DC adjust BP meds has permacath eval by Vasc Surgeon appreciated re-arrange BP meds DC home / ECF when out patient dialysis is arranged Pulmonary toilet Kayexelate as needed Avoid Nephrotoxics 2D Echo- previously EjFx 55% Kidney ISIS previously: Echogenic kidneys per orders Subjective ROS Limited/Unobtainable: No Objective Objective Last 24 Hour Vital Signs Date Time Temp Pulse Resp B/P (MAP) Pulse Ox O2 Delivery O2 Flow Rate FiO2 02/17/18 14:02 140/62 02/17/18 12:00 99.1 64 20 140/62 (88) 95 99.1 02/17/18 09:00 Room Air 02/17/18 08:54 65 127/57 02/17/18 08:54 65 127/57 02/17/18 08:49 127/57 02/17/18 08:00 98.4 65 20 127/57 (80) 94 98.4 02/17/18 06:07 133/58 02/17/18 04:00 98.2 65 18 133/58 (83) 95 98.2 02/17/18 02:10 99.7 99.7 02/17/18 02:07 99.7 02/17/18 01:08 102.2 02/17/18 00:00 102.2 72 18 129/53 (78) 97 102.2 02/16/18 21:00 Room Air 02/16/18 20:54 134/53 02/16/18 20:13 73 134/53 02/16/18 20:00 100.0 75 19 137/58 (84) 92 100.0 02/16/18 17:48 134/53 Intake and Output 02/16/18 02/17/18 19:00 07:00 Intake Total 240 ml 400 ml Output Total 400 ml 550 ml Balance -160 ml -150 ml Intake Oral 240 ml 400 ml Output Urine Total 400 ml 550 ml # Voids 2 # Bowel Movements 1 1 Current Medications Medications (Trade) Dose Ordered Sig/Vaughn Route PRN Reason Start Time Stop Time Status Last Admin Dose Admin Acetaminophen (Tylenol) 650 mg Q4H PRN ORAL Mild Pain/Temp > 100.5 02/11/18 18:45 03/13/18 18:44 02/17/18 01:08 Amlodipine Besylate (Norvasc) 10 mg DAILY ORAL 02/15/18 09:00 03/17/18 08:59 02/16/18 09:00 Aspirin (ASA) 81 mg DAILY ORAL 02/12/18 09:00 03/14/18 08:59 02/17/18 08:47 Buspirone HCl (Buspar) 15 mg THREE TIMES A DAY ORAL 02/12/18 09:00 03/14/18 08:59 02/17/18 14:02 Clonidine HCl (Catapres Tab) 0.1 mg EVERY 8 HOURS ORAL 02/14/18 14:00 03/14/18 00:14 02/17/18 14:02 Docusate Sodium (Colace) 100 mg TID ORAL 02/12/18 13:00 03/14/18 08:59 02/17/18 14:02 Hydralazine HCl (Apresoline) 25 mg Q4H PRN ORAL bp over 160 syst 02/12/18 10:15 03/14/18 10:14 02/13/18 18:41 Levothyroxine Sodium (Synthroid) 50 mcg DAILY@0630 ORAL 02/12/18 06:30 03/14/18 06:29 02/17/18 06:07 Lisinopril (Zestril) 10 mg BID ORAL 02/16/18 18:00 03/17/18 08:59 02/17/18 08:49 Metoprolol Tartrate (Lopressor) 25 mg Q12HR ORAL 02/12/18 09:00 03/14/18 08:59 02/16/18 20:13 Polyethylene Glycol (Miralax) 17 gm DAILYPRN PRN ORAL Constipation 02/15/18 08:30 03/17/18 08:29 Pregabalin (Lyrica) 25 mg BID ORAL 02/12/18 18:00 03/14/18 08:59 02/17/18 08:48 Sertraline HCl (Zoloft) 25 mg DAILY ORAL 02/12/18 09:00 03/14/18 08:59 02/17/18 08:50 Tramadol HCl (Ultram) 50 mg Q6H PRN ORAL Moderate Pain (Pain Scale 4-6) 02/11/18 20:15 02/18/18 20:14 02/14/18 21:04 Vitamin D (Vitamin D) 5,000 intlu DAILY ORAL 02/12/18 09:00 03/14/18 08:59 02/17/18 08:49 Laboratory Tests 02/17/18 04:00: White Blood Count 10.8, Red Blood Count 3.24L, Hemoglobin 9.5L, Hematocrit 28.6L , Mean Corpuscular Volume 88, Mean Corpuscular Hemoglobin 29.4, Mean Corpuscular Hemoglobin Concent 33.3, Red Cell Distribution Width 10.8L, Platelet Count 156, Mean Platelet Volume 6.1L, Neutrophils (%) (Auto) 56.4, Lymphocytes (%) (Auto) 29.2, Monocytes (%) (Auto) 9.5, Eosinophils (%) (Auto) 3.5H, Basophils (%) (Auto) 1.4, Sodium Level 131L, Potassium Level 3.3L, Chloride Level 94L, Carbon Dioxide Level 28, Anion Gap 9, Blood Urea Nitrogen 52H, Creatinine 4.7H, Estimat Glomerular Filtration Rate , Glucose Level 112H, Uric Acid 5.8, Calcium Level 8.5, Phosphorus Level 4.2, Magnesium Level 2.0, Total Bilirubin 0.3, Aspartate Amino Transf (AST/SGOT) 12L, Alanine Aminotransferase (ALT/SGPT) 10L, Alkaline Phosphatase 79, Troponin I 0.007, Pro- B-Type Natriuretic Peptide 1639H, Total Protein 7.5, Albumin 2.8L, Globulin 4.7 , Albumin/Globulin Ratio 0.6L Height (Feet): 5 Height (Inches): 1.00 Weight (Pounds): 149 General Appearance: no apparent distress Neck: supple Cardiovascular: normal rate, bradycardia Respiratory/Chest: lungs clear Abdomen: soft Objective no change Eyad Dill MD Feb 17, 2018 16:22
--- NOTE | 2018-02-17 16:50 | General Progress Note ---
Assessment/Plan Assessment/Plan 1. Asthma, fairly stable at present. 2. Cardiomegaly. 3. Cardiomyopathy. 4. Diastolic heart dysfunction. 5. Acute on chronic renal failure. s/p HD 6. Hyperkalemia. 7. anemia 8. Dementia. 9. pleural effusion. 10. Hypertension. 11. Hypertensive heart disease. PLAN care noted and reviewed HD tolerated laxatives finalize dc and HD placement awaiting placement and clearance by renal impression, plan, and exam edited and reviewed in detail care discussed with RN Subjective Allergies: Coded Allergies: No Known Allergies (Unverified , 12/23/12) Subjective care noted d/w renal- awaiting clearance reviewed care not acute confused at baseline Objective Last 24 Hour Vital Signs Date Time Temp Pulse Resp B/P (MAP) Pulse Ox O2 Delivery O2 Flow Rate FiO2 02/17/18 16:00 98.8 62 20 113/57 (75) 94 98.8 02/17/18 16:00 98.8 62 20 113/57 (75) 94 98.8 02/17/18 14:02 140/62 02/17/18 12:00 99.1 64 20 140/62 (88) 95 99.1 02/17/18 09:00 Room Air 02/17/18 08:54 65 127/57 02/17/18 08:54 65 127/57 02/17/18 08:49 127/57 02/17/18 08:00 98.4 65 20 127/57 (80) 94 98.4 02/17/18 06:07 133/58 02/17/18 04:00 98.2 65 18 133/58 (83) 95 98.2 02/17/18 02:10 99.7 99.7 02/17/18 02:07 99.7 02/17/18 01:08 102.2 02/17/18 00:00 102.2 72 18 129/53 (78) 97 102.2 02/16/18 21:00 Room Air 02/16/18 20:54 134/53 02/16/18 20:13 73 134/53 02/16/18 20:00 100.0 75 19 137/58 (84) 92 100.0 02/16/18 17:48 134/53 Intake and Output 02/16/18 02/17/18 19:00 07:00 Intake Total 240 ml 400 ml Output Total 400 ml 550 ml Balance -160 ml -150 ml Intake Oral 240 ml 400 ml Output Urine Total 400 ml 550 ml # Voids 2 # Bowel Movements 1 1 Laboratory Tests 02/17/18 04:00: White Blood Count 10.8, Red Blood Count 3.24L, Hemoglobin 9.5L, Hematocrit 28.6L , Mean Corpuscular Volume 88, Mean Corpuscular Hemoglobin 29.4, Mean Corpuscular Hemoglobin Concent 33.3, Red Cell Distribution Width 10.8L, Platelet Count 156, Mean Platelet Volume 6.1L, Neutrophils (%) (Auto) 56.4, Lymphocytes (%) (Auto) 29.2, Monocytes (%) (Auto) 9.5, Eosinophils (%) (Auto) 3.5H, Basophils (%) (Auto) 1.4, Sodium Level 131L, Potassium Level 3.3L, Chloride Level 94L, Carbon Dioxide Level 28, Anion Gap 9, Blood Urea Nitrogen 52H, Creatinine 4.7H, Estimat Glomerular Filtration Rate , Glucose Level 112H, Uric Acid 5.8, Calcium Level 8.5, Phosphorus Level 4.2, Magnesium Level 2.0, Total Bilirubin 0.3, Aspartate Amino Transf (AST/SGOT) 12L, Alanine Aminotransferase (ALT/SGPT) 10L, Alkaline Phosphatase 79, Troponin I 0.007, Pro- B-Type Natriuretic Peptide 1639H, Total Protein 7.5, Albumin 2.8L, Globulin 4.7 , Albumin/Globulin Ratio 0.6L Height (Feet): 5 Height (Inches): 1.00 Weight (Pounds): 149 Objective WDWN NAD clear breath sounds bilaterally without rhonchi or wheeze [id number] without MRG NABS nontender no HSM no CC mild edema nonfocal Anjel Fay MD Feb 17, 2018 16:50
[2018-02-18] VITALS: BP 133/59
[2018-02-18 04:00] VITALS: BP 179/70
[2018-02-18 08:00] VITALS: BP 150/66
[2018-02-18] MEDS: Vitamin D 1000 IU Tab ORAL SCH (09:03)
[2018-02-18] MEDS: Metoprolol 25mg tab ORAL SCH ×2 (09:03→20:21)
[2018-02-18] MEDS: Aspirin Baby 81mg ORAL SCH (09:03)
[2018-02-18] MEDS: Lisinopril 10mg tab ORAL SCH ×2 (09:03→17:18)
[2018-02-18] MEDS: Docusate 100mg cap ORAL SCH ×3 (09:03→17:15)
[2018-02-18] MEDS: Sertraline 50mg tab ORAL SCH (09:03)
[2018-02-18] MEDS: Lyrica 25mg cap ORAL SCH ×2 (09:04→17:18)
[2018-02-18] MEDS: BusPIRone 5mg Tab ORAL SCH ×3 (09:04→17:18)
[2018-02-18] MEDS ORDERED: ACETAMINOPHEN325 M1 ORAL (10:29)
[2018-02-18] MEDS ORDERED: NORVASC10 MG ORAL (10:30)
[2018-02-18] MEDS ORDERED: CATAPRES0.1 MG ORAL (10:32)
[2018-02-18] MEDS ORDERED: COLACE100 MG ORAL (10:33)
[2018-02-18] MEDS ORDERED: HYDRALAZINE HCL25 M1 ORAL (10:35)
[2018-02-18] MEDS ORDERED: ZESTRIL10 M1 ORAL (10:36)
[2018-02-18] MEDS ORDERED: MIRALAX17 G2 ORAL (10:37)
[2018-02-18] MEDS ORDERED: LYRICA25 MG ORAL (10:39)
[2018-02-18 12:00] VITALS: BP 149/65
--- NOTE | 2018-02-18 12:18 | General Progress Note ---
Assessment/Plan Assessment/Plan 1. Asthma, fairly stable at present. 2. Cardiomegaly. 3. Cardiomyopathy. 4. Diastolic heart dysfunction. 5. Acute on chronic renal failure. s/p HD 6. Hyperkalemia. 7. anemia 8. Dementia. 9. pleural effusion. 10. Hypertension. 11. Hypertensive heart disease. PLAN daughter does not want dc today dc in am will call in RX for home meds d/w renal home health on discharge awaiting placement and clearance by renal impression, plan, and exam edited and reviewed in detail care discussed with RN Subjective ROS Limited/Unobtainable: Yes Allergies: Coded Allergies: No Known Allergies (Unverified , 12/23/12) Subjective care noted d/w renal- awaiting clearance reviewed care not acute confused at baseline Objective Last 24 Hour Vital Signs Date Time Temp Pulse Resp B/P (MAP) Pulse Ox O2 Delivery O2 Flow Rate FiO2 02/18/18 10:03 97.6 02/18/18 09:05 66 150/66 02/18/18 09:04 97.6 02/18/18 09:03 150/66 02/18/18 09:03 66 150/66 02/18/18 09:00 Room Air 02/18/18 08:00 97.6 66 19 150/66 (94) 94 97.6 02/18/18 04:30 179/70 02/18/18 04:00 99.4 74 20 179/70 (106) 94 99.4 02/18/18 00:00 99.6 67 20 133/59 (83) 94 99.6 02/17/18 21:32 Room Air 02/17/18 21:28 96/50 02/17/18 21:15 98.5 69 16 96/50 (65) 98.5 02/17/18 21:00 Room Air 02/17/18 21:00 69 96/50 02/17/18 20:00 98.9 68 20 132/54 (80) 92 98.9 02/17/18 18:00 113/57 02/17/18 17:30 98.2 68 16 142/69 (93) 98.2 02/17/18 17:30 Room Air 02/17/18 16:00 98.8 62 20 113/57 (75) 94 98.8 02/17/18 16:00 98.8 62 20 113/57 (75) 94 98.8 02/17/18 14:02 140/62 Intake and Output 02/17/18 02/18/18 19:00 07:00 Intake Total 480 ml 120 ml Output Total 2000 ml Balance 480 ml -1880 ml Intake Oral 480 ml 120 ml Hemodialysis UF 2000 ml # Voids 4 1 # Bowel Movements 1 Height (Feet): 5 Height (Inches): 1.00 Weight (Pounds): 149 Objective WDWN NAD clear breath sounds bilaterally without rhonchi or wheeze [id number] without MRG NABS nontender no HSM no CC mild edema nonfocal Anjel Fay MD Feb 18, 2018 12:18
--- NOTE | 2018-02-18 12:52 | Nephrology Progress Note ---
Assessment/Plan Problem List: (1) ESRD (end stage renal disease) Assessment: CrCl 9 (2) Chronic diastolic (congestive) heart failure (3) Hyperkalemia (4) Anemia in chronic kidney disease Assessment chronic renal failure. likely due to Hypertensive kidney disease on 01/15/18... Crcl 11 S Cr 4.2 Now Cr 4.8 and +HyperKalemia 24 H Protein 1.34 gr -. Asthma, fairly stable at present. -. Cardiomegaly. -. Chronic Diastolic heart dysfunction. -. Hyperkalemia. -. Hypertension. -. Hypertensive heart disease. -. HypoThyroid Plan HD in am and DC adjust BP meds has permacath eval by Vasc Surgeon appreciated re-arrange BP meds DC home / ECF when out patient dialysis is arranged Pulmonary toilet Kayexelate as needed Avoid Nephrotoxics 2D Echo- previously EjFx 55% Kidney ISIS previously: Echogenic kidneys per orders Subjective ROS Limited/Unobtainable: No Objective Objective Last 24 Hour Vital Signs Date Time Temp Pulse Resp B/P (MAP) Pulse Ox O2 Delivery O2 Flow Rate FiO2 02/18/18 10:03 97.6 02/18/18 09:05 66 150/66 02/18/18 09:04 97.6 02/18/18 09:03 150/66 02/18/18 09:03 66 150/66 02/18/18 09:00 Room Air 02/18/18 08:00 97.6 66 19 150/66 (94) 94 97.6 02/18/18 04:30 179/70 02/18/18 04:00 99.4 74 20 179/70 (106) 94 99.4 02/18/18 00:00 99.6 67 20 133/59 (83) 94 99.6 02/17/18 21:32 Room Air 02/17/18 21:28 96/50 02/17/18 21:15 98.5 69 16 96/50 (65) 98.5 02/17/18 21:00 Room Air 02/17/18 21:00 69 96/50 02/17/18 20:00 98.9 68 20 132/54 (80) 92 98.9 02/17/18 18:00 113/57 02/17/18 17:30 98.2 68 16 142/69 (93) 98.2 02/17/18 17:30 Room Air 02/17/18 16:00 98.8 62 20 113/57 (75) 94 98.8 02/17/18 16:00 98.8 62 20 113/57 (75) 94 98.8 02/17/18 14:02 140/62 Intake and Output 02/17/18 02/18/18 19:00 07:00 Intake Total 480 ml 120 ml Output Total 2000 ml Balance 480 ml -1880 ml Intake Oral 480 ml 120 ml Hemodialysis UF 2000 ml # Voids 4 1 # Bowel Movements 1 Height (Feet): 5 Height (Inches): 1.00 Weight (Pounds): 149 General Appearance: no apparent distress Cardiovascular: normal rate Respiratory/Chest: lungs clear Objective no change Eyad Dill MD Feb 18, 2018 12:52
[2018-02-18 15:49] VITALS: BP 150/64
[2018-02-18 20:00] VITALS: BP 130/55
[2018-02-19] VITALS: BP 155/62
[2018-02-19 04:00] VITALS: BP 165/73
[2018-02-19] MEDS: HydrALAZINE 25mg tab ORAL PRN (04:43)
[2018-02-19 05:30] VITALS: BP 148/65
--- NOTE | 2018-02-19 06:18 | General Progress Note ---
Assessment/Plan Problem List: (1) Abdominal pain of unknown etiology ICD Codes: R10.9 - Unspecified abdominal pain SNOMED: 140876487 (2) Hypertension ICD Codes: I10 - Essential (primary) hypertension SNOMED: 95663059 (3) Hypothyroid ICD Codes: E03.9 - Hypothyroidism, unspecified SNOMED: 66340013 (4) Hyperkalemia ICD Codes: E87.5 - Hyperkalemia SNOMED: 43137277 (5) Anemia in chronic kidney disease ICD Codes: N18.9 - Chronic kidney disease, unspecified; D63.1 - Anemia in chronic kidney disease SNOMED: 576001848, 042010296 (6) ESRD (end stage renal disease) ICD Codes: N18.6 - End stage renal disease SNOMED: 96135782 (7) Chronic diastolic (congestive) heart failure ICD Codes: I50.32 - Chronic diastolic (congestive) heart failure SNOMED: 24561091, 787106980 Status: stable, progressing Assessment/Plan antiemetic rx cardiac rx as is PPI dc planning after HD today Subjective ROS Limited/Unobtainable: No Constitutional: Reports: malaise, weakness HEENT: Reports: no symptoms Cardiovascular: Reports: no symptoms Respiratory: Reports: no symptoms Gastrointestinal/Abdominal: Reports: nausea Genitourinary: Reports: no symptoms Neurologic/Psychiatric: Reports: no symptoms Endocrine: Reports: no symptoms Hematologic/Lymphatic: Reports: no symptoms Allergies: Coded Allergies: No Known Allergies (Unverified , 12/23/12) All Systems: reviewed and negative except above Subjective c/o nausea. no vomiting. dtr could not accept pt yesterday for dc but is able to take pt home today after HD Objective Last 24 Hour Vital Signs Date Time Temp Pulse Resp B/P (MAP) Pulse Ox O2 Delivery O2 Flow Rate FiO2 02/19/18 05:55 148/65 02/19/18 05:30 148/65 (92) 02/19/18 04:43 165/73 02/19/18 04:00 98.9 73 20 165/73 (103) 94 98.9 02/19/18 00:00 99.0 64 20 155/62 (93) 93 99.0 02/18/18 22:00 121/59 02/18/18 21:00 Room Air 02/18/18 20:21 67 130/55 02/18/18 20:00 99.5 67 20 130/55 (80) 94 99.5 02/18/18 18:17 98.0 02/18/18 17:18 150/64 02/18/18 17:18 98.0 02/18/18 15:49 98.0 70 18 150/64 (92) 96 98.0 02/18/18 14:41 149/65 02/18/18 12:00 98.9 60 20 149/65 (93) 94 98.9 02/18/18 09:05 66 150/66 02/18/18 09:04 97.6 02/18/18 09:03 150/66 02/18/18 09:03 66 150/66 02/18/18 09:00 Room Air 02/18/18 08:00 97.6 66 19 150/66 (94) 94 97.6 Intake and Output 02/18/18 02/19/18 19:00 07:00 Intake Total 585 ml 200 ml Balance 585 ml 200 ml Intake Oral 585 ml 200 ml # Voids 2 3 # Bowel Movements 2 Height (Feet): 5 Height (Inches): 1.00 Weight (Pounds): 149 General Appearance: WD/WN, alert Neck: supple Cardiovascular: normal rate Respiratory/Chest: lungs clear Abdomen: normal bowel sounds, non tender, soft, no organomegaly Edema: no edema noted Arm (L), no edema noted Arm (R), no edema noted Leg (L), no edema noted Leg (R), no edema noted Pedal (L), no edema noted Pedal (R), no edema noted Generalized Neurologic: radiopharmacist II-XII grossly normal, alert, oriented x 3, responsive Arden Ocampo MD Feb 19, 2018 06:18
[2018-02-19] MEDS: Lyrica 25mg cap ORAL SCH (07:21)
[2018-02-19] MEDS: Vitamin D 1000 IU Tab ORAL SCH (07:21)
[2018-02-19] MEDS: BusPIRone 5mg Tab ORAL SCH ×2 (07:21→13:18)
[2018-02-19] MEDS: Aspirin Baby 81mg ORAL SCH (07:21)
[2018-02-19] MEDS: Lisinopril 10mg tab ORAL SCH (07:22)
[2018-02-19] MEDS: Metoprolol 25mg tab ORAL SCH (07:22)
[2018-02-19] MEDS: Docusate 100mg cap ORAL SCH ×2 (07:22→13:00)
[2018-02-19] MEDS: Sertraline 50mg tab ORAL SCH (07:23)
[2018-02-19 08:00] VITALS: BP 169/91
--- NOTE | 2018-02-19 08:03 | Nephrology Progress Note ---
Assessment/Plan Problem List: (1) ESRD (end stage renal disease) Assessment: CrCl 9 (2) Chronic diastolic (congestive) heart failure (3) Hyperkalemia (4) Anemia in chronic kidney disease Assessment chronic renal failure. likely due to Hypertensive kidney disease on 01/15/18... Crcl 11 S Cr 4.2 Now Cr 4.8 and +HyperKalemia 24 H Protein 1.34 gr -. Asthma, fairly stable at present. -. Cardiomegaly. -. Chronic Diastolic heart dysfunction. -. Hyperkalemia. -. Hypertension. -. Hypertensive heart disease. -. HypoThyroid Plan HD today and DC adjust BP meds has permacath eval by Vasc Surgeon appreciated re-arrange BP meds DC home / ECF when out patient dialysis is arranged Pulmonary toilet Kayexelate as needed Avoid Nephrotoxics 2D Echo- previously EjFx 55% Kidney ISIS previously: Echogenic kidneys per orders Subjective ROS Limited/Unobtainable: No Objective Objective Last 24 Hour Vital Signs Date Time Temp Pulse Resp B/P (MAP) Pulse Ox O2 Delivery O2 Flow Rate FiO2 02/19/18 07:21 98.9 02/19/18 05:55 148/65 02/19/18 05:30 148/65 (92) 02/19/18 04:43 165/73 02/19/18 04:00 98.9 73 20 165/73 (103) 94 98.9 02/19/18 00:00 99.0 64 20 155/62 (93) 93 99.0 02/18/18 22:00 121/59 02/18/18 21:00 Room Air 02/18/18 20:21 67 130/55 02/18/18 20:00 99.5 67 20 130/55 (80) 94 99.5 02/18/18 18:17 98.0 02/18/18 17:18 150/64 02/18/18 17:18 98.0 02/18/18 15:49 98.0 70 18 150/64 (92) 96 98.0 02/18/18 14:41 149/65 02/18/18 12:00 98.9 60 20 149/65 (93) 94 98.9 02/18/18 09:05 66 150/66 8/9/18 09:04 97.6 02/18/18 09:03 150/66 02/18/18 09:03 66 150/66 02/18/18 09:00 Room Air Intake and Output 02/18/18 02/19/18 19:00 07:00 Intake Total 585 ml 200 ml Balance 585 ml 200 ml Intake Oral 585 ml 200 ml # Voids 2 3 # Bowel Movements 2 Current Medications Medications (Trade) Dose Ordered Sig/Vaughn Route PRN Reason Start Time Stop Time Status Last Admin Dose Admin Acetaminophen (Tylenol) 650 mg Q4H PRN ORAL Mild Pain/Temp > 100.5 02/11/18 18:45 03/13/18 18:44 02/17/18 01:08 Amlodipine Besylate (Norvasc) 10 mg DAILY ORAL 02/15/18 09:00 03/17/18 08:59 02/18/18 09:05 Aspirin (ASA) 81 mg DAILY ORAL 02/12/18 09:00 03/14/18 08:59 02/19/18 07:21 Buspirone HCl (Buspar) 15 mg THREE TIMES A DAY ORAL 02/12/18 09:00 03/14/18 08:59 02/19/18 07:21 Clonidine HCl (Catapres Tab) 0.1 mg EVERY 8 HOURS ORAL 02/14/18 14:00 03/14/18 00:14 02/18/18 14:41 Docusate Sodium (Colace) 100 mg TID ORAL 02/12/18 13:00 03/14/18 08:59 02/18/18 14:41 Hydralazine HCl (Apresoline) 25 mg Q4H PRN ORAL bp over 160 syst 02/12/18 10:15 03/14/18 10:14 02/19/18 04:43 Levothyroxine Sodium (Synthroid) 50 mcg DAILY@0630 ORAL 02/12/18 06:30 03/14/18 06:29 02/19/18 05:55 Lisinopril (Zestril) 10 mg BID ORAL 02/16/18 18:00 03/17/18 08:59 02/18/18 17:18 Metoprolol Tartrate (Lopressor) 25 mg Q12HR ORAL 02/12/18 09:00 03/14/18 08:59 02/18/18 20:21 Ondansetron HCl (Zofran) 4 mg Q6H PRN IVP Nausea & Vomiting 02/19/18 06:30 03/21/18 06:29 02/19/18 07:22 Polyethylene Glycol (Miralax) 17 gm DAILYPRN PRN ORAL Constipation 02/15/18 08:30 03/17/18 08:29 Pregabalin (Lyrica) 25 mg BID ORAL 02/12/18 18:00 03/14/18 08:59 02/19/18 07:21 Sertraline HCl (Zoloft) 25 mg DAILY ORAL 02/12/18 09:00 03/14/18 08:59 02/19/18 07:23 Vitamin D (Vitamin D) 5,000 intlu DAILY ORAL 02/12/18 09:00 03/14/18 08:59 02/19/18 07:21 Height (Feet): 5 Height (Inches): 1.00 Weight (Pounds): 149 General Appearance: no apparent distress Objective no change Eyad Dill MD Feb 19, 2018 08:03
[2018-02-19 12:05] VITALS: BP 150/73
[2018-02-19 13:18] VITALS: BP 150/73
--- NOTE | 2018-02-19 16:51 | Diagnostic Imaging Report ---
APPROVED REPORT CPT Code: 94729 Present Symptoms Comments: Pre-op for dialysis access Vein Measurements(cm) Cephalic Basilic Right LeftRight Left 0.29Upper Arm0.290.31Mid Upper Arm0.31 0.29Mid Upper Arm0.280.41Antecubital Fossa0.43 Upper Forearm0.17 0.43Antecubital Fossa0.34Wrist 0.23Upper Forearm0.35 Wrist0.23 VEIN MAPPING: The right and left cephalic and basilic veins were imaged and measured to evaluate as a potential graft for dialysis access. BILATERAL UPPER EXTREMITY DEEP VENOUS SYSTEM: Imaging reveals patency of the internal jugular, subclavian, axillary and brachial veins. The cephalic and basilic veins are also patent. Doppler indicates normal spontaneous flow within these venous segments, bilaterally.
--- NOTE | 2018-02-19 16:51 | Diagnostic Imaging Report ---
APPROVED REPORT CPT Code: 13838 Vascular Symptoms Comments: Weakness Hx of RIJV catheter Abnormally tortuous curved course of origin of the right external and internal carotid arteries. Doppler Spectral Velocity Analysis RightLeft RIGHT SIDE: CCA - Imaging reveals no significant plaque in the common carotid artery. ICA The Doppler signal indicates the degree of stenosis is minimal (30%) in the internal carotid artery, and (30%) in the external carotid artery. VERTEBRAL - The vertebral artery is patent, without evidence of stenosis or steal. arteries. The Doppler spectral flow analysis indicates the degree of stenosis is mild (30%) in the common carotid artery, (40%) in the internal carotid artery, and (30%) in the external carotid artery. VERTEBRAL - The vertebral artery is patent, without evidence of stenosis or steal.
--- NOTE | 2018-02-19 16:51 | Diagnostic Imaging Report ---
APPROVED REPORT CPT Code: 54240 Symptoms Other : Weakness BILATERAL UPPER EXTREMITY: Imaging of the subclavian, axillary, brachial, radial and ulnar arteries is within normal limits. There is no evidence of stenosis or occlusions within these segments. The Doppler waveforms of both upper extremities are multiphasic, consistent with normal inflow to both upper extremities.
--- NOTE | 2018-02-21 09:52 | Discharge Summary ---
Discharge Summary Discharge Summary _ DATE OF ADMISSION: 02/11/2018 DATE OF DISCHARGE: 02/19/2018 REASON FOR ADMISSION: 87 years old female with past medical history significant for renal failure, hypertensive heart disease, asthma, mild dementia, end-stage arthritis, presented with worsening renal function. Patient also reported some shortness of breath. No chest pain no dizziness No leukocytosis BUN 58, creatinine 4.8 , potassium 5.3 Hemoglobin 9.5 and hematocrit 28.4. Troponin negative.Pro BNP 2830. Patient was admitted with diagnoses acute on chronic renal failure, diastolic dysfunction ,asthma, anemia ,hypertensive heart disease, hypertension, cardiomegaly, dementia ,hyperkalemia, hypothyroidism CONSULTANTS: neurologist Dr. Dill [facility] Patient admitted. Nephrology and vascular surgery consults requested. Patient started on slow hydration. Technical Engineer seen and evaluated patient. Patient agreed to hemodialysis. Perma-catheter was placed by radiology on February 12. Placement was confirmed by chest x-ray. Hemodialysis started as per ekg monitor tech's recommendations with close monitoring of volumes and cardiorenal parameters. Hyperkalemia was treated with Kayexalate. According to ekg monitor tech, renal failure secondary to hypertensive kidney disease. Nephrotoxics were avoided. Echocardiogram on previous admission revealed preserved ejection fraction 55%. Renal ultrasound on previous admission revealed echogenic kidneys. Blood pressure was managed with HALIMA inhibitor, calcium channel arlene and clonidine. DVT and GI prophylaxis provided. Venous duplex bilateral upper extremity revealed no evidence of DVT. Arterial duplex bilateral upper extremity was done along with vein mapping as ordered by vascular surgeon. Carotid duplex revealed mild stenosis. Vascular surgeon recommended to schedule outpatient of AV shunt placement. Patient tolerated hemodialysis. Anemia workup revealed stable iron ,B12 and folate. Anemia was likely due to chronic kidney disease. Hemoglobin and hematocrit were closely monitored with goal to keep hemoglobin above 7 , remained at baseline. With hemodialysis proBNP trending down from 2830 down to 1630. TSH was within normal limits. Current dose of levothyroxine was continued. Respiratory status was fairly stable. Supplemental oxygen and pulmonary toilet were on standby as needed. Pulse oximetry was stable on room air. No signs of asthma exacerbation. Initial; shortness of breath resolved with initiation of hemodialysis, was likely due to fluid overload. Bowel regimen instituted . Supportive care provided Outpatient hemodialysis was arranged . Patient was stable for discharge home with home health services and follow-up with outpatient hemodialysis FINAL DIAGNOSES: Acute on chronic renal failure, requiring initiation of hemodialysis Chronic diastolic congestive heart failure Hyperkalemia Anemia of chronic kidney disease Hypertensive heart disease Hypertension Cardiomegaly Asthma Dementia Hypothyroidism DISCHARGE MEDICATIONS: See Medication Reconciliation list. DISCHARGE INSTRUCTIONS: Patient was discharged home with home health services to follow. Follow-up with outpatient hemodialysis I have been assigned to dictate discharge summary for this account. I was not involved in the patient's management. Alma Rosa Sanchez NP Feb 21, 2018 09:52
== END 2018-02-19 14:24 | disposition home health service (06) | DRG 674 ==
LOC: 4E 17:38
PROC: 05HM33Z Insertion of Infusion Device into Right Internal Jugular Vein, Percutaneous Approach (ICD-10-PCS; principal; 2018-02-12)
PROC: 0JH63XZ Insertion of Tunneled Vascular Access Device into Chest Subcutaneous Tissue and Fascia, Percutaneous Approach (ICD-10-PCS; principal; 2018-02-12)
DX: N17.9 Acute kidney failure, unspecified (principal); I50.32 Chronic diastolic (congestive) heart failure; I13.2 Hypertensive heart and chronic kidney disease with heart failure and with stage 5 chronic kidney disease, or end stage renal disease; N18.6 End stage renal disease; E87.5 Hyperkalemia; D63.1 Anemia in chronic kidney disease; J45.909 Unspecified asthma, uncomplicated; F03.90 Unspecified dementia, unspecified severity, without behavioral disturbance, psychotic disturbance, mood disturbance, and anxiety; E03.9 Hypothyroidism, unspecified; M19.90 Unspecified osteoarthritis, unspecified site
CPT/HCPCS: 36415; 71045; 76000; 80048; 80053; 80061; 81001; 82575; 82607; 82728; 82746; 83036; 83540; 83550; 83735; 83880; 84100; 84443; 84484; 84550; 85025; 85610; 85730; 86140; 86580; 86706; 86707; 86803; 87081; 93880; 93930; 93970; 94664; J2405

== ENCOUNTER 2018-02-22 17:37 | Inpatient (IN) | payer MEDICARE, OTHER ==
[~2018-02-22] VITALS: Ht 162.6 cm; Wt 74.0 kg
[~2018-02-22 17:37] MED LIST changes: +ACETAMINOPHEN325 M1 ORAL; +CATAPRES0.1 MG ORAL; +COLACE100 MG ORAL; +HYDRALAZINE HCL25 M1 ORAL; +LYRICA25 MG ORAL; +MIRALAX17 G2 ORAL; +NORVASC10 MG ORAL; +ZESTRIL10 M1 ORAL
[2018-02-22 19:10] VITALS: BP 151/67
[2018-02-22 21:07] LABS: EOSINOPHILS % (AUTO) 5.7 % (0.0-3.0); HEMATOCRIT 26.8 % (37.0-47.0); HEMOGLOBIN 9.4 G/DL (12.0-16.0); LYMPHOCYTES % (AUTO) 33.6 % (20.0-45.0); MEAN CORPUSCULAR VOLUME 87 FL (80-99); MONOCYTES % (AUTO) 8.1 % (1.0-10.0); NEUTROPHILS % (AUTO) 50.6 % (45.0-75.0); PLATELET COUNT 253 K/UL (150-450); RED CELL DISTRIBUTION WIDTH 10.4 % (11.6-14.8); WHITE BLOOD COUNT 6.8 K/UL (4.8-10.8)
[2018-02-22 21:11] VITALS: BP 147/65
[2018-02-22 21:23] LABS: ALANINE AMINOTRANSFERASE 16 U/L (12-78); ALBUMIN 2.8 G/DL (3.4-5.0); ALBUMIN/GLOBULIN RATIO 0.6 (1.0-2.7); ALKALINE PHOSPHATASE 73 U/L (46-116); ANION GAP 13 mmol/L (5-15); ASPARTATE AMINO TRANSFERASE 24 U/L (15-37); BILIRUBIN,TOTAL 0.3 MG/DL (0.2-1.0); BLOOD UREA NITROGEN 78 mg/dL (7-18); CALCIUM 7.7 MG/DL (8.5-10.1); CARBON DIOXIDE 22 MMOL/L (21-32); CHLORIDE 82 MMOL/L (98-107); CREATININE 6.1 MG/DL (0.55-1.30); POTASSIUM 5.2 MMOL/L (3.5-5.1)
[2018-02-22 21:26] LABS: SODIUM 116 MMOL/L (136-145)
[2018-02-22] MEDS ORDERED: UNOBMED (21:39)
--- NOTE | 2018-02-22 22:08 | Consultation ---
Consult Note Consult Note patient refered for first OP HD Had BP of 90 syst and weak IN ER: Na 116 recently discharged Meds; per record seen in Er examined data reviewed Assessment/Plan admitted with Weakness , Low Na and low BP earlier Others: (1) ESRD (end stage renal disease) Hypertensive kidney disease, 24 H Protein 1.34 gr Assessment: CrCl 9 (2) Chronic diastolic (congestive) heart failure (3) Hyperkalemia (4) Anemia in chronic kidney disease (5) HypoNatremia (6) HypoThyroidism (7) Chronic Pain (8) Asthma, fairly stable at present. Admit Tele- 3% Saline- BP meds- adjust HD in am has permacath Pulmonary toilet Kayexelate as needed 2D Echo- previously EjFx 55% Kidney ISIS previously: Echogenic kidneys per orders Eyad Dill MD Feb 22, 2018 22:08
[2018-02-22] MEDS ORDERED: NaCl 3% 500ml 250 ML IV ONE (22:15)
[2018-02-22] MEDS ORDERED: Albuterol ud Inhalation HHN PRN (22:30)
[2018-02-22 23:23] LABS: BILIRUBIN, URINE NEGATIVE (NEGATIVE); COLOR,URINE PALE YELLOW; GLUCOSE, URINE (UA) NEGATIVE (NEGATIVE); KETONES,URINE NEGATIVE (NEGATIVE); LEUKOCYTE ESTERASE ,URINE 3+ (NEGATIVE); NITRITE,URINE NEGATIVE (NEGATIVE); PH,URINE 6.5 (4.5-8.0); PROTEIN,URINE 2+ (NEGATIVE); UROBILINOGEN,URINE NORMAL MG/DL (0.0-1.0)
[2018-02-22 23:30] VITALS: BP 150/60
--- NOTE | 2018-02-22 23:39 | Emergency Room Report ---
History of Present Illness General Chief Complaint: Generalized Weakness Source: Patient Present Illness HPI Mrs. Beltrán is an 87-year-old female presents with weakness and dizziness. Son- in-law Jose Alejandro provided Further history. She was so weak that she almost fell several times today. She has a new permacath for dialysis which was started on month ago. Her blood pressure today was to follow to receive dialysis today. Patient feels sick. She does not have any pain. PCP Dr. Fay Translation Director Dr. Richter Allergies: Coded Allergies: No Known Allergies (Unverified , 12/23/12) Patient History Limited by: language barrier Past Medical History: renal disease Past Surgical History: other - according to EMR Social History: Denies: smoking, alcohol use, drug use Last Menstrual Period: NA Now: No Reviewed Nursing Documentation: PMH: Agreed; PSxH: Agreed Nursing Documentation-PMH Past Medical History: No History, Except For Hx Cardiac Problems: Yes Hx Hypertension: Yes Hx Asthma: Yes Hx Cancer: No Hx Gastrointestinal Problems: Yes - cholecystitis & cholelithiasis Hx Dialysis: Yes - unknown days Hx Neurological Problems: Yes Hx Dementia: Yes Review of Systems Constitutional: Denies: fever, malaise Cardiovascular: Denies: chest pain Gastrointestinal: Denies: abdominal pain Neurological: Denies: headache, numbness, paresthesia, focal weakness All Other Systems: negative except mentioned in HPI Physical Exam Vital Signs Date Time Temp Pulse Resp B/P (MAP) Pulse Ox O2 Delivery O2 Flow Rate FiO2 02/22/18 17:55 97.7 57 16 151/67 95 Room Air 97.7 Sp02 EP Interpretation: reviewed, normal General Appearance: no apparent distress, alert, GCS 15, non-toxic Head: normocephalic, atraumatic Eyes: bilateral eye normal inspection ENT: hearing grossly normal, normal pharynx, no angioedema, normal voice Neck: full range of motion, supple/symm/no masses Respiratory: chest non-tender, lungs clear, normal breath sounds, speaking full sentences Cardiovascular #1: regular rate, rhythm, other - permacath in place without signs of infection Gastrointestinal: normal bowel sounds, non tender, soft, non-distended, no guarding, no rebound Rectal: deferred Genitourinary: normal inspection Musculoskeletal: back normal, gait/station normal, normal range of motion Neurologic: alert, oriented x3, responsive, motor strength/tone normal, sensory intact, speech normal Psychiatric: judgement/insight normal, memory normal, mood/affect normal Skin: normal color, no rash, warm/dry, well hydrated Lymphatic: no adenopathy Medical Decision Making Diagnostic Impression: Primary Impression: Hyponatremia Additional Impression: Acute renal failure (ARF) ER Course Mrs. Beltrán has hyponatremia which is likely exacerbating dizziness. Hx of vertigo. admitted to Dr. Fay's service. Dr. Richter evaluated Mrs. Beltrán face to face in ED. Labs Test 02/22/18 20:20 02/22/18 20:45 White Blood Count 6.8 K/UL (4.8-10.8) Red Blood Count 3.10 M/UL (4.20-5.40) Hemoglobin 9.4 G/DL (12.0-16.0) Hematocrit 26.8 % (37.0-47.0) Mean Corpuscular Volume 87 FL (80-99) Mean Corpuscular Hemoglobin 30.2 PG (27.0-31.0) Mean Corpuscular Hemoglobin Concent 34.9 G/DL (32.0-36.0) Red Cell Distribution Width 10.4 % (11.6-14.8) Platelet Count 253 K/UL (150-450) Mean Platelet Volume 5.8 FL (6.5-10.1) Neutrophils (%) (Auto) 50.6 % (45.0-75.0) Lymphocytes (%) (Auto) 33.6 % (20.0-45.0) Monocytes (%) (Auto) 8.1 % (1.0-10.0) Eosinophils (%) (Auto) 5.7 % (0.0-3.0) Basophils (%) (Auto) 2.0 % (0.0-2.0) Sodium Level 116 MMOL/L (136-145) Potassium Level 5.2 MMOL/L (3.5-5.1) Chloride Level 82 MMOL/L (98-107) Carbon Dioxide Level 22 MMOL/L (21-32) Anion Gap 13 mmol/L (5-15) Blood Urea Nitrogen 78 mg/dL (7-18) Creatinine 6.1 MG/DL (0.55-1.30) Estimat Glomerular Filtration Rate mL/min (>60) Glucose Level 94 MG/DL (74-106) Calcium Level 7.7 MG/DL (8.5-10.1) Total Bilirubin 0.3 MG/DL (0.2-1.0) Aspartate Amino Transf (AST/SGOT) 24 U/L (15-37) Alanine Aminotransferase (ALT/SGPT) 16 U/L (12-78) Alkaline Phosphatase 73 U/L (46-116) Troponin I 0.000 ng/mL (0.000-0.056) C-Reactive Protein, Quantitative 4.0 mg/dL (0.00-0.90) Total Protein 7.4 G/DL (6.4-8.2) Albumin 2.8 G/DL (3.4-5.0) Globulin 4.6 g/dL Albumin/Globulin Ratio 0.6 (1.0-2.7) EKG Diagnostic Results EKG Time: 18:37 Rate: normal Rhythm: NSR ST Segments: no acute changes Other Impression Prolonged [place] no ST elevation nl intervals Chest X-Ray Diagnostic Results Chest X-Ray Diagnostic Results : Chest X-Ray Ordered: Yes # of Views/Limited/Complete: 1 View Indication: Other - illness EP Interpretation: Yes Interpretation: no consolidation, no effusion, no pneumothorax Impression: No acute disease Electronically Signed by: This image has been electronically signed by Dr. Gisele Leon Last Vital Signs Date Time Temp Pulse Resp B/P (MAP) Pulse Ox O2 Delivery O2 Flow Rate FiO2 02/22/18 21:11 97.1 56 12 147/65 99 Room Air 97.1 Disposition: ADMITTED INPATIENT Referrals: Anjel Fay MD (PCP) GISELE LEON Feb 22, 2018 23:39
[2018-02-22 23:44] LABS: APPEARANCE,URINE CLOUDY
[2018-02-23] VITALS (7 sets, daily range): BP systolic 77–152; BP diastolic 36–79
[2018-02-23] MEDS ORDERED: cefTRIAXone 1 GM in D5W 55 ML IVPB ONE (00:15)
[2018-02-23] MEDS: traMADol 50mg tab ORAL PRN ×2 (01:03→11:45)
[2018-02-23 05:45] LABS: BASOPHILS % (AUTO) 1.7 % (0.0-2.0); EOSINOPHILS % (AUTO) 8.1 % (0.0-3.0); HEMATOCRIT 29.5 % (37.0-47.0); HEMOGLOBIN 10.5 G/DL (12.0-16.0); LYMPHOCYTES % (AUTO) 31.1 % (20.0-45.0); MEAN CORPUSCULAR VOLUME 87 FL (80-99); MONOCYTES % (AUTO) 7.5 % (1.0-10.0); NEUTROPHILS % (AUTO) 51.6 % (45.0-75.0); PLATELET COUNT 245 K/UL (150-450); RED CELL DISTRIBUTION WIDTH 10.5 % (11.6-14.8); WHITE BLOOD COUNT 6.5 K/UL (4.8-10.8)
[2018-02-23 06:24] LABS: ALANINE AMINOTRANSFERASE 15 U/L (12-78); ALBUMIN/GLOBULIN RATIO 0.6 (1.0-2.7); ALKALINE PHOSPHATASE 75 U/L (46-116); ANION GAP 11 mmol/L (5-15); ASPARTATE AMINO TRANSFERASE 15 U/L (15-37); BILIRUBIN,TOTAL 0.2 MG/DL (0.2-1.0); BLOOD UREA NITROGEN 77 mg/dL (7-18); CARBON DIOXIDE 24 MMOL/L (21-32); CHLORIDE 88 MMOL/L (98-107); CHOLESTEROL 129 MG/DL (< 200); CREATININE 5.9 MG/DL (0.55-1.30); FERRITIN 415 NG/ML (8-388); GAMMA GLUTAMYL TRANSPEPTIDASE 36 U/L (5-85); HDL CHOLESTEROL 35 MG/DL (40-60); PHOSPHORUS 6.5 MG/DL (2.5-4.9); POTASSIUM 4.5 MMOL/L (3.5-5.1); SODIUM 123 MMOL/L (136-145); TRIGLYCERIDES 242 MG/DL (30-150)
[2018-02-23 06:29] LABS: % IRON SATURATION 23 % (15-50); IRON 52 ug/dL (50-175); TOTAL IRON BINDING CAPACITY 229 ug/dL (250-450)
[2018-02-23] MEDS: BusPIRone 5mg Tab ORAL SCH ×3 (08:09→17:24)
[2018-02-23] MEDS: Lyrica 25mg cap ORAL SCH ×2 (08:10→17:25)
[2018-02-23] MEDS: Sertraline 50mg tab ORAL SCH (08:11)
[2018-02-23] MEDS: Aspirin EC 81mg tab ORAL SCH (08:11)
[2018-02-23] MEDS: Docusate 100mg cap ORAL SCH ×5 (08:11→17:25)
[2018-02-23] MEDS: Lisinopril 20mg tab ORAL SCH ×2 (08:19→17:28)
--- NOTE | 2018-02-23 09:07 | Diagnostic Imaging Report ---
. Indication: Chest pain Technique: One view of the chest Comparison: 02/14/2018 Findings: Atelectatic changes are again demonstrated in both lung bases. Left lateral basilar opacity previously demonstrated has cleared. Right chest tunneled dialysis catheter is again noted Impression: Bilateral basilar atelectatic changes Interim clearing of previously demonstrated left lateral basilar opacity, over 8 days Other findings as noted
--- NOTE | 2018-02-23 09:17 | Diagnostic Imaging Report ---
Indication: Headache and dizziness Technique: spiral acquisitions obtained through the brain. Angled axial and coronal 5 x 5 mm slices were reconstructed. No IV contrast utilized. Radiation dose was minimized using automated exposure control Total dose length product 1340.9 mGycm. CTDIvol(s) 70.38 mGy Comparison: none FINDINGS: No acute hemorrhage or edema. No mass effect or midline shift. There is age-related enlargement of the ventricles and extra axial CSF spaces. Focal widening of the parasagittal left frontal CSF space may indicate some cortical encephalomalacia in this area. There is periventricular deep white matter ischemic change. Normal winters-white differentiation. There is evidence of prior bilateral cataract surgery. Visualized sinuses are unremarkable. Intact calvarium. 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 Negative for acute intracranial bleed or mass effect This agrees with the preliminary interpretation provided overnight by [facility] teleradiology service. The CT scanner at [facility] is accredited by the [employer] and the scans are performed using protocols designed to limit radiation exposure to as low as reasonably achievable to attain images of sufficient resolution adequate for diagnostic evaluation
--- NOTE | 2018-02-23 11:24 | Nephrology Progress Note ---
Assessment/Plan Problem List: (1) ESRD (end stage renal disease) (2) Hyponatremia (3) Hypothyroid (4) Hypertension (5) Chronic diastolic (congestive) heart failure (6) Hyperkalemia (7) Anemia in chronic kidney disease Assessment (1) ESRD (end stage renal disease) Hypertensive kidney disease, 24 H Protein 1.34 gr Assessment: CrCl 9 (2) Chronic diastolic (congestive) heart failure (3) Hyperkalemia (4) Anemia in chronic kidney disease (5) HypoNatremia (6) HypoThyroidism (7) Chronic Pain (8) Asthma, fairly stable at present. Plan Admit Tele- 3% Saline- again BP meds- adjusted HD today has permacath Pulmonary toilet discussed with RN Subjective ROS Limited/Unobtainable: No Constitutional: Reports: malaise, weakness Objective Objective Last 24 Hour Vital Signs Date Time Temp Pulse Resp B/P (MAP) Pulse Ox O2 Delivery O2 Flow Rate FiO2 02/23/18 09:00 Room Air 02/23/18 08:19 139/72 02/23/18 08:18 52 139/72 02/23/18 08:00 97.7 52 16 139/72 (94) 96 97.7 02/23/18 07:40 53 16 Room Air 21 02/23/18 06:26 152/79 02/23/18 04:00 97.5 57 20 152/79 (103) 96 97.5 02/23/18 04:00 53 02/23/18 01:38 Room Air 02/23/18 00:30 56 02/23/18 00:30 97.7 59 18 110/72 (85) 97 97.7 02/23/18 00:30 97.0 54 16 150/60 95 Room Air 97.0 02/22/18 23:30 97.0 54 16 150/60 95 Room Air 97.0 02/22/18 21:11 97.1 56 12 147/65 99 Room Air 97.1 02/22/18 19:10 97.7 87 16 151/67 95 Room Air 97.7 02/22/18 17:55 97.7 57 16 151/67 95 Room Air 97.7 Intake and Output 02/22/18 02/23/18 19:00 07:00 # Voids 3 Laboratory Tests 02/22/18 20:20: Urine Color Pale yellow, Urine Appearance Cloudy, Urine pH 6.5, Urine Specific [place] 1.010, Urine Protein 2+H, Urine Glucose (UA) Negative, Urine Ketones Negative, Urine Occult Blood 1+H, Urine Nitrite Negative, Urine Bilirubin Negative, Urine Urobilinogen Normal, Urine Leukocyte Esterase 3+H, Urine RBC 0-2 , Urine WBC TntcH, Urine Squamous Epithelial Cells Few, Urine Bacteria ManyH 02/22/18 20:45: White Blood Count 6.8, Red Blood Count 3.10L, Hemoglobin 9.4L, Hematocrit 26.8L , Mean Corpuscular Volume 87, Mean Corpuscular Hemoglobin 30.2, Mean Corpuscular Hemoglobin Concent 34.9, Red Cell Distribution Width 10.4L, Platelet Count 253, Mean Platelet Volume 5.8L, Neutrophils (%) (Auto) 50.6, Lymphocytes (%) (Auto) 33.6, Monocytes (%) (Auto) 8.1, Eosinophils (%) (Auto) 5.7H, Basophils (%) (Auto) 2.0, Sodium Level 116*L, Potassium Level 5.2H, Chloride Level 82L, Carbon Dioxide Level 22, Anion Gap 13, Blood Urea Nitrogen 78H, Creatinine 6.1H, Estimat Glomerular Filtration Rate , Glucose Level 94, Calcium Level 7.7L, Total Bilirubin 0.3, Aspartate Amino Transf (AST/SGOT) 24, Alanine Aminotransferase (ALT/SGPT) 16, Alkaline Phosphatase 73, Troponin I 0.000, C-Reactive Protein, Quantitative 4.0H, Total Protein 7.4, Albumin 2.8L, Globulin 4.6, Albumin/Globulin Ratio 0.6L 02/23/18 05:25: White Blood Count 6.5, Red Blood Count 3.40L, Hemoglobin 10.5L, Hematocrit 29.5L , Mean Corpuscular Volume 87, Mean Corpuscular Hemoglobin 31.0, Mean Corpuscular Hemoglobin Concent 35.7, Red Cell Distribution Width 10.5L, Platelet Count 245, Mean Platelet Volume 5.8L, Neutrophils (%) (Auto) 51.6, Lymphocytes (%) (Auto) 31.1, Monocytes (%) (Auto) 7.5, Eosinophils (%) (Auto) 8.1H, Basophils (%) (Auto) 1.7, Sodium Level 123L, Potassium Level 4.5, Chloride Level 88L, Carbon Dioxide Level 24, Anion Gap 11, Blood Urea Nitrogen 77H, Creatinine 5.9H, Estimat Glomerular Filtration Rate , Glucose Level 93, Calcium Level 8.0L, Total Bilirubin 0.2, Aspartate Amino Transf (AST/SGOT) 15, Alanine Aminotransferase (ALT/SGPT) 15, Alkaline Phosphatase 75, Troponin I 0.000, Total Protein 7.7, Albumin 3.0L, Globulin 4.7, Albumin/Globulin Ratio 0.6L, Hemoglobin A1c 6.0, Uric Acid 7.1, Phosphorus Level 6.5H, Magnesium Level 2.1, Iron Level 52, Total Iron Binding Capacity 229L, Percent Iron Saturation 23 , Unsaturated Iron Binding 177, Ferritin 415H, Gamma Glutamyl Transpeptidase 36 , Pro-B-Type Natriuretic Peptide 1850H, Triglycerides Level 242H, Cholesterol Level 129, LDL Cholesterol 64, HDL Cholesterol 35L, Cholesterol/HDL Ratio 3.7, Vitamin B12 Level 1829H, Folate 17.1, Thyroid Stimulating Hormone (TSH) 3.894H Height (Feet): 5 Height (Inches): 4.00 Weight (Pounds): 159 General Appearance: no apparent distress Cardiovascular: normal rate Respiratory/Chest: decreased breath sounds Abdomen: soft Eyad Dill MD Feb 23, 2018 11:24
--- NOTE | 2018-02-23 15:35 | Cardiology Report ---
APPROVED REPORT EKG Measurement Heart [id number] Sinus bradycardia with 1st degree AV block Otherwise normal ECG
--- NOTE | 2018-02-23 19:15 | History & Physical ---
History and Physical History & Physicial patient with recent discharge and noted to have labile blood pressure and profound hyponatremia patient requires readmission renal noted was discharged home PMH ESRD hypertension dementia chronic headaches valvular heart disease asthma advanced age arthritis MEDS and ALLERGIES noted Social History: at home; nonsmoker or drinker; livers with family ROS: increased weakness and confusion; joint pains and swelling PHYSICAL WDWN NAD clear breath sounds bilaterally without rhonchi or wheeze [id number] without MRG NABS nontender no HSM no CC; mild edema nonfocal and weak Labs Test 02/22/18 20:20 02/22/18 20:45 02/23/18 05:25 Urine Color Pale yellow Urine Appearance Cloudy Urine pH 6.5 (4.5-8.0) Urine Specific [place] 1.010 (1.005-1.035) Urine Protein 2+ (NEGATIVE) Urine Glucose (UA) Negative (NEGATIVE) Urine Ketones Negative (NEGATIVE) Urine Occult Blood 1+ (NEGATIVE) Urine Nitrite Negative (NEGATIVE) Urine Bilirubin Negative (NEGATIVE) Urine Urobilinogen Normal MG/DL (0.0-1.0) Urine Leukocyte Esterase 3+ (NEGATIVE) Urine RBC 0-2 /HPF (0 - 2) Urine WBC Tntc /HPF (0 - 2) Urine Squamous Epithelial Cells Few /LPF (NONE/OCC) Urine Bacteria Many /HPF (NONE) White Blood Count 6.8 K/UL (4.8-10.8) 6.5 K/UL (4.8-10.8) Red Blood Count 3.10 M/UL (4.20-5.40) 3.40 M/UL (4.20-5.40) Hemoglobin 9.4 G/DL (12.0-16.0) 10.5 G/DL (12.0-16.0) Hematocrit 26.8 % (37.0-47.0) 29.5 % (37.0-47.0) Mean Corpuscular Volume 87 FL (80-99) 87 FL (80-99) Mean Corpuscular Hemoglobin 30.2 PG (27.0-31.0) 31.0 PG (27.0-31.0) Mean Corpuscular Hemoglobin Concent 34.9 G/DL (32.0-36.0) 35.7 G/DL (32.0-36.0) Red Cell Distribution Width 10.4 % (11.6-14.8) 10.5 % (11.6-14.8) Platelet Count 253 K/UL (150-450) 245 K/UL (150-450) Mean Platelet Volume 5.8 FL (6.5-10.1) 5.8 FL (6.5-10.1) Neutrophils (%) (Auto) 50.6 % (45.0-75.0) 51.6 % (45.0-75.0) Lymphocytes (%) (Auto) 33.6 % (20.0-45.0) 31.1 % (20.0-45.0) Monocytes (%) (Auto) 8.1 % (1.0-10.0) 7.5 % (1.0-10.0) Eosinophils (%) (Auto) 5.7 % (0.0-3.0) 8.1 % (0.0-3.0) Basophils (%) (Auto) 2.0 % (0.0-2.0) 1.7 % (0.0-2.0) Sodium Level 116 MMOL/L (136-145) 123 MMOL/L (136-145) Potassium Level 5.2 MMOL/L (3.5-5.1) 4.5 MMOL/L (3.5-5.1) Chloride Level 82 MMOL/L (98-107) 88 MMOL/L (98-107) Carbon Dioxide Level 22 MMOL/L (21-32) 24 MMOL/L (21-32) Anion Gap 13 mmol/L (5-15) 11 mmol/L (5-15) Blood Urea Nitrogen 78 mg/dL (7-18) 77 mg/dL (7-18) Creatinine 6.1 MG/DL (0.55-1.30) 5.9 MG/DL (0.55-1.30) Estimat Glomerular Filtration Rate mL/min (>60) mL/min (>60) Glucose Level 94 MG/DL (74-106) 93 MG/DL (74-106) Calcium Level 7.7 MG/DL (8.5-10.1) 8.0 MG/DL (8.5-10.1) Total Bilirubin 0.3 MG/DL (0.2-1.0) 0.2 MG/DL (0.2-1.0) Aspartate Amino Transf (AST/SGOT) 24 U/L (15-37) 15 U/L (15-37) Alanine Aminotransferase (ALT/SGPT) 16 U/L (12-78) 15 U/L (12-78) Alkaline Phosphatase 73 U/L (46-116) 75 U/L (46-116) Troponin I 0.000 ng/mL (0.000-0.056) 0.000 ng/mL (0.000-0.056) C-Reactive Protein, Quantitative 4.0 mg/dL (0.00-0.90) Total Protein 7.4 G/DL (6.4-8.2) 7.7 G/DL (6.4-8.2) Albumin 2.8 G/DL (3.4-5.0) 3.0 G/DL (3.4-5.0) Globulin 4.6 g/dL 4.7 g/dL Albumin/Globulin Ratio 0.6 (1.0-2.7) 0.6 (1.0-2.7) Hemoglobin A1c 6.0 % (4.3-6.0) Uric Acid 7.1 MG/DL (2.6-7.2) Phosphorus Level 6.5 MG/DL (2.5-4.9) Magnesium Level 2.1 MG/DL (1.8-2.4) Iron Level 52 ug/dL (50-175) Total Iron Binding Capacity 229 ug/dL (250-450) Percent Iron Saturation 23 % (15-50) Unsaturated Iron Binding 177 ug/dL (112-346) Ferritin 415 NG/ML (8-388) Gamma Glutamyl Transpeptidase 36 U/L (5-85) Pro-B-Type Natriuretic Peptide 1850 pg/mL (0-125) Triglycerides Level 242 MG/DL (30-150) Cholesterol Level 129 MG/DL (< 200) LDL Cholesterol 64 mg/dL (<100) HDL Cholesterol 35 MG/DL (40-60) Cholesterol/HDL Ratio 3.7 (3.3-4.4) Vitamin B12 Level 1829 PG/ML (193-986) Folate 17.1 NG/ML (8.6-58.9) Thyroid Stimulating Hormone (TSH) 3.894 uiU/mL (0.358-3.740) IMPRESSION ESRD hyponatremia anemia of chronic disease moderate protein calorie malnutrition PLAN per renal PT evaluation may need SNF d/w family and d/w renal monitor labs and hemodynamics impression, plan, and exam edited and reviewed in detail care discussed with Anjel Larry MD Feb 23, 2018 19:15
--- NOTE | 2018-02-23 19:16 | General Progress Note ---
Subjective Allergies: Coded Allergies: No Known Allergies (Unverified , 12/23/12) Objective Last 24 Hour Vital Signs Date Time Temp Pulse Resp B/P (MAP) Pulse Ox O2 Delivery O2 Flow Rate FiO2 02/23/18 17:28 138/65 02/23/18 16:00 55 02/23/18 16:00 97.3 60 20 138/65 (89) 93 97.3 02/23/18 13:35 130/65 02/23/18 12:00 54 02/23/18 12:00 97.9 50 16 124/63 (83) 97 97.9 02/23/18 09:00 Room Air 02/23/18 08:19 139/72 02/23/18 08:18 52 139/72 02/23/18 08:00 50 02/23/18 08:00 97.7 52 16 139/72 (94) 96 97.7 02/23/18 07:40 53 16 Room Air 21 02/23/18 06:26 152/79 02/23/18 04:00 97.5 57 20 152/79 (103) 96 97.5 02/23/18 04:00 53 02/23/18 01:38 Room Air 02/23/18 00:30 56 02/23/18 00:30 97.7 59 18 110/72 (85) 97 97.7 02/23/18 00:30 97.0 54 16 150/60 95 Room Air 97.0 02/22/18 23:30 97.0 54 16 150/60 95 Room Air 97.0 02/22/18 21:11 97.1 56 12 147/65 99 Room Air 97.1 Intake and Output 02/22/18 02/23/18 19:00 07:00 # Voids 3 Laboratory Tests 02/22/18 20:20: Urine Color Pale yellow, Urine Appearance Cloudy, Urine pH 6.5, Urine Specific [place] 1.010, Urine Protein 2+H, Urine Glucose (UA) Negative, Urine Ketones Negative, Urine Occult Blood 1+H, Urine Nitrite Negative, Urine Bilirubin Negative, Urine Urobilinogen Normal, Urine Leukocyte Esterase 3+H, Urine RBC 0-2 , Urine WBC TntcH, Urine Squamous Epithelial Cells Few, Urine Bacteria ManyH 02/22/18 20:45: White Blood Count 6.8, Red Blood Count 3.10L, Hemoglobin 9.4L, Hematocrit 26.8L , Mean Corpuscular Volume 87, Mean Corpuscular Hemoglobin 30.2, Mean Corpuscular Hemoglobin Concent 34.9, Red Cell Distribution Width 10.4L, Platelet Count 253, Mean Platelet Volume 5.8L, Neutrophils (%) (Auto) 50.6, Lymphocytes (%) (Auto) 33.6, Monocytes (%) (Auto) 8.1, Eosinophils (%) (Auto) 5.7H, Basophils (%) (Auto) 2.0, Sodium Level 116*L, Potassium Level 5.2H, Chloride Level 82L, Carbon Dioxide Level 22, Anion Gap 13, Blood Urea Nitrogen 78H, Creatinine 6.1H, Estimat Glomerular Filtration Rate , Glucose Level 94, Calcium Level 7.7L, Total Bilirubin 0.3, Aspartate Amino Transf (AST/SGOT) 24, Alanine Aminotransferase (ALT/SGPT) 16, Alkaline Phosphatase 73, Troponin I 0.000, C-Reactive Protein, Quantitative 4.0H, Total Protein 7.4, Albumin 2.8L, Globulin 4.6, Albumin/Globulin Ratio 0.6L 02/23/18 05:25: White Blood Count 6.5, Red Blood Count 3.40L, Hemoglobin 10.5L, Hematocrit 29.5L , Mean Corpuscular Volume 87, Mean Corpuscular Hemoglobin 31.0, Mean Corpuscular Hemoglobin Concent 35.7, Red Cell Distribution Width 10.5L, Platelet Count 245, Mean Platelet Volume 5.8L, Neutrophils (%) (Auto) 51.6, Lymphocytes (%) (Auto) 31.1, Monocytes (%) (Auto) 7.5, Eosinophils (%) (Auto) 8.1H, Basophils (%) (Auto) 1.7, Sodium Level 123L, Potassium Level 4.5, Chloride Level 88L, Carbon Dioxide Level 24, Anion Gap 11, Blood Urea Nitrogen 77H, Creatinine 5.9H, Estimat Glomerular Filtration Rate , Glucose Level 93, Calcium Level 8.0L, Total Bilirubin 0.2, Aspartate Amino Transf (AST/SGOT) 15, Alanine Aminotransferase (ALT/SGPT) 15, Alkaline Phosphatase 75, Troponin I 0.000, Total Protein 7.7, Albumin 3.0L, Globulin 4.7, Albumin/Globulin Ratio 0.6L, Hemoglobin A1c 6.0, Uric Acid 7.1, Phosphorus Level 6.5H, Magnesium Level 2.1, Iron Level 52, Total Iron Binding Capacity 229L, Percent Iron Saturation 23 , Unsaturated Iron Binding 177, Ferritin 415H, Gamma Glutamyl Transpeptidase 36 , Pro-B-Type Natriuretic Peptide 1850H, Triglycerides Level 242H, Cholesterol Level 129, LDL Cholesterol 64, HDL Cholesterol 35L, Cholesterol/HDL Ratio 3.7, Vitamin B12 Level 1829H, Folate 17.1, Thyroid Stimulating Hormone (TSH) 3.894H Height (Feet): 5 Height (Inches): 4.00 Weight (Pounds): 159 Anjel Fay MD Feb 23, 2018 19:16
[2018-02-24] VITALS (8 sets, daily range): BP systolic 147–167; BP diastolic 68–100
[2018-02-24 06:12] LABS: BASOPHILS % (AUTO) 1.5 % (0.0-2.0); EOSINOPHILS % (AUTO) 4.9 % (0.0-3.0); HEMATOCRIT 29.3 % (37.0-47.0); HEMOGLOBIN 9.8 G/DL (12.0-16.0); LYMPHOCYTES % (AUTO) 30.4 % (20.0-45.0); MEAN CORPUSCULAR VOLUME 88 FL (80-99); MONOCYTES % (AUTO) 8.4 % (1.0-10.0); NEUTROPHILS % (AUTO) 54.8 % (45.0-75.0); PLATELET COUNT 226 K/UL (150-450); RED BLOOD COUNT 3.34 M/UL (4.20-5.40); RED CELL DISTRIBUTION WIDTH 10.8 % (11.6-14.8); WHITE BLOOD COUNT 6.7 K/UL (4.8-10.8)
[2018-02-24 06:29] LABS: ALANINE AMINOTRANSFERASE 15 U/L (12-78); ALBUMIN 3.1 G/DL (3.4-5.0); ALBUMIN/GLOBULIN RATIO 0.6 (1.0-2.7); ALKALINE PHOSPHATASE 86 U/L (46-116); ANION GAP 12 mmol/L (5-15); ASPARTATE AMINO TRANSFERASE 15 U/L (15-37); BILIRUBIN,TOTAL 0.2 MG/DL (0.2-1.0); BLOOD UREA NITROGEN 75 mg/dL (7-18); CALCIUM 8.1 MG/DL (8.5-10.1); CARBON DIOXIDE 23 MMOL/L (21-32); CHLORIDE 92 MMOL/L (98-107); CREATININE 5.2 MG/DL (0.55-1.30); PHOSPHORUS 7.6 MG/DL (2.5-4.9); SODIUM 127 MMOL/L (136-145)
[2018-02-24] MEDS ORDERED: NaCl 3% 500ml 250 ML IV ONE (09:30)
[2018-02-24] MEDS: Aspirin EC 81mg tab ORAL SCH (10:07)
[2018-02-24] MEDS: BusPIRone 5mg Tab ORAL SCH ×3 (10:07→18:04)
[2018-02-24] MEDS: Docusate 100mg cap ORAL SCH ×2 (10:08→18:05)
[2018-02-24] MEDS: Lyrica 25mg cap ORAL SCH ×2 (10:08→18:10)
[2018-02-24] MEDS: Lisinopril 20mg tab ORAL SCH ×2 (10:09→18:06)
[2018-02-24] MEDS: Acetaminophen 500mg (ES) tab ORAL SCH ×3 (10:10→18:10)
[2018-02-24] MEDS: Sertraline 50mg tab ORAL SCH (10:13)
--- NOTE | 2018-02-24 10:32 | Nephrology Progress Note ---
Assessment/Plan Problem List: (1) ESRD (end stage renal disease) (2) Hyponatremia (3) Hypothyroid (4) Hypertension (5) Chronic diastolic (congestive) heart failure (6) Hyperkalemia (7) Anemia in chronic kidney disease Assessment (1) ESRD (end stage renal disease) Hypertensive kidney disease, 24 H Protein 1.34 gr Assessment: CrCl 9 (2) Chronic diastolic (congestive) heart failure (3) Hyperkalemia (4) Anemia in chronic kidney disease (5) HypoNatremia (6) HypoThyroidism (7) Chronic Pain (8) Asthma, fairly stable at present. Plan Admit Tele- 3% Saline- again BP meds- adjusted HD in am has permacath Pulmonary toilet discussed with RN to ECF upon discharge Subjective ROS Limited/Unobtainable: No Constitutional: Reports: malaise, other - abdominal pains Objective Objective Last 24 Hour Vital Signs Date Time Temp Pulse Resp B/P (MAP) Pulse Ox O2 Delivery O2 Flow Rate FiO2 02/24/18 10:15 98.1 02/24/18 10:13 61 160/68 02/24/18 10:10 98.1 02/24/18 10:09 160/68 02/24/18 10:08 98.1 02/24/18 08:00 98.1 61 18 160/68 (98) 95 98.1 02/24/18 04:00 59 02/24/18 04:00 98.5 61 20 152/70 (97) 98 98.5 02/24/18 01:22 57 157/100 (119) 02/24/18 01:08 97.7 56 22 165/76 (105) 100 97.7 02/24/18 00:06 Room Air 02/24/18 00:05 96.4 53 20 160/100 (120) 96.4 02/24/18 00:00 52 02/23/18 21:00 Room Air 02/23/18 20:15 98/58 (71) 02/23/18 20:00 Room Air 02/23/18 20:00 58 18 Room Air 21 02/23/18 20:00 58 02/23/18 20:00 98.0 68 20 77/36 (50) 99 98.0 02/23/18 20:00 98.0 68 20 77/36 (50) 98.0 02/23/18 17:28 138/65 02/23/18 16:00 55 02/23/18 16:00 97.3 60 20 138/65 (89) 93 97.3 02/23/18 13:35 130/65 02/23/18 12:00 54 02/23/18 12:00 97.9 50 16 124/63 (83) 97 97.9 Intake and Output 02/23/18 02/24/18 19:00 07:00 Intake Total 480 ml 340 ml Output Total 500 ml 1200 ml Balance -20 ml -860 ml Intake Oral 480 ml 100 ml IV Total 240 ml Output Urine Total 500 ml 200 ml Hemodialysis UF 1000 ml # Voids 3 # Bowel Movements 1 Laboratory Tests 02/24/18 05:50: White Blood Count 6.7, Red Blood Count 3.34L, Hemoglobin 9.8L, Hematocrit 29.3L , Mean Corpuscular Volume 88, Mean Corpuscular Hemoglobin 29.4, Mean Corpuscular Hemoglobin Concent 33.5, Red Cell Distribution Width 10.8L, Platelet Count 226, Mean Platelet Volume 5.9L, Neutrophils (%) (Auto) 54.8, Lymphocytes (%) (Auto) 30.4, Monocytes (%) (Auto) 8.4, Eosinophils (%) (Auto) 4.9H, Basophils (%) (Auto) 1.5, Sodium Level 127L, Potassium Level 5.0, Chloride Level 92L, Carbon Dioxide Level 23, Anion Gap 12, Blood Urea Nitrogen 75H, Creatinine 5.2H, Estimat Glomerular Filtration Rate , Glucose Level 100, Uric Acid 7.3H, Calcium Level 8.1L, Phosphorus Level 7.6H, Total Bilirubin 0.2, Aspartate Amino Transf (AST/SGOT) 15, Alanine Aminotransferase (ALT/SGPT) 15, Alkaline Phosphatase 86, Troponin I 0.000, Total Protein 8.1, Albumin 3.1L, Globulin 5.0, Albumin/Globulin Ratio 0.6L Height (Feet): 5 Height (Inches): 4.00 Weight (Pounds): 163 General Appearance: mild distress Cardiovascular: normal rate Respiratory/Chest: lungs clear Abdomen: soft Eyad Dill MD Feb 24, 2018 10:32
[2018-02-24] MEDS: Nitroglycerin Patch 0.4mg TDERMAL SCH (12:08)
--- NOTE | 2018-02-24 14:39 | General Progress Note ---
Assessment/Plan Assessment/Plan ESRD hyponatremia debility anemia, chronic DJD PLAN HD PT pain management will need SNF d/w family impression, plan, and exam edited and reviewed in detail care discussed with RN Subjective Allergies: Coded Allergies: No Known Allergies (Unverified , 12/23/12) Subjective reviewed with nephro needs snf very weak Objective Last 24 Hour Vital Signs Date Time Temp Pulse Resp B/P (MAP) Pulse Ox O2 Delivery O2 Flow Rate FiO2 02/24/18 14:14 98.1 02/24/18 13:15 98.1 02/24/18 12:08 160/68 02/24/18 11:07 98.1 02/24/18 11:07 98.1 02/24/18 10:15 98.1 02/24/18 10:13 61 160/68 02/24/18 10:10 98.1 02/24/18 10:09 160/68 02/24/18 10:08 98.1 02/24/18 08:20 Room Air 02/24/18 08:00 98.1 61 18 160/68 (98) 95 98.1 02/24/18 04:00 59 02/24/18 04:00 98.5 61 20 152/70 (97) 98 98.5 02/24/18 01:22 57 157/100 (119) 02/24/18 01:08 97.7 56 22 165/76 (105) 100 97.7 02/24/18 00:06 Room Air 02/24/18 00:05 96.4 53 20 160/100 (120) 96.4 02/24/18 00:00 52 02/23/18 21:00 Room Air 02/23/18 20:15 98/58 (71) 02/23/18 20:00 Room Air 02/23/18 20:00 58 18 Room Air 21 02/23/18 20:00 58 02/23/18 20:00 98.0 68 20 77/36 (50) 99 98.0 02/23/18 20:00 98.0 68 20 77/36 (50) 98.0 02/23/18 17:28 138/65 02/23/18 16:00 55 02/23/18 16:00 97.3 60 20 138/65 (89) 93 97.3 Intake and Output 02/23/18 02/24/18 19:00 07:00 Intake Total 480 ml 340 ml Output Total 500 ml 1200 ml Balance -20 ml -860 ml Intake Oral 480 ml 100 ml IV Total 240 ml Output Urine Total 500 ml 200 ml Hemodialysis UF 1000 ml # Voids 3 # Bowel Movements 1 Laboratory Tests 02/24/18 05:50: White Blood Count 6.7, Red Blood Count 3.34L, Hemoglobin 9.8L, Hematocrit 29.3L , Mean Corpuscular Volume 88, Mean Corpuscular Hemoglobin 29.4, Mean Corpuscular Hemoglobin Concent 33.5, Red Cell Distribution Width 10.8L, Platelet Count 226, Mean Platelet Volume 5.9L, Neutrophils (%) (Auto) 54.8, Lymphocytes (%) (Auto) 30.4, Monocytes (%) (Auto) 8.4, Eosinophils (%) (Auto) 4.9H, Basophils (%) (Auto) 1.5, Sodium Level 127L, Potassium Level 5.0, Chloride Level 92L, Carbon Dioxide Level 23, Anion Gap 12, Blood Urea Nitrogen 75H, Creatinine 5.2H, Estimat Glomerular Filtration Rate , Glucose Level 100, Uric Acid 7.3H, Calcium Level 8.1L, Phosphorus Level 7.6H, Total Bilirubin 0.2, Aspartate Amino Transf (AST/SGOT) 15, Alanine Aminotransferase (ALT/SGPT) 15, Alkaline Phosphatase 86, Troponin I 0.000, Total Protein 8.1, Albumin 3.1L, Globulin 5.0, Albumin/Globulin Ratio 0.6L Height (Feet): 5 Height (Inches): 4.00 Weight (Pounds): 163 Objective WDWN NAD clear breath sounds bilaterally without rhonchi or wheeze [id number] without MRG NABS nontender no HSM no CC mild edema nonfocal Anjel Fay MD Feb 24, 2018 14:39
[2018-02-24] MEDS: HydrALAZINE 25mg tab ORAL PRN ×2 (14:53→21:31)
--- NOTE | 2018-02-24 15:53 | Consultation ---
History of Present Illness General Date patient seen: Feb 24, 2018 Chief Complaint: Generalized Weakness Present Illness HPI 87-year-old female with hx of depression and anxiety presents with weakness and dizziness. the pt has anxiety and low energy. poor sleep at times Allergies: Coded Allergies: No Known Allergies (Unverified , 12/23/12) Medication History Scheduled Amlodipine Besylate (Norvasc), 10 MG ORAL DAILY, (Reported) Aspirin* (Aspir 81*), 81 MG ORAL DAILY, (Reported) Buspirone Hcl* (Buspar*), 15 MG PO TID, (Reported) Clonidine Hcl* (Catapres*), 0.1 MG ORAL EVERY 8 HOURS, (Reported) Cyclosporine (Restasis), 1 DROP BOTH EYES DAILY, (Reported) Dexlansoprazole (Dexilant), 60 MG ORAL DAILY, (Reported) Docusate Sodium* (Docusate Sodium*), 200 MG ORAL TWICE A DAY, (Reported) Docusate Sodium* (Colace*), 100 MG ORAL THREE TIMES A DAY, (Reported) Epoetin Trae (Epogen), 20,000 UNIT SUBQ On Mon, Wed, Thu, (Reported) Ferrous Sulfate* (Ferrous Sulfate*), 325 MG ORAL TWICE A DAY, (Reported) Fluticasone Propionate (Fluticasone Propionate), 1 SPRAYS NA DAILY, (Reported) Hydralazine HCl (Hydralazine HCl), 50 MG ORAL Q8HR Levothyroxine Sodium* (Levothyroxine Sodium*), 50 MCG ORAL DAILY, (Reported) Levothyroxine Sodium* (Levothyroxine Sodium*), 75 MCG ORAL DAILY@0600 Lisinopril* (Zestril*), 10 MG ORAL BID, (Reported) Metoprolol Tartrate (Metoprolol Tartrate), 25 MG ORAL Q12HR Nebivolol Hcl (Bystolic), 20 MG ORAL DAILY, (Reported) Nifedipine Er* (Adalat Cc*), 30 MG ORAL DAILY Nifedipine Er* (Nifedipine Er*), 30 MG ORAL DAILY, (Reported) Nifedipine Xl* (Procardia Xl*), 30 MG ORAL Q12HR Pregabalin (Lyrica), 25 MG ORAL BID, (Reported) Sertraline Hcl* (Zoloft*), 25 MG PO DAILY, (Reported) Sodium Citrate (Sod Citrate-Citric Acid Soln), 30 ML ORAL BID Vitamin D (Vitamin D3), 5,000 UNITS ORAL DAILY, (Reported) Scheduled PRN Acetaminophen* (Acetaminophen 325MG Tablet*), 650 MG ORAL Q4H PRN for Prn Headache/Temp > 101, (Reported) Albuterol Sulfate* (Albuterol Sulfate Hhn*), 3 ML INH Q4H PRN for Shortness of Breath, (Reported) Docusate Sodium* (Docusate Sodium*), 200 MG ORAL TWICE A DAY PRN for Constipation, (Reported) Hydralazine Hcl* (Hydralazine Hcl*), 25 MG ORAL EVERY 4 HOURS PRN for sbp >160, (Reported) Polyethylene Glycol 3350* (Miralax*), 17 GM ORAL DAILY PRN for Constipation, ( Reported) Tramadol Hcl* (Ultram*), 50 MG ORAL Q6H PRN for moderate to severe pain, ( Reported) Miscellaneous Medications Unable to Obtain Medications (Unable To Obtain Meds), (Reported) Discontinued Medications Albuterol Sulfate* (Albuterol Sulfate Hhn*), 3 ML INH Q4H PRN for Shortness of Breath, (Reported) Discontinued Reason: Therapy completed Buspirone Hcl* (Buspirone Hcl*), 15 MG ORAL ONCE, (Reported) Discontinued Reason: Medication dose changed Clonidine HCl (Clonidine HCl), 0.2 MG PO TID, (Reported) Discontinued Reason: Medication dose changed Clonidine Hcl* (Catapres*), 0.2 MG ORAL Q8HR, (Reported) Discontinued Reason: Medication dose changed Dexlansoprazole (Dexilant), 60 MG ORAL DAILY, (Reported) Discontinued Reason: Medication dose changed Hydralazine Hcl* (Hydralazine Hcl*), 100 MG ORAL BID, (Reported) Discontinued Reason: Medication dose changed Levothyroxine Sodium* (Levothyroxine Sodium*), 50 MCG ORAL DAILY, (Reported) Discontinued Reason: Medication dose changed Nebivolol Hcl (Bystolic*), 10 MG ORAL BID, (Reported) Discontinued Reason: Medication dose changed Nebivolol Hcl (Bystolic*), 20 MG ORAL Q12HR, (Reported) Discontinued Reason: Medication dose changed Nebivolol Hcl (Bystolic*), 20 MG ORAL DAILY, (Reported) Discontinued Reason: discontinued med Piperacillin Sodium/Tazobactam (Zosyn 3.375 Gram Vial), 3.375 GM IVPB Q12HR, ( Reported) Discontinued Reason: Therapy completed [id number],Iso (Zosyn 3.375 Gm Pre Mix-Bag), 3.375 GM IVPB EVERY 12 HOURS, (Reported) Discontinued Reason: Therapy completed Pregabalin (Lyrica), 50 MG ORAL DAILY, (Reported) Discontinued Reason: Medication dose changed Tramadol Hcl* (Ultram*), 50 MG ORAL Q6H PRN for For Pain, (Reported) Discontinued Reason: Therapy completed Patient History Limited by: medical condition History Provided By: Patient, Medical Record, PMD Healthcare decision maker N Resuscitation status Full Code Advanced Directive on File No Review of Systems Psychiatric: Reports: prior hx, anxiety, depressed feelings Physical Exam General Appearance: no apparent distress, alert Neurologic: depressed affect Last 24 Hour Vital Signs Date Time Temp Pulse Resp B/P (MAP) Pulse Ox O2 Delivery O2 Flow Rate FiO2 02/24/18 14:53 160/68 02/24/18 14:14 98.1 02/24/18 13:15 98.1 02/24/18 12:08 160/68 02/24/18 12:00 98.6 60 20 167/68 (101) 93 98.6 02/24/18 11:37 59 02/24/18 11:07 98.1 02/24/18 11:07 98.1 02/24/18 10:15 98.1 02/24/18 10:13 61 160/68 02/24/18 10:10 98.1 02/24/18 10:09 160/68 02/24/18 10:08 98.1 02/24/18 08:20 Room Air 02/24/18 08:15 55 18 Room Air 21 02/24/18 08:00 98.1 61 18 160/68 (98) 95 98.1 02/24/18 07:20 59 02/24/18 04:00 59 02/24/18 04:00 98.5 61 20 152/70 (97) 98 98.5 02/24/18 01:22 57 157/100 (119) 02/24/18 01:08 97.7 56 22 165/76 (105) 100 97.7 02/24/18 00:06 Room Air 02/24/18 00:05 96.4 53 20 160/100 (120) 96.4 02/24/18 00:00 52 02/23/18 21:00 Room Air 02/23/18 20:15 98/58 (71) 02/23/18 20:00 Room Air 02/23/18 20:00 58 18 Room Air 21 02/23/18 20:00 58 02/23/18 20:00 98.0 68 20 77/36 (50) 99 98.0 02/23/18 20:00 98.0 68 20 77/36 (50) 98.0 02/23/18 17:28 138/65 02/23/18 16:00 55 02/23/18 16:00 97.3 60 20 138/65 (89) 93 97.3 Intake and Output 02/23/18 02/24/18 19:00 07:00 Intake Total 480 ml 340 ml Output Total 500 ml 1200 ml Balance -20 ml -860 ml Intake Oral 480 ml 100 ml IV Total 240 ml Output Urine Total 500 ml 200 ml Hemodialysis UF 1000 ml # Voids 3 # Bowel Movements 1 Laboratory Tests Test 02/24/18 05:50 White Blood Count 6.7 K/UL (4.8-10.8) Red Blood Count 3.34 M/UL (4.20-5.40) L Hemoglobin 9.8 G/DL (12.0-16.0) L Hematocrit 29.3 % (37.0-47.0) L Mean Corpuscular Volume 88 FL (80-99) Mean Corpuscular Hemoglobin 29.4 PG (27.0-31.0) Mean Corpuscular Hemoglobin Concent 33.5 G/DL (32.0-36.0) Red Cell Distribution Width 10.8 % (11.6-14.8) L Platelet Count 226 K/UL (150-450) Mean Platelet Volume 5.9 FL (6.5-10.1) L Neutrophils (%) (Auto) 54.8 % (45.0-75.0) Lymphocytes (%) (Auto) 30.4 % (20.0-45.0) Monocytes (%) (Auto) 8.4 % (1.0-10.0) Eosinophils (%) (Auto) 4.9 % (0.0-3.0) H Basophils (%) (Auto) 1.5 % (0.0-2.0) Sodium Level 127 MMOL/L (136-145) L Potassium Level 5.0 MMOL/L (3.5-5.1) Chloride Level 92 MMOL/L (98-107) L Carbon Dioxide Level 23 MMOL/L (21-32) Anion Gap 12 mmol/L (5-15) Blood Urea Nitrogen 75 mg/dL (7-18) H Creatinine 5.2 MG/DL (0.55-1.30) H Estimat Glomerular Filtration Rate mL/min (>60) Glucose Level 100 MG/DL (74-106) Uric Acid 7.3 MG/DL (2.6-7.2) H Calcium Level 8.1 MG/DL (8.5-10.1) L Phosphorus Level 7.6 MG/DL (2.5-4.9) H Total Bilirubin 0.2 MG/DL (0.2-1.0) Aspartate Amino Transf (AST/SGOT) 15 U/L (15-37) Alanine Aminotransferase (ALT/SGPT) 15 U/L (12-78) Alkaline Phosphatase 86 U/L (46-116) Troponin I 0.000 ng/mL (0.000-0.056) Total Protein 8.1 G/DL (6.4-8.2) Albumin 3.1 G/DL (3.4-5.0) L Globulin 5.0 g/dL Albumin/Globulin Ratio 0.6 (1.0-2.7) L Height (Feet): 5 Height (Inches): 4.00 Weight (Pounds): 163 Medications Current Medications Medications (Trade) Dose Ordered Sig/Vaughn Route PRN Reason Start Time Stop Time Status Last Admin Dose Admin Acetaminophen (Tylenol) 650 mg Q4H PRN ORAL Prn Headache/Temp > 101 02/22/18 22:15 03/24/18 22:14 Acetaminophen (Tylenol) 650 mg TID ORAL 02/24/18 09:00 03/26/18 08:59 02/24/18 13:15 Albuterol Sulfate (Proventil) 2.5 mg Q4H PRN HHN Shortness of Breath 02/22/18 22:30 02/27/18 22:29 Amlodipine Besylate (Norvasc) 5 mg BID ORAL 02/24/18 09:00 03/25/18 08:59 02/24/18 10:13 Aspirin (Ecotrin) 81 mg DAILY ORAL 02/23/18 09:00 03/25/18 08:59 02/24/18 10:07 Buspirone HCl (Buspar) 15 mg TID ORAL 02/23/18 09:00 03/25/18 08:59 02/24/18 13:14 Docusate Sodium (Colace) 200 mg TWICE A DAY ORAL 02/23/18 09:00 03/25/18 08:59 02/24/18 10:08 Hydralazine HCl (Apresoline) 25 mg EVERY 4 HOURS PRN ORAL sbp >160 02/22/18 22:15 03/24/18 22:14 02/24/18 14:53 Levothyroxine Sodium (Synthroid) 50 mcg DAILY@0630 ORAL 02/23/18 06:30 03/25/18 06:29 02/24/18 05:44 Lisinopril (Prinivil) 20 mg BID ORAL 02/24/18 09:00 03/25/18 08:59 02/24/18 10:09 Metoclopramide HCl (Reglan) 5 mg THREE TIMES A DAY ORAL 02/24/18 09:00 03/26/18 08:59 02/24/18 13:15 Nitroglycerin (Ntg) 1 patch Q24H TDERMAL 02/24/18 11:00 03/26/18 10:59 02/24/18 12:08 Pantoprazole (Protonix) 40 mg EVERY 12 HOURS ORAL 02/24/18 09:00 03/26/18 08:59 02/24/18 10:07 Pregabalin (Lyrica) 25 mg BID ORAL 02/23/18 09:00 03/25/18 08:59 02/24/18 10:08 Sertraline HCl (Zoloft) 25 mg DAILY ORAL 02/23/18 09:00 03/25/18 08:59 02/24/18 10:13 Sevelamer Carbonate (Renvela) 1,600 mg THREE TIMES A DAY ORAL 02/24/18 09:00 03/26/18 08:59 02/24/18 13:14 Sodium Chloride 250 ml @ 30 mls/hr ONCE ONCE IV 02/24/18 09:30 02/24/18 17:49 02/24/18 10:45 Tramadol HCl (Ultram) 50 mg Q6H PRN ORAL moderate to severe pain 02/22/18 22:15 03/01/18 22:14 02/23/18 11:45 Assessment/Plan Assessment/Plan mdd anxiety buspar 15mg tid zoloft 25mg Gopal Werner MD Feb 24, 2018 15:53
[2018-02-25] VITALS (7 sets, daily range): BP systolic 122–166; BP diastolic 64–78
[2018-02-25] MEDS: BusPIRone 5mg Tab ORAL SCH ×3 (08:16→17:20)
[2018-02-25] MEDS: Lyrica 25mg cap ORAL SCH ×2 (08:16→17:20)
[2018-02-25] MEDS: Lisinopril 20mg tab ORAL SCH ×2 (08:17→18:53)
[2018-02-25] MEDS: Aspirin EC 81mg tab ORAL SCH (08:17)
[2018-02-25] MEDS: Sertraline 50mg tab ORAL SCH (08:17)
[2018-02-25] MEDS: Docusate 100mg cap ORAL SCH ×2 (08:18→17:20)
[2018-02-25] MEDS: Acetaminophen 500mg (ES) tab ORAL SCH ×3 (08:18→17:21)
--- NOTE | 2018-02-25 10:35 | General Progress Note ---
Assessment/Plan Assessment/Plan ESRD hyponatremia debility anemia, chronic DJD UTI PLAN add cipro HD PT pain management will need SNF but patient wants home d/w renal d/w family impression, plan, and exam edited and reviewed in detail care discussed with RN Subjective Allergies: Coded Allergies: No Known Allergies (Unverified , 12/23/12) Subjective reviewed with nephro needs snf but daughter refused very weak and weak Objective Last 24 Hour Vital Signs Date Time Temp Pulse Resp B/P (MAP) Pulse Ox O2 Delivery O2 Flow Rate FiO2 02/25/18 09:15 98.8 02/25/18 08:49 98.8 75 20 166/74 (104) 97 98.8 02/25/18 08:17 166/74 02/25/18 08:17 74 166/74 02/25/18 08:16 98.8 02/25/18 07:31 78 02/25/18 07:11 Room Air 02/25/18 04:00 98.8 68 20 152/72 (98) 97 98.8 02/25/18 04:00 68 02/25/18 00:00 98.4 68 20 149/74 (99) 95 98.4 02/25/18 00:00 73 02/24/18 21:31 162/73 02/24/18 21:00 Room Air 02/24/18 20:30 98.2 69 20 162/73 (102) 94 98.2 02/24/18 20:00 64 18 Room Air 21 02/24/18 20:00 65 02/24/18 19:09 98.6 02/24/18 18:10 98.6 02/24/18 18:10 98.6 02/24/18 18:07 63 147/78 02/24/18 18:06 147/78 02/24/18 16:00 64 02/24/18 16:00 98.6 63 20 147/78 (101) 94 98.6 02/24/18 14:53 160/68 02/24/18 13:15 98.1 02/24/18 12:08 160/68 02/24/18 12:00 98.6 60 20 167/68 (101) 93 98.6 02/24/18 11:37 59 02/24/18 11:07 98.1 Intake and Output 02/24/18 02/25/18 19:00 07:00 Output Total 400 ml Balance -400 ml Output Urine Total 400 ml # Voids 3 Height (Feet): 5 Height (Inches): 4.00 Weight (Pounds): 163 Objective WDWN NAD clear breath sounds bilaterally without rhonchi or wheeze [id number] without MRG NABS nontender no HSM no CC mild edema nonfocal Anjel Fay MD Feb 25, 2018 10:35
[2018-02-25] MEDS: Nitroglycerin Patch 0.4mg TDERMAL SCH (11:25)
--- NOTE | 2018-02-25 12:20 | Nephrology Progress Note ---
Assessment/Plan Problem List: (1) ESRD (end stage renal disease) (2) Hyponatremia (3) Hypothyroid (4) Hypertension (5) Chronic diastolic (congestive) heart failure (6) Hyperkalemia (7) Anemia in chronic kidney disease Assessment (1) ESRD (end stage renal disease) Hypertensive kidney disease, 24 H Protein 1.34 gr Assessment: CrCl 9 (2) Chronic diastolic (congestive) heart failure (3) Hyperkalemia (4) Anemia in chronic kidney disease (5) HypoNatremia (6) HypoThyroidism (7) Chronic Pain (8) Asthma, fairly stable at present. Plan BP meds- adjusted Hydralazine added HD in am has permacath Pulmonary toilet discussed with RN to ECF upon discharge Subjective ROS Limited/Unobtainable: No Constitutional: Reports: malaise Objective Objective Last 24 Hour Vital Signs Date Time Temp Pulse Resp B/P (MAP) Pulse Ox O2 Delivery O2 Flow Rate FiO2 02/25/18 11:27 98.0 71 20 166/74 (104) 97 98.0 02/25/18 11:25 168/74 02/25/18 09:15 98.8 02/25/18 08:49 98.8 75 20 166/74 (104) 97 98.8 02/25/18 08:17 166/74 02/25/18 08:17 74 166/74 02/25/18 08:16 98.8 02/25/18 07:31 78 02/25/18 07:11 Room Air 02/25/18 04:00 98.8 68 20 152/72 (98) 97 98.8 02/25/18 04:00 68 02/25/18 00:00 98.4 68 20 149/74 (99) 95 98.4 02/25/18 00:00 73 02/24/18 21:31 162/73 02/24/18 21:00 Room Air 02/24/18 20:30 98.2 69 20 162/73 (102) 94 98.2 02/24/18 20:00 64 18 Room Air 21 02/24/18 20:00 65 02/24/18 19:09 98.6 02/24/18 18:10 98.6 02/24/18 18:10 98.6 02/24/18 18:07 63 147/78 02/24/18 18:06 147/78 02/24/18 16:00 64 02/24/18 16:00 98.6 63 20 147/78 (101) 94 98.6 02/24/18 14:53 160/68 02/24/18 13:15 98.1 Intake and Output 02/24/18 02/25/18 19:00 07:00 Output Total 400 ml Balance -400 ml Output Urine Total 400 ml # Voids 3 Current Medications Medications (Trade) Dose Ordered Sig/Vaughn Route PRN Reason Start Time Stop Time Status Last Admin Dose Admin Acetaminophen (Tylenol) 650 mg Q4H PRN ORAL Prn Headache/Temp > 101 02/22/18 22:15 03/24/18 22:14 Acetaminophen (Tylenol) 650 mg TID ORAL 02/24/18 09:00 03/26/18 08:59 02/24/18 18:10 Albuterol Sulfate (Proventil) 2.5 mg Q4H PRN HHN Shortness of Breath 02/22/18 22:30 02/27/18 22:29 Amlodipine Besylate (Norvasc) 5 mg BID ORAL 02/24/18 09:00 03/25/18 08:59 02/25/18 08:17 Aspirin (Ecotrin) 81 mg DAILY ORAL 02/23/18 09:00 03/25/18 08:59 02/25/18 08:17 Buspirone HCl (Buspar) 15 mg TID ORAL 02/23/18 09:00 03/25/18 08:59 02/25/18 12:14 Ciprofloxacin (Cipro 250mg tab) 250 mg EVERY 12 HOURS ORAL 02/25/18 21:00 03/04/18 20:59 Docusate Sodium (Colace) 200 mg TWICE A DAY ORAL 02/23/18 09:00 03/25/18 08:59 02/25/18 08:18 Hydralazine HCl (Apresoline) 25 mg EVERY 4 HOURS PRN ORAL sbp >160 02/22/18 22:15 03/24/18 22:14 02/24/18 21:31 Levothyroxine Sodium (Synthroid) 50 mcg DAILY@0630 ORAL 02/23/18 06:30 03/25/18 06:29 02/25/18 06:04 Lisinopril (Prinivil) 20 mg BID ORAL 02/24/18 09:00 03/25/18 08:59 02/25/18 08:17 Metoclopramide HCl (Reglan) 5 mg THREE TIMES A DAY ORAL 02/24/18 09:00 03/26/18 08:59 02/25/18 12:14 Nitroglycerin (Ntg) 1 patch Q24H TDERMAL 02/24/18 11:00 03/26/18 10:59 02/25/18 11:25 Pantoprazole (Protonix) 40 mg EVERY 12 HOURS ORAL 02/24/18 09:00 03/26/18 08:59 02/25/18 08:17 Pregabalin (Lyrica) 25 mg BID ORAL 02/23/18 09:00 03/25/18 08:59 02/25/18 08:16 Sertraline HCl (Zoloft) 25 mg DAILY ORAL 02/23/18 09:00 03/25/18 08:59 02/25/18 08:17 Sevelamer Carbonate (Renvela) 1,600 mg THREE TIMES A DAY ORAL 02/24/18 09:00 03/26/18 08:59 02/25/18 12:14 Tramadol HCl (Ultram) 50 mg Q6H PRN ORAL moderate to severe pain 02/22/18 22:15 03/01/18 22:14 02/23/18 11:45 Height (Feet): 5 Height (Inches): 4.00 Weight (Pounds): 163 General Appearance: no apparent distress Cardiovascular: normal rate Respiratory/Chest: lungs clear Abdomen: soft Eyad Dill MD Feb 25, 2018 12:20
[2018-02-25] MEDS: HydrALAZINE 25mg tab ORAL SCH ×2 (14:30→21:36)
--- NOTE | 2018-02-25 19:58 | General Progress Note ---
Assessment/Plan Assessment/Plan anxiety depression ritesh segovia Subjective Date patient seen: Feb 25, 2018 Neurologic/Psychiatric: Reports: anxiety, depressed Allergies: Coded Allergies: No Known Allergies (Unverified , 12/23/12) Subjective the pt stated that she wants to go home Objective Last 24 Hour Vital Signs Date Time Temp Pulse Resp B/P (MAP) Pulse Ox O2 Delivery O2 Flow Rate FiO2 02/25/18 18:54 78 164/78 (106) 02/25/18 18:25 74 181/100 02/25/18 18:20 98.0 02/25/18 18:19 98.0 02/25/18 17:21 98.0 02/25/18 17:20 98.0 02/25/18 16:17 73 02/25/18 15:29 98.0 71 20 122/68 (86) 97 98.0 02/25/18 14:30 164/78 02/25/18 11:29 73 02/25/18 11:27 98.0 71 20 166/74 (104) 97 98.0 02/25/18 11:25 168/74 02/25/18 08:49 98.8 75 20 166/74 (104) 97 98.8 02/25/18 08:17 166/74 02/25/18 08:17 74 166/74 02/25/18 08:16 98.8 02/25/18 08:05 62 18 Room Air 21 02/25/18 07:31 78 02/25/18 07:11 Room Air 02/25/18 04:00 98.8 68 20 152/72 (98) 97 98.8 02/25/18 04:00 68 02/25/18 00:00 98.4 68 20 149/74 (99) 95 98.4 02/25/18 00:00 73 02/24/18 21:31 162/73 02/24/18 21:00 Room Air 02/24/18 20:30 98.2 69 20 162/73 (102) 94 98.2 02/24/18 20:00 64 18 Room Air 21 02/24/18 20:00 65 Intake and Output 02/24/18 02/25/18 19:00 07:00 Output Total 400 ml Balance -400 ml Output Urine Total 400 ml # Voids 3 Height (Feet): 5 Height (Inches): 4.00 Weight (Pounds): 163 General Appearance: no apparent distress, alert Neurologic: depressed affect Gopal Whitfield MD Feb 25, 2018 19:58
[2018-02-26] VITALS: BP 133/74
[2018-02-26 04:00] VITALS: BP 156/77
[2018-02-26 05:24] LABS: BASOPHILS % (AUTO) 1.4 % (0.0-2.0); EOSINOPHILS % (AUTO) 4.2 % (0.0-3.0); HEMATOCRIT 27.5 % (37.0-47.0); LYMPHOCYTES % (AUTO) 26.3 % (20.0-45.0); MEAN CORPUSCULAR VOLUME 89 FL (80-99); MONOCYTES % (AUTO) 9.2 % (1.0-10.0); NEUTROPHILS % (AUTO) 58.9 % (45.0-75.0); PLATELET COUNT 248 K/UL (150-450); RED CELL DISTRIBUTION WIDTH 10.9 % (11.6-14.8)
[2018-02-26 05:45] LABS: ALANINE AMINOTRANSFERASE 12 U/L (12-78); ALBUMIN/GLOBULIN RATIO 0.6 (1.0-2.7); ALKALINE PHOSPHATASE 64 U/L (46-116); ANION GAP 6 mmol/L (5-15); ASPARTATE AMINO TRANSFERASE 15 U/L (15-37); BILIRUBIN,TOTAL 0.2 MG/DL (0.2-1.0); BLOOD UREA NITROGEN 30 mg/dL (7-18); CALCIUM 8.6 MG/DL (8.5-10.1); CARBON DIOXIDE 32 MMOL/L (21-32); CHLORIDE 101 MMOL/L (98-107); CREATININE 2.9 MG/DL (0.55-1.30); POTASSIUM 3.7 MMOL/L (3.5-5.1); SODIUM 139 MMOL/L (136-145)
[2018-02-26] MEDS: HydrALAZINE 25mg tab ORAL SCH ×3 (05:48→22:55)
[2018-02-26 08:00] VITALS: BP 164/99
[2018-02-26] MEDS: Docusate 100mg cap ORAL SCH ×2 (09:32→17:56)
[2018-02-26] MEDS: Lisinopril 20mg tab ORAL SCH ×2 (09:32→17:57)
[2018-02-26] MEDS: Lyrica 25mg cap ORAL SCH ×2 (09:33→17:55)
[2018-02-26] MEDS: Acetaminophen 500mg (ES) tab ORAL SCH ×3 (09:33→17:56)
[2018-02-26] MEDS: Aspirin EC 81mg tab ORAL SCH (09:34)
[2018-02-26] MEDS: BusPIRone 5mg Tab ORAL SCH ×3 (09:34→17:57)
[2018-02-26] MEDS: Sertraline 50mg tab ORAL SCH (09:35)
[2018-02-26] MEDS ORDERED: cefTRIAXone 1 GM in D5W 110 ML IVPB SCH (11:00)
[2018-02-26] MEDS: Nitroglycerin Patch 0.4mg TDERMAL SCH (11:08)
--- NOTE | 2018-02-26 11:31 | General Progress Note ---
Assessment/Plan Assessment/Plan ESRD hyponatremia debility anemia, chronic DJD UTI PLAN rocephin HD PT pain management dc planning dc tele impression, plan, and exam edited and reviewed in detail care discussed with RN Subjective Allergies: Coded Allergies: No Known Allergies (Unverified , 12/23/12) Subjective reviewed with nephro needs snf but daughter still refusing very weak and needs 24 hour care Objective Last 24 Hour Vital Signs Date Time Temp Pulse Resp B/P (MAP) Pulse Ox O2 Delivery O2 Flow Rate FiO2 02/26/18 11:08 156/62 02/26/18 09:35 63 156/62 02/26/18 09:32 156/62 02/26/18 09:00 Room Air 02/26/18 08:00 94 02/26/18 08:00 98.2 100 18 164/99 (120) 94 98.2 02/26/18 06:55 63 18 Room Air 21 02/26/18 05:48 156/62 02/26/18 04:00 96 02/26/18 04:00 98.0 77 20 156/77 (103) 96 98.0 02/26/18 00:00 80 02/26/18 00:00 98.9 80 20 133/74 (93) 94 98.9 02/25/18 21:36 161/64 02/25/18 21:15 Room Air 21 02/25/18 21:00 Room Air 02/25/18 20:00 98.2 77 20 161/64 (96) 97 98.2 02/25/18 20:00 77 02/25/18 19:30 69 18 Room Air 21 02/25/18 18:54 78 164/78 (106) 02/25/18 18:25 74 181/100 02/25/18 18:20 98.0 02/25/18 18:19 98.0 02/25/18 17:30 Room Air 21 02/25/18 17:21 98.0 02/25/18 17:20 98.0 02/25/18 16:17 73 02/25/18 15:29 98.0 71 20 122/68 (86) 97 98.0 02/25/18 14:30 164/78 Intake and Output 02/25/18 02/26/18 19:00 07:00 Intake Total 360 ml 120 ml Output Total 200 ml 1100 ml Balance 160 ml -980 ml Intake Oral 360 ml 120 ml Output Urine Total 200 ml Hemodialysis UF 1100 ml # Voids 2 3 Laboratory Tests 02/26/18 04:45: White Blood Count 7.0, Red Blood Count 3.10L, Hemoglobin 9.0L, Hematocrit 27.5L , Mean Corpuscular Volume 89, Mean Corpuscular Hemoglobin 29.1, Mean Corpuscular Hemoglobin Concent 32.9, Red Cell Distribution Width 10.9L, Platelet Count 248, Mean Platelet Volume 5.3L, Neutrophils (%) (Auto) 58.9, Lymphocytes (%) (Auto) 26.3, Monocytes (%) (Auto) 9.2, Eosinophils (%) (Auto) 4.2H, Basophils (%) (Auto) 1.4, Sodium Level 139, Potassium Level 3.7, Chloride Level 101, Carbon Dioxide Level 32, Anion Gap 6, Blood Urea Nitrogen 30H, Creatinine 2.9H, Estimat Glomerular Filtration Rate , Glucose Level 106, Calcium Level 8.6, Phosphorus Level 3.0, Magnesium Level 2.0, Total Bilirubin 0.2, Aspartate Amino Transf (AST/SGOT) 15, Alanine Aminotransferase (ALT/SGPT) 12, Alkaline Phosphatase 64, Troponin I 0.011, Total Protein 7.7, Albumin 3.0L, Globulin 4.7, Albumin/Globulin Ratio 0.6L Height (Feet): 5 Height (Inches): 4.00 Weight (Pounds): 163 Objective WDWN NAD clear breath sounds bilaterally without rhonchi or wheeze [id number] without MRG NABS nontender no HSM no CC mild edema nonfocal Anjel Fay MD Feb 26, 2018 11:31
[2018-02-26 12:00] VITALS: BP 162/88
--- NOTE | 2018-02-26 13:24 | Nephrology Progress Note ---
Assessment/Plan Problem List: (1) ESRD (end stage renal disease) (2) Hyponatremia Assessment: resolved (3) Hypothyroid (4) Hypertension (5) Chronic diastolic (congestive) heart failure (6) Hyperkalemia (7) Anemia in chronic kidney disease Assessment (1) ESRD (end stage renal disease) Hypertensive kidney disease, 24 H Protein 1.34 gr Assessment: CrCl 9 (2) Chronic diastolic (congestive) heart failure (3) Hyperkalemia (4) Anemia in chronic kidney disease (5) HypoNatremia (6) HypoThyroidism (7) Chronic Pain (8) Asthma, fairly stable at present. Plan BP meds- adjusted Hydralazine added HD in am has permacath Pulmonary toilet discussed with RN to ECF upon discharge Subjective ROS Limited/Unobtainable: No Constitutional: Reports: malaise Objective Objective Last 24 Hour Vital Signs Date Time Temp Pulse Resp B/P (MAP) Pulse Ox O2 Delivery O2 Flow Rate FiO2 02/26/18 12:44 98.2 02/26/18 11:08 156/62 02/26/18 09:35 63 156/62 02/26/18 09:32 156/62 02/26/18 09:00 Room Air 02/26/18 08:00 94 02/26/18 08:00 98.2 100 18 164/99 (120) 94 98.2 02/26/18 06:55 63 18 Room Air 21 02/26/18 05:48 156/62 02/26/18 04:00 96 02/26/18 04:00 98.0 77 20 156/77 (103) 96 98.0 02/26/18 00:00 80 02/26/18 00:00 98.9 80 20 133/74 (93) 94 98.9 02/25/18 21:36 161/64 02/25/18 21:15 Room Air 21 02/25/18 21:00 Room Air 02/25/18 20:00 98.2 77 20 161/64 (96) 97 98.2 02/25/18 20:00 77 02/25/18 19:30 69 18 Room Air 21 02/25/18 18:54 78 164/78 (106) 02/25/18 18:25 74 181/100 02/25/18 18:20 98.0 02/25/18 18:19 98.0 02/25/18 17:30 Room Air 21 02/25/18 17:21 98.0 02/25/18 17:20 98.0 02/25/18 16:17 73 02/25/18 15:29 98.0 71 20 122/68 (86) 97 98.0 02/25/18 14:30 164/78 Intake and Output 02/25/18 02/26/18 19:00 07:00 Intake Total 360 ml 120 ml Output Total 200 ml 1100 ml Balance 160 ml -980 ml Intake Oral 360 ml 120 ml Output Urine Total 200 ml Hemodialysis UF 1100 ml # Voids 2 3 Laboratory Tests 02/26/18 04:45: White Blood Count 7.0, Red Blood Count 3.10L, Hemoglobin 9.0L, Hematocrit 27.5L , Mean Corpuscular Volume 89, Mean Corpuscular Hemoglobin 29.1, Mean Corpuscular Hemoglobin Concent 32.9, Red Cell Distribution Width 10.9L, Platelet Count 248, Mean Platelet Volume 5.3L, Neutrophils (%) (Auto) 58.9, Lymphocytes (%) (Auto) 26.3, Monocytes (%) (Auto) 9.2, Eosinophils (%) (Auto) 4.2H, Basophils (%) (Auto) 1.4, Sodium Level 139, Potassium Level 3.7, Chloride Level 101, Carbon Dioxide Level 32, Anion Gap 6, Blood Urea Nitrogen 30H, Creatinine 2.9H, Estimat Glomerular Filtration Rate , Glucose Level 106, Calcium Level 8.6, Phosphorus Level 3.0, Magnesium Level 2.0, Total Bilirubin 0.2, Aspartate Amino Transf (AST/SGOT) 15, Alanine Aminotransferase (ALT/SGPT) 12, Alkaline Phosphatase 64, Troponin I 0.011, Total Protein 7.7, Albumin 3.0L, Globulin 4.7, Albumin/Globulin Ratio 0.6L Height (Feet): 5 Height (Inches): 4.00 Weight (Pounds): 163 Eyad Dill MD Feb 26, 2018 13:24
[2018-02-26 15:34] VITALS: BP 142/86
[2018-02-26] MEDS ORDERED: Albuterol ud Inhalation HHN PRN (16:24)
[2018-02-26] MEDS ORDERED: HydrALAZINE 25mg tab ORAL PRN (16:25)
[2018-02-26] MEDS ORDERED: traMADol 50mg tab ORAL PRN (16:28)
[2018-02-26 20:00] VITALS: BP 161/90
--- NOTE | 2018-02-26 23:15 | Progress Note ---
DATE: 02/26/2018 SUBJECTIVE: The patient is alert and awake in bed in no acute distress, calm and cooperative, has some anxiety at night she is manageable. No behavior issues. MENTAL STATUS EXAMINATION: The patient is alert and oriented times self, place, and situation. Mood is anxious. Affect is constricted, congruent with mood. Thought process is concrete. Thought content, no suicidal or homicidal ideations. ASSESSMENT: Anxiety disorder. PLAN: 1. The patient will be continued on current medication. 2. Provide the patient with supportive therapy and reality orientation. She will be continued on buspirone and Zoloft. Gopal Whitfield M.D. DR: MARTINEZ JOB#: [id number] CC:
[2018-02-27] VITALS (7 sets, daily range): BP systolic 130–173; BP diastolic 66–126
[2018-02-27] MEDS: HydrALAZINE 25mg tab ORAL SCH ×3 (05:07→20:51)
[2018-02-27] MEDS: Sertraline 50mg tab ORAL SCH (09:00)
[2018-02-27] MEDS: Lisinopril 20mg tab ORAL SCH ×2 (09:00→17:31)
[2018-02-27] MEDS: BusPIRone 5mg Tab ORAL SCH ×3 (09:00→17:30)
[2018-02-27] MEDS: Acetaminophen 500mg (ES) tab ORAL SCH ×3 (09:00→17:32)
[2018-02-27] MEDS: Lyrica 25mg cap ORAL SCH ×2 (09:00→17:30)
[2018-02-27] MEDS: Docusate 100mg cap ORAL SCH ×2 (09:00→17:30)
[2018-02-27] MEDS: Aspirin EC 81mg tab ORAL SCH (09:00)
[2018-02-27] MEDS: cefTRIAXone 1 GM in D5W 110 ML IVPB SCH (10:11)
[2018-02-27] MEDS: Nitroglycerin Patch 0.4mg TDERMAL SCH (11:00)
--- NOTE | 2018-02-27 11:37 | General Progress Note ---
Assessment/Plan Problem List: (1) Positional vertigo of both ears ICD Codes: H81.313 - Aural vertigo, bilateral SNOMED: 340291446 (2) COPD (chronic obstructive pulmonary disease) ICD Codes: J44.9 - Chronic obstructive pulmonary disease, unspecified SNOMED: 57419010 (3) Acute renal failure (ARF) ICD Codes: N17.9 - Acute kidney failure, unspecified SNOMED: 89619075 (4) Hypertension ICD Codes: I10 - Essential (primary) hypertension SNOMED: 70293109 (5) Hypothyroid ICD Codes: E03.9 - Hypothyroidism, unspecified SNOMED: 17483213 (6) Anemia in chronic kidney disease ICD Codes: N18.9 - Chronic kidney disease, unspecified; D63.1 - Anemia in chronic kidney disease SNOMED: 599430579, 865423060 (7) Chronic diastolic (congestive) heart failure ICD Codes: I50.32 - Chronic diastolic (congestive) heart failure SNOMED: 14229752, 041096272 Status: stable, progressing Assessment/Plan cont current rx cardiac rx pt/ot mobilize Subjective ROS Limited/Unobtainable: No Constitutional: Reports: malaise, weakness HEENT: Reports: no symptoms Cardiovascular: Reports: no symptoms Respiratory: Reports: no symptoms Gastrointestinal/Abdominal: Reports: no symptoms Genitourinary: Reports: no symptoms Neurologic/Psychiatric: Reports: weakness Endocrine: Reports: no symptoms Hematologic/Lymphatic: Reports: no symptoms Allergies: Coded Allergies: No Known Allergies (Unverified , 12/23/12) All Systems: reviewed and negative except above Subjective no events. w/o complaints. less dizzy. renal fxn improving. Objective Last 24 Hour Vital Signs Date Time Temp Pulse Resp B/P (MAP) Pulse Ox O2 Delivery O2 Flow Rate FiO2 02/27/18 10:09 62 18 Room Air 21 02/27/18 08:45 Room Air 02/27/18 08:00 98.2 85 20 145/76 (99) 95 98.2 85 02/27/18 06:26 159/88 (111) 02/27/18 05:07 173/70 02/27/18 04:00 99.2 95 19 173/70 (104) 96 99.2 02/27/18 00:00 99.3 83 19 143/77 (99) 94 99.3 02/26/18 22:55 150/88 02/26/18 21:00 Room Air 02/26/18 20:00 99.5 95 19 161/90 (113) 94 99.5 02/26/18 19:08 58 18 Room Air 21 02/26/18 17:57 142/86 02/26/18 17:56 80 142/86 02/26/18 15:34 98.2 80 18 142/86 (104) 95 98.2 02/26/18 13:45 156/62 02/26/18 12:44 98.2 02/26/18 12:00 85 02/26/18 12:00 98.9 82 18 162/88 (112) 95 98.9 Intake and Output 02/26/18 02/27/18 19:00 07:00 Intake Total 700 ml 600 ml Output Total 275 ml Balance 425 ml 600 ml Intake Oral 590 ml 600 ml IV Total 110 ml Output Urine Total 275 ml # Voids 1 6 # Bowel Movements 1 Height (Feet): 5 Height (Inches): 4.00 Weight (Pounds): 163 General Appearance: WD/WN, alert Neck: supple Cardiovascular: normal rate, regular rhythm Respiratory/Chest: chest wall non-tender, lungs clear, normal breath sounds, no respiratory distress Abdomen: normal bowel sounds, non tender, soft, no organomegaly Edema: no edema noted Arm (L), no edema noted Arm (R), no edema noted Leg (L), no edema noted Leg (R), no edema noted Pedal (L), no edema noted Pedal (R), no edema noted Generalized Neurologic: adobe developer II-XII grossly normal, abnormal gait Arden Ocampo MD Feb 27, 2018 11:37
--- NOTE | 2018-02-27 11:39 | Nephrology Progress Note ---
Assessment/Plan Problem List: (1) ESRD (end stage renal disease) (2) Hyponatremia Assessment: resolved (3) Hypothyroid (4) Hypertension (5) Chronic diastolic (congestive) heart failure (6) Hyperkalemia (7) Anemia in chronic kidney disease Assessment (1) ESRD (end stage renal disease) Hypertensive kidney disease, 24 H Protein 1.34 gr Assessment: CrCl 9 (2) Chronic diastolic (congestive) heart failure (3) Hyperkalemia (4) Anemia in chronic kidney disease (5) HypoNatremia (6) HypoThyroidism (7) Chronic Pain (8) Asthma, fairly stable at present. Plan BP meds- adjusted Hydralazine added HD today has permacath Pulmonary toilet discussed with RN Daughter blocking DC !!? Subjective ROS Limited/Unobtainable: No Constitutional: Reports: malaise Objective Objective Last 24 Hour Vital Signs Date Time Temp Pulse Resp B/P (MAP) Pulse Ox O2 Delivery O2 Flow Rate FiO2 02/27/18 10:09 62 18 Room Air 21 02/27/18 08:45 Room Air 02/27/18 08:00 98.2 85 20 145/76 (99) 95 98.2 85 02/27/18 06:26 159/88 (111) 02/27/18 05:07 173/70 02/27/18 04:00 99.2 95 19 173/70 (104) 96 99.2 02/27/18 00:00 99.3 83 19 143/77 (99) 94 99.3 02/26/18 22:55 150/88 02/26/18 21:00 Room Air 02/26/18 20:00 99.5 95 19 161/90 (113) 94 99.5 02/26/18 19:08 58 18 Room Air 21 02/26/18 17:57 142/86 02/26/18 17:56 80 142/86 02/26/18 15:34 98.2 80 18 142/86 (104) 95 98.2 02/26/18 13:45 156/62 02/26/18 12:44 98.2 02/26/18 12:00 85 02/26/18 12:00 98.9 82 18 162/88 (112) 95 98.9 Intake and Output 02/26/18 02/27/18 19:00 07:00 Intake Total 700 ml 600 ml Output Total 275 ml Balance 425 ml 600 ml Intake Oral 590 ml 600 ml IV Total 110 ml Output Urine Total 275 ml # Voids 1 6 # Bowel Movements 1 Height (Feet): 5 Height (Inches): 4.00 Weight (Pounds): 163 General Appearance: no apparent distress Objective no change Eyad Dill MD Feb 27, 2018 11:39
[2018-02-28] VITALS (7 sets, daily range): BP systolic 131–174; BP diastolic 72–91
[2018-02-28] MEDS: HydrALAZINE 25mg tab ORAL SCH ×3 (06:17→15:46)
[2018-02-28] MEDS: Lisinopril 20mg tab ORAL SCH ×2 (08:49→17:28)
[2018-02-28] MEDS: Docusate 100mg cap ORAL SCH ×2 (08:49→17:29)
[2018-02-28] MEDS: Sertraline 50mg tab ORAL SCH (08:49)
[2018-02-28] MEDS: Aspirin EC 81mg tab ORAL SCH (08:49)
[2018-02-28] MEDS: BusPIRone 5mg Tab ORAL SCH ×4 (08:50→17:30)
[2018-02-28] MEDS: Lyrica 25mg cap ORAL SCH ×3 (08:51→17:30)
[2018-02-28] MEDS: Acetaminophen 500mg (ES) tab ORAL SCH ×4 (08:51→17:30)
[2018-02-28] MEDS: cefTRIAXone 1 GM in D5W 110 ML IVPB SCH (08:53)
--- NOTE | 2018-02-28 11:02 | Nephrology Progress Note ---
Assessment/Plan Problem List: (1) ESRD (end stage renal disease) (2) Hyponatremia Assessment: resolved (3) Hypothyroid (4) Hypertension (5) Chronic diastolic (congestive) heart failure (6) Hyperkalemia (7) Anemia in chronic kidney disease Assessment (1) ESRD (end stage renal disease) Hypertensive kidney disease, 24 H Protein 1.34 gr Assessment: CrCl 9 (2) Chronic diastolic (congestive) heart failure (3) Hyperkalemia (4) Anemia in chronic kidney disease (5) HypoNatremia (6) HypoThyroidism (7) Chronic Pain (8) Asthma, fairly stable at present. Plan BP meds- adjusted Hydralazine added HD 02/28 done- has permacath Pulmonary toilet discussed with RN due DC today Subjective ROS Limited/Unobtainable: No Constitutional: Reports: malaise Objective Objective Last 24 Hour Vital Signs Date Time Temp Pulse Resp B/P (MAP) Pulse Ox O2 Delivery O2 Flow Rate FiO2 02/28/18 10:28 87 147/77 (100) 02/28/18 09:05 Room Air 02/28/18 08:50 95 168/81 02/28/18 08:49 168/81 02/28/18 08:20 86 16 Room Air 21 02/28/18 08:17 98.1 95 20 168/81 (110) 94 98.1 02/28/18 06:17 131/86 02/28/18 04:00 98.6 97 20 131/86 (101) 95 98.6 02/28/18 02:15 174/91 02/28/18 00:00 99.9 100 20 174/91 (118) 94 99.9 02/27/18 21:00 Room Air 02/27/18 20:51 167/79 02/27/18 20:00 99.3 83 20 167/79 (108) 93 99.3 02/27/18 19:00 93 16 Room Air 02/27/18 17:31 162/74 02/27/18 17:31 96 162/74 02/27/18 16:48 Room Air 21 02/27/18 16:00 98.6 86 20 156/126 (136) 99 98.6 02/27/18 14:00 204/107 02/27/18 13:00 Room Air 21 02/27/18 12:00 97.1 62 21 130/66 (87) 97 97.1 Intake and Output 02/27/18 02/28/18 19:00 07:00 Intake Total 960 ml 120 ml Output Total 1200 ml Balance -240 ml 120 ml Intake Oral 960 ml 120 ml Hemodialysis UF 1200 ml # Voids 3 2 Height (Feet): 5 Height (Inches): 4.00 Weight (Pounds): 163 General Appearance: no apparent distress Objective no change Eyad Dill MD Feb 28, 2018 11:02
[2018-02-28] MEDS: Nitroglycerin Patch 0.4mg TDERMAL SCH (12:03)
[2018-02-28] MEDS ORDERED: NS 275ml ONE (17:51)
[2018-02-28] MEDS ORDERED: Tubing IV Secondary IV ONE (17:51)
--- NOTE | 2018-03-02 14:02 | Discharge Summary ---
Discharge Summary Discharge Summary _ DATE OF ADMISSION: 02/22/2018 DATE OF DISCHARGE: 02/28/2018 REASON FOR ADMISSION: 87 years old female with past medical history significant for end-stage renal disease, recently started on hemodialysis, hypertension, asthma/COPD, hypothyroidism, dementia, presented to emergency department complaints of weakness and dizziness. Hemodialysis started about a month ago. Patient reported extreme weakness and nearly fell couple of times. Upon evaluation heart rate 57, otherwise stable vital signs . Laboratory workup revealed no leukocytosis, hemoglobin 9.4, hematocrit 26.8. Sodium 116, potassium 5.2. BUN 78, creatinine 6.1. Troponin negative. EKG demonstrated sinus bradycardia, no acute ischemic changes. Urinalysis with evidence of UTI. Chest x-ray revealed no acute cardiopulmonary pathology. CT of the head revealed no acute intracranial pathology. Patient admitted with diagnoses of profound hyponatremia, end-stage renal disease, recently started on hemodialysis; debility, anemia of chronic renal disease, DJD, urinary tract infection, hypertension, hyperkalemia hypothyroidism , asthma/COPD. CONSULTANTS: neuro ophthalmologist Dr. Dill psychiatrist [facility] COURSE: Patient admitted to telemetry floor. Nephrology and psychiatric consults were requested. Patient was treated t with 3% percent saline as per neuro ophthalmologist recommendations. Blood pressure medications were optimized as per neuro ophthalmologist. Hemodialysis was done as per neuro ophthalmologist orders with close monitoring of renal parameters and electrolytes. Hyperkalemia was treated with Kayexalate. Supplemental oxygen provided as needed to keep pulse oximetry above 92%, pulmonary toilet provided as needed. Asthma appeared to be stable, no evidence of exacerbation. Echocardiogram , done on previous admission, revealed preserved ejection fraction of 55%. Kidney ultrasound of previous admission revealed echogenic kidneys, consistent with medical renal disease. Hemoglobin and hematocrit were closely monitored with goal to keep hemoglobin above 7. Anemia workup was consistent with anemia of chronic disease , in this case anemia in chronic renal disease. Urine culture revealed Escherichia coli. Blood cultures were negative. Patient was on antibiotic Serial troponin 3 were negative. EKG revealed no acute ischemic changes. Telemetry was negative. Patient was ruled out for acute PA. Severe weakness was likely due to profound hyponatremia , improved as sodium stabilized. Noted elevated elevated TSH ,dose of levothyroxine was increased. Blood pressure was managed with hydralazine,calcium channel arlene, and HALIMA inhibitor . Blood pressure remained stable. Antiplatelet therapy with aspirin was continued. Bowel regimen instituted. GI prophylaxis provided. Psychiatry seen and evaluated patient, and diagnosed patient with anxiety disorder. Patient was provided with reality orientation and supportive therapy. Patient started on BuSpar and Zoloft Pain management was addressed, and pain was controlled. Patient was working with physical and occupational therapists. Fall precautions maintained. Upon discharge, sodium 139, BUN30, creatinine 2.9. Patient and her family declined placement to nursing home facility. Patient was stable for discharge FINAL DIAGNOSES: Profound hyponatremia End-stage renal disease, recently started on hemodialysis Hyperkalemia Urinary tract infection with Escherichia coli Hypertension Chronic diastolic congestive heart failure Anemia in chronic kidney disease Hypothyroidism Asthma Chronic pain Degenerative joint disease Anxiety disorder DISCHARGE MEDICATIONS: See Medication Reconciliation list. DISCHARGE INSTRUCTIONS: Patient was discharged home Follow up with primary care provider in one week. I have been assigned to dictate discharge summary for this account. I was not involved in the patient's management. Alma Rosa Sanchez NP Mar 02, 2018 14:02
== END 2018-02-28 17:52 | disposition home or self-care (01) | DRG 640 ==
LOC: EMR 18:35 → 2E 20:33 → EDBEDREQ 21:15 → 2E 02-23 13:24 → 4E 02-26 16:05
DX: E87.1 Hypo-osmolality and hyponatremia (principal); N18.6 End stage renal disease; E44.0 Moderate protein-calorie malnutrition; I13.2 Hypertensive heart and chronic kidney disease with heart failure and with stage 5 chronic kidney disease, or end stage renal disease; I50.32 Chronic diastolic (congestive) heart failure; N39.0 Urinary tract infection, site not specified; N17.9 Acute kidney failure, unspecified; Z99.2 Dependence on renal dialysis; E03.9 Hypothyroidism, unspecified; G89.29 Other chronic pain; J45.909 Unspecified asthma, uncomplicated; E87.5 Hyperkalemia; M19.90 Unspecified osteoarthritis, unspecified site; F32.9 Major depressive disorder, single episode, unspecified; F41.9 Anxiety disorder, unspecified; H81.13 Benign paroxysmal vertigo, bilateral; J44.9 Chronic obstructive pulmonary disease, unspecified; B96.20 Unspecified Escherichia coli [E. coli] as the cause of diseases classified elsewhere; D63.1 Anemia in chronic kidney disease
CPT/HCPCS: 36415; 70450; 71045; 80053; 80061; 81003; 82607; 82728; 82746; 82977; 83036; 83540; 83550; 83735; 83880; 84100; 84443; 84484; 84550; 85025; 86140; 87040; 87081; 87086; 87181; 93005; 94664

== ENCOUNTER 2018-03-11 11:08 | Inpatient (IN) | payer MEDICARE, OTHER ==
[2018-03-11] VITALS (9 sets, daily range): BP systolic 120–160; BP diastolic 62–78
[~2018-03-11] VITALS: Ht 152.4 cm; Wt 64.9 kg
[~2018-03-11 11:08] MED LIST changes: +UNOBMED
[2018-03-11 11:53] LABS: BASOPHILS % (AUTO) 2.5 % (0.0-2.0); EOSINOPHILS % (AUTO) 4.6 % (0.0-3.0); HEMATOCRIT 29.3 % (37.0-47.0); HEMOGLOBIN 9.5 G/DL (12.0-16.0); LYMPHOCYTES % (AUTO) 39.2 % (20.0-45.0); MEAN CORPUSCULAR VOLUME 89 FL (80-99); MONOCYTES % (AUTO) 7.6 % (1.0-10.0); NEUTROPHILS % (AUTO) 46.1 % (45.0-75.0); PLATELET COUNT 311 K/UL (150-450); RED BLOOD COUNT 3.29 M/UL (4.20-5.40); RED CELL DISTRIBUTION WIDTH 11.8 % (11.6-14.8)
[2018-03-11 12:15] LABS: ANION GAP 7 mmol/L (5-15); BLOOD UREA NITROGEN 24 mg/dL (7-18); CALCIUM 8.8 MG/DL (8.5-10.1); CARBON DIOXIDE 29 MMOL/L (21-32); CHLORIDE 98 MMOL/L (98-107); POTASSIUM 4.3 MMOL/L (3.5-5.1); SODIUM 134 MMOL/L (136-145)
[2018-03-11] MEDS ORDERED: Thrombin 5000 units TOPIC ONE (12:19)
[2018-03-11] MEDS ORDERED: Gelfoam Size TOPIC ONE (12:19)
[2018-03-11] MEDS ORDERED: Lidocaine 1% Plain 30 ml INJ ONE (12:19)
[2018-03-11] MEDS ORDERED: Bupivacaine 0.5% Inj 30 ml vial INJ ONE (12:19)
[2018-03-11] MEDS ORDERED: NeoSporin Gu Irrig 1ml Amp IRRIG ONE (12:20)
[2018-03-11] MEDS ORDERED: Bacitracin 50000 Units Vial ONE (12:20)
[2018-03-11] MEDS ORDERED: Heparin 1000 units/ml 1ml Vial ONE (12:25)
[2018-03-11] MEDS ORDERED: APRESOLINE100 MG ORAL (12:36)
[2018-03-11] MEDS ORDERED: Heparin 5000 units/ml inj ONE (12:55)
[2018-03-11] MEDS ORDERED: LR 1000ml ONE (13:00)
[2018-03-11] MEDS ORDERED: NS Irrig 1000ml ONE (13:00)
[2018-03-11] MEDS ORDERED: Sterile Water Irrig 1000ml IRRIG ONE (13:00)
--- NOTE | 2018-03-11 13:11 | Pre-Procedure Note/Attestation ---
Pre-Procedure Note/Attestation Complete Prior to Procedure Planned Procedure: left Procedure Narrative: Left arm arteriovenous graft placement Indications for Procedure Pre-Operative Diagnosis: ESRD Need for permanent HD access Attestation I attest that I discussed the nature of the procedure; its benefits; risks and complications; and alternatives (and the risks and benefits of such alternatives ), prior to the procedure, with the patient (or the patient's legal provider relations representative). I attest that, if there was a reasonable possibility of needing a blood transfusion, the patient (or the patient's legal provider relations representative) was given the [facility] standardized written summary, pursuant to the [place] Blood Safety Act ([place] Health and Safety Code # 1645, as amended). I attest that I re-evaluated the patient just prior to the surgery and that there has been no change in the patient's H&P, except as documented below: Keith Gong MD Mar 11, 2018 13:11
--- NOTE | 2018-03-11 13:19 | Anethesia Preoperative Eval ---
Anesthesia Pre-op PMH/ROS General Date of Evaluation: Mar 11, 2018 Time of Evaluation: 13:06 Anesthesiologist: Randall ASA Score: ASA 4 Mallampati Score Class I : Soft palate, uvula, fauces, pillars visible Class II: Soft palate, uvula, fauces visible Class III: Soft palate, base of uvula visible Class IV: Only hard plate visible Mallampati Classification: Class III Surgeon: Farideh Diagnosis: ESRD Surgical Procedure: A-V Fistula L Arm Anesthesia History: none Family History: no anesthesia problems Allergies: Coded Allergies: No Known Allergies (Unverified , 03/11/18) Medications: see eMAR Past Medical History Cardiovascular: Reports: HTN, CAD - CHF, other - HL Pulmonary: Reports: asthma Gastrointestinal/Genitourinary: Reports: ESRD, other - Pancreatitis Neurologic/Psychiatric: Reports: depression/anxiety Endocrine: Reports: hypothyroidism HEENT: Reports: glaucoma Hematology/Immune: Reports: anemia PSxH Narrative: Dialysis Catheter R Chest Anesthesia Pre-op Phys. Exam Physician Exam Last Vital Signs Date Time Temp Pulse Resp B/P (MAP) Pulse Ox O2 Delivery O2 Flow Rate FiO2 03/11/18 11:48 Room Air 03/11/18 11:40 97.5 62 18 141/67 (91) 98 97.5 Constitutional: NAD Neurologic: CN 2-12 intact Cardiovascular: RRR Respiratory: CTA Gastrointestinal: S/NT/ND Airway Exam Mallampati Score: Class III MO: limited ROM: limited Teeth: missing, intact Anesthesia Pre-op A/P Labs Hematology Test 03/11/18 11:40 White Blood Count 5.0 K/UL (4.8-10.8) Red Blood Count 3.29 M/UL (4.20-5.40) L Hemoglobin 9.5 G/DL (12.0-16.0) L Hematocrit 29.3 % (37.0-47.0) L Mean Corpuscular Volume 89 FL (80-99) Mean Corpuscular Hemoglobin 28.8 PG (27.0-31.0) Mean Corpuscular Hemoglobin Concent 32.4 G/DL (32.0-36.0) Red Cell Distribution Width 11.8 % (11.6-14.8) Platelet Count 311 K/UL (150-450) Mean Platelet Volume 5.4 FL (6.5-10.1) L Neutrophils (%) (Auto) 46.1 % (45.0-75.0) Lymphocytes (%) (Auto) 39.2 % (20.0-45.0) Monocytes (%) (Auto) 7.6 % (1.0-10.0) Eosinophils (%) (Auto) 4.6 % (0.0-3.0) H Basophils (%) (Auto) 2.5 % (0.0-2.0) H Coagulation Test 03/11/18 11:40 Prothrombin Time 10.7 SEC (9.30-11.50) Prothromb Time International Ratio 1.0 (0.9-1.1) Activated Partial Thromboplast Time 28 SEC (23-33) Chemistry Test 03/11/18 11:40 Sodium Level 134 MMOL/L (136-145) L Potassium Level 4.3 MMOL/L (3.5-5.1) Chloride Level 98 MMOL/L (98-107) Carbon Dioxide Level 29 MMOL/L (21-32) Anion Gap 7 mmol/L (5-15) Blood Urea Nitrogen 24 mg/dL (7-18) H Creatinine 3.0 MG/DL (0.55-1.30) H Estimat Glomerular Filtration Rate mL/min (>60) Glucose Level 103 MG/DL (74-106) Calcium Level 8.8 MG/DL (8.5-10.1) Risk Assessment & Plan Assessment: ASA 4 Plan: GA, SED Status Change Before Surgery: No Pre-Antibiotics Dru Grams Ancef IV Given Within 1 Hr of Incision: Yes Time Given: 13:26 Remington Pereira MD Mar 11, 2018 13:19
[2018-03-11] MEDS ORDERED: Sodium Chloride 10ml vial INJ ONE (13:20)
[2018-03-11] MEDS ORDERED: Lidocaine 1% MPF 10mg/ml 5ml ONE (13:20)
[2018-03-11] MEDS ORDERED: Dexamethasone 4mg/ml vial ONE (13:22)
[2018-03-11] MEDS ORDERED: Propofol 200mg/20ml IV ONE (13:22)
[2018-03-11] MEDS ORDERED: Labetalol 5mg/ml 20ml vial IV PRN (13:45)
[2018-03-11] MEDS ORDERED: LORazepam Inj 2mg/ml 1ml IV PRN (13:45)
[2018-03-11] MEDS ORDERED: LR 1000ml 1,000 ML IVLG SCH (13:45)
[2018-03-11] MEDS ORDERED: Acetaminophen (Non formulary) 100 ML IV ONE (13:45)
[2018-03-11] MEDS ORDERED: Metoclopramide 10mg/2ml Inj IVP PRN (13:45)
[2018-03-11] MEDS ORDERED: fentaNYL 100 mcg/2 mL IV PRN (13:45)
[2018-03-11] MEDS ORDERED: HYDROcodone/Acetamin 7.5/325 tab ORAL PRN (13:45)
[2018-03-11] MEDS ORDERED: Hydromorphone 0.5mg/0.5ml inj IVP PRN ×3 (13:45→22:15)
[2018-03-11] MEDS ORDERED: oxyCODONE HCL/Acetaminophen 5/325mg ORAL PRN (13:45)
[2018-03-11] MEDS ORDERED: Atropine Inj 1mg/10ml Syr IV PRN (13:45)
[2018-03-11] MEDS ORDERED: DiphenhydrAMINE 50mg/ml Inj IVP PRN (13:45)
[2018-03-11] MEDS ORDERED: Ketorolac 30mg Inj IV PRN ×2 (13:45)
[2018-03-11] MEDS ORDERED: Norco 5mg/325mg tab ORAL PRN (13:45)
[2018-03-11] MEDS ORDERED: Midazolam 2mg/2ml Inj IVP PRN (13:45)
--- NOTE | 2018-03-11 14:05 | Immediate Post-Op Evaluation ---
Immediate Post-Op Evalulation Immediate Post-Op Evalulation Procedure: A-V Fistula L Arm Date of Evaluation: Mar 11, 2018 Time of Evaluation: 15:40 IV Fluids: 500 NS Blood Products: 0 Estimated Blood Loss: 15 Urinary Output: 0 Blood Pressure Systolic: 166 Blood Pressure Diastolic: 64 Pulse Rate: 66 Respiratory Rate: 16 O2 Sat by Pulse Oximetry: 98 Temperature (Fahrenheit): 97.3 Pain Score (1-10): 2 Nausea: No Vomiting: No Complications 0 Patient Status: awake, reacts, patent, extubated, none Hydration Status: adequate Dru Grams Ancef IV Given Within 1 Hr of Incision: Yes Time Given: 13:26 Remington Pereira MD Mar 11, 2018 14:05
[2018-03-11] MEDS ORDERED: Heparin Sod 1000 units/ml 10ml ONE (14:17)
[2018-03-11] MEDS ORDERED: Neosporin Oint Ud Pkt TOPIC ONE (15:09)
--- NOTE | 2018-03-11 15:26 | Operative Note - PDOC ---
Operative Note Operative Note Pre-op Diagnosis: ESRD Need for permanent HD access Procedure: Left arm arteriovenous graft placement Post-op Diagnosis: same as pre-op Surgeon: Keith Gong MD Anesthesiologist: Remington Pereira MD Anesthesia: general, local Specimen: none Complications: none Condition: stable Fluids: 500cc Estimated Blood Loss: minimal - 25cc Drains: none Implant(s) used?: Yes - 4-7mm PTFE Impra carbon coated av graft Keith Gong MD Mar 11, 2018 15:26
[2018-03-11] MEDS ORDERED: NS 500ML ONE (16:18)
[2018-03-11] MEDS ORDERED: Tubing IV Secondary IV ONE (16:18)
[2018-03-11] MEDS: traMADol 50mg tab ORAL PRN (21:39)
[2018-03-11] MEDS: Zolpidem 5mg tab ORAL PRN (21:39)
[2018-03-12] VITALS: BP 147/65
[2018-03-12] MEDS: ceFAZolin 1gm/50ml Premix 50 ML IV SCH ×2 (01:21→13:30)
[2018-03-12 04:00] VITALS: BP 141/55
--- NOTE | 2018-03-12 05:15 | Operative Note - Dictated ---
DATE OF OPERATION: 03/11/2018 NOTE: POOR AUDIO SURGEON: Keith Gong M.D. ANESTHESIOLOGIST: Remington Pereira M.D. PREOPERATIVE DIAGNOSES: 1. End-stage renal failure, requiring permanent access for hemodialysis. 2. Morbid obesity. 3. History of hypertension. 4. Right chest tunneled [id number]. 5. Diabetes mellitus. POSTOPERATIVE DIAGNOSES: 1. End-stage renal failure, requiring permanent access for hemodialysis. 2. Morbid obesity. 3. History of hypertension. 4. Right chest tunneled [id number]. 5. Diabetes mellitus. PROCEDURE: Placement of left upper arm brachial artery to the distal axillary vein interposition arteriovenous AV graft (4 mm to 7 mm PTFE [place]-Tomi graft). ANESTHESIA: Local sedation with LMA. COMPLICATIONS: None. FINDINGS: 1. Left upper arm autogenous veins were not suitable for AV shunt creation from the preoperative vein mapping. 2. The left brachial artery was measured about 4 mm in size with minimal plaque. 3. Left axillary vein was suitable, measured 4-5 mm in size. 4. Insertion AV graft was placed with palpable thrill and radial and ulnar Doppler signals. The patient will require 3 to 4 weeks of time prior to left arm AV shunt access use. INDICATION FOR PROCEDURE: This is an 87-year-old female, who presented for this procedure. Risks and benefits were discussed with the patient and family and consent was obtained. Risks of infection, bleeding, and pain, shunt failure, need for further procedures, risk of anesthesia, heart attack, stroke, , etc., were all discussed with the patient and consent was obtained. DESCRIPTION OF PROCEDURE: The patient was brought to the operating room. After a dose of antibiotics and sedation by the anesthesiologist, the left arm was prepped and draped in the usual sterile manner. Under local anesthesia, medial skin incision was made. Subcutaneous tissue was divided. The left brachial artery was sharply dissected. Proximal double loop control was obtained. The left axillary vein was also exposed through the left axillary incision. Sharp dissection was carried out. Proximal double loop control was obtained. Upper arm subcutaneous tunnel was created under local anesthesia using a zintin tunneler. A 4 mm to 7 mm PTFE [place]-Tomi graft was tunneled. The patient was systemically heparinized. A left brachial arteriotomy was made. The 4 mm graft was spatulated and the left brachial artery was flushed with heparinized saline solution. End-to-side anastomosis was created using a running 6-0 Prolene suture. Forward and backward flush was given. Anastomosis was completed. Flow was restored with excellent pulsatile flow through the AV graft. Attention was directed to the left axillary vein. A venotomy was performed. The 7 mm graft was spatulated. End-to-side anastomosis was carried out in a running 7-0 Prolene suture with good hemostasis. Anastomosis was completed. Flow was restored with a palpable thrill and radial pulse. Both wounds were irrigated with antibiotic irrigation. Anastomosis remained hemostatic. Wounds were closed with interrupted 2-0 and 3-0 Vicryl sutures. Skin was closed using a skin stapler. Sterile dressings applied. The patient tolerated the procedure very well. Keith Gong M.D. DR: SARAH JOB#: [id number] CC: Anjel Fay M.D.; Fax#: [phone] Eyad Dill M.D. [facility]
[2018-03-12] MEDS: traMADol 50mg tab ORAL PRN ×2 (05:48→20:30)
[2018-03-12 08:00] VITALS: BP 160/67
[2018-03-12] MEDS: Aspirin Baby 81mg ORAL SCH (08:52)
[2018-03-12] MEDS: Hydromorphone 0.5mg/0.5ml inj IVP PRN ×3 (08:54→23:28)
[2018-03-12] MEDS ORDERED: HydrALAZINE 50mg tab ORAL SCH (09:00)
[2018-03-12] MEDS ORDERED: Vitamin D 1000 IU Tab ORAL SCH (09:00)
--- NOTE | 2018-03-12 10:14 | 48 Hour Post Anesthesia Eval ---
Post Anesthesia Evaluation Procedure: A-V Fistula L Arm Date of Evaluation: Mar 12, 2018 Time of Evaluation: 07:00 Blood Pressure Systolic: 141 0: 55 Pulse Rate: 62 Respiratory Rate: 19 Temperature (Fahrenheit): 98 O2 Sat by Pulse Oximetry: 99 Airway: patent Nausea: No Vomiting: No Pain Intensity: 0 Hydration Status: adequate Cardiopulmonary Status: at baseline Mental Status/LOC: patient returned to baseline Post-Anesthesia Complications: 0 Follow-up care needed: N/A - further care as per primary team Skye Lazcano MD Mar 12, 2018 10:14
[2018-03-12 12:00] VITALS: BP 130/69
[2018-03-12 16:00] VITALS: BP 158/61
[2018-03-12] MEDS ORDERED: Metoclopramide 10mg/2ml Inj IVP PRN (16:24)
--- NOTE | 2018-03-12 16:24 | Consultation ---
Consult Note Consult Note asked to eval for dialysis management 87 y old- had vascular surgery yesterday today is weak , with decrease mentation and unable to go home and be cared for examined- discussed with mig welder/Plan Encephalopathy (1) ESRD (end stage renal disease) (2) Hyponatremia (3) Hypothyroid (4) Hypertension (5) Chronic diastolic (congestive) heart failure (6) Anemia in chronic kidney disease Pain management HD in am BP meds adjustment Has left arm dressing has permacath Pulmonary toilet discussed with RN Eyad Dill MD Mar 12, 2018 16:24
[2018-03-12] MEDS ORDERED: HydrALAZINE 25mg tab ORAL PRN (16:30)
[2018-03-12] MEDS ORDERED: Albuterol ud Inhalation HHN PRN (16:30)
--- NOTE | 2018-03-12 16:30 | History and Physical Report ---
DATE OF ADMISSION: 03/11/2018 REASON FOR ADMISSION: Placement of left upper arm brachial artery AV shunt. HISTORY OF PRESENT ILLNESS: This is a 87-year-old female who has had longstanding history of chronic renal insufficiency. The patient recently underwent dialysis and now being admitted for permanent AV graft. The patient is stable overall. The patient required overnight stay. The patient is otherwise comfortable and without significant distress. No significant shortness of breath. The patient has been receiving her medications and has been undergoing dialysis as previously outlined. The patient's care discussed and reviewed. PAST MEDICAL HISTORY: Notable for dementia, arthritis, chronic renal failure, end-stage renal disease, hypertension, hypothyroidism, anemia, congestive heart failure, chronic obstructive pulmonary disease, vertigo. MEDICATIONS: Noted and reviewed. ALLERGIES: Noted and reviewed. SOCIAL HISTORY: Nonsmoker and nondrinker. Lives with her daughter. REVIEW OF SYSTEMS: Otherwise negative. PHYSICAL EXAMINATION: GENERAL: A well-developed female comfortable at present. VITAL SIGNS: Blood pressure 128/80 , pulse 70, respiratory rate 18, temperature 99.8. HEENT: Negative. Extraocular movements are grossly intact. NECK: Supple. LUNGS: Fairly clear and symmetric. No rhonchi or wheezes. CARDIAC: S1 and S2. Regular rate and rhythm. Soft systolic murmur. No rubs or gallops. ABDOMEN: Soft, nontender, and nondistended. EXTREMITIES: No cyanosis or clubbing. Access noted. NEUROLOGICAL: Grossly nonfocal, weak and confused. LABORATORY DATA: Reviewed. Hemoglobin 9.5, hematocrit 29. BUN and creatinine 24 and 3, sodium 134, potassium 4.3. IMPRESSION: 1. Chronic renal failure, status post AV graft placement. 2. Congestive heart failure per history. 3. Chronic anemia. 4. Dementia. 5. Confusion. 6. Arthritis. 7. Chronic headache. RECOMMENDATIONS: Supportive care. Discharge today. Continue with outpatient hemodialysis. Monitor clinically and maintain pain control and further renal clearance prior to discharge. Anjel Fay M.D. DR: Damon JOB#: [id number] CC: JOSE
[2018-03-12] MEDS: Docusate 100mg cap ORAL SCH (18:04)
[2018-03-12 20:00] VITALS: BP 142/54
[2018-03-12] MEDS: Zolpidem 5mg tab ORAL PRN (20:30)
[2018-03-13] VITALS (7 sets, daily range): BP systolic 126–153; BP diastolic 48–67
[2018-03-13] MEDS: traMADol 50mg tab ORAL PRN ×3 (05:25→21:04)
[2018-03-13 05:37] LABS: BASOPHILS % (AUTO) 1.2 % (0.0-2.0); EOSINOPHILS % (AUTO) 2.4 % (0.0-3.0); HEMATOCRIT 26.3 % (37.0-47.0); HEMOGLOBIN 8.8 G/DL (12.0-16.0); LYMPHOCYTES % (AUTO) 39.2 % (20.0-45.0); MEAN CORPUSCULAR VOLUME 91 FL (80-99); MONOCYTES % (AUTO) 10.1 % (1.0-10.0); NEUTROPHILS % (AUTO) 47.1 % (45.0-75.0); PLATELET COUNT 322 K/UL (150-450); RED BLOOD COUNT 2.88 M/UL (4.20-5.40); RED CELL DISTRIBUTION WIDTH 12.5 % (11.6-14.8)
[2018-03-13] MEDS: Hydromorphone 0.5mg/0.5ml inj IVP PRN ×2 (06:24→14:43)
[2018-03-13 06:25] LABS: ALANINE AMINOTRANSFERASE 14 U/L (12-78); ALBUMIN 3.2 G/DL (3.4-5.0); ALBUMIN/GLOBULIN RATIO 0.7 (1.0-2.7); ALKALINE PHOSPHATASE 84 U/L (46-116); ANION GAP 10 mmol/L (5-15); ASPARTATE AMINO TRANSFERASE 22 U/L (15-37); BILIRUBIN,TOTAL 0.2 MG/DL (0.2-1.0); BLOOD UREA NITROGEN 43 mg/dL (7-18); CALCIUM 8.5 MG/DL (8.5-10.1); CARBON DIOXIDE 24 MMOL/L (21-32); CHLORIDE 98 MMOL/L (98-107); CHOLESTEROL 143 MG/DL (< 200); CREATINE KINASE 420 U/L (26-308); CREATININE 4.8 MG/DL (0.55-1.30); GAMMA GLUTAMYL TRANSPEPTIDASE 30 U/L (5-85); HDL CHOLESTEROL 42 MG/DL (40-60); POTASSIUM 4.8 MMOL/L (3.5-5.1); SODIUM 132 MMOL/L (136-145); TRIGLYCERIDES 157 MG/DL (30-150)
[2018-03-13] MEDS: HydrALAZINE 25mg tab ORAL SCH ×4 (09:00→20:30)
--- NOTE | 2018-03-13 09:07 | Nephrology Progress Note ---
Assessment/Plan Problem List: (1) ESRD (end stage renal disease) (2) Hypertension (3) Anemia in chronic kidney disease (4) Encephalopathy Assessment Encephalopathy (1) ESRD (end stage renal disease) (2) Hyponatremia (3) Hypothyroid (4) Hypertension (5) Chronic diastolic (congestive) heart failure (6) Anemia in chronic kidney disease Plan HD today adjust pain and bp meds- OK to DC after HD from renal stand point Subjective ROS Limited/Unobtainable: No Constitutional: Reports: weakness Objective Objective Last 24 Hour Vital Signs Date Time Temp Pulse Resp B/P (MAP) Pulse Ox O2 Delivery O2 Flow Rate FiO2 03/13/18 08:00 98.9 67 20 126/48 (74) 94 98.9 03/13/18 06:54 98.2 03/13/18 06:24 98.2 03/13/18 05:32 128/66 03/13/18 05:29 98.2 66 18 128/66 (86) 96 98.2 03/13/18 05:25 97.5 03/13/18 04:00 97.5 68 18 134/58 (83) 96 97.5 03/13/18 00:00 98.4 65 19 132/53 (79) 98 98.4 03/12/18 22:00 142/54 03/12/18 21:00 Room Air 03/12/18 20:30 98.1 03/12/18 20:00 98.6 70 18 142/54 (83) 96 98.6 03/12/18 16:00 98.1 66 18 158/61 (93) 93 98.1 03/12/18 13:28 130/69 03/12/18 12:00 98.5 67 18 130/69 (89) 99 98.5 03/12/18 10:14 208.4 62 19 99 Intake and Output 03/12/18 03/13/18 19:00 07:00 Intake Total 400 ml 820 ml Output Total 0 ml 700 ml Balance 400 ml 120 ml Intake Oral 400 ml 820 ml Output Urine Total 700 ml Stool Total 0 ml # Voids 3 3 Laboratory Tests 03/12/18 18:25: C-Reactive Protein, Quantitative 0.6 03/13/18 05:05: White Blood Count 8.0, Red Blood Count 2.88L, Hemoglobin 8.8L, Hematocrit 26.3L , Mean Corpuscular Volume 91, Mean Corpuscular Hemoglobin 30.5, Mean Corpuscular Hemoglobin Concent 33.4, Red Cell Distribution Width 12.5, Platelet Count 322, Mean Platelet Volume 5.1L, Neutrophils (%) (Auto) 47.1, Lymphocytes ( %) (Auto) 39.2, Monocytes (%) (Auto) 10.1H, Eosinophils (%) (Auto) 2.4, Basophils (%) (Auto) 1.2, Sodium Level 132L, Potassium Level 4.8, Chloride Level 98, Carbon Dioxide Level 24, Anion Gap 10, Blood Urea Nitrogen 43H, Creatinine 4.8H, Estimat Glomerular Filtration Rate , Glucose Level 100, Hemoglobin A1c 5.3, Uric Acid 6.8, Calcium Level 8.5, Phosphorus Level 5.0H, Magnesium Level 1.9, Total Bilirubin 0.2, Gamma Glutamyl Transpeptidase 30, Aspartate Amino Transf (AST/SGOT) 22, Alanine Aminotransferase (ALT/SGPT) 14, Alkaline Phosphatase 84, Total Creatine Kinase 420H, Troponin I 0.010, Pro-B- Type Natriuretic Peptide 6597H, Total Protein 7.5, Albumin 3.2L, Globulin 4.3, Albumin/Globulin Ratio 0.7L, Triglycerides Level 157H, Cholesterol Level 143, LDL Cholesterol 79, HDL Cholesterol 42, Cholesterol/HDL Ratio 3.4, Folate 5.6L, Thyroid Stimulating Hormone (TSH) 4.413H Height (Feet): 5 Height (Inches): 0.00 Weight (Pounds): 143 General Appearance: no apparent distress Cardiovascular: normal rate Respiratory/Chest: lungs clear Abdomen: soft Extremities: other - left arm swollen Eyad Dill MD Mar 13, 2018 09:07
[2018-03-13] MEDS: Aspirin Baby 81mg ORAL SCH (09:36)
[2018-03-13] MEDS: Docusate 100mg cap ORAL SCH ×3 (09:36→18:15)
--- NOTE | 2018-03-13 09:56 | General Progress Note ---
Assessment/Plan Assessment/Plan IMPRESSION: 1. Chronic renal failure, status post AV graft placement. 2. Congestive heart failure per history. 3. Chronic anemia. 4. Dementia. 5. Confusion. 6. Arthritis. 7. Chronic headache. PLAN HD defer dc to am pain rx po PT son wants to take her home defer dc to am impression, plan, and exam edited and reviewed in detail care discussed with RN Subjective Allergies: Coded Allergies: No Known Allergies (Unverified , 03/11/18) Subjective care d/w renal full admit son at bedside; will not be able to return to pick her up today as HD scheduled for 1pm Objective Last 24 Hour Vital Signs Date Time Temp Pulse Resp B/P (MAP) Pulse Ox O2 Delivery O2 Flow Rate FiO2 03/13/18 09:44 98.9 03/13/18 08:00 98.9 67 20 126/48 (74) 94 98.9 03/13/18 06:54 98.2 03/13/18 06:24 98.2 03/13/18 05:32 128/66 03/13/18 05:29 98.2 66 18 128/66 (86) 96 98.2 03/13/18 05:25 97.5 03/13/18 04:00 97.5 68 18 134/58 (83) 96 97.5 03/13/18 00:00 98.4 65 19 132/53 (79) 98 98.4 03/12/18 22:00 142/54 03/12/18 21:00 Room Air 03/12/18 20:30 98.1 03/12/18 20:00 98.6 70 18 142/54 (83) 96 98.6 03/12/18 16:00 98.1 66 18 158/61 (93) 93 98.1 03/12/18 13:28 130/69 03/12/18 12:00 98.5 67 18 130/69 (89) 99 98.5 03/12/18 10:14 208.4 62 19 99 Intake and Output 03/12/18 03/13/18 19:00 07:00 Intake Total 400 ml 820 ml Output Total 0 ml 700 ml Balance 400 ml 120 ml Intake Oral 400 ml 820 ml Output Urine Total 700 ml Stool Total 0 ml # Voids 3 3 Laboratory Tests 03/12/18 18:25: C-Reactive Protein, Quantitative 0.6 03/13/18 05:05: White Blood Count 8.0, Red Blood Count 2.88L, Hemoglobin 8.8L, Hematocrit 26.3L , Mean Corpuscular Volume 91, Mean Corpuscular Hemoglobin 30.5, Mean Corpuscular Hemoglobin Concent 33.4, Red Cell Distribution Width 12.5, Platelet Count 322, Mean Platelet Volume 5.1L, Neutrophils (%) (Auto) 47.1, Lymphocytes ( %) (Auto) 39.2, Monocytes (%) (Auto) 10.1H, Eosinophils (%) (Auto) 2.4, Basophils (%) (Auto) 1.2, Sodium Level 132L, Potassium Level 4.8, Chloride Level 98, Carbon Dioxide Level 24, Anion Gap 10, Blood Urea Nitrogen 43H, Creatinine 4.8H, Estimat Glomerular Filtration Rate , Glucose Level 100, Hemoglobin A1c 5.3, Uric Acid 6.8, Calcium Level 8.5, Phosphorus Level 5.0H, Magnesium Level 1.9, Total Bilirubin 0.2, Gamma Glutamyl Transpeptidase 30, Aspartate Amino Transf (AST/SGOT) 22, Alanine Aminotransferase (ALT/SGPT) 14, Alkaline Phosphatase 84, Total Creatine Kinase 420H, Troponin I 0.010, Pro-B- Type Natriuretic Peptide 6597H, Total Protein 7.5, Albumin 3.2L, Globulin 4.3, Albumin/Globulin Ratio 0.7L, Triglycerides Level 157H, Cholesterol Level 143, LDL Cholesterol 79, HDL Cholesterol 42, Cholesterol/HDL Ratio 3.4, Folate 5.6L, Thyroid Stimulating Hormone (TSH) 4.413H Height (Feet): 5 Height (Inches): 0.00 Weight (Pounds): 143 Objective GENERAL: A well-developed female comfortable at present. HEENT: Negative. Extraocular movements are grossly intact. NECK: Supple. LUNGS: Fairly clear and symmetric. No rhonchi or wheezes. CARDIAC: S1 and S2. Regular rate and rhythm. Soft systolic murmur. No rubs or gallops. ABDOMEN: Soft, nontender, and nondistended. EXTREMITIES: No cyanosis or clubbing. Access noted. NEUROLOGICAL: Grossly nonfocal, weak and confused. Anjel Fay MD Mar 13, 2018 09:56
[2018-03-13] MEDS: Zolpidem 5mg tab ORAL PRN (21:04)
[2018-03-14] VITALS: BP 155/65
[2018-03-14 04:00] VITALS: BP 126/55
[2018-03-14] MEDS: traMADol 50mg tab ORAL PRN ×2 (05:57→18:01)
[2018-03-14 08:00] VITALS: BP 128/63
--- NOTE | 2018-03-14 08:29 | General Progress Note ---
Assessment/Plan Assessment/Plan IMPRESSION: 1. Chronic renal failure, status post AV graft placement. 2. Congestive heart failure per history. 3. Chronic anemia. 4. Dementia. 5. Confusion. 6. Arthritis. 7. Chronic headache. PLAN HD completed dc today with home health pain rx- tramadol given po tolerate family does not want snf impression, plan, and exam edited and reviewed in detail care discussed with RN Subjective Allergies: Coded Allergies: No Known Allergies (Unverified , 03/11/18) Subjective stable patient wants to go home son to picking belt operator Objective Last 24 Hour Vital Signs Date Time Temp Pulse Resp B/P (MAP) Pulse Ox O2 Delivery O2 Flow Rate FiO2 03/14/18 05:58 158/67 03/14/18 04:00 98.6 70 17 126/55 (78) 96 98.6 03/14/18 01:26 96 Room Air 21 03/14/18 01:24 69 20 Room Air 21 03/14/18 00:00 98.6 68 19 155/65 (95) 95 98.6 03/13/18 22:00 129/69 03/13/18 21:00 Room Air 03/13/18 20:30 153/58 03/13/18 20:00 98.9 67 17 153/58 (89) 95 98.9 03/13/18 18:15 129/50 03/13/18 16:46 Room Air 03/13/18 16:00 97.3 64 20 149/67 (94) 98 97.3 03/13/18 14:48 98.8 03/13/18 14:48 98.8 03/13/18 14:43 98.8 03/13/18 13:49 98.8 03/13/18 12:30 Room Air 03/13/18 11:57 98.8 70 20 145/63 (90) 98 98.8 03/13/18 10:43 98.8 03/13/18 09:44 98.9 03/13/18 09:00 Room Air Intake and Output 03/13/18 03/14/18 19:00 07:00 Intake Total 480 ml 360 ml Output Total 2200 ml Balance -1720 ml 360 ml Intake Oral 480 ml 360 ml Hemodialysis UF 2200 ml # Voids 2 3 Height (Feet): 5 Height (Inches): 0.00 Weight (Pounds): 143 Objective GENERAL: A well-developed female comfortable at present. HEENT: Negative. Extraocular movements are grossly intact. NECK: Supple. LUNGS: Fairly clear and symmetric. No rhonchi or wheezes. CARDIAC: S1 and S2. Regular rate and rhythm. Soft systolic murmur. No rubs or gallops. ABDOMEN: Soft, nontender, and nondistended. EXTREMITIES: No cyanosis or clubbing. Access noted. left AV shunt NEUROLOGICAL: Grossly nonfocal, weak and confused. Anjel Fay MD Mar 14, 2018 08:29
[2018-03-14] MEDS: HydrALAZINE 25mg tab ORAL SCH ×3 (09:28→17:59)
[2018-03-14] MEDS: Aspirin Baby 81mg ORAL SCH (09:29)
[2018-03-14] MEDS: Docusate 100mg cap ORAL SCH ×3 (09:29→17:59)
[2018-03-14 12:00] VITALS: BP 112/77
--- NOTE | 2018-03-14 12:19 | Nephrology Progress Note ---
Assessment/Plan Problem List: (1) ESRD (end stage renal disease) (2) Hypertension (3) Anemia in chronic kidney disease (4) Encephalopathy Assessment Encephalopathy (1) ESRD (end stage renal disease) (2) Hyponatremia (3) Hypothyroid (4) Hypertension (5) Chronic diastolic (congestive) heart failure (6) Anemia in chronic kidney disease Plan HD 03/13 adjust pain and bp meds- OK to DC after HD from renal stand point Subjective ROS Limited/Unobtainable: No Objective Objective Last 24 Hour Vital Signs Date Time Temp Pulse Resp B/P (MAP) Pulse Ox O2 Delivery O2 Flow Rate FiO2 03/14/18 09:29 70 128/63 03/14/18 09:28 128/63 03/14/18 08:31 66 20 Room Air 21 03/14/18 05:58 158/67 03/14/18 04:00 98.6 70 17 126/55 (78) 96 98.6 03/14/18 01:26 96 Room Air 21 03/14/18 01:24 69 20 Room Air 21 03/14/18 00:00 98.6 68 19 155/65 (95) 95 98.6 03/13/18 22:00 129/69 03/13/18 21:00 Room Air 03/13/18 20:30 153/58 03/13/18 20:00 98.9 67 17 153/58 (89) 95 98.9 03/13/18 18:15 129/50 03/13/18 16:46 Room Air 03/13/18 16:00 97.3 64 20 149/67 (94) 98 97.3 03/13/18 14:48 98.8 03/13/18 14:48 98.8 03/13/18 14:43 98.8 03/13/18 13:49 98.8 03/13/18 12:30 Room Air Intake and Output 03/13/18 03/14/18 19:00 07:00 Intake Total 480 ml 360 ml Output Total 2200 ml Balance -1720 ml 360 ml Intake Oral 480 ml 360 ml Hemodialysis UF 2200 ml # Voids 2 3 Height (Feet): 5 Height (Inches): 0.00 Weight (Pounds): 143 General Appearance: no apparent distress Objective PE not changed Eyad Dill MD Mar 14, 2018 12:19
[2018-03-14 16:00] VITALS: BP 110/81
[2018-03-14 17:59] VITALS: BP 141/55
--- NOTE | 2018-03-17 07:13 | Discharge Summary ---
Discharge Summary Discharge Summary _ DATE OF ADMISSION: 03/12/2018 DATE OF DISCHARGE: 03/14/2018 REASON FOR ADMISSION: 87 years old female with past medical history of dementia, chronic renal failure with end-stage renal disease ,arthritis, hypertension, hypothyroidism , anemia, congestive heart failure, COPD ,vertigo, presented for permanent AV graft insertion. Patient undergone placement of left upper arm AV shunt and admitted for pain management and further disposition. CONSULTANTS: salt machine operator Dr. Dill vascular surgery [facility]: Patient admitted to medical Surgical floor after vascular surgery. Patient tolerated procedure well. Hemodialysis was provided as per salt machine operator's recommendation with close monitoring of renal parameters and electrolytes. Blood pressure medications were resumed with multiple regimen of antihypertensive and titrated as needed to keep blood pressure under control. Supplemental oxygen provided as needed to keep pulse oximetry above 92%. Pulmonary toilet provided as needed. No evidence of CHF exacerbation. Supportive care provided. Hemoglobin and hematocrit were closely monitored with goal to keep hemoglobin above 7. TSH elevated , dose of levothyroxine adjusted, repeat TSH in 4 weeks. Lipid panel stable. GI prophylaxis provided. Pain management was addressed as needed. Bowel regimen instituted. Supportive care provided. Patient was working with physical and occupational therapists. Family declined SNF placement. Home health services arranged. Patient was stable for discharge home with home health services. FINAL DIAGNOSES: End-stage renal disease, requiring permanent hemodialysis access Status post placement of left upper extremity AV graft Chronic diastolic CHF Hypertension Anemia of chronic kidney disease Encephalopathy Arthritis Chronic headaches Hyponatremia DISCHARGE MEDICATIONS: See Medication Reconciliation list. DISCHARGE INSTRUCTIONS: Patient was discharged home with home health services. Follow up with primary care provider and outpatient hemodialysis as scheduled I have been assigned to dictate discharge summary for this account. I was not involved in the patient's management. Alma Rosa Sanchez NP Mar 17, 2018 07:13
--- NOTE | 2018-03-17 16:22 | Cardiology Report ---
APPROVED REPORT EKG Measurement Heart [id number] Normal sinus rhythm Normal ECG
== END 2018-03-14 18:45 | disposition home health service (06) | DRG 264 ==
LOC: SUR 11:08 → 3E 16:17 → OBSVTOIN 03-12 16:07
PROC: 03180JD Bypass Left Brachial Artery to Upper Arm Vein with Synthetic Substitute, Open Approach (ICD-10-PCS; principal; 2018-03-12)
DX: I13.2 Hypertensive heart and chronic kidney disease with heart failure and with stage 5 chronic kidney disease, or end stage renal disease (principal); N18.6 End stage renal disease; G93.40 Encephalopathy, unspecified; I50.32 Chronic diastolic (congestive) heart failure; E87.1 Hypo-osmolality and hyponatremia; Z99.2 Dependence on renal dialysis; D63.1 Anemia in chronic kidney disease; M19.90 Unspecified osteoarthritis, unspecified site; R51 Headache; F03.90 Unspecified dementia, unspecified severity, without behavioral disturbance, psychotic disturbance, mood disturbance, and anxiety; E03.9 Hypothyroidism, unspecified; J44.9 Chronic obstructive pulmonary disease, unspecified; E66.01 Morbid (severe) obesity due to excess calories
CPT/HCPCS: 36415; 80048; 80053; 80061; 82550; 82746; 82977; 83036; 83735; 83880; 84100; 84443; 84484; 84550; 85025; 85610; 85730; 86140; 87081; 93005; 94003; 94150; 94664; 94760; J2405

== ENCOUNTER 2019-03-17 10:50 | Outpatient (CLI) | payer MEDICARE, OTHER ==
[~2019-03-17 10:50] MED LIST changes: +APRESOLINE100 MG ORAL
--- NOTE | 2019-03-17 15:44 | Diagnostic Imaging Report ---
Indication: Abdominal pain and vomiting Technique: Spiral acquisitions obtained through the abdomen and pelvis. Patient ingested oral contrast. No IV contrast utilized, per referring physician request.. Multiplanar reconstructions were generated. Total dose length product 798.36 mGycm. CTDIvol(s) 16.58 mGy. Dose reduction achieved using automated exposure control Comparison: 09/23/2016 Findings: The appendix is normal. There is colonic diverticulosis. No evidence of diverticulitis. No small bowel distention. No free or loculated intraperitoneal gas or fluid is evident. There is a small hiatal hernia. Distal esophagus and stomach otherwise unremarkable. There is a duodenal diverticulum again noted. No small bowel distention. Contrast is seen throughout the entirety of the small bowel and most of the colon. No small bowel wall thickening. Lack of IV contrast limits assessment of the solid organs. There is pneumobilia. This was not evident previously, but was noted on in the ERCP performed subsequent to prior CT scan. The bile ducts are smaller in caliber than previously. Previously suspected downstream common bile duct calculus is no longer evident. The gallbladder is much less distended than on the previous exam. The previously demonstrated gallstones are less evident on the current study. A lobulated 17 mm fluid attenuation cyst is again demonstrated at the tip of segment 6 of the liver. The remainder of the liver is unremarkable. The pancreas is unremarkable. The spleen demonstrates numerous subcentimeter low-attenuation lesions, as previously. The adrenals are unremarkable. Innumerable cysts are again seen involving both kidneys. Previously demonstrated large right interpolar region cyst has involuted. Numerous small retroperitoneal nodes are noted. The uterus is absent. No pelvic mass or adenopathy. Included lung bases demonstrate atelectatic changes bilaterally. There is a tiny fat-containing Bochdalek hernia on the left. The heart is mildly enlarged. The bones demonstrate degenerative spondylosis changes. Impression: No definite acute process Interval development of pneumobilia. This is presumably related to a biliary intervention performed on 09/25/2016. There is decreased caliber of the bile ducts as result Cholelithiasis, also previously demonstrated, less evident currently Colonic diverticulosis. No evidence of diverticulitis Bilateral polycystic kidneys, also previously described Subcentimeter low-attenuation splenic lesions, too small to characterize Borderline cardiomegaly Other findings as noted, including small left-sided fat-containing Bochdalek hernia, degenerative spondylosis changes, basilar pulmonary atelectatic changes, prior hysterectomy, right lobe liver cyst The CT scanner at [facility] is accredited by the [employer] and the scans are performed using protocols designed to limit radiation exposure to as low as reasonably achievable to attain images of sufficient resolution adequate for diagnostic evaluation.
== END 2019-03-17 12:50 | disposition home or self-care (01) ==
LOC: CAT 10:50
DX: R10.9 Unspecified abdominal pain (principal); R11.10 Vomiting, unspecified; I51.7 Cardiomegaly; K57.90 Diverticulosis of intestine, part unspecified, without perforation or abscess without bleeding; K80.20 Calculus of gallbladder without cholecystitis without obstruction; M47.9 Spondylosis, unspecified; N28.1 Cyst of kidney, acquired; K46.9 Unspecified abdominal hernia without obstruction or gangrene; Z90.710 Acquired absence of both cervix and uterus; K76.89 Other specified diseases of liver
CPT/HCPCS: 74176

== ENCOUNTER → 2019-09-29 | Outpatient (CLI) | payer MEDICARE, OTHER ==
--- NOTE | 2019-09-29 11:54 | Diagnostic Imaging Report ---
Indication: Back pain Technique: Continuous helical transaxial imaging of the lumbar spine was obtained. Coronal 2-D reformats were also obtained. Study obtained in a Siemens sensation [address] Total Dose length Product (DLP): 268.[address] Dose Index Volume (CTDIvol): 9.2 mGy Comparison: None Findings: Alignment is normal. There is no fracture identified. Bones are osteopenic. Multilevel loss of disc height with vacuum phenomena demonstrated. This is associated with circumferential vertebral endplate osteophytes and moderate hypertrophy of the facets multiple levels. At L4-5, the central canal is moderately narrow. There is bilateral foraminal stenosis present. L3-4 likely shows a central canal that is narrowed. There is foraminal stenosis bilaterally. L5-S1 also shows bilateral foraminal stenosis. Aorta is moderately calcified. IMPRESSION: No acute injury appreciated. Degenerative changes of the lumbar spine as described above. This may be better evaluated with MRI. Arterial vascular disease The CT scanner at [facility] is accredited by the [employer] and the scans are performed using dose optimization techniques as appropriate to a performed exam including Automatic Exposure control.
== END | disposition home or self-care (01) ==
LOC: CAT 09:48
DX: M54.9 Dorsalgia, unspecified (principal); I99.8 Other disorder of circulatory system; M85.80 Other specified disorders of bone density and structure, unspecified site
CPT/HCPCS: 72131